=== PATIENT | male | born 1965 | race Caucasian/White ===

== ENCOUNTER 2016-07-29 08:53 | Emergency (ER) | payer BC, OTHER ==
[2016-07-29 09:00] VITALS: TEMP 97.6; BMI 33.0
[2016-07-29] MEDS ORDERED: KETOROLAC TROMETHAMINE 30 MG/1 ML VIAL IVPUSH ONE (09:06)
[2016-07-29] MEDS ORDERED: KETOROLAC TROMETHAMINE 30 MG/1 ML VIAL ONE (09:07)
--- NOTE | 2016-07-29 09:18 | PDOC ---
History of Present Illness - General Chief Complaint: Pain, Acute Stated Complaint: RIGHT KNEE PAIN Time Seen by Provider: 07/29/16 09:01 - History of Present Illness Initial Comments: 07/29/16 09:10 51-year-old male with a negative past medical history He is on no medications at this time, NKDA Patient works for the [employer] department, and this morning was on the job, picking up trash, when he slipped on black ice He fell and landed directly on his right knee He is complaining of severe right knee pain and swelling He denies any head trauma or loss of consciousness He denies any other injury She denies any ankle pain or hip pain He denies any calf pain He denies any other injury, and is complaining of severe right knee pain Past History - Past Medical History Allergies/Adverse Reactions: Allergies Allergy/AdvReac Type Severity Reaction Status Date / Time No Known Allergies Allergy Verified 07/29/16 08:54 Home Medications: Ambulatory Orders Amlodipine Besylate [Norvasc -] 5 mg PO DAILY #30 tablet 07/29/16 Lisinopril [Prinivil] 10 mg PO DAILY #30 tablet 07/29/16 Anemia: No Asthma: No Cancer: No Cardiac Disorders: No CVA: No COPD: No CHF: No Dementia: No Diabetes: No GI Disorders: No Disorders: No HTN: No Hypercholesterolemia: No Liver Disease: No Seizures: No Thyroid Disease: No Other medical history: DENIES - Psycho/Social/Smoking Cessation Hx Anxiety: No Suicidal Ideation: No Smoking Status: No Smoking History: Current every day smoker Have you smoked in the past 12 months: Yes Number of Cigarettes Smoked Daily: 5 Information on smoking cessation initiated: Yes 'Breaking Loose' booklet given: 07/29/16 Hx Alcohol Use: No Drug/Substance Use Hx: No Substance Use Type: None Hx Substance Use Treatment: No *Physical Exam - Vital Signs Last Vital Signs Temp Pulse Resp BP Pulse Ox 97.6 F 18 L 95 H 232/153 98 07/29/16 08:54 07/29/16 08:54 07/29/16 08:54 07/29/16 08:54 07/29/16 08:54 - Physical Exam Comments: 07/29/16 09:11 Physical exam Last Vital Signs Temp Pulse Resp BP Pulse Ox 97.6 F 18 L 95 H 232/153 98 07/29/16 08:54 07/29/16 08:54 07/29/16 08:54 07/29/16 08:54 07/29/16 08:54 Patient is in severe pain Alert and answering questions, head is normocephalic and atraumatic Right lower extremity- There is full range of motion of the right hip and right ankle There is no right calf tenderness There is bruising on the knee The quad tendon appears intact, and the patellar tendon appears intact There is tenderness stressing the medial collateral ligament There is no tenderness stressing the lateral collateral ligament There is a negative anterior draw sign There is some mild tenderness on the medial meniscus line There is no tenderness on the lateral meniscus line There is passive full range of motion of the knee, and patient is able to straighten the knee completely Distal neurovascular intact, Achilles tendon intact GENERAL: The patient is awake, alert, and fully oriented, and in no apparent distress. HEAD: Normal with no signs of trauma. EYES: conjunctiva are normal. ENT: Moist mucous membranes. NECK: Normal range of motion, supple LUNGS: Breath sounds equal, clear to auscultation bilaterally. No wheezes, and no crackles. HEART: Regular rate and rhythm, normal S1 and S2 without murmur, rub or gallop. ABDOMEN: Soft, nontender, normoactive bowel sounds. No guarding, no rebound. No masses appreciated. EXTREMITIES: Right lower extremity exam as noted above NEUROLOGICAL: Alert and answering questions, grossly nonfocal neurologic exam PSYCH: Normal mood, normal affect. SKIN: Warm, Dry, ED Treatment Course - LABORATORY CBC & Chemistry Diagram: 07/29/16 10:07 07/29/16 10:00 - RADIOLOGY Radiology Studies Ordered: Category Date Time Status FEMUR-RIGHT [RAD] Stat Radiology 07/29/16 09:07 Ordered KNEE 3 POS-RIGHT [RAD] Stat Radiology 07/29/16 09:07 Ordered Medical Decision Making - Medical Decision Making 07/29/16 09:18 Knee contusion, internal derangement of the knee Will need to recheck blood pressure when pain is under control-patient states that he has no known history of hypertension 07/29/16 09:57 Repeat blood pressure with pain improving-still very high-will start accelerated hypertension protocol Patient denies any chest pain, chest discomfort, shortness of breath, ankle edema, focal neurologic complaints, or any other complaints at this time other than his severe right knee pain from his acute injury Vital Signs - 24 hr 07/29/16 07/29/16 08:54 09:43 Temperature 97.6 F Pulse Rate 18 L Pulse Rate [ 100 H Apical] Respiratory 95 H 16 Rate Blood Pressure 232/153 Blood Pressure 224/148 [Left Arm] O2 Sat by Pulse 98 97 Oximetry (%) 07/29/16 11:16 Right knee series, and right femur series There is milder DJD, but there is no gross acute fracture or dislocation There is a crescent shaped density along the superior margin of the fibula on the lateral view only, suggestive of an old evulsion fracture Otherwise negative Of note, on the March 2016 that visit to the emergency department, his blood pressure was 187/136, indicating most likely long-standing untreated hypertension Patient given 10 mg of labetalol IV, and oral low dose lisinopril (10mg, K is 3.1), and then later amlodipine EKG Normal sinus rhythm 88, left axis deviation -44 Normal AV and IV conduction time There is a prolonged QT, with a QTC of 520 There is LVH by voltage criteria There are lateral T-wave inversions in 1, L, V5, and V6 There are other nonspecific ST-T wave abnormalities There is no old EKG available for comparison at this time Laboratory Results - last 24 hr 07/29/16 07/29/16 07/29/16 10:00 10:07 10:07 WBC 8.3 RBC 4.83 Hgb 15.0 Hct 43.9 MCV 91.0 MCHC 34.1 RDW 12.7 Plt Count 97 L MPV 10.5 Sodium 138 Potassium 3.1 L Chloride 97 L Carbon Dioxide 31 H Anion Gap 10 BUN 31 H Creatinine 2.2 H Creat Clearance w eGFR 31.84 Random Glucose 116 H Calcium 8.5 Total Bilirubin 1.0 AST 30 ALT 22 Alkaline Phosphatase 76 Creatine Kinase 253 H CK-MB (CK-2) Rel Index 1.4 Troponin I 0.13 Total Protein 6.1 L Albumin 3.8 Abnormal EKG, no chest pain, first troponin 0.13 BUN 31/creatinine 2.2, with an estimated GFR of 31 Vital Signs - 24 hr 07/29/16 07/29/16 07/29/16 08:54 09:43 10:20 Temperature 97.6 F Pulse Rate 18 L Pulse Rate [ 100 H 84 Apical] Respiratory 95 H 16 18 Rate Blood Pressure 232/153 Blood Pressure 224/148 256/166 [Left Arm] O2 Sat by Pulse 98 97 99 Oximetry (%) 07/29/16 07/29/16 10:40 10:55 Temperature Pulse Rate Pulse Rate [ 68 81 Apical] Respiratory 16 Rate Blood Pressure Blood Pressure 211/133 188/121 [Left Arm] O2 Sat by Pulse 100 Oximetry (%) Blood pressure starting to come down with meds will admit/place in observation accelerated hypertension-with evidence of end organ damage Internal derangement of right knee 07/29/16 11:40 Patient refuses admission to the hospital and wants to sign out AMA I explained to him that he has severe hypertension, probably long-standing based on the prior blood pressure in 04/03, with evidence of end organ damage As well as an abnormal EKG, and abnml labwork I explained to him that he could go into kidney failure, have a heart attack, or Patient absolutely refuses admission and states that he has "important things ( he) needs to do" Patient has decided to leave AMA The patient had a normal mental status examination, and understands his/her condition, and the risk of leaving (include specific details), including permanent disability and/or . The patient has had an opportunity to ask questions about his/her medical condition. The patient has been informed that he/she may return for care at any time, and has been referred to his/her own physician Started patient on lisinopril 10 mg-low-dose -due to his CKD - starting potassium 3.1 Also started patient on amlodipine 10 mg daily Regarding the severe hypertension- Stressed the importance of taking both blood pressure medications daily, and seeing a primary care physician [facility] for close follow-up Referred patient to primary care physician Regarding the knee-patient has seen Dr. Dickinson and Jose in the past, will go over to their office now Patient signed out AGAINST MEDICAL ADVICE *DC/Admit/Observation/Transfer Diagnosis at time of Disposition: Accelerated hypertension, Abnormal EKG, Abnormal blood test, Internal derangement of knee, Acute knee pain - Discharge Dispostion Disposition: AGAINST MEDICAL ADVICE Condition at time of disposition: Stable - Prescriptions Prescriptions: Amlodipine Besylate [Norvasc -] 5 mg PO DAILY #30 tablet Lisinopril [Prinivil] 10 mg PO DAILY #30 tablet - Referrals Referrals: Tariq Garcia MD [Staff Physician] - (orthopedics) Anastacio Del Cid MD [Staff Physician] - Jozef Fuentes MD [Staff Physician] - - Patient Instructions Printed Discharge Instructions: How to Use Crutches, High Blood Pressure, Reasons to Quit Smoking Additional Instructions: You are leaving AGAINST MEDICAL ADVICE-you are understand that you're EKG is abnormal, and you have evidence of end organ damage from your blood pressure being so high You understand that complications may include kidney failure, stroke, heart attack, or Please take your lisinopril and amlodipine daily, as prescribed Crutches, ice packs, and elevation for your knee, you are to go directly to Dr. Garcia's office now I spoke to Dahiana in the office Call the 2 primary care doctors I suggested, you need to be seen [facility] for your blood pressure - Post Discharge Activity Work/School Note: Back to Work
[2016-07-29] MEDS ORDERED: LABETALOL HCL 5 MG/1 ML (100MG/20 ML VIAL) IVPUSH ONE (09:58)
[2016-07-29] MEDS ORDERED: LISINOPRIL 10 MG TABLET (FP) PO ONE (09:58)
[2016-07-29] MEDS ORDERED: LABETALOL HCL 5 MG/1 ML (100MG/20 ML VIAL) ONE (10:10)
[2016-07-29] MEDS ORDERED: LISINOPRIL 5 MG TABLET (FP) ONE (10:10)
[2016-07-29 10:21] LABS: MCHC 34.1 g/dl (32.0-35.9); MEAN PLT VOLUME 10.5 fl (7.5-11.1); PLATELET COUNT 97 K/MM3 (134-434); RDW 12.7 % (11.9-15.9); WHITE BLOOD COUNT 8.3 K/mm3 (4.0-10.0)
[2016-07-29 10:45] LABS: ALBUMIN 3.8 g/dl (3.5-5.0); CALCIUM 8.5 mg/dl (8.4-10.2); CREATININE 2.2 mg/dl (0.6-1.3); TOT PROT 6.1 g/dl (6.4-8.3)
[2016-07-29 11:04] LABS: TROPONIN I (DFP) 0.13 ng/ml (0.03-0.50)
[2016-07-29] MEDS ORDERED: amLODIPine BESYLATE 5 MG TABLET (FP) PO ONE (11:15)
[2016-07-29] MEDS ORDERED: amLODIPine BESYLATE 5 MG TABLET (FP) ONE (11:31)
[2016-07-29 11:37] VITALS: BP 188/115; PULSE 73
--- NOTE | 2016-07-29 15:53 | EKG ---
Test Reason : Blood Pressure : / mmHG Vent. Rate : 088 BPM Atrial Rate : 088 BPM P-R Int : 152 ms QRS Dur : 102 ms QT Int : 430 ms P-R-T Axes : 027 -44 136 degrees QTc Int : 520 ms NORMAL SINUS RHYTHM POSSIBLE LEFT ATRIAL ENLARGEMENT LEFT AXIS DEVIATION LEFT VENTRICULAR HYPERTROPHY T WAVE ABNORMALITY, CONSIDER LATERAL ISCHEMIA WHEN COMPARED WITH ECG OF 28-JUN-2013 15:09, ST NOW DEPRESSED IN LATERAL LEADS T WAVE INVERSION NOW EVIDENT IN ANTEROLATERAL LEADS QT HAS LENGTHENED Confirmed by MD JUANCARLOS, HIPOLITO ([id number]) on 07/29/2016 3:52:56 PM Referred By: DR SORIA Confirmed By:HIPOLITO BAUER MD
[2016-08-01 13:12] LABS: CK MB 3.6 ng/ml (0.3-4.0)
== END 2016-07-29 11:56 | disposition left against medical advice (07) ==
LOC: FER 08:53
PROC: 3E0333Z Introduction of Anti-inflammatory into Peripheral Vein, Percutaneous Approach (ICD-10-PCS; principal; 2016-07-29)
PROC: 3E033GC Introduction of Other Therapeutic Substance into Peripheral Vein, Percutaneous Approach (ICD-10-PCS; 2016-07-29)
DX: M23.91 Unspecified internal derangement of right knee (principal); R79.89 Other specified abnormal findings of blood chemistry; R94.31 Abnormal electrocardiogram [ECG] [EKG]; I10 Essential (primary) hypertension; F17.210 Nicotine dependence, cigarettes, uncomplicated
CPT/HCPCS: 36415; 73552-TC-RT; 73562-TC-RT; 80053; 82550; 82553; 84484; 85027; 93005; 99285-25

== ENCOUNTER 2017-01-23 00:38 | Inpatient (IN) | payer BC ==
[2017-01-23] MEDS ORDERED: cloNIDine HCL 0.1 MG TABLET PO ONE ×3 (00:49→05:40)
--- NOTE | 2017-01-23 00:49 | PDOC ---
History of Present Illness - General Chief Complaint: Shortness of Breath Stated Complaint: FEELING SOB AND ANXIOUS Time Seen by Provider: 01/23/17 00:42 History Source: Patient Exam Limitations: No Limitations - History of Present Illness Initial Comments: 01/23/17 00:44 This is a more obese sedentary male with history of heavy cigarette use who comes in complaining of shortness of breath. Patient said that he does not have a doctor does not follow-up with the doctor does not take any medications however in the computer. He is listed as taking medication for hypertension. Patient on arrival in the emergency room was noted to have markedly elevated blood pressure. Patient denies any chest pain. Patient is complaining that when he tries to lie down he becomes very short of breath and has to get up again. Patient denies any nausea, diaphoresis, abdominal pain. Patient does have a history of anxiety and does appear to be anxious. PAST MEDICAL HISTORY: no significant history PAST SURGICAL HISTORY: no significant history FAMILY HISTORY: no pertinant history SOCIAL HISTORY: Pt lives with family and is employed. MEDICATIONS: reviewed ALLERGIES: As per nursing notes Review of Systems General: No fevers or chills, no weakness, no weight loss HEENT: No change in vision. No sore throat,. No ear pain CardioVascular: No chest pain or shortness of breath Respiratory:No cough, or wheezing. Gastrointestinal: no nausea, vomitting, diarrhea or constipation, No rectal bleeding Genitourinary: No dysuria, hematuria, or frequency Musculoskeletal: No joint or muscle pain or swelling Neurologic: No headache, vertigo, dizziness or loss of consciousness Psychiatric: nor depression Skin: No rashes or easy bruising Endocrine: no increased thirst or abnormal weight change Allergic: no skin or latex allergy All other systems reviewed and normal Exam: General: Well-nourished well-developed individual, no acute distress HEENT: Throat: Normal, tonsils normal, no erythema or exudate Neck: Supple, no meningeal signs, no lymphadenopathy Eyes::Pupils equal reactive and round, extraocular motion intact Chest: Nontender to palpation Cardiac: S1-S2 normal, regular rate and rhythm, no murmurs rubs or gallops Respiratory: Breath sounds are equal bilateral with rales bilateral bases Abdomen: Soft, nondistended, normal bowel sounds, nontender to palpation diffusely Extremities: Warm, dry, no cyanosis, clubbing, or edema Skin: No rashes Neuro: Alert and oriented x3, nonfocal exam, grossly intact, normal gait Psych: Normal mood and affect Medical decision making this is a 51-year-old obese male with history of hypertension who is non-med compliant. Patient's blood pressure is markedly elevated here in the emergency room and on exam he has some rales bilateral Patient's blood pressure will be lowered with by mouth medication clonidine 0.3 Labs including cardiacs, CBC, comp and BNP sent Chest x-ray ordered and EKG ordered Patient not given beta lorraine for his hypertension as he has history of asthma. Patient will need to be admitted to an inpatient telemetry bed Chest x-ray moderate amount of congestive heart failure. Patient given 40 mg of Lasix IV EKG shows sinus tachycardia at a rate of 103 with biatrial enlargement and left ventricular hypertrophy in addition to that there is some T's laterally concerning for some lateral ischemia. Troponin is positive and mildly elevated at 0.59. Patient's BNP is markedly elevated at 20,149. ICU bed was considered however in discussion with the box lining machine operator Dr. Sarmiento felt that patient would be stable to go to a regular telemetry bed. A telemetry bed [facility] is considered however there is no telemetry beds available. The patient's blood pressure is improving. Patient has no chest pain and no other complaints. There is a telemetry bed here at [place] patient will be put in a telemetry bed here at [place] under the hospitalist service. Past History - Past Medical History Allergies/Adverse Reactions: Allergies Allergy/AdvReac Type Severity Reaction Status Date / Time No Known Allergies Allergy Verified 01/23/17 00:39 Home Medications: Ambulatory Orders NK [No Known Home Medication] 01/23/17 Anemia: No Asthma: No Cancer: No Cardiac Disorders: No CVA: No COPD: No CHF: No Dementia: No Diabetes: No GI Disorders: No Disorders: No HTN: No Hypercholesterolemia: No Liver Disease: No Seizures: No Thyroid Disease: No - Psycho/Social/Smoking Cessation Hx Anxiety: No Suicidal Ideation: No Smoking Status: No Smoking History: Current every day smoker Have you smoked in the past 12 months: Yes Number of Cigarettes Smoked Daily: 5 'Breaking Loose' booklet given: 07/29/16 Hx Alcohol Use: No Drug/Substance Use Hx: No Substance Use Type: None Hx Substance Use Treatment: No ED Treatment Course - LABORATORY CBC & Chemistry Diagram: 01/23/17 00:45 01/23/17 00:45 Medical Decision Making - Critical Care Time Total Critical Care Time (minutes): 45 Critical Care Statement: The care of this patient involved high complexity decision making to prevent further life threatening deterioration of the patient 's condition and/or to evalute & treat vital organ system(s) failure or risk of failure. *DC/Admit/Observation/Transfer Diagnosis at time of Disposition: Hypertension Qualifiers: Hypertension type: unspecified Qualified Code(s): I10 - Essential (primary) hypertension CHF (congestive heart failure) Qualifiers: Congestive heart failure type: combined Congestive heart failure chronicity: unspecified congestive heart failure chronicity Qualified Code(s): I50.40 - Unspecified combined systolic (congestive) and diastolic (congestive) heart failure - Discharge Dispostion Condition at time of disposition: Stable Admit: Yes
[2017-01-23] MEDS ORDERED: cloNIDine HCL 0.1 MG TABLET ONE (00:50)
[2017-01-23] MEDS ORDERED: FUROSEMIDE 40 MG/4 ML INJECTABLE VIAL IVPUSH ONE (01:26)
[2017-01-23] MEDS ORDERED: FUROSEMIDE 40 MG/4 ML INJECTABLE VIAL ONE (01:26)
[2017-01-23 01:30] LABS: BASOPHIL 0.4 % (0-2.0); EOSINOPHIL 1.5 % (0-4.5); MCHC 34.8 g/dl (32.0-35.9); MEAN PLT VOLUME 10.3 fl (7.5-11.1); NEUTROPHILS 74.3 % (42.8-82.8); PLATELET COUNT 105 K/MM3 (134-434); RDW 14.1 % (11.9-15.9); WHITE BLOOD COUNT 11.8 K/mm3 (4.0-10.0)
[2017-01-23 01:33] LABS: URINE APPEARANCE CLEAR; URINE BILIRUBIN NEGATIVE (NEGATIVE); URINE BLOOD NEGATIVE (NEGATIVE); URINE COLOR LTYELLOW; URINE GLUCOSE (UA) NEGATIVE (NEGATIVE); URINE KETONE NEGATIVE (NEGATIVE); URINE LEUK ESTERASE NEGATIVE (NEGATIVE); URINE NITRITE NEGATIVE (NEGATIVE); URINE UROBILINOGEN NEGATIVE mg/dL (0.2-1.0)
[2017-01-23 01:43] LABS: URINE PROTEIN 3+ (NEGATIVE)
[2017-01-23 01:44] LABS: URINE RBC <1 /hpf (0-3); URINE WBC 1 /hpf (3-5)
[2017-01-23 01:54] LABS: ALBUMIN 3.4 g/dl (3.4-5.0); ANION GAP 10 (8-16); BILIRUBIN,TOTAL 0.9 mg/dL (0.2-1.0); CALCIUM 8.1 mg/dL (8.5-10.1); CO2 32 mmol/L (21-32); CREATININE 3.4 mg/dL (0.7-1.3); GLUCOSE,RANDOM 118 mg/dL (74-106); SGOT/AST 34 U/L (15-37); SGPT/ALT 43 U/L (12-78); TOT PROT 6.1 g/dl (6.4-8.2)
[2017-01-23 01:55] LABS: ALK PHOS 96 U/L (45-117)
[2017-01-23 02:09] LABS: TROPONIN I 0.59 ng/ml (0.00-0.05)
[2017-01-23] MEDS ORDERED: ALPRAZolam 0.25 MG TABLET PO STA (02:43)
[2017-01-23] MEDS ORDERED: ALPRAZolam 0.25 MG TABLET ONE (02:44)
[2017-01-23] MEDS ORDERED: POTASSIUM CHLORIDE TABS 20 MEQ TABLET.ER (FP) PO ONE (02:56)
[2017-01-23] MEDS ORDERED: ASPIRIN 81 MG CHEWABLE TABLETS PO ONE (02:57)
[2017-01-23] MEDS ORDERED: amLODIPine BESYLATE 5 MG TABLET (FP) PO ONE (02:58)
[2017-01-23] MEDS ORDERED: ASPIRIN 325 MG TABLET ONE (03:01)
[2017-01-23 05:09] VITALS: BMI 33.1
--- NOTE | 2017-01-23 07:55 | HP ---
CHIEF COMPLAINT: chest pain and shortness of breath PCP: "I don't have a doctor" HISTORY OF PRESENT ILLNESS: patient is a 51y/o male with a past medical history of hypertension (no medication) and hyperlipidemia (no medication). Patient report last week he experienced on episode of lightheadedness, diaphoresis, and chest pressure, while at work. Patient reports the symptoms resides subsided on its own and he attributed his symptoms to dehydration due to the heat and did not seek medical attention. Patient reports increased dyspnea upon exertion and orthopnea within the past week. Yesterday, evening he developed chest pressure and shortness of breath, as result he sought evaluaiton in the emergency department. ER course was notable for: (1) b/p 254/133 spo2 90% on room air (2) bnp 17755 troponin x 1 0.59 (3) chest xray, pulmonary vascular congestion (4) ekg sinus tachycardia, left axis deviation, t wave flattening Recent Travel: none PAST MEDICAL HISTORY: hypertension and hyperlipidemia PAST SURGICAL HISTORY: orif of left ankle Social History: resides at home with mother, pt is , employed [employer] at [employer] Smokin 1/2 pack a day smoker for 5 years quit one month a ago. Alcohol: social Drugs: none Family History: mother 80y/o alive and well, htn, hld father dementia Allergies No Known Allergies Allergy (Verified 01/23/17 00:39) HOME MEDICATIONS: Home Medications Medication Instructions Recorded NK [No Known Home Medication] 01/23/17 REVIEW OF SYSTEMS CONSTITUTIONAL: Absent: fever, chills, diaphoresis, generalized weakness, malaise, loss of appetite, weight change HEENT: Absent: rhinorrhea, nasal congestion, throat pain, throat swelling, difficulty swallowing, mouth swelling, ear pain, eye pain, visual changes CARDIOVASCULAR: Absent: chest pain, syncope, palpitations, irregular heart rate, lightheadedness , peripheral edema RESPIRATORY: Present: shortness of breath, dyspnea with exertion, orthopnea Absent: cough, wheezing, stridor, hemoptysis GASTROINTESTINAL: Absent: abdominal pain, abdominal distension, nausea, vomiting, diarrhea, constipation, melena, hematochezia GENITOURINARY: Absent: dysuria, frequency, urgency, hesitancy, hematuria, flank pain, genital pain MUSCULOSKELETAL: Absent: myalgia, arthralgia, joint swelling, back pain, neck pain SKIN: Absent: rash, itching, pallor HEMATOLOGIC/IMMUNOLOGIC: Absent: easy bleeding, easy bruising, lymphadenopathy, frequent infections ENDOCRINE: Absent: unexplained weight gain, unexplained weight loss, heat intolerance, cold intolerance NEUROLOGIC: Absent: headache, focal weakness or paresthesias, dizziness, unsteady gait, seizure, mental status changes, bladder or bowel incontinence PSYCHIATRIC: Absent: anxiety, depression, suicidal or homicidal ideation, hallucinations. PHYSICAL EXAMINATION Vital Signs - 24 hr 01/23/17 01/23/17 01/23/17 03:18 03:30 04:52 Temperature 98.7 F 98.7 F Pulse Rate 90 90 Respiratory 20 20 Rate Blood Pressure 190/120 190/120 Blood Pressure 187/116 [Right] O2 Sat by Pulse 97 Oximetry (%) 01/23/17 01/23/17 01/23/17 05:23 05:24 06:15 Temperature 98.4 F Pulse Rate 96 H 96 H 94 H Respiratory 20 18 18 Rate Blood Pressure 204/130 Blood Pressure [Right] O2 Sat by Pulse Oximetry (%) 01/23/17 06:50 Temperature Pulse Rate 98 H Respiratory Rate Blood Pressure 185/125 Blood Pressure [Right] O2 Sat by Pulse Oximetry (%) GENERAL: Awake, alert, and fully oriented, in no acute distress. HEAD: Normal with no signs of trauma. EYES: Pupils equal, round and reactive to light, extraocular movements intact, sclera anicteric, conjunctiva clear. No lid lag. EARS, NOSE, THROAT: Ears normal, nares patent, oropharynx clear without exudates. Moist mucous membranes. NECK: Normal range of motion, supple without lymphadenopathy, + JVD, or masses. LUNGS: Breath sounds equal, clear to auscultation bilaterally to apexes, No wheezes, + crackles and rales bilaterally to bases, No accessory muscle use. HEART: Regular rate and rhythm, normal S1 and S2, 2/6 systolic murmur, no rub or gallop. ABDOMEN: Soft, nontender, not distended, normoactive bowel sounds, no guarding, no rebound, no masses. + hepatomegaly negative splenomegaly. MUSCULOSKELETAL: Normal range of motion at all joints. No bony deformities or tenderness. No CVA tenderness. UPPER EXTREMITIES: 2+ pulses, warm, well-perfused. No cyanosis. No clubbing. No peripheral edema. LOWER EXTREMITIES: 2+ pulses, warm, well-perfused. No calf tenderness. +1 bilateral lower extremity edema. NEUROLOGICAL: Cranial nerves II-XII intact. Normal speech. Normal gait. PSYCHIATRIC: Cooperative. Good eye contact. Appropriate mood and affect. SKIN: Warm, dry, normal turgor, no rashes or lesions noted, normal capillary refill. ASSESSMENT/PLAN: 1) card acute systolic congestive heart failure - increase lasix 40mg IV BID - monitor I/O and daily weight - stat echo elevated troponin - unlikely acs, repeat ekg unchanged from prior, lopressor 5mg iv x 1 ordered - pending 2nd and 3rd troponin, hyperlipidemia - pending lipid profile hypertension - pt reports diagnosis of htn since the age of 21, no home medications - clonodine given in ED, start coreg and 1inch nitropaste to [facility] - Dr Oh, cardiology consulted at bedside 2) neph acute on chronic kidney disease - creatine 3.4 baseline 1.3, likely secondary to vascular congestion vs uncontrolled hypertension - pending ultrasound of kidney and bladder - appreciate nephrology input f/e/n - low sodium diet - replete potassium ppx - heparin - zantac - oob - scd dispo: requires inpatient telemetry care Problem List - Problem (1) CHF (congestive heart failure) Code(s): I50.9 - HEART FAILURE, UNSPECIFIED Qualifiers: Congestive heart failure type: combined Congestive heart failure chronicity: unspecified congestive heart failure chronicity Qualified Code(s ): I50.40 - Unspecified combined systolic (congestive) and diastolic (congestive ) heart failure (2) Hypertension Code(s): I10 - ESSENTIAL (PRIMARY) HYPERTENSION Qualifiers: Hypertension type: unspecified Qualified Code(s): I10 - Essential ( primary) hypertension (3) Accelerated hypertension Code(s): I10 - ESSENTIAL (PRIMARY) HYPERTENSION (4) Elevated troponin Code(s): R74.8 - ABNORMAL LEVELS OF OTHER SERUM ENZYMES Visit type - Emergency Visit Emergency Visit: Yes ED Registration Date: 01/23/17 Care time: The patient presented to the Emergency Department on the above date and was hospitalized for further evaluation of their emergent condition. - New Patient This patient is new to me today: Yes Date on this admission: 01/23/17 - Critical Care Critical Care patient: Yes Total Critical Care Time (in minutes): 45 Critical Care Statement: The care of this patient involved high complexity decision making to prevent further life threatening deterioration of the patient 's condition and/or to evalute & treat vital organ system(s) failure or risk of failure.
[2017-01-23] MEDS ORDERED: METOPROLOL TARTRATE 5 MG/5 ML VIAL IVPUSH ONE ×2 (08:30→19:09)
--- NOTE | 2017-01-23 08:42 | CON.CARD ---
Consult Consult Specialty:: Cardiology Referred by:: Dr. Novoa Reason for Consultation:: CHF, HTN - History of Present Illness Chief Complaint: SOB History of Present Illness: 51 yo obese male with long standing history of HTN (on no meds, and has not seen a physician for a "long time") and former smoker (quit 1 month ago), who was admitted with worsening dyspnea over the past several weeks which he attributed to "quitting smoking 1 month ago." He was found to be hypertensive with SBP 200s. He was given clonidine, furosemide, and dose of amlodipine 5 mg po x1 in ED. Currently denies chest pain, but continues to report dyspnea. Patient was also found to be in renal failure with Cr 3.4 today (Cr 2.2 on ). CXR demonstrated pulmonary vascular congestion with BNP ~ 20,000. No ischemic ECG changes on initial ECG. Repeat ECG this AM at 8:45 demonstrated LVH with associated ST-T abnormalities. Initial trop 0.59 with normal CK. - History Source History Provided By: Patient Limitations to Obtaining History: No Limitations - Past Medical History Cardio/Vascular: Yes: HTN Renal/: Yes: Renal Failure (Cr 2.2 in 07/2016, suspect due to hypertensive disease) - Past Surgical History Additional Surgical History: Right ankle fracture ORIF 06/2013 at [facility] - Alcohol/Substance Use Hx Alcohol Use: No History of Substance Use: reports: None - Smoking History Smoking history: Former smoker (Quit 1 month ago) Have you smoked in the past 12 months: Yes Aproximately how many cigarettes per day: 5 If you are a former smoker, when did you quit?: 1 MONTH AGO Home Medications - Allergies Allergies/Adverse Reactions: Allergies Allergy/AdvReac Type Severity Reaction Status Date / Time No Known Allergies Allergy Verified 01/23/17 00:39 - Home Medications Home Medications: Ambulatory Orders NK [No Known Home Medication] 01/23/17 Family Disease History - Family Disease History Family History: Denies (sudden cardiac or premature CAD) Review of Systems - Review of Systems Constitutional: denies: Chills, Diaphoresis, Fever, Night Sweats, Unintentional Wgt. Loss Eyes: reports: No Symptoms HENT: reports: No Symptoms Neck: reports: No Symptoms Cardiovascular: reports: Shortness of Breath. denies: Chest Pain, Edema, Palpitations Respiratory: reports: SOB, SOB on Exertion Gastrointestinal: reports: No Symptoms Genitourinary: reports: No Symptoms Breasts: reports: No Symptoms Reported Musculoskeletal: reports: No Symptoms Integumentary: reports: No Symptoms Neurological: reports: No Symptoms Endocrine: reports: No Symptoms Hematology/Lymphatic: reports: No Symptoms Psychiatric: reports: No Symptoms Vital Signs: Vital Signs Temperature 98.4 F 01/23/17 06:15 Pulse Rate 98 H 01/23/17 06:50 Respiratory Rate 18 01/23/17 06:15 Blood Pressure 185/125 01/23/17 06:50 O2 Sat by Pulse Oximetry (%) 97 01/23/17 04:52 Constitutional: Yes: Well Nourished, No Distress, Obese Eyes: Yes: Conjunctiva Clear, EOM Intact HENT: Yes: Atraumatic, Normocephalic Respiratory: Yes: CTA Bilaterally Gastrointestinal: Yes: Normal Bowel Sounds, Soft, Abdomen, Obese. No: Tenderness Cardiovascular: Yes: Regular Rate and Rhythm JVD: No Carotid Bruit: No Heart Sounds: Yes: S1, S2 Murmur: No: Systolic Murmur Extremities: Yes: WNL Edema: No Peripheral Pulses WNL: No Neurological: Yes: Alert, Oriented, Cran Nerves II-XII Intact ...Motor Strength: WNL Psychiatric: Yes: WNL - Other Data 01/23/17 ECG (at 12:58 AM): Sinus tachycardia, rate 103 bpm, left atrial enlargement, LAD, non-specific ST-T changes. 01/23/17 ECG (at 8:45 AM): Sinus rhythm, rate 88 bpm, left atrial enlargement, LVH with associated ST-T repolarization abnormalities, prolonged QT Imaging - Results Chest X-ray: Report Reviewed (01/23/17: Pulmonary vasculature congestion), Image Reviewed Assessment/Plan 51 yo obese male with long standing uncontrolled HTN (on no meds), former smoker (quit 1 month ago), who was admitted with decompensated CHF and renal failure, which I suspect are both due to long standing uncontrolled HTN. C 3.4 today (Cr 2.2 on 07/29/16) CXR demonstrated pulmonary vascular congestion with BNP ~ 20,000. ECG today demonstrated LVH with associated ST-T abnormalities. Initial trop 0.59 with normal CK. Low suspicion for ACS, trop elevation due to CHF and renal failure. RECS: Continue diuresis with furosemide 40 mg IV bid. Adjust as needed. Monitor lytes and renal function with diuresis. Recommend renal consult. Echocardiogram to assess LV function and structural heart disease. Start carvedilol 6.25 mg po bid, hydralazine 25 mg po bid, and apply 1" NTG paste. Monitor BP and adjust meds as needed. Continue to cycle troponins. Pending results of echo and clinical course, will determine if further cardiac work-up or intervention is indicated as inpatient. Will continue to follow.
[2017-01-23] MEDS ORDERED: NITROGLYCERIN 2% OINTMENT - 1GM PACKET TD ONE (09:10)
[2017-01-23 09:22] LABS: CHOLESTEROL 176 mg/dl
[2017-01-23 09:37] LABS: ANION GAP 9 (8-16); CALCIUM 8.2 mg/dl (8.4-10.2); CO2 32 mmol/L (22-28); CREATININE 3.8 mg/dl (0.6-1.3); GLUCOSE,RANDOM 105 mg/dl (74-106)
[2017-01-23] MEDS: HEPARIN NA (PORCINE) 5,000 UNITS/ML 1ML VIAL SQ SCH ×3 (09:38→21:03)
[2017-01-23] MEDS ORDERED: CARVEDILOL 6.25 MG TABLET (FP) PO SCH (10:00)
[2017-01-23] MEDS ORDERED: hydrALAZINE HCL 25 MG TABLET (FP) PO SCH (10:00)
--- NOTE | 2017-01-23 10:15 | CONSULT ---
Consult Consult Specialty:: Nephrology Reason for Consultation:: ALEXANDRA - History of Present Illness Chief Complaint: shortness of breath History of Present Illness: Pt is a 51 year old male who presents to the ER with shortness of breath. Pt says he has never been to a doctor. He does not take any medications. He was found to be in hypertensive emergency and admitted to the hospital. I was called to evaluate him for elevated creatinine. He denies dysuria or hematuria. He denies lower extremity edema. He denies nsaid use. He lives a sedentary life. He eats mostly fast foods. He is under a great deal of stress at home as he takes care of his mother. He denies chest pain or palpitations. He does snore at night. - History Source History Provided By: Patient, Medical Record - Past Surgical History Additional Surgical History: Right ankle fracture ORIF 06/2013 at [facility] - Alcohol/Substance Use Hx Alcohol Use: No History of Substance Use: reports: None - Smoking History Smoking history: Former smoker (Quit 1 month ago) Have you smoked in the past 12 months: Yes Aproximately how many cigarettes per day: 5 If you are a former smoker, when did you quit?: 1 MONTH AGO Home Medications - Allergies Allergies/Adverse Reactions: Allergies Allergy/AdvReac Type Severity Reaction Status Date / Time No Known Allergies Allergy Verified 01/23/17 00:39 - Home Medications Home Medications: Ambulatory Orders NK [No Known Home Medication] 01/23/17 Family Disease History - Family Disease History Family History: Denies Review of Systems - Review of Systems Constitutional: reports: Malaise Eyes: reports: No Symptoms HENT: reports: No Symptoms Neck: reports: No Symptoms Cardiovascular: reports: Shortness of Breath. denies: Edema Respiratory: reports: SOB, SOB on Exertion Gastrointestinal: reports: No Symptoms Genitourinary: reports: No Symptoms Musculoskeletal: reports: No Symptoms Integumentary: reports: No Symptoms Neurological: reports: No Symptoms Endocrine: reports: No Symptoms Hematology/Lymphatic: reports: No Symptoms Psychiatric: reports: Anxiety Physical Exam Vital Signs: Vital Signs Temperature 98.4 F 01/23/17 06:15 Pulse Rate 88 01/23/17 08:29 Respiratory Rate 18 01/23/17 09:00 Blood Pressure 220/126 01/23/17 09:00 O2 Sat by Pulse Oximetry (%) 96 01/23/17 09:00 Constitutional: Yes: Anxious Eyes: Yes: Conjunctiva Clear HENT: Yes: Atraumatic Neck: Yes: Supple Cardiovascular: Yes: S1, S2 Respiratory: Yes: On Nasal O2 Gastrointestinal: Yes: Soft, Abdomen, Obese Renal/: Yes: WNL Musculoskeletal: Yes: WNL Edema: No Integumentary: Yes: Tattoos Neurological: Yes: Oriented Psychiatric: Yes: Oriented Labs: CBC, BMP 01/23/17 09:05 Laboratory Tests 01/23/17 01/23/17 01/23/17 00:45 00:55 09:05 WBC 11.8 H Hgb 13.8 D Plt Count 105 L D Sodium 136 Potassium 3.9 D Chloride 95 L Carbon Dioxide 32 H Anion Gap 9 BUN 50 H D Creatinine 3.8 H D Urine Protein 3+ H Imaging - Results Chest X-ray: Report Reviewed (cardiomegaly) Problem List - Problems (1) CHF (congestive heart failure) Code(s): I50.9 - HEART FAILURE, UNSPECIFIED Qualifiers: Congestive heart failure type: combined Congestive heart failure chronicity: unspecified congestive heart failure chronicity Qualified Code(s ): I50.40 - Unspecified combined systolic (congestive) and diastolic (congestive ) heart failure (2) Elevated troponin Code(s): R74.8 - ABNORMAL LEVELS OF OTHER SERUM ENZYMES (3) Accelerated hypertension Code(s): I10 - ESSENTIAL (PRIMARY) HYPERTENSION (4) ALEXANDRA (acute kidney injury) Code(s): N17.9 - ACUTE KIDNEY FAILURE, UNSPECIFIED Assessment/Plan Current Medications Generic Name Dose Route Start Last Admin Trade Name John PRN Reason Stop Dose Admin Carvedilol 12.5 mg 01/23/17 22:00 Coreg - PO BID LUIS Furosemide 40 mg 01/23/17 14:00 Lasix Injection - IVPUSH BID@0600,1400 [facility] Heparin Sodium (Porcine) 5,000 unit 01/23/17 09:45 01/23/17 09:38 Heparin - SQ 5,000 unit TID [facility] Administration Hydralazine HCl 50 mg 01/23/17 22:00 Apresoline - PO BID [facility] Laboratory Tests 06/28/13 07/29/16 01/23/17 14:50 10:00 00:45 Creatinine 1.3 2.2 H 3.4 H D 01/23/17 09:05 Creatinine 3.8 H D Impression 1. CKD 2. ALEXANDRA 3. CHF 4. obesity 5. elevated TNI 6. HTN accelerated Plan - check prt to mate first ration - check ultrasound kidneys and bladder to r/o obstruction - pt has had abnormal kidney function since at least Jul of this year - will check leticia and anca as well - recommend pt stay in a monitored unit - will need renal workup - pt received dose of lasix of congestion - check echo - decrease BP by a MAP of 25 percent - monitor blood pressure closely - avoid nsaids and nephrotoxins - pt will need a PMD in the community as well - pt does snore at night, recommend pulmonary for a sleep study to evaluate for IZABEL - discussed with hospitalist today Dr Shane
[2017-01-23] MEDS ORDERED: CARVEDILOL 6.25 MG TABLET (FP) PO STA (11:07)
[2017-01-23] MEDS ORDERED: hydrALAZINE HCL 25 MG TABLET (FP) PO STA (11:07)
--- NOTE | 2017-01-23 14:19 | EKG ---
Test Reason : Blood Pressure : / mmHG Vent. Rate : 095 BPM Atrial Rate : 095 BPM P-R Int : 152 ms QRS Dur : 106 ms QT Int : 420 ms P-R-T Axes : 037 -30 123 degrees QTc Int : 527 ms SINUS RHYTHM LEFT ATRIAL ENLARGEMENT LEFT AXIS DEVIATION POSSIBLE SEPTAL INFARCT , AGE UNDETERMINED LEFT VENTRICULAR HYPERTROPHY WITH REPOLARIZATION ABNORMALITY PROLONGED QT ABNORMAL ECG WHEN COMPARED WITH ECG OF 29-JUL-2016 10:13, Q wave in V1-2 Confirmed by MANUELA PULIDO MD ([id number] on 01/23/2017 2:18:44 PM Referred By: MANSOOR Confirmed By:MANUELA PULIDO MD
--- NOTE | 2017-01-23 14:19 | EKG ---
Test Reason : Blood Pressure : / mmHG Vent. Rate : 103 BPM Atrial Rate : 103 BPM P-R Int : 156 ms QRS Dur : 104 ms QT Int : 396 ms P-R-T Axes : 061 -34 120 degrees QTc Int : 518 ms SINUS TACHYCARDIA BIATRIAL ENLARGEMENT LEFT AXIS DEVIATION LEFT VENTRICULAR HYPERTROPHY WITH REPOLARIZATION ABNORMALITY ABNORMAL ECG WHEN COMPARED WITH ECG OF 29-JUL-2016 10:13, LVH is now present Confirmed by MANUELA PULIDO MD ([id number]) on 01/23/2017 2:19:25 PM Referred By: MD STEEL Confirmed By:MANUELA PULIDO MD
[2017-01-23] MEDS: FUROSEMIDE 40 MG/4 ML INJECTABLE VIAL IVPUSH SCH (15:00)
[2017-01-23] MEDS ORDERED: ACETAMINOPHEN 325 MG TABLET (FP) PO ONE (18:45)
[2017-01-23] MEDS: amLODIPine BESYLATE 10 MG TABLET (FP) PO SCH (20:29)
[2017-01-23 20:51] LABS: URINE CREATININE 72.4 mg/dL (20-370)
[2017-01-23] MEDS: hydrALAZINE HCL 50 MG TABLET (FP) PO SCH (21:03)
[2017-01-23] MEDS: ZOLPIDEM TARTRATE 5 MG TABLET PO PRN (21:03)
[2017-01-23] MEDS ORDERED: CARVEDILOL 12.5 MG TABLET (FP) PO SCH (22:00)
[2017-01-23] MEDS ORDERED: hydrALAZINE HCL 50 MG TABLET (FP) PO SCH (22:00)
[2017-01-23 22:21] LABS: TROPONIN I (DFP) 0.32 ng/ml (0.03-0.50)
--- NOTE | 2017-01-24 05:41 | CONSULT ---
Consult - text type - Consultation Consultation Note: CARDIOLOGY NO DYSPNEA. NO ANGINA. FEELS "MUCH BETTER." MEDICATIONS REVIEWED. AWAKE ALERT, LYING FLAT. BP 165/95. PULSE 80 REG AFEBRILE RR 18/MINUTE NO JVD FAINT CRACKLES RIGHT BASE. NO WHEEZE. S1 AND S2 NORMAL NO GALLOP. NO MURMUR AUDIBLE NO EDEMA TELEMETRY : SINUS RHYTHM. BUN 50 CREAT 3.8 IMPRESSION; WORKING DX HYPERTENSIVE CARDIOMYOPATHY DEPRESSED LEFT VENTRICULAR SYSTOLIC FUNCTION EJECTION FRACTION 40-45 % 02/02 ECHOCARDIOGRAM. CAN NOT RULE OUT ISCHEMIC HEART DISEASE. HYPERTENSION NOT ADEQUATELY CONTROLLED BUT IMPROVED FROM ADMISSION. REC: INCREASE COREG TO 25 MG BID. ADD ISORDIL. DISCONTINUE TELEMETRY. OUT PATIENT NON INVASIVE CARDIAC EVALUATION DIRECTED BY RENAL/INTERNAL MEDICINE
[2017-01-24] MEDS: FUROSEMIDE 40 MG/4 ML INJECTABLE VIAL IVPUSH SCH ×2 (06:44→14:30)
[2017-01-24] MEDS: hydrALAZINE HCL 50 MG TABLET (FP) PO SCH ×3 (06:44→21:16)
[2017-01-24] MEDS: HEPARIN NA (PORCINE) 5,000 UNITS/ML 1ML VIAL SQ SCH ×3 (06:44→21:17)
[2017-01-24 08:08] LABS: MCH 31.8 pg (25.7-33.7); MEAN CELL VOLUME 93.5 fl (80-96); MEAN PLT VOLUME 10.3 fl (7.5-11.1); PLATELET COUNT 108 K/MM3 (134-434)
[2017-01-24] MEDS: ISOSORBIDE DINITRATE 10 MG TABLET (FP) PO SCH ×3 (08:20→17:34)
[2017-01-24 08:34] LABS: ALBUMIN 3.7 g/dl (3.5-5.0); ALK PHOS 66 U/L (32-92); ANION GAP 10 (8-16); CALCIUM 8.4 mg/dl (8.4-10.2); CO2 31 mmol/L (22-28); CREATININE 3.6 mg/dl (0.6-1.3); GLUCOSE,RANDOM 111 mg/dl (74-106); MAGNESIUM 2.1 mg/dL (1.8-2.4); SGOT/AST 32 U/L (10-42); SGPT/ALT 42 U/L (10-40); TOT PROT 6.3 g/dl (6.4-8.3)
[2017-01-24 09:23] LABS: BILIRUBIN,TOTAL 1.4 mg/dl (0.2-1.0)
[2017-01-24] MEDS ORDERED: POTASSIUM CHLORIDE TABS 20 MEQ TABLET.ER (FP) PO ONE (09:58)
[2017-01-24] MEDS: CARVEDILOL 25 MG TABLET (FP) PO SCH ×2 (10:19→21:17)
[2017-01-24] MEDS: amLODIPine BESYLATE 10 MG TABLET (FP) PO SCH (10:19)
--- NOTE | 2017-01-24 10:49 | PN ---
Physical Exam: SUBJECTIVE: Patient seen and examined, patient reports breathing is much improved, reports shortness of breath is improved, denies any chest pain or shortness of breath. OBJECTIVE: patient is a 51 y/o male with a past medical history of hypertension and hyperlipidemia, patient was admitted from the emergency department for acute systolic congestive heart failure, elevated troponin and uncontrolled hypertension. Vital Signs Period Temp Pulse Resp BP Sys/Pichardo Pulse Ox Last 24 Hr 98.0 F-98.6 F 74-90 16-19 153-191/84-115 95-98 GENERAL: The patient is awake, alert, and fully oriented, in no acute distress. HEAD: Normal with no signs of trauma. EYES: PERRL, extraocular movements intact, sclera anicteric, conjunctiva clear. No ptosis. ENT: Ears normal, nares patent, oropharynx clear without exudates, moist mucous membranes. NECK: Trachea midline, full range of motion, supple. LUNGS: Breath sounds equal, clear to auscultation bilaterally to apexes, no wheezes, crackles to bilateral bases, no accessory muscle use. HEART: Regular rate and rhythm, S1, S2 without murmur, rub or gallop. ABDOMEN: Soft, nontender, nondistended, normoactive bowel sounds, no guarding, no rebound, no hepatosplenomegaly, no masses. EXTREMITIES: 2+ pulses, warm, well-perfused, +1 lower extremity edema. NEUROLOGICAL: Cranial nerves II through XII grossly intact. Normal speech, gait not observed. PSYCH: Normal mood, normal affect. SKIN: Warm, dry, normal turgor, no rashes or lesions noted Laboratory Results - last 24 hr 01/23/17 01/23/17 01/24/17 16:40 21:00 07:00 WBC 12.0 H D RBC 4.30 Hgb 13.7 Hct 40.2 MCV 93.5 MCH 31.8 MCHC 34.0 RDW 13.0 Plt Count 108 L MPV 10.3 Sodium Potassium Chloride Carbon Dioxide Anion Gap BUN Creatinine Creat Clearance w eGFR Random Glucose Calcium Magnesium Total Bilirubin AST ALT Alkaline Phosphatase Creatine Kinase 99 Troponin I 0.32 Total Protein Albumin U Random Total Protein 92 H Urine Creatinine 72.4 Protein/Creatinin Ratio 0.125 01/24/17 07:00 WBC RBC Hgb Hct MCV MCH MCHC RDW Plt Count MPV Sodium 136 Potassium 3.5 Chloride 95 L Carbon Dioxide 31 H Anion Gap 10 BUN 54 H Creatinine 3.6 H Creat Clearance w eGFR 18.04 Random Glucose 111 H Calcium 8.4 Magnesium 2.1 Total Bilirubin 1.4 H D AST 32 ALT 42 H D Alkaline Phosphatase 66 Creatine Kinase Troponin I Total Protein 6.3 L Albumin 3.7 U Random Total Protein Urine Creatinine Protein/Creatinin Ratio Active Medications Generic Name Dose Route Start Last Admin Trade Name Freq PRN Reason Stop Dose Admin Amlodipine Besylate 10 mg 01/23/17 19:30 01/24/17 10:19 Norvasc - PO 10 mg DAILY LUIS Administration Carvedilol 25 mg 01/24/17 10:00 01/24/17 10:19 Coreg - PO 25 mg BID LUIS Administration Furosemide 40 mg 01/23/17 14:00 01/24/17 06:44 Lasix Injection - IVPUSH 40 mg BID@0600,1400 LUIS Administration Heparin Sodium (Porcine) 5,000 unit 01/23/17 09:45 01/24/17 06:44 Heparin - SQ 5,000 unit TID LUIS Administration Hydralazine HCl 50 mg 01/23/17 22:00 01/24/17 06:44 Apresoline - PO 50 mg TID LUIS Administration Isosorbide Dinitrate 10 mg 01/24/17 08:30 01/24/17 08:20 Isordil - PO 10 mg TIDISORDIL LUIS Administration Zolpidem Tartrate 5 mg 01/23/17 19:09 01/23/17 21:03 Ambien - PO 5 mg HS PRN Administration INSOMNIA imaging cxr (01/23/17) bilateral Pulmotor vascular congestion ultrasound of kidney/bladder: no hydronephrosis, no significant post void residual echo: grade II diastolic dysfunction, ef 40-45%, moderate pulmonary hypertension ASSESSMENT/PLAN: 1) card acute systolic congestive heart failure - continue lasix 40mg IV BID, 1kg weight loss noted, chest xray repeat today much improved - monitor I/O and daily weight - echo reviewed - troponin downtrended -start isordil hyperlipidemia - low fat diet, lipid profile noted hypertension - continue hydralazine, coreg and norvasc - Dr Oh, cardiology consulted at bedside 2) neph acute on chronic kidney disease secondary to chf vs uncontrolled htn - creatine 3.6 baseline 1.3, close monitoring - appreciate nephrology input f/e/n - low sodium diet - replete potassium ppx - heparin - zantac - oob - scd dispo: requires inpatient telemetry care Problem List - Problems (1) CHF (congestive heart failure) Code(s): I50.9 - HEART FAILURE, UNSPECIFIED Qualifiers: Congestive heart failure type: combined Congestive heart failure chronicity: unspecified congestive heart failure chronicity Qualified Code(s ): I50.40 - Unspecified combined systolic (congestive) and diastolic (congestive ) heart failure (2) Hypertension Code(s): I10 - ESSENTIAL (PRIMARY) HYPERTENSION Qualifiers: Hypertension type: unspecified Qualified Code(s): I10 - Essential ( primary) hypertension (3) Accelerated hypertension Code(s): I10 - ESSENTIAL (PRIMARY) HYPERTENSION (4) Elevated troponin Code(s): R74.8 - ABNORMAL LEVELS OF OTHER SERUM ENZYMES Visit type - Emergency Visit Emergency Visit: Yes ED Registration Date: 01/23/17 Care time: The patient presented to the Emergency Department on the above date and was hospitalized for further evaluation of their emergent condition. - New Patient This patient is new to me today: No - Critical Care Critical Care patient: No - Discharge Referral Referred to [facility] Med P.C.: No
[2017-01-24] MEDS ORDERED: PT OWN MED DRAWER 7, Y5N ONE ×2 (14:25→17:11)
[2017-01-24] MEDS: ASPIRIN 81 MG CHEWABLE TABLETS PO SCH (14:30)
--- NOTE | 2017-01-24 16:03 | PN ---
Progress Note, Physician History of Present Illness: Pt seen and examined at bedside. He is awake and alert. He says that he feels better today. He still however has some shortness of breath. - Current Medication List Current Medications: Active Medications Amlodipine Besylate (Norvasc -) 10 mg PO DAILY [facility] Last Admin: 01/24/17 10:19 Dose: 10 mg Aspirin (Asa -) 81 mg PO DAILY [facility] Last Admin: 01/24/17 14:30 Dose: 81 mg Carvedilol (Coreg -) 25 mg PO BID [facility] Last Admin: 01/24/17 10:19 Dose: 25 mg Furosemide (Lasix Injection -) 40 mg IVPUSH BID@0600,1400 [facility] Last Admin: 01/24/17 14:30 Dose: 40 mg Heparin Sodium (Porcine) (Heparin -) 5,000 unit SQ TID [facility] Last Admin: 01/24/17 14:29 Dose: 5,000 unit Hydralazine HCl (Apresoline -) 50 mg PO TID [facility] Last Admin: 01/24/17 14:29 Dose: 50 mg Isosorbide Dinitrate (Isordil -) 10 mg PO TIDISORDIL [facility] Last Admin: 01/24/17 14:29 Dose: 10 mg Zolpidem Tartrate (Ambien -) 5 mg PO HS PRN PRN Reason: INSOMNIA Last Admin: 01/23/17 21:03 Dose: 5 mg - Objective Vital Signs: Vital Signs Temperature 98.5 F 01/24/17 14:13 Pulse Rate 80 01/24/17 14:13 Respiratory Rate 18 01/24/17 14:13 Blood Pressure 160/97 01/24/17 14:13 O2 Sat by Pulse Oximetry (%) 94 L 01/24/17 14:13 Constitutional: Yes: Calm Eyes: Yes: Conjunctiva Clear HENT: Yes: Atraumatic Neck: Yes: Supple Cardiovascular: Yes: S1, S2 Respiratory: Yes: CTA Bilaterally Gastrointestinal: Yes: Soft, Abdomen, Obese Genitourinary: Yes: WNL Musculoskeletal: Yes: WNL Edema: No Neurological: Yes: Oriented Psychiatric: Yes: Oriented Labs: CBC, BMP 01/24/17 07:00 01/24/17 07:00 - ....Imaging Chest X-ray: Report Reviewed Ultrasound: Report Reviewed Problem List - Problems (1) CHF (congestive heart failure) Code(s): I50.9 - HEART FAILURE, UNSPECIFIED Qualifiers: Congestive heart failure type: combined Congestive heart failure chronicity: unspecified congestive heart failure chronicity Qualified Code(s ): I50.40 - Unspecified combined systolic (congestive) and diastolic (congestive ) heart failure (2) Elevated troponin Code(s): R74.8 - ABNORMAL LEVELS OF OTHER SERUM ENZYMES (3) Accelerated hypertension Code(s): I10 - ESSENTIAL (PRIMARY) HYPERTENSION (4) ALEXANDRA (acute kidney injury) Code(s): N17.9 - ACUTE KIDNEY FAILURE, UNSPECIFIED Assessment/Plan Current Medications Generic Name Dose Route Start Last Admin Trade Name Freq PRN Reason Stop Dose Admin Amlodipine Besylate 10 mg 01/23/17 19:30 01/24/17 10:19 Norvasc - PO 10 mg DAILY LUIS Administration Aspirin 81 mg 01/24/17 14:30 01/24/17 14:30 Asa - PO 81 mg DAILY LUIS Administration Carvedilol 25 mg 01/24/17 10:00 01/24/17 10:19 Coreg - PO 25 mg BID LUIS Administration Furosemide 40 mg 01/23/17 14:00 01/24/17 14:30 Lasix Injection - IVPUSH 40 mg BID@0600,1400 [facility]IS Administration Heparin Sodium (Porcine) 5,000 unit 01/23/17 09:45 01/24/17 14:29 Heparin - SQ 5,000 unit TID LUIS Administration Hydralazine HCl 50 mg 01/23/17 22:00 01/24/17 14:29 Apresoline - PO 50 mg TID LUIS Administration Isosorbide Dinitrate 10 mg 01/24/17 08:30 01/24/17 14:29 Isordil - PO 10 mg TIDISORDIL LUIS Administration Zolpidem Tartrate 5 mg 01/23/17 19:09 01/23/17 21:03 Ambien - PO 5 mg HS PRN Administration INSOMNIA Laboratory Tests 01/23/17 01/23/17 01/23/17 00:45 14:17 16:40 Creatinine B-Natriuretic Peptide 77898.10 H Protein/Creatinin Ratio 0.125 MARNIE Screen Pending c-ANCA Pending Proteinase 3 (PR3) Pending p-ANCA Pending Atypical p-ANCA Pending Myeloperoxidase Ab Pending 01/24/17 07:00 Creatinine 3.6 H B-Natriuretic Peptide Protein/Creatinin Ratio MARNIE Screen c-ANCA Proteinase 3 (PR3) p-ANCA Atypical p-ANCA Myeloperoxidase Ab Impression 1. CKD 2. ALEXANDRA 3. CHF 4. obesity 5. elevated TNI 6. HTN accelerated Plan - cxr shows resolving congestion - renal function is better today - renal workup in progress - cont current meds - cont with lasix - echo reviewed - pt does snore at night, recommend pulmonary for a sleep study to evaluate for IZABEL - discussed with hospitalist today Dr Shane
--- NOTE | 2017-01-24 21:09 | EKG ---
Test Reason : Blood Pressure : / mmHG Vent. Rate : 088 BPM Atrial Rate : 088 BPM P-R Int : 160 ms QRS Dur : 102 ms QT Int : 426 ms P-R-T Axes : 031 -29 144 degrees QTc Int : 515 ms NORMAL SINUS RHYTHM ABNORMAL LEFT AXIS DEVIATION POSSIBLE LEFT ATRIAL ENLARGEMENT LEFT VENTRICULAR HYPERTROPHY PROLONGED QT ABNORMAL ECG WHEN COMPARED WITH ECG OF 23-JAN-2017 05:45, PERSISTANT ST ELIVATION IN V2 CORRELATE CLINICALLY Confirmed by FAVIO VALDEZ MD ([id number]) on 01/24/2017 9:09:21 PM Referred By: VIVIEN PEÑA Confirmed By:FAVIO VALDEZ MD
[2017-01-24] MEDS: ZOLPIDEM TARTRATE 5 MG TABLET PO PRN (21:54)
[2017-01-25] MEDS ORDERED: ZOLPIDEM TARTRATE 5 MG TABLET PO ONE (00:09)
[2017-01-25] MEDS: HEPARIN NA (PORCINE) 5,000 UNITS/ML 1ML VIAL SQ SCH ×3 (05:59→21:35)
[2017-01-25] MEDS: FUROSEMIDE 40 MG/4 ML INJECTABLE VIAL IVPUSH SCH (05:59)
[2017-01-25] MEDS: hydrALAZINE HCL 50 MG TABLET (FP) PO SCH ×3 (05:59→21:35)
[2017-01-25 08:05] LABS: ALBUMIN 3.1 g/dl (3.5-5.0); ALK PHOS 56 U/L (32-92); ANION GAP 9 (8-16); BILIRUBIN,TOTAL 0.9 mg/dl (0.2-1.0); CALCIUM 8.2 mg/dl (8.4-10.2); CO2 31 mmol/L (22-28); CREATININE 3.6 mg/dl (0.6-1.3); GLUCOSE,RANDOM 106 mg/dl (74-106); MAGNESIUM 2.2 mg/dL (1.8-2.4); PHOSPHOROUS 4.5 mg/dl (2.5-4.6); SGOT/AST 25 U/L (10-42); SGPT/ALT 35 U/L (10-40); TOT PROT 5.5 g/dl (6.4-8.3)
[2017-01-25 08:14] LABS: BASOPHIL 0.1 % (0-2.0); EOSINOPHIL 1.9 % (0-4.5); MCH 32.7 pg (25.7-33.7); MEAN CELL VOLUME 93.5 fl (80-96); MEAN PLT VOLUME 10.6 fl (7.5-11.1); NEUTROPHILS 74.7 % (42.8-82.8); PLATELET COUNT 89 K/MM3 (134-434); RDW 13.2 % (11.9-15.9); WHITE BLOOD COUNT 8.5 K/mm3 (4.0-10.8)
[2017-01-25] MEDS: ISOSORBIDE DINITRATE 10 MG TABLET (FP) PO SCH (08:37)
[2017-01-25] MEDS ORDERED: ZOLPIDEM TARTRATE 5 MG TABLET PO PRN (08:38)
[2017-01-25] MEDS ORDERED: POTASSIUM CHLORIDE TABS 20 MEQ TABLET.ER (FP) PO ONE (09:00)
[2017-01-25] MEDS: ASPIRIN 81 MG CHEWABLE TABLETS PO SCH (09:40)
[2017-01-25] MEDS: amLODIPine BESYLATE 10 MG TABLET (FP) PO SCH (09:41)
[2017-01-25] MEDS: CARVEDILOL 25 MG TABLET (FP) PO SCH ×2 (09:41→21:34)
--- NOTE | 2017-01-25 10:46 | PN ---
Physical Exam: SUBJECTIVE: Patient seen and examined, reports feeling much better, ambulatory at bedside, denies any dyspnea upon exertion OBJECTIVE:: patient is a 51 y/o male with a past medical history of hypertension and hyperlipidemia, patient was admitted from the emergency department for acute systolic congestive heart failure, elevated troponin and uncontrolled hypertension. Vital Signs Period Temp Pulse Resp BP Sys/Pichardo Pulse Ox Last 24 Hr 98.3 F-98.9 F 79-88 18-22 148-182/85-98 93-96 GENERAL: The patient is awake, alert, and fully oriented, in no acute distress. HEAD: Normal with no signs of trauma. EYES: PERRL, extraocular movements intact, sclera anicteric, conjunctiva clear. No ptosis. ENT: Ears normal, nares patent, oropharynx clear without exudates, moist mucous membranes. NECK: Trachea midline, full range of motion, supple. LUNGS: Breath sounds equal, clear to auscultation bilaterally to apexes, no wheezes, diminished to bilateral bases, no accessory muscle use. HEART: Regular rate and rhythm, S1, S2 without murmur, rub or gallop. ABDOMEN: Soft, nontender, nondistended, normoactive bowel sounds, no guarding, no rebound, no hepatosplenomegaly, no masses. EXTREMITIES: 2+ pulses, warm, well-perfused, trace lower extremity edema. NEUROLOGICAL: Cranial nerves II through XII grossly intact. Normal speech, gait not observed. PSYCH: Normal mood, normal affect. SKIN: Warm, dry, normal turgor, no rashes or lesions noted Laboratory Results - last 24 hr 01/23/17 01/25/17 01/25/17 14:17 07:00 07:00 WBC 8.5 RBC 3.86 L Hgb 12.6 Hct 36.0 MCV 93.5 MCH 32.7 MCHC 35.0 RDW 13.2 Plt Count 89 L MPV 10.6 Neutrophils % 74.7 Lymphocytes % 14.9 Monocytes % 8.4 Eosinophils % 1.9 Basophils % 0.1 Sodium 137 Potassium 3.1 L Chloride 97 L Carbon Dioxide 31 H Anion Gap 9 BUN 57 H Creatinine 3.6 H Creat Clearance w eGFR 18.04 Random Glucose 106 Calcium 8.2 L Phosphorus 4.5 Magnesium 2.2 Total Bilirubin 0.9 D AST 25 D ALT 35 Alkaline Phosphatase 56 Total Protein 5.5 L Albumin 3.1 L MARNIE Screen Negative Active Medications Generic Name Dose Route Start Last Admin Trade Name Freq PRN Reason Stop Dose Admin Amlodipine Besylate 10 mg 01/23/17 19:30 01/25/17 09:41 Norvasc - PO 10 mg DAILY LUIS Administration Aspirin 81 mg 01/24/17 14:30 01/25/17 09:40 Asa - PO 81 mg DAILY LUIS Administration Carvedilol 25 mg 01/24/17 10:00 01/25/17 09:41 Coreg - PO 25 mg BID LUIS Administration Furosemide 40 mg 01/23/17 14:00 01/25/17 05:59 Lasix Injection - IVPUSH 40 mg BID@0600,1400 LUIS Administration Heparin Sodium (Porcine) 5,000 unit 01/23/17 09:45 01/25/17 05:59 Heparin - SQ 5,000 unit TID LUIS Administration Hydralazine HCl 50 mg 01/23/17 22:00 01/25/17 05:59 Apresoline - PO 50 mg TID LUIS Administration Isosorbide Dinitrate 20 mg 01/25/17 14:00 Isordil - PO TID LUIS Zolpidem Tartrate 10 mg 01/25/17 08:38 Ambien - PO HS PRN INSOMNIA imaging cxr (01/23/17) bilateral Pulmotor vascular congestion cxr (01/24/17) vascular congestion much improved ultrasound of kidney/bladder: no hydronephrosis, no significant post void residual echo: grade II diastolic dysfunction, ef 40-45%, moderate pulmonary hypertension ASSESSMENT/PLAN: 1) card acute systolic congestive heart failure - 3.6 kg weight loss noted, decrease lasix to 40mg iv qd - monitor I/O and daily weight - echo reviewed - troponin downtrended - continue isordil at 20mg tid hyperlipidemia - low fat diet, lipid profile noted hypertension - continue hydralazine, coreg and norvasc - Dr Oh, cardiology consulted at bedside 2) neph acute on chronic kidney disease secondary to chf vs uncontrolled htn - creatine 3.6 baseline 1.3, close monitoring - pending renal artery ultrasound to r/o stenosis - appreciate nephrology input f/e/n - low sodium diet - replete potassium ppx - heparin - zantac - oob - scd dispo: requires inpatient telemetry care Problem List - Problems (1) CHF (congestive heart failure) Code(s): I50.9 - HEART FAILURE, UNSPECIFIED Qualifiers: Congestive heart failure type: combined Congestive heart failure chronicity: unspecified congestive heart failure chronicity Qualified Code(s ): I50.40 - Unspecified combined systolic (congestive) and diastolic (congestive ) heart failure (2) Hypertension Code(s): I10 - ESSENTIAL (PRIMARY) HYPERTENSION Qualifiers: Hypertension type: unspecified Qualified Code(s): I10 - Essential ( primary) hypertension (3) Accelerated hypertension Code(s): I10 - ESSENTIAL (PRIMARY) HYPERTENSION (4) Elevated troponin Code(s): R74.8 - ABNORMAL LEVELS OF OTHER SERUM ENZYMES Visit type - Emergency Visit Emergency Visit: Yes ED Registration Date: 01/23/17 Care time: The patient presented to the Emergency Department on the above date and was hospitalized for further evaluation of their emergent condition. - New Patient This patient is new to me today: No - Critical Care Critical Care patient: No - Discharge Referral Referred to [facility] No
[2017-01-25] MEDS ORDERED: ALBUTEROL SO4 2.5/IPRATROPIUM 0.5 INH SOL 3 ML VIAL.NEB. NEB STA (12:14)
[2017-01-25] MEDS: ALBUTEROL SO4 2.5/IPRATROPIUM 0.5 INH SOL 3 ML VIAL.NEB. NEB PRN (12:29)
[2017-01-25] MEDS ORDERED: ALBUTEROL SO4 2.5/IPRATROPIUM 0.5 INH SOL 3 ML VIAL.NEB. NEB ONE (12:30)
[2017-01-25] MEDS: POLYETHYLENE GLYCOL 3350 119 GM BTL PO SCH (12:41)
[2017-01-25] MEDS ORDERED: ALPRAZolam 0.25 MG TABLET PO PRN (13:02)
--- NOTE | 2017-01-25 13:42 | PN ---
Progress Note, Physician History of Present Illness: Pt seen and examined at bedside. He is awake and alert. He feels that his breathing is improved. - Current Medication List Current Medications: Active Medications Albuterol/Ipratropium (Duoneb -) 1 amp NEB Q6H PRN PRN Reason: SHORT OF BREATH/WHEEZING Last Admin: 01/25/17 12:29 Dose: 1 amp Alprazolam (Xanax -) 0.5 mg PO Q8H PRN PRN Reason: ANXIETY Amlodipine Besylate (Norvasc -) 10 mg PO DAILY [facility] Last Admin: 01/25/17 09:41 Dose: 10 mg Aspirin (Asa -) 81 mg PO DAILY [facility] Last Admin: 01/25/17 09:40 Dose: 81 mg Carvedilol (Coreg -) 25 mg PO BID [facility] Last Admin: 01/25/17 09:41 Dose: 25 mg Furosemide (Lasix Injection -) 40 mg IVPUSH DAILY [facility] Heparin Sodium (Porcine) (Heparin -) 5,000 unit SQ TID [facility] Last Admin: 01/25/17 05:59 Dose: 5,000 unit Hydralazine HCl (Apresoline -) 50 mg PO TID [facility] Last Admin: 01/25/17 05:59 Dose: 50 mg Isosorbide Dinitrate (Isordil -) 20 mg PO TID [facility] Polyethylene Glycol (Miralax (For Daily Use) -) 17 gm PO DAILY [facility] Last Admin: 01/25/17 12:41 Dose: 17 gm Zolpidem Tartrate (Ambien -) 10 mg PO HS PRN PRN Reason: INSOMNIA - Objective Vital Signs: Vital Signs Temperature 98.0 F 01/25/17 13:00 Pulse Rate 72 01/25/17 13:00 Respiratory Rate 16 01/25/17 13:00 Blood Pressure 126/68 01/25/17 13:00 O2 Sat by Pulse Oximetry (%) 97 01/25/17 13:00 Constitutional: Yes: Calm Eyes: Yes: Conjunctiva Clear HENT: Yes: Atraumatic Neck: Yes: Supple Cardiovascular: Yes: S1, S2 Respiratory: Yes: CTA Bilaterally Gastrointestinal: Yes: Soft, Abdomen, Obese Genitourinary: Yes: WNL Musculoskeletal: Yes: WNL Edema: No Neurological: Yes: Oriented Psychiatric: Yes: Oriented Labs: CBC, BMP 01/25/17 07:00 08/09/17 07:00 Problem List - Problems (1) CHF (congestive heart failure) Code(s): I50.9 - HEART FAILURE, UNSPECIFIED Qualifiers: Congestive heart failure type: combined Congestive heart failure chronicity: unspecified congestive heart failure chronicity Qualified Code(s ): I50.40 - Unspecified combined systolic (congestive) and diastolic (congestive ) heart failure (2) Elevated troponin Code(s): R74.8 - ABNORMAL LEVELS OF OTHER SERUM ENZYMES (3) Accelerated hypertension Code(s): I10 - ESSENTIAL (PRIMARY) HYPERTENSION (4) ALEXANDRA (acute kidney injury) Code(s): N17.9 - ACUTE KIDNEY FAILURE, UNSPECIFIED Assessment/Plan Current Medications Generic Name Dose Route Start Last Admin Trade Name Freq PRN Reason Stop Dose Admin Albuterol/Ipratropium 1 amp 01/25/17 12:16 01/25/17 12:29 Duoneb - NEB 1 amp Q6H PRN Administration SHORT OF BREATH/WHEEZING Alprazolam 0.5 mg 01/25/17 13:02 Xanax - PO Q8H PRN ANXIETY Amlodipine Besylate 10 mg 01/23/17 19:30 01/25/17 09:41 Norvasc - PO 10 mg DAILY LUIS Administration Aspirin 81 mg 01/24/17 14:30 01/25/17 09:40 Asa - PO 81 mg DAILY [facility]IS Administration Carvedilol 25 mg 01/24/17 10:00 01/25/17 09:41 Coreg - PO 25 mg BID LUIS Administration Furosemide 40 mg 01/26/17 10:00 Lasix Injection - IVPUSH DAILY [facility] Heparin Sodium (Porcine) 5,000 unit 01/23/17 09:45 01/25/17 05:59 Heparin - SQ 5,000 unit TID LUIS Administration Hydralazine HCl 50 mg 01/23/17 22:00 01/25/17 05:59 Apresoline - PO 50 mg TID LUIS Administration Isosorbide Dinitrate 20 mg 01/25/17 14:00 Isordil - PO TID [facility]IS Polyethylene Glycol 17 gm 01/25/17 12:15 01/25/17 12:41 Miralax (For Daily Use) - PO 17 gm DAILY LUIS Administration Zolpidem Tartrate 10 mg 01/25/17 08:38 Ambien - PO HS PRN INSOMNIA Laboratory Tests 01/23/17 14:17 MARNIE Screen Negative c-ANCA Pending Proteinase 3 (PR3) Pending p-ANCA Pending Atypical p-ANCA Pending Myeloperoxidase Ab Pending Impression 1. CKD 2. ALEXANDRA 3. CHF 4. obesity 5. elevated TNI 6. HTN accelerated Plan - blood pressure stabilizing - can decrease lasix to daily - check renal artery doppler - repeat labs in am - renal workup in progress - pt does snore at night, recommend pulmonary for a sleep study to evaluate for IZABEL - discussed with hospitalist today Dr Shane
[2017-01-25] MEDS: ISOSORBIDE DINITRATE 20 MG TABLET (FP) PO SCH ×2 (14:05→21:35)
--- NOTE | 2017-01-25 14:10 | PN ---
Progress Note, Physician History of Present Illness: Doing well. No chest pain. Dyspnea improved. - Current Medication List Current Medications: Active Medications Albuterol/Ipratropium (Duoneb -) 1 amp NEB Q6H PRN PRN Reason: SHORT OF BREATH/WHEEZING Last Admin: 01/25/17 12:29 Dose: 1 amp Alprazolam (Xanax -) 0.5 mg PO Q8H PRN PRN Reason: ANXIETY Amlodipine Besylate (Norvasc -) 10 mg PO DAILY [facility] Last Admin: 01/25/17 09:41 Dose: 10 mg Aspirin (Asa -) 81 mg PO DAILY [facility] Last Admin: 01/25/17 09:40 Dose: 81 mg Carvedilol (Coreg -) 25 mg PO BID [facility] Last Admin: 01/25/17 09:41 Dose: 25 mg Furosemide (Lasix Injection -) 40 mg IVPUSH DAILY [facility] Heparin Sodium (Porcine) (Heparin -) 5,000 unit SQ TID [facility] Last Admin: 01/25/17 05:59 Dose: 5,000 unit Hydralazine HCl (Apresoline -) 50 mg PO TID [facility] Last Admin: 01/25/17 05:59 Dose: 50 mg Isosorbide Dinitrate (Isordil -) 20 mg PO TID [facility] Polyethylene Glycol (Miralax (For Daily Use) -) 17 gm PO DAILY [facility] Last Admin: 01/25/17 12:41 Dose: 17 gm Zolpidem Tartrate (Ambien -) 10 mg PO HS PRN PRN Reason: INSOMNIA - Objective Vital Signs: Vital Signs Temperature 98.0 F 01/25/17 13:00 Pulse Rate 72 01/25/17 13:00 Respiratory Rate 16 01/25/17 13:00 Blood Pressure 126/68 01/25/17 13:00 O2 Sat by Pulse Oximetry (%) 97 01/25/17 13:00 Constitutional: Yes: Well Nourished, No Distress Eyes: Yes: Conjunctiva Clear, EOM Intact HENT: Yes: Atraumatic, Normocephalic Cardiovascular: Yes: Regular Rate and Rhythm. No: JVD Respiratory: Yes: CTA Bilaterally Gastrointestinal: Yes: Normal Bowel Sounds, Soft Edema: No Neurological: Yes: Alert, Oriented Labs: CBC, BMP 01/25/17 07:00 01/25/17 07:00 Assessment/Plan 51 yo obese male with long standing uncontrolled HTN (on no meds), former smoker (quit 1 month ago), who was admitted with decompensated CHF and renal failure, which I suspect were both due to long standing uncontrolled HTN. Admission ECG demonstrated LVH with associated ST-T abnormalities. Admission trop 0.59 with normal CK. Low suspicion for ACS, trop elevation due to CHF and renal failure. C 3.6 today (Cr 2.2 on 07/29/16) CXR on 01/24 demonstrated improvement in pulmonary vascular congestion Echo demonstrated severe concentric LVH with moderate global hypokinesis with LVEF 40-45%, mod MR, mild AR, and mod pulmonary HTN. BP is better controlled on current regimen. RECS: Continue diuresis with furosemide 40 mg IV daily. Patient may also be changed to furosemide 80 mg po daily. Monitor lytes and renal function with diuresis. Continue carvedilol 25 mg po bid, amlodipine 10 mg po daily, hydralazine 50 mg po tid, and Isordil 20 mg po tid. Patient may be discharged from cardiac standpoint if he remains clinically stable. He will need outpatient follow-up in the office in 1 week and my office will contact patient to arrange for outpatient nuclear stress test. Further recs as per hospitalist and environmental remediation specialist. Will see prn. Please call with questions.
[2017-01-25] MEDS ORDERED: PT OWN MED DRAWER 7, Y5N ONE (21:25)
[2017-01-26 00:09] LABS: C-ANCA <1:20 titer (Neg:<1:20); MYELOPEROXIDASE ANTIBODY <9.0 U/mL (0.0-9.0); P-ANCA <1:20 titer (Neg:<1:20); PROTEINASE-3 ANTIBODY <3.5 U/mL (0.0-3.5)
[2017-01-26] MEDS ORDERED: PT OWN MED DRAWER 7, Y5N ONE (05:51)
[2017-01-26] MEDS: ISOSORBIDE DINITRATE 20 MG TABLET (FP) PO SCH (05:58)
[2017-01-26] MEDS: hydrALAZINE HCL 50 MG TABLET (FP) PO SCH (05:58)
[2017-01-26] MEDS: HEPARIN NA (PORCINE) 5,000 UNITS/ML 1ML VIAL SQ SCH (05:58)
[2017-01-26 07:55] LABS: ALK PHOS 52 U/L (32-92); ANION GAP 9 (8-16); BILIRUBIN,TOTAL 0.5 mg/dl (0.2-1.0); CALCIUM 8.1 mg/dl (8.4-10.2); CO2 30 mmol/L (22-28); CREATININE 3.7 mg/dl (0.6-1.3); GLUCOSE,RANDOM 99 mg/dl (74-106); SGOT/AST 23 U/L (10-42); SGPT/ALT 33 U/L (10-40); TOT PROT 5.1 g/dl (6.4-8.3)
[2017-01-26 08:05] LABS: BASOPHIL 0.6 % (0-2.0); EOSINOPHIL 2.3 % (0-4.5); MCH 31.5 pg (25.7-33.7); MCHC 33.3 g/dl (32.0-35.9); MEAN CELL VOLUME 94.7 fl (80-96); MEAN PLT VOLUME 10.6 fl (7.5-11.1); NEUTROPHILS 73.3 % (42.8-82.8); PLATELET COUNT 98 K/MM3 (134-434); RDW 13.3 % (11.9-15.9); WHITE BLOOD COUNT 7.7 K/mm3 (4.0-10.8)
[2017-01-26] MEDS ORDERED: POTASSIUM CHLORIDE TABS 20 MEQ TABLET.ER (FP) PO ONE (08:25)
[2017-01-26 09:40] VITALS: BP 169/86; PULSE 75; TEMP 98.1
[2017-01-26] MEDS: CARVEDILOL 25 MG TABLET (FP) PO SCH (09:43)
[2017-01-26] MEDS: amLODIPine BESYLATE 10 MG TABLET (FP) PO SCH (09:43)
[2017-01-26] MEDS: ASPIRIN 81 MG CHEWABLE TABLETS PO SCH (09:44)
[2017-01-26] MEDS: POLYETHYLENE GLYCOL 3350 119 GM BTL PO SCH (09:45)
[2017-01-26] MEDS ORDERED: FUROSEMIDE 40 MG/4 ML INJECTABLE VIAL IVPUSH SCH (10:00)
--- NOTE | 2017-01-26 11:21 | DS ---
Physical Exam: SUBJECTIVE: Patient seen and examined, reports feeling well, denies any chest pain or shortness of breath. OBJECTIVE:patient is a 51y/o male with a past medical history of hypertension ( no medication) and hyperlipidemia (no medication). Patient report last week he experienced on episode of lightheadedness, diaphoresis, and chest pressure, while at work. Patient reports the symptoms resides subsided on its own and he attributed his symptoms to dehydration due to the heat and did not seek medical attention. Patient reports increased dyspnea upon exertion and orthopnea within the past week. Yesterday, evening he developed chest pressure and shortness of breath, as result he sought evaluaiton in the emergency department. ER course was notable for: (1) b/p 254/133 spo2 90% on room air (2) bnp 61618 troponin x 1 0.59 (3) chest xray, pulmonary vascular congestion (4) ekg sinus tachycardia, left axis deviation, t wave flattening Vital Signs Period Temp Pulse Resp BP Sys/Pichardo Pulse Ox Last 24 Hr 98.0 F-99.0 F 72-84 16-20 126-169/68-87 93-97 PHYSICAL EXAM GENERAL: The patient is awake, alert, and fully oriented, in no acute distress. HEAD: Normal with no signs of trauma. EYES: PERRL, extraocular movements intact, sclera anicteric, conjunctiva clear. No ptosis. ENT: Ears normal, nares patent, oropharynx clear without exudates, moist mucous membranes. NECK: Trachea midline, full range of motion, supple. LUNGS: Breath sounds equal, clear to auscultation bilaterally to apexes, no wheezes, diminished to bilateral bases, no accessory muscle use. HEART: Regular rate and rhythm, S1, S2 without murmur, rub or gallop. ABDOMEN: Soft, nontender, nondistended, normoactive bowel sounds, no guarding, no rebound, no hepatosplenomegaly, no masses. EXTREMITIES: 2+ pulses, warm, well-perfused, trace lower extremity edema. NEUROLOGICAL: Cranial nerves II through XII grossly intact. Normal speech, gait not observed. PSYCH: Normal mood, normal affect. SKIN: Warm, dry, normal turgor, no rashes or lesions noted LABS Laboratory Results - last 24 hr 08/07/17 08/10/17 08/10/17 14:17 07:24 07:24 WBC 7.7 RBC 3.58 L Hgb 11.3 L D Hct 33.9 L MCV 94.7 MCH 31.5 MCHC 33.3 RDW 13.3 Plt Count 98 L MPV 10.6 Neutrophils % 73.3 Lymphocytes % 15.5 Monocytes % 8.3 Eosinophils % 2.3 Basophils % 0.6 D Sodium 136 Potassium 3.3 L Chloride 97 L Carbon Dioxide 30 H Anion Gap 9 BUN 55 H Creatinine 3.7 H Creat Clearance w eGFR 17.48 Random Glucose 99 Calcium 8.1 L Total Bilirubin 0.5 D AST 23 ALT 33 Alkaline Phosphatase 52 Total Protein 5.1 L Albumin 3.0 L MARNIE Screen Negative c-ANCA <1:20 Proteinase 3 (PR3) <3.5 p-ANCA <1:20 Atypical p-ANCA <1:20 Myeloperoxidase Ab <9.0 imaging cxr (01/23/17) bilateral Pulmotor vascular congestion cxr (01/24/17) vascular congestion much improved ultrasound of kidney/bladder: no hydronephrosis, no significant post void residual echo: grade II diastolic dysfunction, ef 40-45%, moderate pulmonary hypertension renal artery ultrasound, no significant renal artery stenosis HOSPITAL COURSE: * acute systolic congestive heart failure, patient diuresed, 3.6 kg weight loss noted, patient transitioned to PO lasix, patient placed on isordil 20mg tid, cardiology Dr Oh, consulted and followed. * troponin noted to be elevated and downtrended * patient has a pmh of hyperlipidemia, low fat diet encouraged lipid profile noted * hypertension, placed on hydralazine, coreg and norvasc with good control * acute on chronic kidney disease, secondary to chf vs uncontrolled htn, creatine 3.6 baseline 1.3,nephrology, Dr Desai consulted and followed. Date of Admission:01/23/17 Date of Discharge: 01/26/17 Minutes to complete discharge: 45 Discharge Summary Reason For Visit: FEELING SOB AND ANXIOUS Current Active Problems ALEXANDRA (acute kidney injury) (Acute) CHF (congestive heart failure) (Acute) Elevated troponin (Acute) Hypertension (Acute) Condition: Stable - Instructions Diet, Activity, Other Instructions: resume low sodium/cholesterol diet continue taking lasix, coreg, norvasc, hydralazine, daily as prescribed please follow up with nephrology, cardiology, and your primary care physician within 1 week please follow up with Dr Duffy, pulmonary within 2 weeks if any new or persistent symptoms develop please return to the emergency department Referrals: Lonnie Duffy MD [Staff Physician] - Zach Ramirez MD [Staff Physician] - 1 Week Nic Shane MD [Staff Physician] - 1 Week Hugo Oh MD [Staff Physician] - 1 Week - Home Medications Comprehensive Discharge Medication List: Ambulatory Orders NK [No Known Home Medication] 01/23/17 Problem List - Problems (1) CHF (congestive heart failure) Code(s): I50.9 - HEART FAILURE, UNSPECIFIED Qualifiers: Congestive heart failure type: combined Congestive heart failure chronicity: unspecified congestive heart failure chronicity Qualified Code(s ): I50.40 - Unspecified combined systolic (congestive) and diastolic (congestive ) heart failure (2) Hypertension Code(s): I10 - ESSENTIAL (PRIMARY) HYPERTENSION Qualifiers: Hypertension type: unspecified Qualified Code(s): I10 - Essential ( primary) hypertension (3) Accelerated hypertension Code(s): I10 - ESSENTIAL (PRIMARY) HYPERTENSION (4) Elevated troponin Code(s): R74.8 - ABNORMAL LEVELS OF OTHER SERUM ENZYMES This patient is new to me today: No Emergency Visit: Yes ED Registration Date: 01/23/17 Care time: The patient presented to the Emergency Department on the above date and was hospitalized for further evaluation of their emergent condition. Critical Care patient: No - Discharge Referral Referred to [facility] No
[2017-01-26] MEDS ORDERED: MAGNESIUM CITRATE 300 ML BOTTLE PO ONE (11:25)
[2017-01-26] MEDS: ALBUTEROL SO4 2.5/IPRATROPIUM 0.5 INH SOL 3 ML VIAL.NEB. NEB PRN (11:33)
[2017-01-26] MEDS ORDERED: ISOSORBIDE DINITRATE 20 MG TABLET (FP) PO SCH (13:00)
--- NOTE | 2017-01-26 13:25 | PN ---
Progress Note, Physician History of Present Illness: Pt seen and examined at bedside. He denies shortness of breath. He is awake and alert. He is eager to go home. - Current Medication List Current Medications: Active Medications Albuterol/Ipratropium (Duoneb -) 1 amp NEB Q6H PRN PRN Reason: SHORT OF BREATH/WHEEZING Last Admin: 01/26/17 11:33 Dose: 1 amp Alprazolam (Xanax -) 0.5 mg PO Q8H PRN PRN Reason: ANXIETY Last Admin: 01/26/17 06:09 Dose: 0.5 mg Amlodipine Besylate (Norvasc -) 10 mg PO DAILY [facility] Last Admin: 01/26/17 09:43 Dose: 10 mg Aspirin (Asa -) 81 mg PO DAILY [facility] Last Admin: 01/26/17 09:44 Dose: 81 mg Carvedilol (Coreg -) 25 mg PO BID [facility] Last Admin: 01/26/17 09:43 Dose: 25 mg Furosemide (Lasix Injection -) 40 mg IVPUSH DAILY [facility] Last Admin: 01/26/17 09:44 Dose: 40 mg Heparin Sodium (Porcine) (Heparin -) 5,000 unit SQ TID [facility] Last Admin: 01/26/17 05:58 Dose: 5,000 unit Hydralazine HCl (Apresoline -) 50 mg PO TID [facility] Last Admin: 01/26/17 05:58 Dose: 50 mg Isosorbide Dinitrate (Isordil -) 20 mg PO TIDISORDIL [facility] Last Admin: 01/26/17 12:36 Dose: 20 mg Polyethylene Glycol (Miralax (For Daily Use) -) 17 gm PO DAILY [facility] Last Admin: 01/26/17 09:45 Dose: 17 gm Zolpidem Tartrate (Ambien -) 10 mg PO HS PRN PRN Reason: INSOMNIA - Objective Vital Signs: Vital Signs Temperature 98.1 F 01/26/17 09:39 Pulse Rate 75 01/26/17 09:39 Respiratory Rate 18 01/26/17 09:39 Blood Pressure 169/86 01/26/17 09:39 O2 Sat by Pulse Oximetry (%) 96 01/26/17 09:00 Constitutional: Yes: Calm Eyes: Yes: Conjunctiva Clear HENT: Yes: Atraumatic Neck: Yes: Supple Cardiovascular: Yes: S1, S2 Respiratory: Yes: CTA Bilaterally Gastrointestinal: Yes: Soft, Abdomen, Obese Genitourinary: Yes: WNL Musculoskeletal: Yes: WNL Extremities: Yes: WNL Edema: No Neurological: Yes: Oriented Psychiatric: Yes: Oriented Labs: CBC, BMP 01/26/17 07:24 01/26/17 07:24 Problem List - Problems (1) CHF (congestive heart failure) Code(s): I50.9 - HEART FAILURE, UNSPECIFIED Qualifiers: Congestive heart failure type: combined Congestive heart failure chronicity: unspecified congestive heart failure chronicity Qualified Code(s ): I50.40 - Unspecified combined systolic (congestive) and diastolic (congestive ) heart failure (2) Elevated troponin Code(s): R74.8 - ABNORMAL LEVELS OF OTHER SERUM ENZYMES (3) Accelerated hypertension Code(s): I10 - ESSENTIAL (PRIMARY) HYPERTENSION (4) ALEXANDRA (acute kidney injury) Code(s): N17.9 - ACUTE KIDNEY FAILURE, UNSPECIFIED Assessment/Plan Current Medications Generic Name Dose Route Start Last Admin Trade Name Freq PRN Reason Stop Dose Admin Albuterol/Ipratropium 1 amp 01/25/17 12:16 01/26/17 11:33 Duoneb - NEB 1 amp Q6H PRN Administration SHORT OF BREATH/WHEEZING Alprazolam 0.5 mg 01/25/17 13:02 01/26/17 06:09 Xanax - PO 0.5 mg Q8H PRN Administration ANXIETY Amlodipine Besylate 10 mg 01/23/17 19:30 01/26/17 09:43 Norvasc - PO 10 mg DAILY [facility] Administration Aspirin 81 mg 01/24/17 14:30 01/26/17 09:44 Asa - PO 81 mg DAILY [facility] Administration Carvedilol 25 mg 01/24/17 10:00 01/26/17 09:43 Coreg - PO 25 mg BID [facility]IS Administration Furosemide 40 mg 01/26/17 10:00 01/26/17 09:44 Lasix Injection - IVPUSH 40 mg DAILY [facility] Administration Heparin Sodium (Porcine) 5,000 unit 01/23/17 09:45 01/26/17 05:58 Heparin - SQ 5,000 unit TID [facility]IS Administration Hydralazine HCl 50 mg 01/23/17 22:00 01/26/17 05:58 Apresoline - PO 50 mg TID [facility] Administration Isosorbide Dinitrate 20 mg 01/26/17 13:00 01/26/17 12:36 Isordil - PO 20 mg TIDISORDIL [facility] Administration Polyethylene Glycol 17 gm 01/25/17 12:15 01/26/17 09:45 Miralax (For Daily Use) - PO 17 gm DAILY [facility] Administration Zolpidem Tartrate 10 mg 01/25/17 08:38 Ambien - PO HS PRN INSOMNIA Laboratory Tests 01/23/17 14:17 MARNIE Screen Negative c-ANCA <1:20 Proteinase 3 (PR3) <3.5 p-ANCA <1:20 Atypical p-ANCA <1:20 Myeloperoxidase Ab <9.0 Impression 1. CKD 2. ALEXANDRA 3. CHF 4. obesity 5. elevated TNI 6. HTN accelerated 7. hypokalemia Plan - cont current meds - replace potassium - renal workup negative so far - doppler negative for SHARIFA - will see pt in office - cardio input appreciated. he will follow with cardiology for a stress test. Pending the stress test results and if he is able to hold aspirin for 7 days, we will do a kidney biopsy - he will see pulmonary for a sleep study - discussed diet at length - discussed with medical team Dr Shane
== END 2017-01-26 13:30 | disposition home or self-care (01) | DRG 291 ==
LOC: FER 00:38 → FM/S 03:09
PROVIDERS: ADMIT Internal Medicine; ATTEND Nurse Practitioner Family
DX: I13.0 Hypertensive heart and chronic kidney disease with heart failure and stage 1 through stage 4 chronic kidney disease, or unspecified chronic kidney disease (principal); I50.21 Acute systolic (congestive) heart failure; N17.9 Acute kidney failure, unspecified; N18.9 Chronic kidney disease, unspecified; E78.5 Hyperlipidemia, unspecified; E66.9 Obesity, unspecified; Z68.33 Body mass index [BMI] 33.0-33.9, adult; Z87.891 Personal history of nicotine dependence
CPT/HCPCS: 36415; 71010-TC; 71020-TC; 76775-TC; 76856-TC; 80048; 80053; 80061; 81003; 81015; 82436; 82570; 83520; 83735; 83880; 84100; 84133; 84156; 84300; 84484; 85025; 85027; 86038; 86256; 93005; 93010; 93306-TC; 93976; 94640; 99284-25; J1644

== ENCOUNTER 2017-04-09 01:50 | Emergency (ER) | payer BC ==
--- NOTE | 2017-04-09 01:52 | PDOC ---
History of Present Illness - General Chief Complaint: Nausea/Vomiting Stated Complaint: NAUSEA/VOMITING Time Seen by Provider: 04/09/17 01:52 - History of Present Illness Initial Comments: This 52-year-old man with a history of CHF/hypertension/renal insufficiency brought in by ambulance with a few hour history of nausea and vomiting accompanied by lightheadedness. According to the patient he ate fish (cod) prepared at home at approximately 8 PM. At 12 midnight he began to feel nauseated. Over the next hour, he vomited twice at home. Patient states this was partially digested food without blood or coffee grounds. He had no diarrhea or significant abdominal pain. He denies chest pain/shortness of breath/diaphoresis. He vomited once in ambulance during transport. On arrival, patient states that he is comfortable without further nausea Patient has not had diarrhea or constipation recently. He denies fever/chills. No known contacts with people with similar history. No recent travel. Patient taking all medications as prescribed. Patient scheduled to have cardiac stress test on April [address] 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 Son Past History - Past Medical History Allergies/Adverse Reactions: Allergies Allergy/AdvReac Type Severity Reaction Status Date / Time No Known Allergies Allergy Verified 01/23/17 00:39 Home Medications: Ambulatory Orders Alprazolam [Xanax] 0.25 mg PO Q8H PRN #15 tablet MDD 3 01/26/17 Amlodipine Besylate [Norvasc -] 10 mg PO DAILY #30 tablet 01/26/17 Aspirin [ASA -] 81 mg PO DAILY tab.chew 01/26/17 Carvedilol [Coreg -] 25 mg PO BID #60 tablet 01/26/17 Furosemide [Lasix -] 80 mg PO DAILY #60 tablet 01/26/17 Hydralazine HCl [Apresoline -] 50 mg PO TID #90 tablet 01/26/17 Isosorbide Dinitrate [Isordil -] 20 mg PO TID #90 tablet 01/26/17 Polyethylene Glycol 3350 [Miralax 119 gm Btl -] 17 gm PO DAILY #1 bottle Anemia: No Asthma: No Cancer: No Cardiac Disorders: No CVA: No COPD: No CHF: No Dementia: No Diabetes: No GI Disorders: No Disorders: No HTN: No Hypercholesterolemia: No Liver Disease: No Seizures: No Thyroid Disease: No - Suicide/Smoking/Psychosocial Hx Smoking Status: No Smoking History: Former smoker (Quit 1 month ago) Have you smoked in the past 12 months: Yes Number of Cigarettes Smoked Daily: 5 If you are a former smoker, when did you quit?: 1 MONTH AGO 'Breaking Loose' booklet given: 07/29/16 Hx Alcohol Use: No Drug/Substance Use Hx: No Substance Use Type: None Hx Substance Use Treatment: No Review of Systems - Review of Systems Able to Perform ROS?: Yes Comments:: 12 point review of systems is negative except for what is noted in the history of present illness *Physical Exam - Physical Exam Comments: GENERAL: Adult male, alert and oriented 3, no acute distress HEAD: Normal with no signs of trauma. EYES: PERRLA, EOMI, sclera anicteric, conjunctiva clear. ENT: Ears normal, nares patent, oropharynx clear without exudates. Dry mucous membranes. NECK: Normal range of motion, supple without lymphadenopathy, JVD, or masses. LUNGS: Breath sounds equal, clear to auscultation bilaterally. No wheezes, and no crackles. HEART:Regular rate and rhythm, normal S1 and S2 without murmur, rub or gallop. ABDOMEN:.normal bowel sounds No guarding,tenderness or rebound.No masses No distention. EXTREMITIES: Normal range of motion, no edema. No clubbing or cyanosis. No erythema, or tenderness. NEUROLOGICAL: Cranial nerves II through XII grossly intact. Normal speech. No focal neurological deficits. MUSCULOSKELETAL: Back non-tender to palpation, no CVA tenderness SKIN: Warm, Dry, normal turgor, no rashes or lesions noted. Medical Decision Making - Medical Decision Making 04/09/17 03:08 52-year-old man with a history of hypertension/CHF/renal insufficiency presented with a few hour history of nausea and vomiting. Exam notable for dry mucous membranes but no other significant findings. Blood pressure measured at 157/95 with heart rate at 80/minute Patient denied nausea soon after presentation. He denies chest pain/abdominal pain/diaphoresis/palpitations/shortness of breath. He states that he feels very stressed pending his third cardiology stress test on apr 11(states that he failed previous 2 tests) He refused any laboratory evaluation stating that he was "tired of needles". He was noted to the patient that, although he only vomited 2 times, he could still have significant electrolyte abnormalities, especially hypokalemia. Since he was on medication that could cause low potassium levels, it was very important to know what his current K+ level was. Patient understood this and continued to refuse any laboratory evaluation. He was allowed to drink some of the bottled water that he brought with him. He tolerated this well without further lightheadedness/abdominal discomfort/nausea or vomiting. The patient states that he just "wants to go home" Patient discharged with instructions to maintain clear liquids and advance diet cautiously. He should return to the ER if he has further vomiting or experiences lightheadedness. He should follow-up with Dr. Ramirez on April 10. He should follow-up with his apartment maintenance worker on stress testing *DC/Admit/Observation/Transfer Diagnosis at time of Disposition: Acute gastroenteritis - Discharge Dispostion Disposition: HOME Condition at time of disposition: Stable - Referrals Referrals: Zach Ramirez MD [Primary Care Provider] - - Patient Instructions Printed Discharge Instructions: DI for Vomiting -- Adult Additional Instructions: Clear liquids,advance as tolerated Return to ER if you have persistent vomiting or experience lightheadedness Follow-up with Dr. Ramirez within the next 3-4 days Follow-up for stress test as scheduled
[2017-04-09 01:55] VITALS: BP 157/95; PULSE 80; TEMP 98.2; BMI 32.3
== END 2017-04-09 02:59 | disposition home or self-care (01) ==
LOC: SUPCPDRO 01:50 → FER 01:50
DX: K52.9 Noninfective gastroenteritis and colitis, unspecified (principal); I10 Essential (primary) hypertension; I50.9 Heart failure, unspecified; Z87.891 Personal history of nicotine dependence
CPT/HCPCS: 99281-25

== ENCOUNTER 2017-08-08 09:14 | Inpatient (IN) | payer BC ==
[2017-08-07 12:56] VITALS: BMI 33.0
[2017-08-08 10:17] LABS: BASO % 0.6 % (0-2.0); EOS % 2.6 % (0-4.5); HEMATOCRIT 35.3 % (35.4-49); HEMOGLOBIN 12.2 GM/dL (11.7-16.9); LYMPH % 16.4 % (8-40); MCH 31.7 pg (25.7-33.7); MCHC 34.6 g/dl (32.0-35.9); MEAN CELL VOLUME 91.7 fl (80-96); MEAN PLT VOLUME 9.1 fl (7.5-11.1); MONO % 9.8 % (3.8-10.2); NEUT % 70.6 % (42.8-82.8); PLATELET COUNT 107 K/MM3 (134-434); RBC 3.85 M/mm3 (4.00-5.60); RDW 13.9 % (11.9-15.9)
[2017-08-08 10:33] LABS: INR 1.03 (0.82-1.09); PROTHROMBIN TIME (PATIENT) 11.6 SEC (9.98-11.88)
--- NOTE | 2017-08-08 14:20 | CONSULT ---
Consult - text type - Consultation Consultation Note: Renal Consult for CKD and uncontrolled hypertension This is a 52 year old gentleman with PMhx of CKD stage 4 with subnephrotic proteinuria, difficult to control hypertension, Hx of CVA/TIA, HF who presented to IR for ambulatory renal biopsy but found to have hypertensive urgency with BP > 200/120. Pt is awake and alert and offers no acute complaints. No WIGGINS, change in vision, CP, SOB, N/V. Pt reports eating a salty meal yesterday. Took all his BP meds this am. Pt follows with Dr. Lauren Waterman as a outpatient. PMhx: as above Allergies: NKDA Family hx: NC Social Hx: No T/A/D ROS: as per HPI Home Meds: Home Medications Medication Instructions Recorded Amlodipine Besylate [Norvasc -] 10 mg PO DAILY #30 tablet 01/26/17 Aspirin [ASA -] 81 mg PO DAILY tab.chew 01/26/17 Carvedilol [Coreg -] 25 mg PO BID #60 tablet 01/26/17 Furosemide [Lasix -] 40 mg PO DAILY #60 tablet 01/26/17 Isosorbide Dinitrate [Isordil -] 20 mg PO BID 08/07/17 hydrALAZINE HCL [Apresoline -] 100 mg PO BID 08/07/17 Vital Signs Temperature 98.0 F 08/08/17 10:51 Pulse Rate 66 08/08/17 13:25 Respiratory Rate 18 08/08/17 13:25 Blood Pressure 169/94 08/08/17 13:25 O2 Sat by Pulse Oximetry (%) 100 08/08/17 13:04 NADa awake and alert RRR CTA obese, NT/ND trace to 1+ LE edema CBC, BMP 08/08/17 09:42 Current Medications Amlodipine Besylate (Norvasc -) 5 mg PO ONCE ONE Stop: 08/08/17 14:07 Hydralazine HCl (Apresoline -) 100 mg PO ONCE ONE Stop: 08/08/17 14:05 52 year old gentleman with PMhx of CKD stage 4 with subnephrotic proteinuria, difficult to control hypertension, Hx of CVA/TIA, HF who presented to IR for ambulatory renal biopsy but found to have hypertensive urgency with BP > 200/ 120. #Hypertensive Urgency secondary to dietiary indiscretion s/p labetalol IV in IR suite with slight improvement in BP will given Hydralazine 100mg PO and amlodipne 5mg PO x 1 now if pt does not respond can consider PO Labetalolo +/- Clonidine (must ensure HR > 60) Low salt diet #CKD stage 4 with subnephrotic proteinuria pt was planned for renal biopsy today biopsy deferred because of uncontrolled hypertension Thank you Will follow Farrukh Abraham DO
[2017-08-08] MEDS ORDERED: hydrALAZINE HCL 50 MG TABLET (FP) PO ONE (14:30)
[2017-08-08] MEDS ORDERED: amLODIPine BESYLATE 5 MG TABLET (FP) PO ONE (14:30)
[2017-08-08] MEDS ORDERED: cloNIDine HCL 0.1 MG TABLET PO ONE ×2 (17:45→17:46)
[2017-08-08] MEDS: hydrALAZINE HCL 50 MG TABLET (FP) PO SCH (21:38)
[2017-08-08] MEDS: CARVEDILOL 25 MG TABLET (FP) PO SCH (21:39)
[2017-08-08] MEDS: cloNIDine HCL 0.1 MG TABLET PO SCH (21:39)
--- NOTE | 2017-08-08 21:41 | PN ---
Teaching Attending Note Name of Resident: Carmine Gottlieb ATTENDING PHYSICIAN STATEMENT I saw and evaluated the patient. I reviewed the resident's note and discussed the case with the resident. I agree with the resident's findings and plan as documented. SUBJECTIVE: 52 M with Pmhx of CKD-4, uncontrolled htn, hx. of CVA/TIA, who had presented to Ambulatory for a renal bx, but could not be done, due to HTN urgency. States he has no chest pain or pressure. No dizziness, lightheadedness or headaches. States he has had vision loss over 6 months and gets injections. OBJECTIVE: Physical: VS: Vital Signs Period Temp Pulse Resp BP Sys/Pichardo Pulse Ox Last 24 Hr 98.0 F 66-83 18-20 158-238/94-154 95-100 GEN: NAD, Resting in bed, AA0x3 HEENT: NCAT, PERRL, Throat without erythema or exudates CARD: RRR S1, S2 RESP: CTAB ABD: BSX4, NTD to palpation EXT: - C/C/E CBCD WBC 7.0 K/mm3 (4.0-10.0) D 08/08/17 09:42 RBC 3.85 M/mm3 (4.00-5.60) L 08/08/17 09:42 Hgb 12.2 GM/dL (11.7-16.9) D 08/08/17 09:42 Hct 35.3 % (35.4-49) L 08/08/17 09:42 MCV 91.7 fl (80-96) 08/08/17 09:42 MCHC 34.6 g/dl (32.0-35.9) 08/08/17 09:42 RDW 13.9 % (11.9-15.9) 08/08/17 09:42 Plt Count 107 K/MM3 (134-434) L 08/08/17 09:42 MPV 9.1 fl (7.5-11.1) D 08/08/17 09:42 Ambulatory Orders Amlodipine Besylate [Norvasc -] 10 mg PO DAILY #30 tablet 01/26/17 Aspirin [ASA -] 81 mg PO DAILY tab.chew 01/26/17 Carvedilol [Coreg -] 25 mg PO BID #60 tablet 01/26/17 Furosemide [Lasix -] 80 mg PO DAILY #60 tablet 01/26/17 Isosorbide Dinitrate [Isordil -] 20 mg PO BID 08/07/17 hydrALAZINE HCL [Apresoline -] 100 mg PO BID 08/07/17 EKG- NSR TWI in lateral leads (seen on EKG 02/02), LVH, LAD, QtC 519 CXR- Pending ECHO: EF 32.7%, Diastolic dysfxn, mild , Mod. Pulm. HTN, LVH ASSESSMENT AND PLAN: 52 M with hx. of CKD stg. 4 subnephrotic proteinuria, htn, hx. of CVA/TIA who presents with HTN Urgency 1.) HTN Urgency - S/P Labetolol/Amlodipine/ Clonidine/Hydralazine - Slowly decrease BP with goal of 170/90 - C/W Hydralazine, coreg, imdur - Trend Trop/EKG 2.) CKD. 4 with Subnephrotic proteinuria - For Renal Bx in Am, if BP decreases - NPO - Type & Screen 3.) Hx. OF CVA/TIA - Hold ASA- BX in AM 4.) CHF - C/w Lasix/COreg/ Isordil, Hydralazine 5.) Dvt Ppx - SCDs Place in [facility]
--- NOTE | 2017-08-08 23:28 | HP ---
CHIEF COMPLAINT: high blood pressure PCP: HISTORY OF PRESENT ILLNESS: The patient is a 52 yo m w/ PMH CKD stage 4, hard to control HTN, CHF who was scheduled for IR kidney biopsy today and was found to have hypertensive urgency to ~200/120. Patient states he has been compliant with his BP meds and diet. Patient denies CP, acute changes in vision, headaches. Recent Travel: none PAST MEDICAL HISTORY: same as HPI PAST SURGICAL HISTORY: ankle surgery for fracture Social History: Smoking: denies Alcohol: denies Drugs: denies Family History: non-contributory Allergies No Known Allergies Allergy (Verified 01/23/17 00:39) HOME MEDICATIONS: Home Medications Medication Instructions Recorded Amlodipine Besylate [Norvasc -] 10 mg PO DAILY #30 tablet 01/26/17 Aspirin [ASA -] 81 mg PO DAILY tab.chew 01/26/17 Carvedilol [Coreg -] 25 mg PO BID #60 tablet 01/26/17 Furosemide [Lasix -] 80 mg PO DAILY #60 tablet 01/26/17 Isosorbide Dinitrate [Isordil -] 20 mg PO BID 08/07/17 hydrALAZINE HCL [Apresoline -] 100 mg PO BID 08/07/17 REVIEW OF SYSTEMS negative except for HPI CONSTITUTIONAL: Absent: fever, chills, diaphoresis, generalized weakness, malaise, loss of appetite, weight change HEENT: Absent: rhinorrhea, nasal congestion, throat pain, throat swelling, difficulty swallowing, mouth swelling, ear pain, eye pain, visual changes CARDIOVASCULAR: Absent: chest pain, syncope, palpitations, irregular heart rate, lightheadedness , peripheral edema RESPIRATORY: Absent: cough, dyspnea with exertion, orthopnea, wheezing, stridor, hemoptysis GASTROINTESTINAL: Absent: abdominal pain, abdominal distension, nausea, vomiting, diarrhea, constipation, melena, hematochezia GENITOURINARY: Absent: dysuria, frequency, urgency, hesitancy, hematuria, flank pain, genital pain MUSCULOSKELETAL: Absent: myalgia, arthralgia, joint swelling, back pain, neck pain SKIN: Absent: rash, itching, pallor HEMATOLOGIC/IMMUNOLOGIC: Absent: easy bleeding, easy bruising, lymphadenopathy, frequent infections ENDOCRINE: Absent: unexplained weight gain, unexplained weight loss, heat intolerance, cold intolerance NEUROLOGIC: Absent: headache, focal weakness or paresthesias, dizziness, unsteady gait, seizure, mental status changes, bladder or bowel incontinence PSYCHIATRIC: Absent: anxiety, depression, suicidal or homicidal ideation, hallucinations. PHYSICAL EXAMINATION Vital Signs - 24 hr 08/08/17 08/08/17 08/08/17 10:51 12:10 12:20 Temperature 98.0 F Pulse Rate 83 73 81 Respiratory 18 19 20 Rate Blood Pressure 158/99 227/132 238/154 O2 Sat by Pulse 95 100 99 Oximetry (%) 08/08/17 08/08/17 08/08/17 12:40 12:50 13:00 Temperature Pulse Rate 70 73 67 Respiratory 18 19 19 Rate Blood Pressure 227/132 228/141 214/132 O2 Sat by Pulse 99 100 100 Oximetry (%) 08/08/17 08/08/17 08/08/17 13:04 13:25 13:45 Temperature Pulse Rate 70 66 72 Respiratory 19 18 18 Rate Blood Pressure 208/130 169/94 212/114 O2 Sat by Pulse 100 Oximetry (%) 08/08/17 08/08/17 08/08/17 14:00 14:15 14:43 Temperature Pulse Rate 80 66 Respiratory 18 18 Rate Blood Pressure 220/100 203/118 169/94 O2 Sat by Pulse Oximetry (%) 08/08/17 08/08/17 08/08/17 16:30 17:30 18:55 Temperature Pulse Rate 70 80 80 Respiratory 18 18 18 Rate Blood Pressure 188/108 220/120 210/120 O2 Sat by Pulse Oximetry (%) GENERAL: Awake, alert, and fully oriented, in no acute distress. HEAD: Normal with no signs of trauma. EYES: Pupils equal, round and reactive to light, extraocular movements intact, sclera anicteric, conjunctiva clear. No lid lag. LUNGS: Breath sounds equal, clear to auscultation bilaterally. No wheezes, and no crackles. No accessory muscle use. HEART: Regular rate and rhythm, normal S1 and S2 without murmur, rub or gallop. ABDOMEN: Soft, nontender, not distended, normoactive bowel sounds, no guarding, no rebound, no masses. No hepatomegaly or splenomegaly. LOWER EXTREMITIES: 2+ pulses, warm, well-perfused. No calf tenderness. No peripheral edema. NEUROLOGICAL: Cranial nerves II-X intact. Normal speech. Laboratory Results - last 24 hr 08/08/17 08/08/17 09:42 09:42 WBC 7.0 D RBC 3.85 L Hgb 12.2 D Hct 35.3 L MCV 91.7 MCH 31.7 MCHC 34.6 RDW 13.9 Plt Count 107 L MPV 9.1 D Neutrophils % 70.6 Lymphocytes % 16.4 Monocytes % 9.8 Eosinophils % 2.6 Basophils % 0.6 PT with INR 11.60 INR 1.03 ASSESSMENT/PLAN: The patient is a 52 yo m w/ PMH CHF, HTN, CKD stage 4 who is being admitted after he was found to have hypertensive urgency before undergoing renal Bx #Hypertensive urgency -current BP 190/90 -s/p [id number] , amlodipine 5, clonidine .2 -c/w current antihypertensives -monitor BP -ekg shows LVH w/ prolonged QTC and nonspecific t wave changes -CMP, troponin now -trend tropes -CXR as pt c/o SOB though this was present previous to today. -Day team to reconcile patient's home meds as the patient cannot remember them -[facility]: #FEN -no fluids indicated -K 3.2, repleted w/ 40meq KCL -sodium controlled diet #Prophylaxis -SCDs #Dispo -admit to tele obs Visit type - Emergency Visit Emergency Visit: No - New Patient This patient is new to me today: Yes Date on this admission: 08/09/17 - Critical Care Critical Care patient: No Hospitalist Screening - Colonoscopy Questionnaire Colonoscopy Questionnaire: Colonoscopy Questionnaire - Patient: 50 - 75 years old and never had a screening colonoscopy: Unknown History of colon or rectal polyps, or CA: No History of IBD, Crohn's disease or UC: No History of abdominal radiation therapy as a child: No - Relative: 1 with colon or rectal CA, or polyps at age 60 or younger: Unknown Colon or rectal CA diagnosed at age 45 or younger: Unknown Multiple relatives with colon or rectal CA: Unknown - Outcome: Screening Result: Negative Screen
[2017-08-09 00:51] LABS: ANION GAP 13 (8-16); BILIRUBIN,TOTAL 0.7 mg/dL (0.2-1.0); BLOOD UREA NITROGEN 41 mg/dL (7-18); CALCIUM 7.7 mg/dL (8.5-10.1); CHLORIDE 102 mmol/L (98-107); CO2 27 mmol/L (21-32); CREATININE 3.5 mg/dL (0.7-1.3); GLUCOSE,RANDOM 84 mg/dL (74-106); POTASSIUM 3.2 mmol/L (3.5-5.1); SGOT/AST 15 U/L (15-37); SGPT/ALT 15 U/L (12-78); SODIUM 142 mmol/L (136-145); TOT PROT 5.6 g/dl (6.4-8.2)
[2017-08-09 00:54] LABS: ALK PHOS 70 U/L (45-117)
[2017-08-09] MEDS ORDERED: POTASSIUM CHLORIDE TABS 20 MEQ TABLET.ER (FP) PO ONE (01:55)
[2017-08-09] MEDS: hydrALAZINE HCL 50 MG TABLET (FP) PO SCH ×2 (06:14→14:15)
[2017-08-09] MEDS: cloNIDine HCL 0.1 MG TABLET PO SCH ×2 (06:15→14:17)
[2017-08-09 08:01] LABS: HEMATOCRIT 37.6 % (35.4-49); HEMOGLOBIN 12.7 GM/dL (11.7-16.9); MCH 31.3 pg (25.7-33.7); MCHC 33.7 g/dl (32.0-35.9); MEAN CELL VOLUME 92.6 fl (80-96); MEAN PLT VOLUME 9.8 fl (7.5-11.1); PLATELET COUNT 111 K/MM3 (134-434); RBC 4.05 M/mm3 (4.00-5.60); RDW 14.1 % (11.9-15.9); WHITE BLOOD COUNT 6.6 K/mm3 (4.0-10.0)
[2017-08-09 08:27] LABS: CHLORIDE 102 mmol/L (98-107); POTASSIUM 3.9 mmol/L (3.5-5.1); SODIUM 140 mmol/L (136-145)
[2017-08-09] MEDS ORDERED: TAMSULOSIN HCL 0.4 MG CAP.ER.24H (FP) PO SCH (08:30)
[2017-08-09 08:38] LABS: ALBUMIN 3.4 g/dl (3.4-5.0); ALK PHOS 67 U/L (45-117); ANION GAP 13 (8-16); BLOOD UREA NITROGEN 40 mg/dL (7-18); CALCIUM 8.3 mg/dL (8.5-10.1); CO2 25 mmol/L (21-32); CREATININE 3.5 mg/dL (0.7-1.3); GLUCOSE,RANDOM 92 mg/dL (74-106); MAGNESIUM 2.6 mg/dL (1.8-2.4); SGOT/AST 16 U/L (15-37); SGPT/ALT 18 U/L (12-78); TOT PROT 6.5 g/dl (6.4-8.2)
[2017-08-09] MEDS: CARVEDILOL 25 MG TABLET (FP) PO SCH (09:06)
[2017-08-09] MEDS ORDERED: ISOSORBIDE DINITRATE 20 MG TABLET (FP) PO SCH (10:00)
[2017-08-09] MEDS ORDERED: amLODIPine BESYLATE 5 MG TABLET (FP) PO SCH (11:00)
[2017-08-09] MEDS ORDERED: DESMOPRESSIN ACETATE 4 MCG/ML AMP IVPB ONE (13:45)
--- NOTE | 2017-08-09 14:03 | PN ---
Physical Exam: SUBJECTIVE: Patient seen and examined at bedside. No acute complaints. states that he is anxious about his kidney biopsy. Biopsy this AM not able to be done due to BP. BP rechecked and was in the 150s/80s. Radiology called again. OBJECTIVE: Vital Signs Period Temp Pulse Resp BP Sys/Pichardo Pulse Ox Last 24 Hr 98.3 F-98.9 F 55-80 15-20 133-220/69-120 14-100 GENERAL: The patient is awake, alert, and fully oriented, in no acute distress. HEAD: Normal with no signs of trauma. EYES: PERRL, extraocular movements intact, sclera anicteric, conjunctiva clear. No ptosis. ENT: Ears normal, nares patent, oropharynx clear without exudates, moist mucous membranes. NECK: Trachea midline, full range of motion, supple. LUNGS: Breath sounds equal, clear to auscultation bilaterally, no wheezes, mild bibasilar crackles noted on exam, overall good airflow HEART: Regular rate and rhythm, S1, S2 without murmur, rub or gallop. ABDOMEN: obese, Soft, nontender, nondistended, normoactive bowel sounds, no guarding, no rebound, no hepatosplenomegaly, no masses. EXTREMITIES: 2+ pulses, warm, well-perfused, 1+ edema noted on exam NEUROLOGICAL: Cranial nerves II through XII grossly intact. Normal speech, gait not observed. PSYCH: Normal mood, normal affect. SKIN: Warm, dry, normal turgor, no rashes or lesions noted Laboratory Results - last 24 hr 08/08/17 08/08/17 08/09/17 22:45 22:45 07:00 WBC 6.6 RBC 4.05 Hgb 12.7 Hct 37.6 MCV 92.6 MCH 31.3 MCHC 33.7 RDW 14.1 Plt Count 111 L MPV 9.8 Sodium 142 Potassium 3.2 L Chloride 102 Carbon Dioxide 27 Anion Gap 13 BUN 41 H Creatinine 3.5 H Creat Clearance w eGFR 18.56 Random Glucose 84 D Calcium 7.7 L Phosphorus Magnesium 2.2 Total Bilirubin 0.7 D AST 15 D ALT 15 D Alkaline Phosphatase 70 D Troponin I 0.09 H D Total Protein 5.6 L Albumin 3.0 L Blood Type Antibody Screen 08/09/17 08/09/17 08/09/17 07:00 07:00 07:00 WBC RBC Hgb Hct MCV MCH MCHC RDW Plt Count MPV Sodium 140 Potassium 3.9 D Chloride 102 Carbon Dioxide 25 Anion Gap 13 BUN 40 H Creatinine 3.5 H Creat Clearance w eGFR 18.56 Random Glucose 92 Calcium 8.3 L Phosphorus 4.0 Magnesium 2.6 H Total Bilirubin 1.0 D AST 16 ALT 18 Alkaline Phosphatase 67 Troponin I 0.07 H Cancelled Total Protein 6.5 Albumin 3.4 Blood Type O POSITIVE Antibody Screen Negative 08/09/17 09:55 WBC RBC Hgb Hct MCV MCH MCHC RDW Plt Count MPV Sodium Potassium Chloride Carbon Dioxide Anion Gap BUN Creatinine Creat Clearance w eGFR Random Glucose Calcium Phosphorus Magnesium Total Bilirubin AST ALT Alkaline Phosphatase Troponin I Total Protein Albumin Blood Type O POSITIVE Antibody Screen Active Medications Generic Name Dose Route Start Last Admin Trade Name Freq PRN Reason Stop Dose Admin Amlodipine Besylate 5 mg 08/09/17 11:00 Norvasc - PO DAILY LUIS Carvedilol 25 mg 08/08/17 22:00 08/09/17 09:06 Coreg - PO 25 mg BID LUIS Administration Clonidine 0.1 mg 08/08/17 22:00 08/09/17 06:15 Catapres - PO 0.1 mg TID LUIS Administration Furosemide 40 mg 08/09/17 10:30 Lasix - PO BID@0600,1400 [facility] Hydralazine HCl 100 mg 08/08/17 22:00 08/09/17 06:14 Apresoline - PO 100 mg TID LUIS Administration Isosorbide Dinitrate 30 mg 08/09/17 14:00 Isordil - PO TIDISORDIL LUIS Tamsulosin HCl 0.4 mg 08/09/17 08:30 08/09/17 09:06 Flomax - PO 0.4 mg DAILY@0830 LUIS Administration CBC, BMP 08/09/17 07:00 08/09/17 07:00 Laboratory Tests 08/09/17 07:00 Creat Clearance w eGFR 18.56 ASSESSMENT/PLAN: 52 year old male with a history of hypertension and CKD stage 4, CHF is admitted to the hospital for hypertensive urgency during a scheduled renal biopsy #Hypertension: better controlled - was in the 150's/80's when examining patient -patient is medically stable to have renal biopsy performed -pt will go for biopsy -continue norvasc 5 QD -continue carvedilol 25 BID -continue hydralazine 100 TID -continue clonidine 0.1mg PO TID #Chronic Kidney Disease: GFR 18.96 - patient admits to halving his dose of lasix at home -continue lasix as originally prescribed - 40mg BID -continue flomax 0.4mg PO QD -nephrology consultation appreciated Dr. Abraham -pt going for biopsy today -continue aspirin after biopsy #Troponinemia: likely CKD related -troponins peaked, no need to follow #FEN -no standing fluids -replete lytes in AM -renal diet, sodium controlled #Prophylaxis -early ambulation encouraged #Disposition -continue to monitor on med-surg, may be able to downgrade Visit type - Emergency Visit Emergency Visit: No - New Patient This patient is new to me today: Yes Date on this admission: 08/09/17 - Critical Care Critical Care patient: No
[2017-08-09] MEDS: FUROSEMIDE 40 MG TABLET (FP) PO SCH ×2 (14:15→14:16)
[2017-08-09] MEDS: ISOSORBIDE DINITRATE 20 MG TABLET (FP) PO SCH ×2 (14:15→17:17)
--- NOTE | 2017-08-09 15:03 | PN ---
Progress Note (short form) - Note Progress Note: Renal follow up for Hypertension/CKD Pt seen and examined at the bedside s/p right kidney renal biopsy no sob, chest pain no flank pain no heamturia BP better today but remains high Vital Signs Temperature 98.6 F 08/09/17 10:00 Pulse Rate 55 L 08/09/17 13:14 Respiratory Rate 15 08/09/17 13:14 Blood Pressure 179/103 08/09/17 13:14 O2 Sat by Pulse Oximetry (%) 98 08/09/17 13:14 Intake & Output 08/06/17 08/07/17 08/08/17 08/09/17 23:59 23:59 23:59 23:59 Intake Total 330 600 Output Total 200 600 Balance 130 0 Weight 113.398 kg 113.398 kg 112.718 kg NADa awake and alert RRR CTA obese, NT/ND trace to 1+ LE edema CBC, BMP 08/09/17 07:00 08/09/17 07:00 Current Medications Amlodipine Besylate (Norvasc -) 5 mg PO DAILY [facility] Last Admin: 08/09/17 14:15 Dose: 5 mg Carvedilol (Coreg -) 25 mg PO BID [facility] Last Admin: 08/09/17 09:06 Dose: 25 mg Clonidine (Catapres -) 0.1 mg PO TID [facility] Last Admin: 08/09/17 14:17 Dose: 0.1 mg Furosemide (Lasix -) 40 mg PO BID@0600,1400 [facility] Last Admin: 08/09/17 14:16 Dose: Not Given Hydralazine HCl (Apresoline -) 100 mg PO TID [facility] Last Admin: 08/09/17 14:15 Dose: 100 mg Isosorbide Dinitrate (Isordil -) 30 mg PO TIDISORDIL [facility] Last Admin: 08/09/17 14:15 Dose: 30 mg Tamsulosin HCl (Flomax -) 0.4 mg PO DAILY@0830 [facility] Last Admin: 08/09/17 09:06 Dose: 0.4 mg 52 year old gentleman with PMhx of CKD stage 4 with subnephrotic proteinuria, difficult to control hypertension, Hx of CVA/TIA, HF who presented to IR for ambulatory renal biopsy but found to have hypertensive urgency with BP > 200/ 120. #Hypertensive Urgency secondary to dietiary indiscretion BP is improved continue Coreg, Clonidine, Hydralazine, Isodril Add Clonidine to outpatient regmain #CKD stage 4 with subnephrotic proteinuria s/p biopsy today will need 4 hours of bed rest to get DDAVP can be discharged later this evening Farrukh Abraham DO
--- NOTE | 2017-08-09 15:41 | PN ---
Teaching Attending Note Name of Resident: Erasmo Rocha ATTENDING PHYSICIAN STATEMENT I saw and evaluated the patient. I reviewed the resident's note and discussed the case with the resident. I agree with the resident's findings and plan as documented. SUBJECTIVE: No fever or chills, no WIGGINS , feels anxious . has no abd pain , no SOB, no CP OBJECTIVE: NAD Cv: RRR Lungs : CTAB ext: trace edema ASSESSMENT AND PLAN: 52 y/o man with h/o HTN, CKD, TIA, and CVA who presented with HTN urgency before starting a renal bx procedure 1- HTN urgency: improve d - cont coreg, HZN, norvasc , and nitrate. - cont added clonidine 2- CKD: renal bx performed today. flat x 4 hours. f/u as out pt for results 3- h/o CVA , will resume asa in 1 week . d/w renal dispo : dc home this evening . case d/w Dr. Abraham
--- NOTE | 2017-08-09 16:00 | DS ---
Physical Exam: SUBJECTIVE:Patient seen and examined at bedside. No acute complaints. s/p kidney biopsy today. OBJECTIVE: Vital Signs Period Temp Pulse Resp BP Sys/Pichardo Pulse Ox Last 24 Hr 98.3 F-98.9 F 55-80 15-20 133-220/69-120 14-100 PHYSICAL EXAM GENERAL: The patient is awake, alert, and fully oriented, in no acute distress. HEAD: Normal with no signs of trauma. EYES: PERRL, extraocular movements intact, sclera anicteric, conjunctiva clear. No ptosis. ENT: Ears normal, nares patent, oropharynx clear without exudates, moist mucous membranes. NECK: Trachea midline, full range of motion, supple. LUNGS: Breath sounds equal, clear to auscultation bilaterally, no wheezes, mild bibasilar crackles noted on exam, overall good airflow HEART: Regular rate and rhythm, S1, S2 without murmur, rub or gallop. ABDOMEN: obese, Soft, nontender, nondistended, normoactive bowel sounds, no guarding, no rebound, no hepatosplenomegaly, no masses. EXTREMITIES: 2+ pulses, warm, well-perfused, 1+ edema noted on exam NEUROLOGICAL: Cranial nerves II through XII grossly intact. Normal speech, gait not observed. PSYCH: Normal mood, normal affect. SKIN: Warm, dry, normal turgor, no rashes or lesions noted LABS Laboratory Results - last 24 hr 08/08/17 08/08/17 08/09/17 22:45 22:45 07:00 WBC 6.6 RBC 4.05 Hgb 12.7 Hct 37.6 MCV 92.6 MCH 31.3 MCHC 33.7 RDW 14.1 Plt Count 111 L MPV 9.8 Sodium 142 Potassium 3.2 L Chloride 102 Carbon Dioxide 27 Anion Gap 13 BUN 41 H Creatinine 3.5 H Creat Clearance w eGFR 18.56 Random Glucose 84 D Calcium 7.7 L Phosphorus Magnesium 2.2 Total Bilirubin 0.7 D AST 15 D ALT 15 D Alkaline Phosphatase 70 D Troponin I 0.09 H D Total Protein 5.6 L Albumin 3.0 L Blood Type Antibody Screen 08/09/17 08/09/17 08/09/17 07:00 07:00 07:00 WBC RBC Hgb Hct MCV MCH MCHC RDW Plt Count MPV Sodium 140 Potassium 3.9 D Chloride 102 Carbon Dioxide 25 Anion Gap 13 BUN 40 H Creatinine 3.5 H Creat Clearance w eGFR 18.56 Random Glucose 92 Calcium 8.3 L Phosphorus 4.0 Magnesium 2.6 H Total Bilirubin 1.0 D AST 16 ALT 18 Alkaline Phosphatase 67 Troponin I 0.07 H Cancelled Total Protein 6.5 Albumin 3.4 Blood Type O POSITIVE Antibody Screen Negative 08/09/17 09:55 WBC RBC Hgb Hct MCV MCH MCHC RDW Plt Count MPV Sodium Potassium Chloride Carbon Dioxide Anion Gap BUN Creatinine Creat Clearance w eGFR Random Glucose Calcium Phosphorus Magnesium Total Bilirubin AST ALT Alkaline Phosphatase Troponin I Total Protein Albumin Blood Type O POSITIVE Antibody Screen HOSPITAL COURSE: Date of Admission:08/08/17 52 year old male with a history of hypertension, stage 4 CKD, CHF came to the hospital for a kidney biopsy to determine etiology and severity of CKD. In the interventional radiology suite, he was found to have a BP of >200/120 and patient was admitted for hypertensive urgency. In the IR suite, patient was treated with IV labetalol. Upon admission to telemetry, patient was given clonidine 0.2mg and a standing dose of 0.1mg TID was started. he was found to have a troponinemia on admission, attributed to having CKD - troponins peaked immediately and trended down. His home medications were restarted. Once blood pressure was better controlled, patient went back down to IR for biopsy of his kidney. During hospitalization, patient's creatinine was 3.5, which is around his baseline. After biopsy, patient rested for ~4 hours and was able to be discharged home with instructions to follow with nephrology Dr. Abraham and his PCP within 1 week of discharge. He was instructed to take his aspirin 1 week after discharge and to continue taking clonidine at home for blood pressure. Date of Discharge: 08/09/17 Minutes to complete discharge: 35 Discharge Summary Reason For Visit: PROTEINURA Current Active Problems Hypertension (Acute) Condition: Improved - Instructions Diet, Activity, Other Instructions: You were admitted to the hospital for the treatment of high blood pressure. While you were admitted, you had a kidney biopsy performed to determine the cause of your chronic kidney disease. Medical Recommendations: -Hold your aspirin medication for 1 week - you can restart it on Monday, August 16. This is because you just had the procedure for the kidney biopsy. -Continue clonidine 0.1mg by mouth three times a day for blood pressure -You can restart the rest of your home medications immediately -Make sure to take your medications as prescribed without missing doses. -Make sure to eat a low-salt diet. Watch out for all the hidden salts in cereals , processed meats, cheeses, etc... Referrals: -Make sure to follow up with Dr. Abraham as an outpatient for kidney biopsy results and followup -Make an appointment with your primary care physician within 1 week of discharge If you experience severe fevers, chills, nausea, vomiting, diarrhea, chest pain , or shortness of breath, please return to the emergency room immediately Referrals: Farrukh Abraham MD [Staff Physician] - Disposition: HOME - Home Medications Comprehensive Discharge Medication List: Ambulatory Orders Aspirin [ASA -] 81 mg PO DAILY tab.chew 01/26/17 Carvedilol [Coreg -] 25 mg PO BID #60 tablet 01/26/17 Isosorbide Dinitrate [Isordil -] 30 mg PO TID 08/07/17 hydrALAZINE HCL [Apresoline -] 100 mg PO TID 08/07/17 Amlodipine Besylate 5 mg PO DAILY 08/09/17 Finasteride 5 mg PO DAILY 08/09/17 Furosemide [Lasix] 40 mg PO BID 08/09/17 Tamsulosin HCl [Flomax] 0.4 mg PO DAILY 08/09/17 cloNIDine HCL [Catapres -] 0.1 mg PO TID #60 tablet 08/09/17 This patient is new to me today: Yes Date on this admission: 08/09/17 Emergency Visit: No Critical Care patient: No - Discharge Referral Referred to [facility] Med P.C.: No
--- NOTE | 2017-08-09 16:25 | EKG ---
Test Reason : Blood Pressure : / mmHG Vent. Rate : 061 BPM Atrial Rate : 061 BPM P-R Int : 178 ms QRS Dur : 110 ms QT Int : 500 ms P-R-T Axes : 038 -29 136 degrees QTc Int : 503 ms NORMAL SINUS RHYTHM POSSIBLE LEFT ATRIAL ENLARGEMENT T WAVE ABNORMALITY, CONSIDER ANTEROLATERAL ISCHEMIA PROLONGED QT ABNORMAL ECG WHEN COMPARED WITH ECG OF 08-AUG-2017 22:02, T WAVE INVERSION NOW EVIDENT IN ANTERIOR LEADS Confirmed by RAEGAN COOMBS MD ([id number]) on 08/09/2017 4:25:40 PM Referred By: CHAYO CARRERA DR Confirmed By:RAEGAN COOMBS MD
--- NOTE | 2017-08-09 16:28 | EKG ---
Test Reason : Blood Pressure : / mmHG Vent. Rate : 082 BPM Atrial Rate : 082 BPM P-R Int : 170 ms QRS Dur : 110 ms QT Int : 440 ms P-R-T Axes : 041 -37 129 degrees QTc Int : 514 ms NORMAL SINUS RHYTHM LEFT AXIS DEVIATION MINIMAL VOLTAGE CRITERIA FOR LVH, MAY BE NORMAL VARIANT PROLONGED QT ABNORMAL ECG WHEN COMPARED WITH ECG OF 23-JAN-2017 08:45, T WAVE INVERSION NO LONGER EVIDENT IN ANTERIOR LEADS Confirmed by RAEGAN COOMBS MD ([id number]) on 08/09/2017 4:28:12 PM Referred By: Confirmed By:RAEGAN OCOMBS MD
[2017-08-09 17:20] VITALS: BP 137/81; PULSE 66; TEMP 98.6
--- NOTE | 2017-08-25 14:14 | PATH ---
Surgical Pathology Report Patient Name: GRISEL FISHER [facility]. Rec. #: [id number] /Age/Gender: 1965 (Age: 52) / M Account: [id number] Location: 4 PEDS/ADOL Taken: 08/09/2017 Received: 08/09/2017 Reported: 08/25/2017 Physicians: Jerrod Latham M.D. Specimen(s) Received RENAL BIOPSY Clinical History 52-year-old male with history of CHF, CVA, proteinuria, hypertension, acute or chronic kidney disease Intraoperative Consult Diagnosis Glomeruli present. Elizabeth Garcia M.D., 08/09/17 Final Diagnosis KIDNEY, BIOPSY: FOCAL SEGMENTAL GLOMERULOSCLEROSIS, MODERATE, WITH GLOMERULOMEGALY. TUBULAR ATROPHY AND INTERSTITIAL FIBROSIS, MODERATE. ARTERIO-AND ARTERIOSCLEROSIS, MODERATE. SEE COMMENT. Comment: The immunofluorescence microscopy shows no evidence of glomerular disease of the immune complex type. The differential diagnosis includes primary and genetic forms of FSGS. However the absence of nephrotic syndrome and the finding of glomerulomegaly suggest a secondary form, e.g., related to hypertension and or adaptation to reduced nephron membrane. Clinical correlation is necessary. Electron microscopy is pending and maybe contributory. Case sent for consultation to Dr. Sukh Vergara from [place], [place] ([id number]), the diagnosis above reflects his opinion. See complete report ([id number]) from [place], [place] for additional details. Electronically Signed Julianna Aguilar M.D. Gross Description Received in saline, labeled with the patient's name and indicated on the requisition to be a kidney biopsy, is a 1.7 cm in length x 0.1 cm diameter gomes, cylindrical portion of soft tissue. An intraoperative gross examination is performed. The specimen is divided, placed into 10% buffered formalin, Bayron fixative and glutaraldehyde. The specimen is sent to [facility] [place] [facility] for further studies. 08/09/201708/09/2017
== END 2017-08-09 19:08 | disposition home or self-care (01) | DRG 305 ==
LOC: JRADIR 09:14 → J4S 19:45 → JRADIR 22:12 → JERBED 22:12 → J4S 22:12
PROVIDERS: ADMIT Internal Medicine; ATTEND Internal Medicine
PROC: 0TB03ZX Excision of Right Kidney, Percutaneous Approach, Diagnostic (ICD-10-PCS; principal; 2017-08-08)
DX: I16.0 Hypertensive urgency (principal); N18.4 Chronic kidney disease, stage 4 (severe); I13.0 Hypertensive heart and chronic kidney disease with heart failure and stage 1 through stage 4 chronic kidney disease, or unspecified chronic kidney disease; Z86.73 Personal history of transient ischemic attack (TIA), and cerebral infarction without residual deficits
CPT/HCPCS: 36415; 50200; 71045-TC-FY; 76942-TC; 80053; 83735; 84100; 84484; 85025; 85027; 85610; 86850; 86900; 86901; 88300-TC; 88329; 93005; 93010; J0735; J2597

== ENCOUNTER 2017-09-13 10:26 | Observation (INO) | payer BC ==
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
[2017-09-13] MEDS ORDERED: hydrALAZINE HCL 20 MG/ML VIAL IM ONE (11:25)
[2017-09-13] MEDS ORDERED: ALPRAZolam 0.25 MG TABLET PO ONE (11:25)
[2017-09-13] MEDS ORDERED: hydrALAZINE HCL 20 MG/ML VIAL ONE (11:31)
[2017-09-13] MEDS ORDERED: ALPRAZolam 0.25 MG TABLET ONE (11:32)
[2017-09-13] MEDS ORDERED: hydrALAZINE HCL 20 MG/ML VIAL IVPUSH ONE (12:19)
[2017-09-13 12:45] LABS: HEMATOCRIT 32.7 % (35.4-49); HEMOGLOBIN 11.3 GM/dL (11.7-16.9); MCH 31.4 pg (25.7-33.7); MCHC 34.6 g/dl (32.0-35.9); MEAN CELL VOLUME 90.8 fl (80-96); MEAN PLT VOLUME 8.2 fl (7.5-11.1); PLATELET COUNT 112 K/MM3 (134-434); RDW 13.8 % (11.9-15.9); WHITE BLOOD COUNT 6.3 K/mm3 (4.0-10.0)
[2017-09-13 13:01] LABS: INR 0.91 (0.82-1.09); PROTHROMBIN TIME (PATIENT) 10.3 SEC (9.98-11.88)
--- NOTE | 2017-09-13 13:01 | EKG ---
Test Reason : Blood Pressure : / mmHG Vent. Rate : 064 BPM Atrial Rate : 064 BPM P-R Int : 176 ms QRS Dur : 104 ms QT Int : 484 ms P-R-T Axes : 040 -17 100 degrees QTc Int : 499 ms NORMAL SINUS RHYTHM POSSIBLE LEFT ATRIAL ENLARGEMENT LEFT VENTRICULAR HYPERTROPHY T WAVE ABNORMALITY, CONSIDER LATERAL ISCHEMIA PROLONGED QT ABNORMAL ECG WHEN COMPARED WITH ECG OF 09-AUG-2017 08:46, T WAVE INVERSION NO LONGER EVIDENT IN ANTERIOR LEADS Confirmed by CARMENCITA HANCOCK MD ([id number]) on 09/13/2017 1:01:23 PM Referred By: Confirmed By:CARMENCITA HANCOCK MD
[2017-09-13 13:05] LABS: ALBUMIN 3.2 g/dl (3.4-5.0); ANION GAP 13 (8-16); BILIRUBIN,TOTAL 0.5 mg/dL (0.2-1.0); BLOOD UREA NITROGEN 58 mg/dL (7-18); CALCIUM 7.8 mg/dL (8.5-10.1); CHLORIDE 96 mmol/L (98-107); CO2 30 mmol/L (21-32); CREATININE 3.9 mg/dL (0.7-1.3); GLUCOSE,RANDOM 112 mg/dL (74-106); POTASSIUM 3.4 mmol/L (3.5-5.1); SGOT/AST 19 U/L (15-37); SGPT/ALT 24 U/L (12-78); SODIUM 139 mmol/L (136-145); TOT PROT 5.8 g/dl (6.4-8.2)
[2017-09-13 13:08] LABS: ALK PHOS 65 U/L (45-117)
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
[2017-09-13] MEDS ORDERED: POTASSIUM CHLORIDE TABS 20 MEQ TABLET.ER (FP) PO ONE ×2 (13:22→15:15)
[2017-09-13 13:29] LABS: PLATELET ESTIMATE DECREASED
[2017-09-13] MEDS ORDERED: ONDANSETRON 4 MG/2 ML VIAL IVPUSH PRN (14:21)
[2017-09-13] MEDS ORDERED: ACETAMINOPHEN 325 MG TABLET (FP) PO PRN (14:21)
[2017-09-13] MEDS ORDERED: ALPRAZolam 0.25 MG TABLET PO PRN (14:24)
--- NOTE | 2017-09-13 14:25 | HP ---
Admitting History and Physical - Primary Care Physician PCP: Zach Ramirez - Admission Chief Complaint: My chest was tight History of Present Illness: Mr Nuñez is a very pleasant 52 year old male who comes in with chest tightness. He is planning a trip to [place] with his children and had a very stressful phone conversation which caused him a lot of anxiety. He says during this conversation is when he began to develop symptoms. He says it started of as chest tightness. It was mainly mid-sternal and left sided, it did not radiate. The tightness was constant. He could not give a number gradiation for pain. He says it was associated with palpitations, lightheadedness without syncope, shortness of breath, nausea without vomiting, and slight leg swelling. He says the symptoms began around 9am and lasted about an hour. They are currently resolved and he says he feels ok. He denies fevers, chills, coughing, abdominal pain, diarrhea, difficulty or pain on urination, or any other concerns. History Source: Patient Limitations to Obtaining History: No Limitations - Past Medical History Cardiovascular: Yes: CAD, CHF, HTN, Hyperlipdemia Renal/: Yes: Renal Failure (Cr 2.2 in 07/2016, suspect due to hypertensive disease) - Past Surgical History Past Surgical History: Yes: Joint Replacement (ankle repair) - Smoking History Smoking history: Former smoker Have you smoked in the past 12 months: No Aproximately how many cigarettes per day: 0 If you are a former smoker, when did you quit?: 07/2016 - Alcohol/Substance Use Hx Alcohol Use: No History of Substance Use: reports: None - Social History Usual Living Arrangement: Yes: Alone ADL: Independent History of Recent Travel: No Home Medications - Allergies Allergies/Adverse Reactions: Allergies Allergy/AdvReac Type Severity Reaction Status Date / Time No Known Allergies Allergy Verified 09/13/17 10:44 - Home Medications Home Medications: Ambulatory Orders Aspirin [ASA -] 81 mg PO DAILY tab.chew 01/26/17 Carvedilol [Coreg -] 25 mg PO BID #60 tablet 01/26/17 Isosorbide Dinitrate [Isordil -] 30 mg PO TID 08/07/17 hydrALAZINE HCL [Apresoline -] 100 mg PO TID 08/07/17 Amlodipine Besylate 5 mg PO DAILY 08/09/17 Finasteride 5 mg PO DAILY 08/09/17 Furosemide [Lasix] 40 mg PO BID 08/09/17 Tamsulosin HCl [Flomax] 0.4 mg PO DAILY 08/09/17 cloNIDine HCL [Catapres -] 0.1 mg PO TID #90 tablet 08/09/17 Home Medications (free text): patient no longer taking tamsulosin. takes amlodipine 10mg daily instead of 5mg. mycophenolate mofetil 500mg bid. prednisone 20mg daily Family Disease History - Family Disease History Family Disease History: Heart Disease: Mother Review of Systems Findings/Remarks: Full review of systems obtained, as per HPI and otherwise negative Physical Examination Vital Signs: Vital Signs Temperature 36.5 C 09/13/17 10:33 Pulse Rate 61 09/13/17 11:54 Respiratory Rate 18 09/13/17 11:54 Blood Pressure 157/88 09/13/17 11:54 O2 Sat by Pulse Oximetry (%) 100 09/13/17 11:54 Constitutional: Yes: No Distress, Calm, Obese Eyes: Yes: Conjunctiva Clear, EOM Intact, PERRL HENT: Yes: Atraumatic, Normocephalic Cardiovascular: Yes: Regular Rate and Rhythm, Murmur. No: Gallop, Rub Respiratory: Yes: Regular, CTA Bilaterally. No: Rales, Rhonchi, Wheezes Gastrointestinal: Yes: Normal Bowel Sounds, Soft. No: Distention, Tenderness Extremities: Yes: WNL Edema: Yes Edema: LLE: Trace, RLE: Trace Labs: CBC, BMP 09/13/17 12:30 09/13/17 12:30 Imaging - Results Chest X-ray: Report Reviewed, Image Reviewed EKG: Report Reviewed, Image Reviewed Problem List - Problems (1) Chest pain Assessment/Plan: -patient with history of CAD and HTN coming in with chest pain -troponin elevated, ? secondary to CKD -cardiology consulted -admit to telemetry under observation -cardiac enzymes x3 -plan for stress test in am Code(s): R07.9 - CHEST PAIN, UNSPECIFIED Qualifiers: Chest pain type: unspecified Qualified Code(s): R07.9 - Chest pain, unspecified (2) Glomerulosclerosis Assessment/Plan: -continue mycophenolate mofetil and prednisone -patient states on transplant list Code(s): N26.9 - RENAL SCLEROSIS, UNSPECIFIED (3) Chronic renal disease Assessment/Plan: -continue as above -monitor Code(s): N18.9 - CHRONIC KIDNEY DISEASE, UNSPECIFIED Qualifiers: Chronic kidney disease stage: stage 4 (severe) Qualified Code(s): N18.4 - Chronic kidney disease, stage 4 (severe) (4) CHF (congestive heart failure) Assessment/Plan: -continue oral lasix Code(s): I50.9 - HEART FAILURE, UNSPECIFIED Qualifiers: Qualified Code(s): I50.40 - Unspecified combined systolic (congestive) and diastolic (congestive) heart failure (5) Hypertension Assessment/Plan: -elevated -continue home regimen -may need adjustment Code(s): I10 - ESSENTIAL (PRIMARY) HYPERTENSION Qualifiers: Hypertension type: unspecified Qualified Code(s): I10 - Essential (primary ) hypertension (6) Murmur, cardiac Assessment/Plan: -noted on exam -will discuss with cardiology about last ECHO results, per note was recent Code(s): R01.1 - CARDIAC MURMUR, UNSPECIFIED
[2017-09-13 15:05] LABS: MAGNESIUM 2.5 mg/dL (1.8-2.4)
[2017-09-13] MEDS ORDERED: ISOSORBIDE MONONITRATE 60 MG TAB.SR.24H (FP) PO ONE ×2 (15:17→18:13)
[2017-09-13] MEDS ORDERED: FUROSEMIDE 40 MG TABLET (FP) ONE (15:17)
[2017-09-13] MEDS: FUROSEMIDE 40 MG TABLET (FP) PO SCH (15:19)
[2017-09-13] MEDS: ISOSORBIDE DINITRATE 10 MG TABLET (FP) PO SCH ×2 (15:51→18:18)
[2017-09-13] MEDS ORDERED: CARVEDILOL 12.5 MG TABLET (FP) ONE (22:21)
[2017-09-13] MEDS ORDERED: hydrALAZINE HCL 25 MG TABLET (FP) ONE (22:21)
[2017-09-13] MEDS ORDERED: cloNIDine HCL 0.1 MG TABLET ONE (22:21)
[2017-09-13] MEDS: CARVEDILOL 25 MG TABLET (FP) PO SCH (22:28)
[2017-09-13] MEDS: hydrALAZINE HCL 50 MG TABLET (FP) PO SCH (22:28)
[2017-09-13] MEDS: cloNIDine HCL 0.1 MG TABLET PO SCH (22:28)
[2017-09-13] MEDS: MYCOPHENOLATE MOFETIL 500 MG TABLET PO SCH (22:40)
[2017-09-14 03:20] VITALS: BMI 33.0
[2017-09-14] MEDS: hydrALAZINE HCL 50 MG TABLET (FP) PO SCH ×2 (06:23→13:00)
[2017-09-14] MEDS: FUROSEMIDE 40 MG TABLET (FP) PO SCH ×2 (06:24→13:00)
[2017-09-14 08:53] LABS: HEMATOCRIT 30.4 % (35.4-49); HEMOGLOBIN 10.8 GM/dL (11.7-16.9); MCH 31.9 pg (25.7-33.7); MCHC 35.4 g/dl (32.0-35.9); MEAN CELL VOLUME 90.2 fl (80-96); MEAN PLT VOLUME 8.5 fl (7.5-11.1); PLATELET COUNT 99 K/MM3 (134-434); RBC 3.37 M/mm3 (4.00-5.60); RDW 13.6 % (11.9-15.9); WHITE BLOOD COUNT 7.8 K/mm3 (4.0-10.0)
[2017-09-14] MEDS: CARVEDILOL 25 MG TABLET (FP) PO SCH (09:01)
[2017-09-14] MEDS: cloNIDine HCL 0.1 MG TABLET PO SCH (09:02)
[2017-09-14 09:27] LABS: ANION GAP 12 (8-16); BLOOD UREA NITROGEN 57 mg/dL (7-18); CALCIUM 7.9 mg/dL (8.5-10.1); CHLORIDE 99 mmol/L (98-107); CO2 29 mmol/L (21-32); CREATININE 3.8 mg/dL (0.7-1.3); GLUCOSE,RANDOM 100 mg/dL (74-106); MAGNESIUM 2.8 mg/dL (1.8-2.4); PHOSPHOROUS 4.7 mg/dL (2.5-4.9); POTASSIUM 3.2 mmol/L (3.5-5.1); SODIUM 140 mmol/L (136-145)
[2017-09-14] MEDS ORDERED: amLODIPine BESYLATE 5 MG TABLET (FP) PO SCH (10:00)
[2017-09-14] MEDS ORDERED: predniSONE 20 MG TABLET (UD) PO SCH (10:00)
[2017-09-14] MEDS ORDERED: FINASTERIDE 5 MG TABLET (FP) PO SCH (10:00)
[2017-09-14] MEDS ORDERED: ASPIRIN 81 MG CHEWABLE TABLETS PO SCH (10:00)
[2017-09-14] MEDS: ISOSORBIDE DINITRATE 10 MG TABLET (FP) PO SCH ×3 (10:43→18:28)
[2017-09-14] MEDS ORDERED: REGADENOSON 0.4 MG/5 ML PRE-FILLED SYRINGE IVPUSH ONE ×2 (11:07→13:00)
--- NOTE | 2017-09-14 11:13 | PN ---
Progress Note (short form) - Note Progress Note: s: no cp, sob palps dizzy o: Vital Signs Period Temp Pulse Resp BP Sys/Pichardo Pulse Ox Last 24 Hr 98.0 F-98.5 F 19-84 18-20 148-184/76-104 96-100 nad no jvd rrr s1s2 no mrg cta bl nl eff aaox3 trace le edema bl, no c/c no jaundice diaphoresis Current Medications Generic Name Dose Route Start Last Admin Trade Name Freq PRN Reason Stop Dose Admin Acetaminophen 650 mg 09/13/17 14:21 Tylenol - PO Q4H PRN FEVER Alprazolam 0.25 mg 09/13/17 14:24 Xanax - PO Q8H PRN ANXIETY Amlodipine Besylate 10 mg 09/14/17 10:00 09/14/17 09:01 Norvasc - PO 10 mg DAILY LUIS Administration Aspirin 81 mg 09/14/17 10:00 Asa - PO DAILY [facility] Carvedilol 25 mg 09/13/17 22:00 09/14/17 09:01 Coreg - PO 25 mg BID LUIS Administration Clonidine 0.1 mg 09/13/17 22:00 09/14/17 09:02 Catapres - PO 0.1 mg BID LUIS Administration Finasteride 5 mg 09/14/17 10:00 Proscar - PO DAILY [facility] Furosemide 40 mg 09/13/17 14:30 09/14/17 06:24 Lasix - PO Not Given BIDLASIX LUIS Hydralazine HCl 100 mg 09/13/17 22:00 09/14/17 06:23 Apresoline - PO 100 mg TID LUIS Administration Isosorbide Dinitrate 30 mg 09/13/17 14:30 09/14/17 10:43 Isordil - PO Not Given TIDISORDIL [facility] Mycophenolate Mofetil 500 mg 09/13/17 22:00 09/13/17 22:40 Cellcept - PO 500 mg BID LUIS Administration Ondansetron HCl 4 mg 09/13/17 14:21 Zofran Injection IVPUSH Q6H PRN NAUSEA Prednisone 20 mg 09/14/17 10:00 Deltasone - PO DAILY LUIS CBC, BMP 09/14/17 07:40 09/14/17 09:00 Echo 01/2017: g2dd, sev conc lvh, lvef 40-45, global hk, nl rv, mild ar, mod mr , mod phtn ecg: sr, nl intervals, lvh with repol changes, no sig change prior tele: sr echo 08/2017: mod lve, mod lvh, nl lvef, nl rv, mild teri, mild mr a/p: 52 m hx obesity, htn, ckd, dchf here with cp. cp: -possibly due to stress vs elevated bp -currently no signs acs. tele, echo, CE's all w/o etiology -will plan for nuclear stress test today, if benign then ok for dc from cardiac pov Htn: -non compliant with meds and hx of anxiety so often with elevated bp -resume home meds: coreg 25 bid, hydralazine 100 tid, isordil 30 tid, clonidine 0.1 bid, norvasc 10 qd. chronic diastolic chf: Likely 2/2 uncontrolled htn. Htn tx as doing above. No pulm congestion. Cont lasix po 40 bid. cardiomyopathy: At time of admit for htn urgency and dchf echo showed mod reduced lvef. Likely due to acute issues at the time. Repeat echo here showing nl lvef. Cont chf regimen with bb, hydralazine/nitrates. No richa 2/2 ckd.
[2017-09-14 11:21] LABS: ACANTHOCYTES 0; ANISOCYTOSIS 0; HELMET CELLS 0; HOWELL-JOLLY BODIES 0; MACROCYTOSIS 0; OVALOCYTE 0; PLATELET ESTIMATE DECREASED; ROULEAU 0; SICKELED CELLS 0; TARGET CELLS 0; TEAR DROP CELLS 0; TOXIC GRANULATION 0
[2017-09-14] MEDS ORDERED: PT OWN MED DRAWER 7, Y5N ONE ×2 (12:38→12:58)
[2017-09-14] MEDS: MYCOPHENOLATE MOFETIL 500 MG TABLET PO SCH (12:41)
--- NOTE | 2017-09-14 14:24 | DS ---
Physical Examination Vital Signs: Vital Signs Temperature 36.7 C 09/14/17 10:00 Pulse Rate 61 09/14/17 10:00 Respiratory Rate 20 09/14/17 10:00 Blood Pressure 174/91 09/14/17 11:53 O2 Sat by Pulse Oximetry (%) 96 09/14/17 09:00 Constitutional: Yes: No Distress, Calm, Obese Cardiovascular: Yes: Regular Rate and Rhythm. No: Gallop, Murmur, Rub Respiratory: Yes: Regular, CTA Bilaterally. No: Rales, Rhonchi, Wheezes Gastrointestinal: Yes: Normal Bowel Sounds, Soft. 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 (Acute) Hospital Course: (1) Chest pain Code(s): R07.9 - CHEST PAIN, UNSPECIFIED Qualifiers: Chest pain type: unspecified Qualified Code(s): R07.9 - Chest pain, unspecified (2) Glomerulosclerosis Code(s): N26.9 - RENAL SCLEROSIS, UNSPECIFIED (3) Chronic renal disease Code(s): N18.9 - CHRONIC KIDNEY DISEASE, UNSPECIFIED Qualifiers: Chronic kidney disease stage: stage 4 (severe) Qualified Code(s): N18.4 - Chronic kidney disease, stage 4 (severe) (4) CHF (congestive heart failure) Code(s): I50.9 - HEART FAILURE, UNSPECIFIED Qualifiers: Qualified Code(s): I50.40 - Unspecified combined systolic (congestive) and diastolic (congestive) heart failure (5) Hypertension Code(s): I10 - ESSENTIAL (PRIMARY) HYPERTENSION Qualifiers: Hypertension type: unspecified Qualified Code(s): I10 - Essential (primary ) hypertension (6) Murmur, cardiac Code(s): R01.1 - CARDIAC MURMUR, UNSPECIFIED Mr Nuñez is a pleasant 52 year old male who comes in with chest pain and hypertension. He was admitted to telemetry under observation. Cardiac enzymes x3 were sent. EKG was performed and unchanged. He was seen by cardiology. He underwent myocardial perfusion stress test which was negative and he was cleared by cardiology. He is currently chest pain free. He is to be continued on his home regimen, further adjustment of antihypertensives to be done as an outpatient if needed. He is stable for discharge home. Condition: Fair - Instructions Diet, Activity, Other Instructions: Resume previous diet and activity Referrals: Zach Ramirez MD [Primary Care Provider] - Joel Son MD [Staff Physician] - Lauren Waterman MD [Staff Physician] - - Home Medications Comprehensive Discharge Medication List: Ambulatory Orders Aspirin [ASA -] 81 mg PO DAILY tab.chew 01/26/17 Carvedilol [Coreg -] 25 mg PO BID #60 tablet 01/26/17 Isosorbide Dinitrate [Isordil -] 30 mg PO TID 08/07/17 hydrALAZINE HCL [Apresoline -] 100 mg PO TID 08/07/17 Finasteride 5 mg PO DAILY 08/09/17 Furosemide [Lasix] 40 mg PO BID 08/09/17 Tamsulosin HCl [Flomax] 0.4 mg PO DAILY 08/09/17 cloNIDine HCL [Catapres -] 0.1 mg PO TID #90 tablet 08/09/17 Amlodipine Besylate [Norvasc -] 10 mg PO DAILY tablet 09/14/17 Mycophenolate Mofetil [Cellcept -] 500 mg PO BID tablet 09/14/17 predniSONE [Deltasone -] 20 mg PO DAILY tablet 09/14/17
[2017-09-14 17:17] VITALS: BP 157/97; PULSE 69; TEMP 98.4
== END 2017-09-14 18:32 | disposition home or self-care (01) ==
LOC: JER 10:26 → JERBED 13:35 → J4S 09-14 02:43
PROVIDERS: ADMIT Internal Medicine; ATTEND Internal Medicine
PROC: 3E033GC Introduction of Other Therapeutic Substance into Peripheral Vein, Percutaneous Approach (ICD-10-PCS; principal; 2017-09-13)
DX: I12.9 Hypertensive chronic kidney disease with stage 1 through stage 4 chronic kidney disease, or unspecified chronic kidney disease (principal); R07.89 Other chest pain; N18.4 Chronic kidney disease, stage 4 (severe); R60.0 Localized edema; R01.1 Cardiac murmur, unspecified; I25.10 Atherosclerotic heart disease of native coronary artery without angina pectoris; I42.9 Cardiomyopathy, unspecified; I50.32 Chronic diastolic (congestive) heart failure; J45.909 Unspecified asthma, uncomplicated; E78.5 Hyperlipidemia, unspecified; E66.9 Obesity, unspecified; Z68.33 Body mass index [BMI] 33.0-33.9, adult; Z86.73 Personal history of transient ischemic attack (TIA), and cerebral infarction without residual deficits; Z91.14 Patient's other noncompliance with medication regimen; Z87.891 Personal history of nicotine dependence; Z79.82 Long term (current) use of aspirin
CPT/HCPCS: 36415; 71045-TC-FY; 78452-TC; 80048; 80053; 82550; 83735; 84100; 84484; 85025; 85610; 93005; 93010; 93017; 93306-TC; 99285-25; A9502; G0378; J0735; J2785; J7517

== ENCOUNTER 2017-11-27 18:20 | Inpatient (IN) | payer BC, MEDICARE ==
[2017-11-27 18:48] VITALS: BMI 32.0
--- NOTE | 2017-11-27 19:16 | PDOC ---
History of Present Illness - General History Source: Patient Exam Limitations: No Limitations - History of Present Illness Initial Comments: 11/27/17 19:43 The patient is a 52 year old male with past medical history of CVA (2017), focal segmental glomerulosclerosis, asthma, and hypertension who presents to the ED with complaints of constipation and nausea for the past 5 days. The patient states he hasnt made a bowel movement in 5 days despite taking Miralax , prune juice or a suppository yesterday. He also endorses nausea, severe, diffuse abdominal pain and distention and reports two episodes of nonbloody nonbilious vomiting. He denies any melena or hematochezia. Denies any fevers or chills. He also reports a decreased appetite. Denies any fevers or chills, cough , SOB, CP, or urinary complaints. <Rani Francisco - Last Filed: 11/27/17 21:38> <Maren March - Last Filed: 11/27/17 22:54> - General Chief Complaint: Constipation Stated Complaint: CONSTIPATION Time Seen by Provider: 11/27/17 19:15 Past History <Rani Francisco - Last Filed: 11/27/17 21:38> - Past Medical History Anemia: No Asthma: Yes (mild,last attack years ago) Cancer: No Cardiac Disorders: No CVA: Yes (2017) COPD: No CHF: Yes Dementia: No Diabetes: No GI Disorders: Yes (RENAL FAILURE) Disorders: No HTN: Yes Hypercholesterolemia: No Liver Disease: No Seizures: No Thyroid Disease: No - Surgical History Abdominal Surgery: Yes (HERNIA REPAIR) Orthopedic Surgery: Yes (right ankle fracture; plate with 6 screws) - Suicide/Smoking/Psychosocial Hx Smoking Status: No Smoking History: Former smoker Have you smoked in the past 12 months: No Number of Cigarettes Smoked Daily: 0 If you are a former smoker, when did you quit?: 11 months ago Cigars Per Day: 0 Information on smoking cessation initiated: No 'Breaking Loose' booklet given: 09/14/17 Hx Alcohol Use: No Drug/Substance Use Hx: No Substance Use Type: None Hx Substance Use Treatment: No <Maren March - Last Filed: 11/27/17 22:54> - Past Medical History Allergies/Adverse Reactions: Allergies Allergy/AdvReac Type Severity Reaction Status Date / Time No Known Allergies Allergy Verified 11/27/17 18:24 Home Medications: Ambulatory Orders Amlodipine Besylate 10 mg PO DAILY 11/27/17 Carvedilol 25 mg PO BID 11/27/17 Clonidine HCl 0.1 mg PO BID 11/27/17 Furosemide [Lasix] 40 mg PO BID 11/27/17 Hydralazine HCl 100 mg PO TID 11/27/17 Isosorbide Dinitrate [Isordil -] 30 mg PO TID 11/27/17 Mycophenolate Mofetil 500 mg PO BID 11/27/17 Polyethylene Glycol 3350 [Miralax (For Daily Use) -] 17 gm PO DAILY 11/27/17 Review of Systems - Review of Systems Able to Perform ROS?: Yes Comments:: 11/27/17 19:43 CONSTITUTIONAL:(+) loss of appetite No reported: Fever, Chills, Diaphoresis, Generalized Weakness, Malaise HEENT: No reported: Rhinorrhea, Nasal Congestion, Throat Pain, Throat Swelling, Difficulty Swallowing, Mouth Swelling, Ear Pain, Eye Pain, Visual Changes CARDIOVASCULAR: No reported: Chest Pain, Syncope, Palpitations, Irregular Heart Rate, Lightheadedness, Peripheral Edema RESPIRATORY: No reported: Cough, Shortness of Breath, SOB with Exertion, Orthopnea, Wheezing , Stridor, Hemoptysis GASTROINTESTINAL: (+) abdominal pain, nausea, vomiting, distention, constipation No reported: Diarrhea, Melena, Hematochezia GENITOURINARY: No reported: Dysuria, Frequency, Urgency, Hesitancy, Flank Pain, Genital Pain MUSCULOSKELETAL: No reported: Myalgia, Arthralgia, Joint Swelling, Back pain, Neck Pain SKIN: No reported: Rash, Itching, Pallor HEMEATOLOGIC/IMMUNOLOGIC: No reported: Easy Bleeding, Easy Bruising, Lymphadenopathy, Frequent infections ENDOCRINE: No reported: Unexplained Weight Gain, Unexplained Weight Loss, Heat Intolerance , Cold Intolerance NEUROLOGIC: No reported: Headache, Focal Weakness, Paresthesias, Vertigo, Lightheadedness, Unsteady Gait, Seizure, Mental Status Changes, Incontinence PSYCHIATRIC: No reported: Anxiety, Depression All Other Systems: Reviewed and Negative <Rani Francisco - Last Filed: 11/27/17 21:38> *Physical Exam - Vital Signs Last Vital Signs Temp Pulse Resp BP Pulse Ox 98.4 F 70 18 201/119 97 11/27/17 18:20 11/27/17 18:20 11/27/17 18:20 11/27/17 18:20 11/27/17 18:20 - Physical Exam Comments: 11/27/17 19:44 GENERAL: The patient is awake, alert, and fully oriented, Nontoxic - in no acute distress. HEAD: Normocephalic, atraumatic. EYES: extraocular movements intact, sclera anicteric, conjunctiva clear. ENT: Normal voice, Dry mucous membranes. NECK: Normal range of motion, supple LUNGS: Breath sounds equal, clear to auscultation bilaterally. No wheezes, no rhonchi, no rales. HEART: Regular rate and rhythm, without murmur, rub or gallop. ABDOMEN:Firm, distended abdomen with hypoactive bowel sounds and generalized moderate tenderness. No guarding, no rebound.No CVA tenderness EXTREMITIES: Normal range of motion, no edema. No clubbing or cyanosis. No cords , erythema, or tenderness. NEUROLOGICAL: No facial assymetry, Normal speech, PSYCH: Normal mood, normal affect. SKIN: Warm, Dry, normal turgor, <Rani Francisco - Last Filed: 11/27/17 21:38> - Vital Signs Last Vital Signs Temp Pulse Resp BP Pulse Ox 98.4 F 70 18 201/119 97 11/27/17 18:20 11/27/17 18:20 11/27/17 18:20 11/27/17 18:20 11/27/17 18:20 <Maren March - Last Filed: 11/27/17 22:54> ED Treatment Course - LABORATORY CBC & Chemistry Diagram: 11/27/17 19:58 11/27/17 19:58 <Rani Francisco - Last Filed: 11/27/17 21:38> - LABORATORY CBC & Chemistry Diagram: 11/27/17 19:58 11/27/17 19:58 <Maren aMrch - Last Filed: 11/27/17 22:54> Progress Note - Progress Note Progress Note: Documentation has been prepared under my direction and personally reviewed by me in its entirety. I attest that this documented accurately reflects all work, treatment, procedures and medical decision making performed by me. <Maren March - Last Filed: 11/27/17 22:54> Medical Decision Making - Medical Decision Making 11/27/17 22:26 As noted above, this 52-year-old man with a history of HTN, CVA, renal insufficiency and asthma presents with 5 day history of abdominal discomfort and constipation. Patient states in the last 24 hours generalized abdominal pain has become quite severe. He has had some intermittent nausea with vomiting (2 episodes yesterday) but none today. Patient states that he has not had a bowel movement in the last 5 days despite taking multiple cathartics. No previous history of abdominal surgery or small bowel obstruction. Exam as noted Laboratory evaluation significant for white blood cell count 11,000; BUN/ creatinine is nearly baseline at 45/4.2(creatinine slightly higher than baseline for 3.83.9); potassium is slightly below normal at 3.1; otherwise, no significant abnormalities on basic labs.Lipase is at upper limit of normal Noncontrast CT of the abdomen and pelvis significant for the kidney of the proximal and mid jejunal loops as well as third and fourth portion of the duodenum a stranding of the adjacent mesentery consistent with enteritis( inflammatory versus infectious). Of note, there is mesenteric edema and inflammatory changes around the celiac and superior mesenteric artery as well as along posterior medial margin the pancreatic head and uncinate process. There is no evidence of small bowel obstruction. There is a moderate amount of fecal residue in the colon without wall thickening. No evidence of acute diverticulitis Because of the patient's progressive abdominal pain and risk factors , possibility of mesenteric ischemia exists. The patient needs for further evaluation and treatment. Normal saline at 150 mL per hour; 10 mEq KCl IV; Dilaudid 1 mg IV administered <Maren March - Last Filed: 11/27/17 22:54> *DC/Admit/Observation/Transfer - Attestations Scribe Attestion: 11/27/17 19:45 Documentation prepared by Rani Francisco, acting as certified court/medical interpreter for Maren March MD. <Rani Francisco - Last Filed: 11/27/17 21:38> - Discharge Dispostion Decision to Admit order: Yes <Maren March - Last Filed: 11/27/17 22:54> Diagnosis at time of Disposition: Enteritis Abdominal pain Qualifiers: Abdominal location: generalized Qualified Code(s): R10.84 - Generalized abdominal pain - Discharge Dispostion Condition at time of disposition: Guarded
[2017-11-27 20:04] LABS: URINE APPEARANCE Clear; URINE BILIRUBIN Negative (NEGATIVE); URINE COLOR YELLOW; URINE GLUCOSE (UA) Negative (NEGATIVE); URINE KETONE Negative (NEGATIVE); URINE LEUK ESTERASE Negative (NEGATIVE); URINE NITRITE Negative (NEGATIVE); URINE PROTEIN 3+ (NEGATIVE); URINE UROBILINOGEN 0.2 (0.2-1.0)
[2017-11-27 20:06] LABS: BASO % 0.5 % (0-2.0); EOS % 2.6 % (0-4.5); HEMATOCRIT 32.9 % (35.4-49); HEMOGLOBIN 11.9 GM/dl (11.7-16.9); LYMPH % 15.8 % (8-40); MCH 32.1 pg (25.7-33.7); MCHC 36.1 g/dl (32.0-35.9); MEAN CELL VOLUME 89.1 fl (80-96); MONO % 7.9 % (3.8-10.2); NEUT % 73.2 % (42.8-82.8); PLATELET COUNT 101 K/MM3 (134-434); RDW 12.6 % (11.9-15.9)
[2017-11-27 20:16] LABS: INR 1.1 (0.82-1.09); PROTHROMBIN TIME (PATIENT) 12.3 SEC (10.2-13.0)
[2017-11-27 20:21] LABS: ALBUMIN 3.1 g/dl (3.5-5.0); ALK PHOS 52 U/L (32-92); ANION GAP 11 (8-16); BILIRUBIN,TOTAL 0.9 mg/dl (0.2-1.0); BLOOD UREA NITROGEN 45 mg/dl (7-18); CHLORIDE 96 mmol/L (98-107); CO2 27 mmol/L (22-28); CREATININE 4.2 mg/dl (0.6-1.3); GLUCOSE,RANDOM 102 mg/dl (74-106); POTASSIUM 3.1 mmol/L (3.5-5.1); SGOT/AST 25 U/L (10-42); SGPT/ALT 17 U/L (10-40); SODIUM 134 mmol/L (136-145); TOT PROT 5.4 g/dl (6.4-8.3)
[2017-11-27 21:49] LABS: URINE RBC 0-2 /hpf (0-3); URINE WBC 0-1 (0-2)
[2017-11-27 21:50] LABS: URINE BACTERIA FEW /hpf (NEGATIVE)
[2017-11-27] MEDS ORDERED: HYDROmorphone HCL CARPU-JECT 1 MG/1 ML DISP.SYRIN IVPUSH ONE ×2 (22:23→22:56)
[2017-11-27] MEDS ORDERED: KCL 10 MEQ IVPB 10 MEQ/100 ML INFUS.BAG IVPB ONE (22:25)
[2017-11-27] MEDS ORDERED: HYDROmorphone HCL CARPU-JECT 2 MG/1 ML DISP.SYRIN ONE (22:25)
[2017-11-27] MEDS ORDERED: SODIUM CHLORIDE 1,000 ML IV SCH ×2 (22:30→23:00)
[2017-11-27] MEDS ORDERED: KCL 10 MEQ IVPB 10 MEQ/100 ML INFUS.BAG IVPB SCH (22:30)
[2017-11-27] MEDS ORDERED: morphine CARPU-JECT 2 MG/1 ML DISP.SYRIN IVPUSH PRN (22:53)
--- NOTE | 2017-11-27 23:01 | HP ---
Admitting History and Physical - Primary Care Physician PCP: Zach Ramirez - Admission Chief Complaint: Constipation, Abdominal Distention History of Present Illness: 52 y/o man with PMH CAD, CHF, HTN, HLD, CVA (2017), Asthma, CKD Stage 4. Who presents to the ED with constipation, abdominal distention x 5 days. Patient reports after eating a pork wedge, he was not feeling well. He noticed then he was not having BMs. Patient describes the pain as sharp, intermittent, passing flatulence. Patient reports having 2 episodes of bilious vomiting- now resolved. Patient reports his last colonoscopy was >10 yrs- result- no polyps. No family hx Colorectal Ca. Patient denies fever, cough, SOB, CP, diarrhea, melena, hematochezia, dysuria. History Source: Patient, Medical Record Limitations to Obtaining History: No Limitations - Past Medical History Cardiovascular: Yes: CAD, CHF, HTN, Hyperlipdemia Renal/: Yes: Renal Failure (Cr 2.2 in 07/2016, suspect due to hypertensive disease) - Past Surgical History Past Surgical History: Yes: Joint Replacement (ankle repair) - Smoking History Smoking history: Former smoker Have you smoked in the past 12 months: No Aproximately how many cigarettes per day: 0 If you are a former smoker, when did you quit?: 11 months ago - Alcohol/Substance Use Hx Alcohol Use: No History of Substance Use: reports: None - Social History ADL: Independent History of Recent Travel: No Home Medications - Allergies Allergies/Adverse Reactions: Allergies Allergy/AdvReac Type Severity Reaction Status Date / Time No Known Allergies Allergy Verified 11/27/17 18:24 - Home Medications Home Medications: Ambulatory Orders Amlodipine Besylate 10 mg PO DAILY 11/27/17 Carvedilol 25 mg PO BID 11/27/17 Clonidine HCl 0.1 mg PO BID 11/27/17 Furosemide [Lasix] 40 mg PO BID 11/27/17 Hydralazine HCl 100 mg PO TID 11/27/17 Isosorbide Dinitrate [Isordil -] 30 mg PO TID 11/27/17 Mycophenolate Mofetil 500 mg PO BID 11/27/17 Polyethylene Glycol 3350 [Miralax (For Daily Use) -] 17 gm PO DAILY 11/27/17 Family Disease History - Family Disease History Family Disease History: Heart Disease: Mother Review of Systems - Review of Systems Constitutional: reports: Chills Eyes: reports: No Symptoms HENT: reports: No Symptoms Neck: reports: No Symptoms Cardiovascular: reports: No Symptoms Respiratory: reports: No Symptoms Gastrointestinal: reports: Abdominal Pain, Constipation, Nausea, Vomiting Genitourinary: reports: No Symptoms Breasts: reports: No Symptoms Reported Musculoskeletal: reports: No Symptoms Integumentary: reports: No Symptoms Neurological: reports: No Symptoms Endocrine: reports: No Symptoms Hematology/Lymphatic: reports: No Symptoms Psychiatric: reports: No Symptoms Physical Examination Vital Signs: Vital Signs Temperature 98.4 F 11/27/17 18:20 Pulse Rate 70 11/27/17 18:20 Respiratory Rate 18 11/27/17 18:20 Blood Pressure 201/119 11/27/17 18:20 O2 Sat by Pulse Oximetry (%) 97 11/27/17 18:20 Constitutional: Yes: Mild Distress, Obese Eyes: Yes: WNL, Conjunctiva Clear, PERRL HENT: Yes: WNL, Atraumatic, Normocephalic Neck: Yes: WNL, Supple, Trachea Midline Cardiovascular: Yes: WNL, Regular Rate and Rhythm, S1, S2 Respiratory: Yes: WNL, Regular, CTA Bilaterally Gastrointestinal: Yes: Abdomen, Obese, Distention, Hyperactive Bowel Sounds Renal/: Yes: WNL Breast(s): Yes: WNL Musculoskeletal: Yes: WNL Extremities: Yes: WNL Edema: Yes Edema: LLE: 2+, RLE: 2+ Peripheral Pulses WNL: Yes Integumentary: Yes: WNL Neurological: Yes: WNL, Alert, Oriented ...Motor Strength: WNL Psychiatric: Yes: WNL, Alert, Oriented Labs: CBC, BMP 11/27/17 19:58 11/27/17 19:58 Intake & Output 11/25/17 11/26/17 11/27/17 11/28/17 23:59 23:59 23:59 23:59 Output Total 300 Balance -300 Weight 110.223 kg Current Medications Generic Name Dose Route Start Last Admin Trade Name Freq PRN Reason Stop Dose Admin Amlodipine Besylate 10 mg 11/28/17 10:00 Norvasc - PO DAILY LUIS Carvedilol 25 mg 11/28/17 10:00 Coreg - PO BID LUIS Clonidine 0.1 mg 11/28/17 10:00 Catapres - PO BID LUIS Furosemide 40 mg 11/28/17 06:00 11/28/17 06:52 Lasix Injection - IVPUSH 40 mg BID@0600,1400 LUIS Administration Heparin Sodium (Porcine) 5,000 unit 11/27/17 23:15 11/28/17 06:52 Heparin - SQ 5,000 unit TID LUIS Administration Hydralazine HCl 100 mg 11/28/17 06:45 11/28/17 06:52 Apresoline - PO 100 mg TID LUIS Administration Sodium Chloride 1,000 mls @ 42 mls/hr 11/28/17 06:36 11/28/17 06:52 Normal Saline - IV 42 mls/hr ASDIR LUIS Administration Isosorbide Dinitrate 30 mg 11/28/17 08:00 Isordil - PO TIDISORDIL LUIS Morphine Sulfate 2 mg 11/27/17 22:53 Morphine Injection - IVPUSH Q4H PRN PAIN LEVEL 6-10 Pantoprazole Sodium 40 mg 11/27/17 22:57 11/28/17 00:18 Protonix Iv IVPUSH 40 mg DAILY LUIS Administration Imaging - Results Cat Scan: Report Reviewed, Image Reviewed Problem List - Problems (1) Hypertensive urgency Assessment/Plan: - Will continue home meds - Given Lopressor IV in ED - Continue cardiac monitoring - Appreciate Cardiology consult Code(s): I16.0 - HYPERTENSIVE URGENCY (2) Constipation Assessment/Plan: - CTAP- reviewed - Appreciate GI consult - NPO - Gentle IVF Code(s): K59.00 - CONSTIPATION, UNSPECIFIED (3) Abdominal pain Assessment/Plan: - Likely secondary to Constipation vs Obstruction vs Enteritis - CTAP- reviewed - Gentle IVF - Monitor CBC, BMP - Monitor vitals - Morphine prn Code(s): R10.9 - UNSPECIFIED ABDOMINAL PAIN Qualifiers: Abdominal location: generalized Qualified Code(s): R10.84 - Generalized abdominal pain (4) Enteritis Assessment/Plan: - See above Code(s): K52.9 - NONINFECTIVE GASTROENTERITIS AND COLITIS, UNSPECIFIED (5) Chronic renal disease Assessment/Plan: - Slightly elevated from baseline - Continue home meds - Appreciate Nephrology consult - Monitor renal function Code(s): N18.9 - CHRONIC KIDNEY DISEASE, UNSPECIFIED Qualifiers: Chronic kidney disease stage: stage 4 (severe) Qualified Code(s): N18.4 - Chronic kidney disease, stage 4 (severe) (6) Hypertension Assessment/Plan: - Uncontrolled - See above Code(s): I10 - ESSENTIAL (PRIMARY) HYPERTENSION Qualifiers: Hypertension type: unspecified Qualified Code(s): I10 - Essential (primary ) hypertension (7) Leg edema Assessment/Plan: - Continue Lasix - Elevate extremities Code(s): R60.0 - LOCALIZED EDEMA (8) Murmur, cardiac Code(s): R01.1 - CARDIAC MURMUR, UNSPECIFIED (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 Admitted for Hypertension Urgency, Constipation, Abdominal Pain, Hypokalemia Problems: 1. Hypertensive Urgency 2. Constipation 3. Abdominal Pain 4. Hypokalemia 5. CKD Stage 4 6. CAD 7. CHF 8. Asthma 9. CVA FEN - NS@42cc/hr - Replete K, continue to monitor - NPO except meds DVT ppx - OOB - Heparin SQ Code Status: Full Code Dispo: Requires Inpatient Care Visit type - Emergency Visit Emergency Visit: Yes ED Registration Date: 11/27/17 Care time: The patient presented to the Emergency Department on the above date and was hospitalized for further evaluation of their emergent condition. - New Patient This patient is new to me today: Yes Date on this admission: 11/27/17 - Critical Care Critical Care patient: No Hospitalist Screening - Colonoscopy Questionnaire Colonoscopy Questionnaire: Colonoscopy Questionnaire - Patient: 50 - 75 years old and never had a screening colonoscopy: No History of colon or rectal polyps, or CA: No History of IBD, Crohn's disease or UC: No History of abdominal radiation therapy as a child: No - Relative: 1 with colon or rectal CA, or polyps at age 60 or younger: No Colon or rectal CA diagnosed at age 45 or younger: No Multiple relatives with colon or rectal CA: No - Outcome: Screening Result: Negative Screen
[2017-11-27] MEDS ORDERED: METOPROLOL TARTRATE 5 MG/5 ML VIAL IVPUSH ONE (23:37)
[2017-11-27] MEDS ORDERED: METOPROLOL TARTRATE 5 MG/5 ML VIAL ONE (23:52)
[2017-11-27] MEDS ORDERED: HEPARIN NA (PORCINE) 5,000 UNITS/ML 1ML VIAL ONE (23:52)
[2017-11-27] MEDS ORDERED: PANTOPRAZOLE SODIUM 40 MG VIAL ONE (23:52)
[2017-11-28] MEDS: HEPARIN NA (PORCINE) 5,000 UNITS/ML 1ML VIAL SQ SCH ×3 (00:09→06:52)
[2017-11-28] MEDS: PANTOPRAZOLE SODIUM 40 MG VIAL IVPUSH SCH ×2 (00:18→09:42)
[2017-11-28] MEDS ORDERED: SODIUM CHLORIDE 1,000 ML IV SCH ×2 (01:52→06:36)
[2017-11-28] MEDS ORDERED: FUROSEMIDE 40 MG/4 ML INJECTABLE VIAL IVPUSH SCH (06:00)
[2017-11-28] MEDS: hydrALAZINE HCL 50 MG TABLET (FP) PO SCH ×3 (06:52→21:27)
[2017-11-28] MEDS ORDERED: POTASSIUM CHLORIDE TABS 20 MEQ TABLET.ER (FP) PO ONE ×3 (07:05→10:10)
--- NOTE | 2017-11-28 07:57 | PN ---
Physical Exam: SUBJECTIVE: Patient seen and examined, reports abdominal fullness, states he has not a bowel movement in 5 days, denies any chest pain or shortness of breath. OBJECTIVE: Patient is a 52 y/o male with PMH CAD, CHF, HTN, HLD, CVA (2017), Asthma, CKD Stage 4. Patient was admitted from the emergency department for emergent condition. Vital Signs Period Temp Pulse Resp BP Sys/Pichardo Pulse Ox Last 24 Hr 98.4 F-98.8 F 70-87 18-20 191-205/112-123 97-97 GENERAL: The patient is awake, alert, and fully oriented, in no acute distress. HEAD: Normal with no signs of trauma. EYES: PERRL, extraocular movements intact, sclera anicteric, conjunctiva clear. No ptosis. ENT: Ears normal, nares patent, oropharynx clear without exudates, moist mucous membranes. NECK: Trachea midline, full range of motion, supple. LUNGS: Breath sounds equal, clear to auscultation bilaterally, no wheezes, no crackles, no accessory muscle use. HEART: Regular rate and rhythm, S1, S2 without murmur, rub or gallop. ABDOMEN: Soft, nontender, distended, hypoactive bowel sounds, no guarding, no rebound, no hepatosplenomegaly, no masses. EXTREMITIES: 2+ pulses, warm, well-perfused, billateral +1 edema to lower extremities NEUROLOGICAL: Cranial nerves II through XII grossly intact. Normal speech, gait not observed. PSYCH: Normal mood, normal affect. SKIN: Warm, dry, normal turgor, no rashes or lesions noted Laboratory Results - last 24 hr CBC WBC 7.2 K/mm3 (4.0-10.8) D 11/28/17 07:25 RBC 3.53 M/mm3 (4.00-5.60) L 11/28/17 07:25 Hgb 10.9 GM/dl (11.7-16.9) L 11/28/17 07:25 Hct 31.7 % (35.4-49) L 11/28/17 07:25 MCV 89.9 fl (80-96) 11/28/17 07:25 MCH 30.9 pg (25.7-33.7) 11/28/17 07:25 MCHC 34.4 g/dl (32.0-35.9) 11/28/17 07:25 RDW 12.8 % (11.9-15.9) 11/28/17 07:25 Plt Count 98 K/MM3 (134-434) L 11/28/17 07:25 MPV 8.6 fl (7.5-11.1) 11/28/17 07:25 Absolute Neuts (auto) 8.0 # 11/27/17 19:58 Neutrophils % 73.2 % (42.8-82.8) 11/27/17 19:58 Lymphocytes % 15.8 % (8-40) 11/27/17 19:58 Monocytes % 7.9 % (3.8-10.2) 11/27/17 19:58 Eosinophils % 2.6 % (0-4.5) 11/27/17 19:58 Basophils % 0.5 % (0-2.0) 11/27/17 19:58 CMP Sodium 134 mmol/L (136-145) L 11/28/17 07:25 Potassium 3.0 mmol/L (3.5-5.1) L 11/28/17 07:25 Chloride 99 mmol/L (98-107) 11/28/17 07:25 Carbon Dioxide 25 mmol/L (22-28) 11/28/17 07:25 Anion Gap 10 (8-16) 11/28/17 07:25 BUN 42 mg/dl (7-18) H 11/28/17 07:25 Creatinine 3.8 mg/dl (0.6-1.3) H 11/28/17 07:25 Creat Clearance w eGFR 16.88 (>60) 11/28/17 07:25 Random Glucose 90 mg/dl (74-106) 11/28/17 07:25 Lactic Acid 0.6 mmol/L (0.0-2.0) 11/27/17 11:20 Calcium 7.8 mg/dl (8.4-10.2) L 11/28/17 07:25 Magnesium 2.0 mg/dL (1.8-2.4) D 11/28/17 07:25 Total Bilirubin 0.9 mg/dl (0.2-1.0) 11/28/17 07:25 AST 19 U/L (10-42) D 11/28/17 07:25 ALT 15 U/L (10-40) 11/28/17 07:25 Alkaline Phosphatase 42 U/L (32-92) 11/28/17 07:25 Total Protein 4.9 g/dl (6.4-8.3) L 11/28/17 07:25 Albumin 2.8 g/dl (3.5-5.0) L 11/28/17 07:25 Lipase 375 U/L (73-393) 11/27/17 19:58 11/27/17 11/27/17 11/27/17 19:58 19:58 19:58 WBC RBC Hgb Hct MCV MCH MCHC RDW Plt Count MPV Absolute Neuts (auto) Neutrophils % Lymphocytes % Monocytes % Eosinophils % Basophils % PT with INR 12.3 INR 1.10 Sodium Potassium Chloride Carbon Dioxide Anion Gap BUN Creatinine Creat Clearance w eGFR Random Glucose Lactic Acid Calcium Total Bilirubin AST ALT Alkaline Phosphatase Total Protein Albumin Lipase 375 Urine Color Yellow Urine Appearance Clear Urine pH 5.0 Ur Specific [place] 1.015 Urine Protein 3+ H Urine Glucose (UA) Negative Urine Ketones Negative Urine Blood Negative Urine Nitrite Negative Urine Bilirubin Negative Urine Urobilinogen 0.2 Ur Leukocyte Esterase Negative Urine RBC 0-2 Urine WBC 0-1 Urine Bacteria Few Active Medications Generic Name Dose Route Start Last Admin Trade Name John PRN Reason Stop Dose Admin Amlodipine Besylate 10 mg 11/28/17 10:00 11/28/17 09:42 Norvasc - PO 10 mg DAILY LUIS Administration Carvedilol 25 mg 11/28/17 10:00 11/28/17 09:42 Coreg - PO 25 mg BID LUIS Administration Clonidine 0.1 mg 11/28/17 10:00 11/28/17 09:39 Catapres - PO 0.1 mg BID LUIS Administration Furosemide 40 mg 11/28/17 06:00 11/28/17 06:52 Lasix Injection - IVPUSH 40 mg BID@0600,1400 LUIS Administration Heparin Sodium (Porcine) 5,000 unit 11/27/17 23:15 11/28/17 06:52 Heparin - SQ 5,000 unit TID LUIS Administration Hydralazine HCl 100 mg 11/28/17 06:45 11/28/17 06:52 Apresoline - PO 100 mg TID LUIS Administration Isosorbide Dinitrate 30 mg 11/28/17 08:00 11/28/17 08:03 Isordil - PO 30 mg TIDISORDIL LUIS Administration Morphine Sulfate 2 mg 11/27/17 22:53 Morphine Injection - IVPUSH Q4H PRN PAIN LEVEL 6-10 Pantoprazole Sodium 40 mg 11/27/17 22:57 11/28/17 09:42 Protonix Iv IVPUSH 40 mg DAILY LUIS Administration IMAGING CT abd/pelvis w/o contrast: significant thickening of the proximal and mid jejunal loops and probable thickening of the third and fourth portion of the duodenum with significant stranding/edema of the adjacent mesentery consistent with enteritis, inflammatory versus infectious. Mesenteric edema/inflammatory changes are present around the celiac and superior mesenteric artery as well as along posterior and medial margin of the pancreatic head and uncinate process, likely related to the presence of enteritis. No evidence of acute diverticulitis as per radiologist Dr. Matthews ASSESSMENT/PLAN: 1) GI enteritis - ct scan of abd/pelvis reviewed, patient does reports eating pork 5 days ago, patient is afebrile and no leukocytosis is noted - start empiric rocephin and Flagyl monitor WBC and fever curve - appreciate GI input, Dr Bishop constipation - Soap suds enema ordered good results. - trial clear liquid diet will advance as tolerated. 2) cardiovascular hypertensive urgency - continue hydralazine, coreg, amlodipine, strict b/p monitoring q4h diastolic congestive heart failure - continue lasix home dose, pt appears euvolemic on exam, monitor I/O and daily weight 3) nephrology Acute on chronic renal disease - Repeat creatinine today is 3.8 closer to baseline - appreciate nephrology input FEN - clear liquid diet hypokalemia - replete potassium 20meq kci, repeat bmp at 1400 DVT ppx - OOB - Heparin SQ Code Status: Full Code Dispo: Requires Inpatient Care Visit type - Emergency Visit Emergency Visit: Yes ED Registration Date: 11/27/17 Care time: The patient presented to the Emergency Department on the above date and was hospitalized for further evaluation of their emergent condition. - New Patient This patient is new to me today: Yes Date on this admission: 11/28/17 - Critical Care Critical Care patient: No - Discharge Referral Referred to [facility] Med P.C.: No
[2017-11-28] MEDS: ISOSORBIDE DINITRATE 10 MG TABLET (FP) PO SCH ×3 (08:03→17:10)
[2017-11-28 08:11] LABS: HEMATOCRIT 31.7 % (35.4-49); HEMOGLOBIN 10.9 GM/dl (11.7-16.9); MCH 30.9 pg (25.7-33.7); MCHC 34.4 g/dl (32.0-35.9); MEAN CELL VOLUME 89.9 fl (80-96); MEAN PLT VOLUME 8.6 fl (7.5-11.1); PLATELET COUNT 98 K/MM3 (134-434); RBC 3.53 M/mm3 (4.00-5.60); RDW 12.8 % (11.9-15.9); WHITE BLOOD COUNT 7.2 K/mm3 (4.0-10.8)
[2017-11-28 08:42] LABS: ALBUMIN 2.8 g/dl (3.5-5.0); ALK PHOS 42 U/L (32-92); ANION GAP 10 (8-16); BILIRUBIN,TOTAL 0.9 mg/dl (0.2-1.0); BLOOD UREA NITROGEN 42 mg/dl (7-18); CALCIUM 7.8 mg/dl (8.4-10.2); CHLORIDE 99 mmol/L (98-107); CO2 25 mmol/L (22-28); CREATININE 3.8 mg/dl (0.6-1.3); GLUCOSE,RANDOM 90 mg/dl (74-106); SGOT/AST 19 U/L (10-42); SGPT/ALT 15 U/L (10-40); SODIUM 134 mmol/L (136-145); TOT PROT 4.9 g/dl (6.4-8.3)
[2017-11-28] MEDS: cloNIDine HCL 0.1 MG TABLET PO SCH ×2 (09:39→21:27)
[2017-11-28] MEDS: amLODIPine BESYLATE 10 MG TABLET (FP) PO SCH (09:42)
[2017-11-28] MEDS: CARVEDILOL 25 MG TABLET (FP) PO SCH ×2 (09:42→21:27)
[2017-11-28] MEDS: POLYETHYLENE GLYCOL 3350 119 GM BTL PO SCH (11:44)
[2017-11-28] MEDS: CEFTRIAXONE 1 G/50 ML PREMIX 50 ML IVPB SCH (11:44)
[2017-11-28] MEDS: LACTOBACILLUS ACIDOPHILUS 1 TABLET PO SCH (11:45)
--- NOTE | 2017-11-28 12:46 | PN ---
Progress Note (short form) - Note Progress Note: Patient seen and chart reviewed with consult dictated. Patient with likely acute enteritis; clinically improving. Had multiple BMs after enemas and Miralax. Afebrile, normal WBC Abdomen soft +BS nontender Tolerated clear liquid diet and has no further pain. On antibiotics for ? infectious enteritis. Would slowly advance diet and switch to PO antibiotics (or d/c antibiotics and monitor). Discharge home when stable
[2017-11-28] MEDS ORDERED: PT OWN MED DRAWER 7, Y5N ONE ×2 (13:03→17:08)
--- NOTE | 2017-11-28 13:38 | CONS ---
DATE OF CONSULTATION: 11/28/2017 I was asked to evaluate this 52-year-old gentleman admitted to the hospital with several days of abdominal pain and abdominal distention with constipation. The patient has a history of hypertension, coronary artery disease, chronic renal insufficiency and prior stroke. He also has asthma and significant renal disease (focal segmental glomerulosclerosis). The patient apparently ate a pork sandwich several days prior to this admission, and states that it tasted funny and he became sick shortly after. He developed abdominal distention and nausea for several days, without a bowel movement. He was admitted via the emergency room with abdominal distention and discomfort. The patient's hospital course has been notable for CT scan of the abdomen and pelvis showing significant thickening of the proximal mid jejunal loops and possible duodenum, consistent with an enteritis. His laboratory tests showed an initial white count of 11,000, which today is 7200, and hematocrit of 32.9. He has a BUN of 42 and creatinine 3.8 today, with normal liver chemistries. The patient received an enema today, along with MiraLAX, with multiple bowel movements, and significant improvement in his abdominal distention and discomfort. He is now tolerating a clear liquid diet. He has remained afebrile throughout the hospital stay, with stable vital signs. PHYSICAL EXAMINATION: General: He is a well-developed, moderately obese gentleman. HEENT: [place] conjunctivae. Lungs: Clear. Heart: Regular rate and rhythm. Abdomen: Soft, but slightly distended. Bowel sounds are normoactive. There is no tenderness. ASSESSMENT: Patient most likely with an enteritis involving the small bowel, along with a possible mild ileus. He appears to be clinically improving, with an improved white count, no fever, and bowel movements today. He is tolerating liquids. PLAN: I would suggest increasing his diet slowly. He was started on IV antibiotics, which can be either discontinued and switched to oral antibiotics or discontinued with just expectant monitoring. He can be followed as an outpatient when he is stable and tolerating a more normal diet. We will follow as needed. JOHN TOMLIN M.D. DREAD/[id number]
--- NOTE | 2017-11-28 13:46 | EKG ---
Test Reason : Blood Pressure : / mmHG Vent. Rate : 086 BPM Atrial Rate : 086 BPM P-R Int : 166 ms QRS Dur : 110 ms QT Int : 402 ms P-R-T Axes : 035 -35 142 degrees QTc Int : 481 ms POOR DATA QUALITY, INTERPRETATION MAY BE ADVERSELY AFFECTED NORMAL SINUS RHYTHM POSSIBLE LEFT ATRIAL ENLARGEMENT LEFT AXIS DEVIATION LEFT VENTRICULAR HYPERTROPHY PROLONGED QT ABNORMAL ECG WHEN COMPARED WITH ECG OF 13-SEP-2017 10:32, T WAVE INVERSION NOW EVIDENT IN INFERIOR LEADS T WAVE INVERSION NOW EVIDENT IN ANTERIOR LEADS Confirmed by MD ZENA, BUTCH ([id number]) on 11/28/2017 1:45:59 PM Referred By: MD GONZALEZ Confirmed By:BUTCH FREITAS MD
[2017-11-28] MEDS ORDERED: FUROSEMIDE 40 MG TABLET (FP) PO SCH (14:00)
[2017-11-28 14:50] LABS: ANION GAP 7 (8-16); BLOOD UREA NITROGEN 44 mg/dl (7-18); CALCIUM 7.5 mg/dl (8.4-10.2); CHLORIDE 97 mmol/L (98-107); CO2 26 mmol/L (22-28); CREATININE 4.2 mg/dl (0.6-1.3); GLUCOSE,RANDOM 110 mg/dl (74-106); POTASSIUM 3.2 mmol/L (3.5-5.1); SODIUM 130 mmol/L (136-145)
--- NOTE | 2017-11-28 16:42 | CONSULT ---
Consult Consult Specialty:: Nephrology ( [facility]ue[facility]a/ Jarad) Reason for Consultation:: Acute Kidney failure superimposed on Chronic Kidney disease - History of Present Illness Chief Complaint: 52 y/o man with PMH CAD, CHF, HTN, HLD, CVA (2017), Asthma, CKD Stage 4. He presented to the ED with constipation, abdominal distention x 5 days. Patient reports after eating a pork wedge and pasta, he was not feeling well. He noticed then he was not having BMs. Patient describes the pain as sharp, intermittent, passing flatulence. Had two episodes of bilious vomiting. No family hx Colorectal Ca. Patient denies fever, cough, SOB, CP, diarrhea, melena, hematochezia, dysuria. - Past Medical History [employer]: Yes: CVA Cardio/Vascular: Yes: CAD, CHF, HTN, Hyperlipdemia Renal/: Yes: Renal Failure (Cr 2.2 in 07/2016, suspect due to hypertensive disease) - Past Surgical History Past Surgical History: Yes: Joint Replacement (ankle repair) - Alcohol/Substance Use Hx Alcohol Use: No History of Substance Use: reports: None - Smoking History Smoking history: Former smoker Have you smoked in the past 12 months: No Aproximately how many cigarettes per day: 0 If you are a former smoker, when did you quit?: 11 months ago - Social History ADL: Independent History of Recent Travel: No Home Medications - Allergies Allergies/Adverse Reactions: Allergies Allergy/AdvReac Type Severity Reaction Status Date / Time No Known Allergies Allergy Verified 11/27/17 18:24 - Home Medications Home Medications: Ambulatory Orders Amlodipine Besylate 10 mg PO DAILY 11/27/17 Carvedilol 25 mg PO BID 11/27/17 Clonidine HCl 0.1 mg PO BID 11/27/17 Furosemide [Lasix] 40 mg PO BID 11/27/17 Hydralazine HCl 100 mg PO TID 11/27/17 Isosorbide Dinitrate [Isordil -] 30 mg PO TID 11/27/17 Mycophenolate Mofetil 500 mg PO BID 11/27/17 Polyethylene Glycol 3350 [Miralax (For Daily Use) -] 17 gm PO DAILY 11/27/17 Family Disease History - Family Disease History Family Disease History: Heart Disease: Mother Review of Systems - Review of Systems Constitutional: reports: Malaise, Weakness Neck: reports: No Symptoms Cardiovascular: denies: Chest Pain, Palpitations, Shortness of Breath Gastrointestinal: reports: Abdominal Pain, Bloating, Constipation, Indigestion, Vomiting Musculoskeletal: reports: Back Pain Neurological: reports: Pre-Existing Deficit Physical Exam Vital Signs: Vital Signs Temperature 98.3 F 11/28/17 13:08 Pulse Rate 67 11/28/17 13:08 Respiratory Rate 19 11/28/17 13:08 Blood Pressure 143/73 11/28/17 13:08 O2 Sat by Pulse Oximetry (%) 97 11/27/17 23:35 Constitutional: Yes: Well Nourished, Anxious HENT: Yes: Normocephalic Cardiovascular: Yes: Regular Rate and Rhythm, Tachycardia, S1, S2 Respiratory: Yes: CTA Bilaterally, Diminished Gastrointestinal: Yes: Soft, Abdomen, Obese, Distention. No: Tenderness, Tenderness, Rebound Edema: No Neurological: Yes: Alert, Oriented Labs: CBC, BMP 11/28/17 07:25 11/28/17 14:43 Imaging - Results Ultrasound: Pending (Will review) Problem List - Problems (1) Abdominal pain Code(s): R10.9 - UNSPECIFIED ABDOMINAL PAIN Qualifiers: Abdominal location: generalized Qualified Code(s): R10.84 - Generalized abdominal pain (2) Constipation Code(s): K59.00 - CONSTIPATION, UNSPECIFIED (3) Enteritis Code(s): K52.9 - NONINFECTIVE GASTROENTERITIS AND COLITIS, UNSPECIFIED (4) ALEXANDRA (acute kidney injury) Code(s): N17.9 - ACUTE KIDNEY FAILURE, UNSPECIFIED (5) Chronic renal disease Code(s): N18.9 - CHRONIC KIDNEY DISEASE, UNSPECIFIED Qualifiers: Chronic kidney disease stage: stage 4 (severe) Qualified Code(s): N18.4 - Chronic kidney disease, stage 4 (severe) (6) Hypertension Code(s): I10 - ESSENTIAL (PRIMARY) HYPERTENSION Qualifiers: Hypertension type: unspecified Qualified Code(s): I10 - Essential (primary ) hypertension (7) Anemia in chronic kidney disease Code(s): N18.9 - CHRONIC KIDNEY DISEASE, UNSPECIFIED; D63.1 - ANEMIA IN CHRONIC KIDNEY DISEASE Assessment/Plan 52 y/o man with PMH CAD, CHF, HTN, HLD, CVA (2017), Asthma, CKD Stage 4. He presented to the ED with constipation, abdominal distention x 5 days. Patient reports after eating a pork wedge and pasta, he was not feeling well. He noticed then he was not having BMs. Patient describes the pain as sharp, intermittent, passing flatulence. Had two episodes of bilious vomiting No family hx Colorectal Ca. Patient denies fever, cough, SOB, CP, diarrhea, melena, hematochezia, dysuria. Acute Kidney failure, superimposed on Chronic Kidney Disease... The acute renal Failure most likely due to unstable renal hemodynamics, resulting in renal hypoperfusion. The patient has advanced chronci kidney disease. Was receiving IV fluids. Off the same since oral intake has started. Acute Hypokalemia: due to k loss in the stool ( enema), k-loss in the urine from increased K secretion in Contraction, and also due to the intracellular K- shift. Will replace KCl. Monitor the Renal electrolyte status. Will hold loop diuretics. Thank you. Will follow with you. Lauren Waterman MD
--- NOTE | 2017-11-28 16:53 | CON.CARD ---
Consult Consult Specialty:: cardio - History of Present Illness Chief Complaint: constipation History of Present Illness: 52 yo male here for constipation/abd distension. sees dr francisco for cardiology, last visit 10/04. notes reviewed--pt with frequent medication non-adherence. admitted 2016 with HTN urgency, echo showing signif LVH with decr EF. EF normalized as of 09/03, with no ischemia on nuclear (admitted then for cp and sob occurring in setting of stressful argument with his --no signs ACS then) . current prescribed home med regimen (as of 10/04 o.v.): lasix 80 qd, coreg 25 bid , hydralazine 100 tid, isordil 30 tid, clonidine 0.1 bid, norvasc 10 qd. due to incorrect medication dosing at that visit, bp was 200/95 presently bp was 200s/119 in ER-->now resolved admits to med noncompliance ("a couple of them"). says due to poor vision since the stroke he can't read bottles of meds well. 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 Cardio/Vascular: Yes: CAD, CHF, HTN, Hyperlipdemia Renal/: Yes: Renal Failure (Cr 2.2 in 07/2016, suspect due to hypertensive disease) - Past Surgical History Past Surgical History: Yes: Joint Replacement (ankle repair) - Alcohol/Substance Use Hx Alcohol Use: No History of Substance Use: reports: None - Smoking History Smoking history: Former smoker Have you smoked in the past 12 months: No Aproximately how many cigarettes per day: 0 If you are a former smoker, when did you quit?: 11 months ago - Social History ADL: Independent History of Recent Travel: No Home Medications - Allergies Allergies/Adverse Reactions: Allergies Allergy/AdvReac Type Severity Reaction Status Date / Time No Known Allergies Allergy Verified 11/27/17 18:24 - Home Medications Home Medications: Ambulatory Orders Amlodipine Besylate 10 mg PO DAILY 11/27/17 Carvedilol 25 mg PO BID 11/27/17 Clonidine HCl 0.1 mg PO BID 11/27/17 Furosemide [Lasix] 40 mg PO BID 11/27/17 Hydralazine HCl 100 mg PO TID 11/27/17 Isosorbide Dinitrate [Isordil -] 30 mg PO TID 11/27/17 Mycophenolate Mofetil 500 mg PO BID 11/27/17 Polyethylene Glycol 3350 [Miralax (For Daily Use) -] 17 gm PO DAILY 11/27/17 Family Disease History - Family Disease History Family Disease History: Heart Disease: Mother Review of Systems - Review of Systems Constitutional: denies: Chills, Fever Eyes: denies: Eye Pain HENT: denies: Nasal Congestion Neck: denies: Stiffness Cardiovascular: denies: Palpitations Respiratory: denies: Orthopnea, PND Gastrointestinal: reports: Abdominal Pain, Constipation. denies: Diarrhea, Rectal Bleeding Genitourinary: denies: Burning, Hematuria Musculoskeletal: denies: Muscle Pain Integumentary: denies: Rash Neurological: denies: Numbness, Seizure, Syncope Endocrine: denies: Excessive Sweating Hematology/Lymphatic: denies: Excessive Bleeding Vital Signs: Vital Signs Temperature 98.3 F 11/28/17 13:08 Pulse Rate 67 11/28/17 13:08 Respiratory Rate 19 11/28/17 13:08 Blood Pressure 143/73 11/28/17 13:08 O2 Sat by Pulse Oximetry (%) 97 11/27/17 23:35 Constitutional: Yes: Well Nourished, No Distress Eyes: No: Sclera Icterus HENT: No: Nasal Congestion Neck: No: Decreased ROM Respiratory: Yes: CTA Bilaterally. No: Accessory Muscle Use, Rales, Wheezes Gastrointestinal: Yes: Normal Bowel Sounds. No: Distention, Hepatomegaly, Palpable Mass, Tenderness Cardiovascular: Yes: Regular Rate and Rhythm JVD: No Carotid Bruit: No PMI: Non-Displaced Heart Sounds: Yes: S1, S2. No: Gallop Murmur: No: Systolic Murmur, Diastolic Murmur Musculoskeletal: Yes: Other (No kyphosis) Extremities: No: Cool, Cyanosis Edema: No Peripheral Pulses: 2+ Left Carotid, 2+ Right Carotid, 2+ Left Doralis Pedis, 2+ Right Dorsalis Pedis Integumentary: No: Jaundice Neurological: Yes: Alert, Oriented (x3) Psychiatric: No: Agitated - Other Data Labs, Other Data: CBC, BMP 11/28/17 07:25 11/28/17 14:43 INR, PTT INR 1.10 (0.82-1.09) 11/27/17 19:58 Laboratory Tests 01/23/17 11/27/17 11/28/17 07:30 19:58 07:25 WBC 7.2 D Hgb 10.9 L Plt Count 98 L PT with INR 12.3 INR 1.10 Sodium Potassium Carbon Dioxide BUN Creatinine AST ALT Albumin Triglycerides 166 H Cholesterol 176 Total LDL Cholesterol 111 HDL Cholesterol 32 11/28/17 11/28/17 07:25 14:43 WBC Hgb Plt Count PT with INR INR Sodium 130 L Potassium 3.2 L Carbon Dioxide 26 BUN 44 H Creatinine 4.2 H AST 19 D ALT 15 Albumin 2.8 L Triglycerides Cholesterol Total LDL Cholesterol HDL Cholesterol Assessment/Plan EKG 11/28/17: NSR, LVH with repol abn, ? LAFB. no path q's. no signif change vs prior 07/2017 Echo 08/2017: mod LV dilation. moderate concentric LVH. nl LVEF/normal wall motion. nl RV. mild L/ELISABETH. mild MR. no RVSP. Echo 01/2017: EF 40-45%--global hypo, sev conc lvh, grade 2 diast dysfunction. nl rv, mild ar, mod mr. mod phtn MPI 09/03 (chuck): non-diagnostic ECG (baseline LVH with repol abnormalities. normal perfusion. nl LVEF. CT A/P: findings of small intestinal wall c/w enteritis. diverticulosis. both kidneys appear unremarkable. abdominal aorta normal size. a/p: 52 m hx obesity, htn, ckd, dchf here with cp. constipation, ? enteritis: -per GI, hospitalist hypertensive urgency: -chronic med non-compliance with recurrent severe BP elevations in hosp and office in past. -same here, now improved s/p meds--he is back on correct home regimen -observe bp trend -if remains with bp <150-160, would try to stop clonidine, as frequent abrupt discontinuation of this may be causing severe rebound effect -pt advised that his sx's he reports are not med s.e., rather are stroke sequelae. he was advised he is at very hi risk of or KS/CVA/CHF if does not control bp well. he was told to speak with dr francisco if suspects any med s.e., rather than stopping meds on his own. he verbalized understanding ALEXANDRA on CKD: -prior creat range here runs 3.4-3.8; presently above baseline (3.8-4.2) -? hypertensive nephropathy--s/p biopsy 08/06, followed by renal then -no RA stenosis seen on 2017 (TDS) dopplers hypertensive heart dz/chronic diast CHF: -clinically appears euvolemic -lasix per renal team rec h/o CVA: -bp meds as doing -? asa, statin --defer to outpt f/u with mary[facility] thrombocytopenia, anemia: -low PLTs are chronic, stable -H/H slightly below prior baseline -per hospitalist
[2017-11-28] MEDS: POTASSIUM CHLORIDE TABS 20 MEQ TABLET.ER (FP) PO SCH ×2 (17:10→22:05)
[2017-11-28] MEDS: ZOLPIDEM TARTRATE 5 MG TABLET PO ONE ×2 (22:31→22:34)
[2017-11-29] MEDS: hydrALAZINE HCL 50 MG TABLET (FP) PO SCH ×3 (06:01→21:56)
[2017-11-29 08:26] LABS: BASO % 0.3 % (0-2.0); EOS % 3.9 % (0-4.5); HEMATOCRIT 27.5 % (35.4-49); HEMOGLOBIN 9.4 GM/dl (11.7-16.9); LYMPH % 16.3 % (8-40); MCH 31.4 pg (25.7-33.7); MCHC 34.2 g/dl (32.0-35.9); MEAN PLT VOLUME 8.8 fl (7.5-11.1); MONO % 7.7 % (3.8-10.2); NEUT % 71.8 % (42.8-82.8); PLATELET COUNT 91 K/MM3 (134-434); RBC 2.99 M/mm3 (4.00-5.60); RDW 12.8 % (11.9-15.9); WHITE BLOOD COUNT 5.8 K/mm3 (4.0-10.8)
[2017-11-29 08:36] LABS: ALBUMIN 2.5 g/dl (3.5-5.0); ALK PHOS 39 U/L (32-92); ANION GAP 8 (8-16); BILIRUBIN,TOTAL 0.8 mg/dl (0.2-1.0); BLOOD UREA NITROGEN 41 mg/dl (7-18); CALCIUM 7.7 mg/dl (8.4-10.2); CHLORIDE 101 mmol/L (98-107); CO2 25 mmol/L (22-28); CREATININE 4.5 mg/dl (0.6-1.3); GLUCOSE,RANDOM 94 mg/dl (74-106); POTASSIUM 3.3 mmol/L (3.5-5.1); SGOT/AST 12 U/L (10-42); SGPT/ALT 12 U/L (10-40); SODIUM 134 mmol/L (136-145); TOT PROT 4.5 g/dl (6.4-8.3)
[2017-11-29] MEDS ORDERED: PT OWN MED DRAWER 7, Y5N ONE ×3 (08:44→18:04)
[2017-11-29] MEDS: ISOSORBIDE DINITRATE 10 MG TABLET (FP) PO SCH ×3 (08:48→18:20)
--- NOTE | 2017-11-29 09:08 | PN ---
Physical Exam: SUBJECTIVE: Patient seen and examined, patient reports Feeling much improved tolerating clear liquid diet had several episodes of large bowel movements once to go home OBJECTIVE:Patient is a 52 y/o male with PMH CAD, CHF, HTN, HLD, CVA (2017), Asthma, CKD Stage 4. Patient was admitted from the emergency department for emergent condition. Vital Signs Period Temp Pulse Resp BP Sys/Pichardo Pulse Ox Last 24 Hr 97.4 F-98.7 F 67-93 18-19 143-188/73-89 96-96 GENERAL: The patient is awake, alert, and fully oriented, in no acute distress. HEAD: Normal with no signs of trauma. EYES: PERRL, extraocular movements intact, sclera anicteric, conjunctiva clear. No ptosis. ENT: Ears normal, nares patent, oropharynx clear without exudates, moist mucous membranes. NECK: Trachea midline, full range of motion, supple. LUNGS: Breath sounds equal, clear to auscultation bilaterally, no wheezes, no crackles, no accessory muscle use. HEART: Regular rate and rhythm, S1, S2 without murmur, rub or gallop. ABDOMEN: Soft, nontender, nondistended, normoactive bowel sounds, no guarding, no rebound, no hepatosplenomegaly, no masses. EXTREMITIES: 2+ pulses, warm, well-perfused, trace edema bilaterally NEUROLOGICAL: Cranial nerves II through XII grossly intact. Normal speech, gait not observed. PSYCH: Normal mood, normal affect. SKIN: Warm, dry, normal turgor, no rashes or lesions noted Laboratory Results - last 24 hr 11/28/17 11/28/17 11/29/17 07:25 14:43 07:25 WBC 5.8 RBC 2.99 L Hgb 9.4 L D Hct 27.5 L MCV 92.0 MCH 31.4 MCHC 34.2 RDW 12.8 Plt Count 91 L MPV 8.8 Absolute Neuts (auto) 4.3 Neutrophils % 71.8 Lymphocytes % 16.3 Monocytes % 7.7 Eosinophils % 3.9 Basophils % 0.3 Sodium 130 L Potassium 3.2 L Chloride 97 L Carbon Dioxide 26 Anion Gap 7 L BUN 44 H Creatinine 4.2 H Creat Clearance w eGFR Random Glucose 110 H D Calcium 7.5 L Magnesium 2.0 D Total Bilirubin AST ALT Alkaline Phosphatase Total Protein Albumin 11/29/17 07:25 WBC RBC Hgb Hct MCV MCH MCHC RDW Plt Count MPV Absolute Neuts (auto) Neutrophils % Lymphocytes % Monocytes % Eosinophils % Basophils % Sodium 134 L Potassium 3.3 L Chloride 101 Carbon Dioxide 25 Anion Gap 8 BUN 41 H Creatinine 4.5 H Creat Clearance w eGFR 13.89 Random Glucose 94 Calcium 7.7 L Magnesium Total Bilirubin 0.8 AST 12 D ALT 12 Alkaline Phosphatase 39 Total Protein 4.5 L Albumin 2.5 L Active Medications Generic Name Dose Route Start Last Admin Trade Name Freq PRN Reason Stop Dose Admin Amlodipine Besylate 10 mg 11/28/17 10:00 11/28/17 09:42 Norvasc - PO 10 mg DAILY LUIS Administration Carvedilol 25 mg 11/28/17 10:00 11/28/17 21:27 Coreg - PO 25 mg BID LUIS Administration Clonidine 0.1 mg 11/28/17 10:00 11/28/17 21:27 Catapres - PO 0.1 mg BID LUIS Administration Hydralazine HCl 100 mg 11/28/17 06:45 11/29/17 06:01 Apresoline - PO 100 mg TID LUIS Administration Ceftriaxone Sodium 50 mls @ 100 mls/hr 11/28/17 11:30 11/28/17 11:44 Ceftriaxone 1 Gm-D5w Bag IVPB 100 mls/hr DAILY LUIS Administration Protocol Metronidazole 500 mg in 100 mls @ 100 mls/hr 11/28/17 11:45 11/29/17 02:15 Flagyl 500mg Premixed Ivpb - IVPB 100 mls/hr Q8H-IV LUIS Administration Isosorbide Dinitrate 30 mg 11/28/17 08:00 11/29/17 08:48 Isordil - PO 30 mg TIDISORDIL LUIS Administration Lactobacillus Acidophilus 1 tab 11/28/17 11:30 11/28/17 11:45 Bacid - PO 1 tab DAILY LUIS Administration Morphine Sulfate 2 mg 11/27/17 22:53 11/29/17 03:40 Morphine Injection - IVPUSH 2 mg Q4H PRN Administration PAIN LEVEL 6-10 Pantoprazole Sodium 40 mg 11/27/17 22:57 11/28/17 09:42 Protonix Iv IVPUSH 40 mg DAILY LUIS Administration Polyethylene Glycol 17 gm 11/28/17 11:15 11/28/17 11:44 Miralax (For Daily Use) - PO 17 g DAILY LUIS Administration Potassium Chloride 40 meq 11/29/17 09:06 K-Dur - PO 11/29/17 09:[address] abd/pelvis w/o contrast: significant thickening of the proximal and mid jejunal loops and probable thickening of the third and fourth portion of the duodenum with significant stranding/edema of the adjacent mesentery consistent with enteritis, inflammatory versus infectious. Mesenteric edema/inflammatory changes are present around the celiac and superior mesenteric artery as well as along posterior and medial margin of the pancreatic head and uncinate process, likely related to the presence of enteritis. No evidence of acute diverticulitis as per radiologist Dr. Matthews ASSESSMENT/PLAN: 1) GI enteritis - patient remains afebrile and no leukocytosis is noted, continue rocephin and flagyl, monitor WBC and fever curve - patient tolerated clear liquid diet will advance diet - GI, Dr Bishop consulted and followed constipation - Soap suds enema given, 11/28/17, with good results 2) cardiovascular hypertensive urgency - continue hydralazine, coreg, amlodipine, blood pressure better controlled, continue strict b/p monitoring q4h diastolic congestive heart failure - pt appears hypovolemic, 8.6 kg weight loss noted, hold lasix secondary to worsening renal function. monitor I/O and daily weight 3) nephrology Acute on chronic renal disease - Repeat creatinine today is 4.5, patient was given IV lasix in [facility], multiple had several episodes of loose stools, suspect patient is hypovolemic, will trial gentle IV hydration - appreciate nephrology input 4) heme normocytic anemia - hgb 9.4 baseline 12, likely anemia of chronic disease - pending Iron studies FEN - renal diet hypokalemia - replete potassium 40meq kci, repeat bmp at 1500 DVT ppx - OOB - scd Code Status: Full Code Dispo: Requires Inpatient Care Visit type - Emergency Visit Emergency Visit: Yes ED Registration Date: 11/29/17 Care time: The patient presented to the Emergency Department on the above date and was hospitalized for further evaluation of their emergent condition. - New Patient This patient is new to me today: No - Critical Care Critical Care patient: No - Discharge Referral Referred to [facility] Med P.C.: No
[2017-11-29] MEDS: LACTOBACILLUS ACIDOPHILUS 1 TABLET PO SCH (09:50)
[2017-11-29] MEDS: CARVEDILOL 25 MG TABLET (FP) PO SCH ×2 (09:51→21:57)
[2017-11-29] MEDS: cloNIDine HCL 0.1 MG TABLET PO SCH ×2 (09:51→21:57)
[2017-11-29] MEDS: POLYETHYLENE GLYCOL 3350 119 GM BTL PO SCH (09:51)
[2017-11-29] MEDS: PANTOPRAZOLE SODIUM 40 MG VIAL IVPUSH SCH (09:51)
[2017-11-29] MEDS: amLODIPine BESYLATE 10 MG TABLET (FP) PO SCH (09:51)
[2017-11-29] MEDS: CEFTRIAXONE 1 G/50 ML PREMIX 50 ML IVPB SCH (09:52)
[2017-11-29] MEDS ORDERED: POTASSIUM CHLORIDE TABS 20 MEQ TABLET.ER (FP) PO ONE (10:00)
--- NOTE | 2017-11-29 13:39 | PN ---
Progress Note, Physician Chief Complaint: The patient seen in his room. reports feeling better. Good urine output reported. Vital signs in acceptable range. History of Present Illness: 52 y/o man with PMH CAD, CHF, HTN, HLD, CVA (2017), Asthma, CKD Stage 4. He presented to the ED with constipation, abdominal distention x 5 days. Patient reports after eating a pork wedge and pasta, he was not feeling well. He noticed then he was not having BMs. Patient describes the pain as sharp, intermittent, passing flatulence. Had two episodes of bilious vomiting. - Current Medication List Current Medications: Active Medications Amlodipine Besylate (Norvasc -) 10 mg PO DAILY [facility] Last Admin: 11/29/17 09:51 Dose: 10 mg Carvedilol (Coreg -) 25 mg PO BID [facility] Last Admin: 11/29/17 09:51 Dose: 25 mg Clonidine (Catapres -) 0.1 mg PO BID [facility] Last Admin: 11/29/17 09:51 Dose: 0.1 mg Hydralazine HCl (Apresoline -) 100 mg PO TID [facility] Last Admin: 11/29/17 06:01 Dose: 100 mg Ceftriaxone Sodium (Ceftriaxone 1 Gm-D5w Bag) 50 mls @ 100 mls/hr IVPB DAILY [facility]; Protocol Last Admin: 11/29/17 09:52 Dose: 100 mls/hr Metronidazole (Flagyl 500mg Premixed Ivpb -) 500 mg in 100 mls @ 100 mls/hr IVPB Q8H-IV [facility] Last Admin: 11/29/17 09:52 Dose: 100 mls/hr Isosorbide Dinitrate (Isordil -) 30 mg PO TIDISORDIL [facility] Last Admin: 11/29/17 08:48 Dose: 30 mg Lactobacillus Acidophilus (Bacid -) 1 tab PO DAILY [facility] Last Admin: 11/29/17 09:50 Dose: 1 tab Morphine Sulfate (Morphine Injection -) 2 mg IVPUSH Q4H PRN PRN Reason: PAIN LEVEL 6-10 Last Admin: 11/29/17 03:40 Dose: 2 mg Pantoprazole Sodium (Protonix Iv) 40 mg IVPUSH DAILY [facility] Last Admin: 11/29/17 09:51 Dose: 40 mg Polyethylene Glycol (Miralax (For Daily Use) -) 17 gm PO DAILY [facility] Last Admin: 11/29/17 09:51 Dose: Not Given - Objective Vital Signs: Vital Signs Temperature 97.4 F L 11/29/17 06:00 Pulse Rate 64 11/29/17 10:00 Respiratory Rate 18 11/29/17 10:00 Blood Pressure 142/83 11/29/17 10:00 O2 Sat by Pulse Oximetry (%) 96 11/29/17 08:09 Constitutional: Yes: Well Nourished, Anxious, Pallor Eyes: Yes: EOM Intact HENT: Yes: Normocephalic Neck: Yes: Trachea Midline Cardiovascular: Yes: Regular Rate and Rhythm, S1, S2 Respiratory: Yes: CTA Bilaterally, Diminished Gastrointestinal: Yes: Normal Bowel Sounds, Soft. No: Hepatomegaly, Melena, Palpable Mass, Tenderness Genitourinary: No: Bladder Distention, CVA Tenderness - Left, CVA Tenderness - Right Extremities: Yes: WNL Edema: No Labs: CBC, BMP 11/29/17 07:25 11/29/17 07:25 INR, PTT INR 1.10 (0.82-1.09) 11/27/17 19:58 Problem List - Problems (1) Abdominal pain Code(s): R10.9 - UNSPECIFIED ABDOMINAL PAIN Qualifiers: Abdominal location: generalized Qualified Code(s): R10.84 - Generalized abdominal pain (2) Constipation Code(s): K59.00 - CONSTIPATION, UNSPECIFIED (3) Enteritis Code(s): K52.9 - NONINFECTIVE GASTROENTERITIS AND COLITIS, UNSPECIFIED (4) ALEXANDRA (acute kidney injury) Code(s): N17.9 - ACUTE KIDNEY FAILURE, UNSPECIFIED (5) Chronic renal disease Code(s): N18.9 - CHRONIC KIDNEY DISEASE, UNSPECIFIED Qualifiers: Chronic kidney disease stage: stage 4 (severe) Qualified Code(s): N18.4 - Chronic kidney disease, stage 4 (severe) (6) Hypertension Code(s): I10 - ESSENTIAL (PRIMARY) HYPERTENSION Qualifiers: Hypertension type: unspecified Qualified Code(s): I10 - Essential (primary ) hypertension (7) Anemia in chronic kidney disease Code(s): N18.9 - CHRONIC KIDNEY DISEASE, UNSPECIFIED; D63.1 - ANEMIA IN CHRONIC KIDNEY DISEASE Assessment/Plan 52 y/o man with PMH CAD, CHF, HTN, HLD, CVA (2017), Asthma, CKD Stage 4. He presented to the ED with constipation, abdominal distention x 5 days. Patient reports after eating a pork wedge and pasta, he was not feeling well. He noticed then he was not having BMs. Patient describes the pain as sharp, intermittent, passing flatulence. Had two episodes of bilious vomiting No family hx Colorectal Ca. Patient denies fever, cough, SOB, CP, diarrhea, melena, hematochezia, dysuria. Acute Kidney failure, superimposed on Chronic Kidney Disease... The acute renal Failure most likely due to unstable renal hemodynamics, resulting in renal hypoperfusion. The patient has advanced chronic kidney disease. Was receiving IV fluids. Off the same since oral intake has started. Azotemia seems to be worsening now. hoping that it will plateau and start to improve. Acute Hypokalemia: due to K loss in the stool ( enema), k-loss in the urine from increased K secretion in Contraction, and also due to the intracellular K- shift. Will replace KCl. Monitor the Renal electrolyte status. No indication for renal replacement therapy at this point. Will hold loop diuretics. advised the patient to increase oral fluid intake. Thank you. Will follow with you. Lauren Waterman MD
[2017-11-29] MEDS ORDERED: SODIUM CHLORIDE 0.9%/KCL 20 MEQ/1,000 ML INFUS.BAG IV SCH (14:30)
[2017-11-29 16:17] LABS: ANION GAP 6 (8-16); BLOOD UREA NITROGEN 43 mg/dl (7-18); CALCIUM 7.5 mg/dl (8.4-10.2); CHLORIDE 100 mmol/L (98-107); CO2 26 mmol/L (22-28); CREATININE 5.1 mg/dl (0.6-1.3); GLUCOSE,RANDOM 89 mg/dl (74-106); POTASSIUM 3.8 mmol/L (3.5-5.1); SODIUM 132 mmol/L (136-145)
[2017-11-29] MEDS ORDERED: ALPRAZolam 0.25 MG TABLET PO ONE ×2 (18:45→21:00)
[2017-11-30] MEDS: hydrALAZINE HCL 50 MG TABLET (FP) PO SCH ×3 (06:00→21:39)
[2017-11-30] MEDS ORDERED: PT OWN MED DRAWER 7, Y5N ONE (09:41)
[2017-11-30] MEDS: ISOSORBIDE DINITRATE 10 MG TABLET (FP) PO SCH ×3 (10:07→17:42)
[2017-11-30] MEDS: LACTOBACILLUS ACIDOPHILUS 1 TABLET PO SCH (10:08)
[2017-11-30] MEDS: cloNIDine HCL 0.1 MG TABLET PO SCH ×2 (10:08→21:38)
[2017-11-30] MEDS: CARVEDILOL 25 MG TABLET (FP) PO SCH ×2 (10:09→21:38)
[2017-11-30] MEDS: amLODIPine BESYLATE 10 MG TABLET (FP) PO SCH (10:09)
[2017-11-30] MEDS: PANTOPRAZOLE SODIUM 40 MG VIAL IVPUSH SCH (10:09)
[2017-11-30] MEDS: POLYETHYLENE GLYCOL 3350 119 GM BTL PO SCH ×2 (10:09→12:00)
[2017-11-30] MEDS: CEFTRIAXONE 1 G/50 ML PREMIX 50 ML IVPB SCH (10:10)
[2017-11-30 10:46] LABS: ALBUMIN 2.5 g/dl (3.5-5.0); ALK PHOS 42 U/L (32-92); ANION GAP 9 (8-16); BILIRUBIN,TOTAL 0.5 mg/dl (0.2-1.0); BLOOD UREA NITROGEN 44 mg/dl (7-18); CALCIUM 7.4 mg/dl (8.4-10.2); CHLORIDE 104 mmol/L (98-107); CO2 23 mmol/L (22-28); CREATININE 5.2 mg/dl (0.6-1.3); GLUCOSE,RANDOM 90 mg/dl (74-106); POTASSIUM 3.5 mmol/L (3.5-5.1); SGOT/AST 13 U/L (10-42); SGPT/ALT 11 U/L (10-40); SODIUM 136 mmol/L (136-145); TOT PROT 4.5 g/dl (6.4-8.3)
--- NOTE | 2017-11-30 13:09 | PN ---
Physical Exam: SUBJECTIVE: Patient seen and examined, patient reports feeling Improved, tolerating diet, was to go home. OBJECTIVE::Patient is a 52 y/o male with PMH CAD, CHF, HTN, HLD, CVA (2017), Asthma, CKD Stage 4. Patient was admitted from the emergency department for emergent condition. Vital Signs Period Temp Pulse Resp BP Sys/Pichardo Pulse Ox Last 24 Hr 97.8 F-98.9 F 60-82 17-18 137-158/74-89 96-97 GENERAL: The patient is awake, alert, and fully oriented, in no acute distress. HEAD: Normal with no signs of trauma. EYES: PERRL, extraocular movements intact, sclera anicteric, conjunctiva clear. No ptosis. ENT: Ears normal, nares patent, oropharynx clear without exudates, moist mucous membranes. NECK: Trachea midline, full range of motion, supple. LUNGS: Breath sounds equal, clear to auscultation bilaterally, no wheezes, no crackles, no accessory muscle use. HEART: Regular rate and rhythm, S1, S2 without murmur, rub or gallop. ABDOMEN: Soft, nontender, nondistended, normoactive bowel sounds, no guarding, no rebound, no hepatosplenomegaly, no masses. EXTREMITIES: 2+ pulses, warm, well-perfused, no edema. NEUROLOGICAL: Cranial nerves II through XII grossly intact. Normal speech, gait not observed. PSYCH: Normal mood, normal affect. SKIN: Warm, dry, normal turgor, no rashes or lesions noted Laboratory Results - last 24 hr 11/29/17 11/30/17 15:10 08:00 Sodium 132 L 136 Potassium 3.8 3.5 Chloride 100 104 Carbon Dioxide 26 23 Anion Gap 6 L 9 BUN 43 H 44 H Creatinine 5.1 H 5.2 H Creat Clearance w eGFR 11.75 Random Glucose 89 90 Calcium 7.5 L 7.4 L Total Bilirubin 0.5 D AST 13 ALT 11 Alkaline Phosphatase 42 Total Protein 4.5 L Albumin 2.5 L Active Medications Generic Name Dose Route Start Last Admin Trade Name Freq PRN Reason Stop Dose Admin Amlodipine Besylate 10 mg 11/28/17 10:00 11/30/17 10:09 Norvasc - PO 10 mg DAILY LUIS Administration Carvedilol 25 mg 11/28/17 10:00 11/30/17 10:09 Coreg - PO 25 mg BID LUIS Administration Clonidine 0.1 mg 11/28/17 10:00 11/30/17 10:08 Catapres - PO 0.1 mg BID LUIS Administration Hydralazine HCl 100 mg 11/28/17 06:45 11/29/17 21:56 Apresoline - PO 100 mg TID LUIS Administration Ceftriaxone Sodium 50 mls @ 100 mls/hr 11/28/17 11:30 11/30/17 10:10 Ceftriaxone 1 Gm-D5w Bag IVPB 100 mls/hr DAILY LUIS Administration Protocol Metronidazole 500 mg in 100 mls @ 100 mls/hr 11/28/17 11:45 11/30/17 10:10 Flagyl 500mg Premixed Ivpb - IVPB 100 mls/hr Q8H-IV LUIS Administration Potassium Chloride/Sodium Chloride 20 meq in 1,000 mls @ 42 mls/hr 11/29/17 14 :30 11/29/17 18:23 Ns+20 Meq Kcl - IV 11/30/17 14:19 42 mls/hr ASDIR LUIS Administration Isosorbide Dinitrate 30 mg 11/28/17 08:00 11/30/17 10:07 Isordil - PO 30 mg TIDISORDIL LUIS Administration Lactobacillus Acidophilus 1 tab 11/28/17 11:30 11/30/17 10:08 Bacid - PO 1 tab DAILY LUIS Administration Morphine Sulfate 2 mg 11/27/17 22:53 11/29/17 03:40 Morphine Injection - IVPUSH 2 mg Q4H PRN Administration PAIN LEVEL 6-10 Pantoprazole Sodium 40 mg 11/27/17 22:57 11/30/17 10:09 Protonix Iv IVPUSH 40 mg DAILY LUIS Administration Polyethylene Glycol 17 gm 11/28/17 11:15 11/30/17 10:09 Miralax (For Daily Use) - PO Not Given DAILY [facility] Microbiology 11/28/17 16:50 Urine - Urine Clean Catch Urine Culture - Final NO GROWTH OBTAINED IMAGING CT abd/pelvis w/o contrast: significant thickening of the proximal and mid jejunal loops and probable thickening of the third and fourth portion of the duodenum with significant stranding/edema of the adjacent mesentery consistent with enteritis, inflammatory versus infectious. Mesenteric edema/inflammatory changes are present around the celiac and superior mesenteric artery as well as along posterior and medial margin of the pancreatic head and uncinate process, likely related to the presence of enteritis. No evidence of acute diverticulitis as per radiologist Dr. Matthews ASSESSMENT/PLAN: 1) GI enteritis - patient remains afebrile and no leukocytosis is noted, continue rocephin and flagyl, monitor WBC and fever curve - continue renal diet - GI, Dr Bishop consulted and followed - constipation resolved 2) cardiovascular hypertensive urgency - continue hydralazine, coreg, amlodipine, blood pressure better controlled, continue strict b/p monitoring q4h diastolic congestive heart failure - pt appears hypovolemic, 8.6 kg weight loss noted, hold lasix secondary to worsening renal function. monitor I/O and daily weight 3) nephrology Acute on chronic renal disease - Repeat creatinine today is 5.2 Continue gentle IV hydration - appreciate nephrology input 4) heme normocytic anemia - hgb 9.4 baseline 12, likely anemia of chronic disease - pending Iron studies FEN - renal diet - Hypokalemia resolved DVT ppx - OOB - scd Code Status: Full Code Dispo: Requires Inpatient Care Visit type - Emergency Visit Emergency Visit: Yes ED Registration Date: 11/29/17 Care time: The patient presented to the Emergency Department on the above date and was hospitalized for further evaluation of their emergent condition. - New Patient This patient is new to me today: No - Critical Care Critical Care patient: No - Discharge Referral Referred to [facility] Med P.C.: No
--- NOTE | 2017-11-30 14:02 | PN ---
Progress Note, Physician Chief Complaint: The patient seen in his room. Reports feeling better. Good urine output reported. No abd pains. Vital signs in acceptable range. History of Present Illness: 52 y/o man with PMH CAD, CHF, HTN, HLD, CVA (2017), Asthma, CKD Stage 4. He presented to the ED with constipation, abdominal distention x 5 days. Patient reports after eating a pork wedge and pasta, he was not feeling well. He noticed then he was not having BMs. Patient describes the pain as sharp, intermittent, passing flatulence. Had two episodes of bilious vomiting. The renal functions are progressively worsening since admission. BP was running very high, but in acceptable range now. - Current Medication List Current Medications: Active Medications Amlodipine Besylate (Norvasc -) 10 mg PO DAILY [facility] Last Admin: 11/30/17 10:09 Dose: 10 mg Carvedilol (Coreg -) 25 mg PO BID [facility] Last Admin: 11/30/17 10:09 Dose: 25 mg Clonidine (Catapres -) 0.1 mg PO BID [facility] Last Admin: 11/30/17 10:08 Dose: 0.1 mg Hydralazine HCl (Apresoline -) 100 mg PO TID [facility] Last Admin: 11/29/17 21:56 Dose: 100 mg Ceftriaxone Sodium (Ceftriaxone 1 Gm-D5w Bag) 50 mls @ 100 mls/hr IVPB DAILY [facility]; Protocol Last Admin: 11/30/17 10:10 Dose: 100 mls/hr Metronidazole (Flagyl 500mg Premixed Ivpb -) 500 mg in 100 mls @ 100 mls/hr IVPB Q8H-IV [facility] Last Admin: 11/30/17 10:10 Dose: 100 mls/hr Potassium Chloride/Sodium Chloride (Ns+20 Meq Kcl -) 20 meq in 1,000 mls @ 42 mls/hr IV ASDIR [facility] Stop: 11/30/17 14:19 Last Admin: 11/29/17 18:23 Dose: 42 mls/hr Isosorbide Dinitrate (Isordil -) 30 mg PO TIDISORDIL [facility] Last Admin: 11/30/17 10:07 Dose: 30 mg Lactobacillus Acidophilus (Bacid -) 1 tab PO DAILY [facility] Last Admin: 11/30/17 10:08 Dose: 1 tab Morphine Sulfate (Morphine Injection -) 2 mg IVPUSH Q4H PRN PRN Reason: PAIN LEVEL 6-10 Last Admin: 11/29/17 03:40 Dose: 2 mg Pantoprazole Sodium (Protonix Iv) 40 mg IVPUSH DAILY [facility] Last Admin: 11/30/17 10:09 Dose: 40 mg Polyethylene Glycol (Miralax (For Daily Use) -) 17 gm PO DAILY [facility] Last Admin: 11/30/17 10:09 Dose: Not Given - Objective Vital Signs: Vital Signs Temperature 98.4 F 11/30/17 10:00 Pulse Rate 78 11/30/17 10:00 Respiratory Rate 18 11/30/17 10:00 Blood Pressure 156/77 11/30/17 10:00 O2 Sat by Pulse Oximetry (%) 97 11/30/17 10:00 Constitutional: Yes: No Distress, Anxious Eyes: Yes: Conjunctiva Clear HENT: Yes: Normocephalic Neck: Yes: Trachea Midline Cardiovascular: Yes: S1, S2 Respiratory: Yes: CTA Bilaterally, Diminished Gastrointestinal: Yes: Normal Bowel Sounds, Soft Genitourinary: No: Bladder Distention, CVA Tenderness - Left, CVA Tenderness - Right Labs: CBC, BMP 11/29/17 07:25 11/30/17 08:00 INR, PTT INR 1.10 (0.82-1.09) 11/27/17 19:58 Problem List - Problems (1) Abdominal pain Code(s): R10.9 - UNSPECIFIED ABDOMINAL PAIN Qualifiers: Qualified Code(s): R10.84 - Generalized abdominal pain (2) Constipation Code(s): K59.00 - CONSTIPATION, UNSPECIFIED (3) Enteritis Code(s): K52.9 - NONINFECTIVE GASTROENTERITIS AND COLITIS, UNSPECIFIED (4) ALEXANDRA (acute kidney injury) Code(s): N17.9 - ACUTE KIDNEY FAILURE, UNSPECIFIED (5) Chronic renal disease Code(s): N18.9 - CHRONIC KIDNEY DISEASE, UNSPECIFIED Qualifiers: Qualified Code(s): N18.4 - Chronic kidney disease, stage 4 (severe) (6) Hypertension Code(s): I10 - ESSENTIAL (PRIMARY) HYPERTENSION Qualifiers: Qualified Code(s): I10 - Essential (primary) hypertension (7) Anemia in chronic kidney disease Code(s): N18.9 - CHRONIC KIDNEY DISEASE, UNSPECIFIED; D63.1 - ANEMIA IN CHRONIC KIDNEY DISEASE Assessment/Plan 52 y/o man with PMH CAD, CHF, HTN, HLD, CVA (2017), Asthma, CKD Stage 4. He presented to the ED with constipation, abdominal distention x 5 days. Patient reports after eating a pork wedge and pasta, he was not feeling well. He noticed then he was not having BMs. Patient describes the pain as sharp, intermittent, passing flatulence. Had two episodes of bilious vomiting No family hx Colorectal Ca. Patient denies fever, cough, SOB, CP, diarrhea, melena, hematochezia, dysuria. Acute Kidney failure, superimposed on Chronic Kidney Disease... The acute renal Failure most likely due to unstable renal hemodynamics. Can not rule out soem degree of progression of his renal disease. The patient's compliance with diet is not good. Azotemia seems to be worsening now. Hoping that it will plateau and start to improve. Acute Hypokalemia: due to K loss in the stool ( enema), k-loss in the urine from increased K secretion in Contraction, and also due to the intracellular K- shift. Received K supplements. In low normal range now. Monitor the Renal electrolyte status. No indication for renal replacement therapy at this point. But if azotemia worsens, will need geospatial imagery intelligence analyst. Discussed the same with the patient. Will hold loop diuretics. Advised the patient to increase oral fluid intake. Detailed the whole situation with the patient. Thank you. Will follow with you. Lauren Waterman MD
[2017-11-30 14:44] LABS: BASO % 0.5 % (0-2.0); EOS % 4.2 % (0-4.5); HEMATOCRIT 26.6 % (35.4-49); HEMOGLOBIN 9.2 GM/dl (11.7-16.9); LYMPH % 15.3 % (8-40); MCH 31.3 pg (25.7-33.7); MCHC 34.6 g/dl (32.0-35.9); MEAN CELL VOLUME 90.5 fl (80-96); MEAN PLT VOLUME 8.2 fl (7.5-11.1); MONO % 8.3 % (3.8-10.2); NEUT % 71.7 % (42.8-82.8); PLATELET COUNT 92 K/MM3 (134-434); RBC 2.94 M/mm3 (4.00-5.60); RDW 13.3 % (11.9-15.9); WHITE BLOOD COUNT 5.1 K/mm3 (4.0-10.8)
[2017-12-01] MEDS ORDERED: ALPRAZolam 0.25 MG TABLET PO ONE (02:08)
[2017-12-01] MEDS: hydrALAZINE HCL 50 MG TABLET (FP) PO SCH (06:22)
[2017-12-01 06:43] VITALS: BP 143/80; PULSE 71; TEMP 98.1
[2017-12-01] MEDS: ISOSORBIDE DINITRATE 10 MG TABLET (FP) PO SCH (08:00)
[2017-12-01 08:39] LABS: ALBUMIN 2.6 g/dl (3.5-5.0); ALK PHOS 46 U/L (32-92); ANION GAP 8 (8-16); BLOOD UREA NITROGEN 41 mg/dl (7-18); CALCIUM 7.6 mg/dl (8.4-10.2); CHLORIDE 105 mmol/L (98-107); CO2 23 mmol/L (22-28); CREATININE 4.9 mg/dl (0.6-1.3); GLUCOSE,RANDOM 99 mg/dl (74-106); POTASSIUM 3.5 mmol/L (3.5-5.1); SGOT/AST 16 U/L (10-42); SGPT/ALT 12 U/L (10-40); SODIUM 136 mmol/L (136-145); TOT PROT 4.7 g/dl (6.4-8.3)
[2017-12-01 08:51] LABS: BILIRUBIN,TOTAL < 0.5 mg/dl (0.2-1.0)
[2017-12-01] MEDS ORDERED: BISACODYL 10 MG SUPP.RECT PR ONE (10:01)
--- NOTE | 2017-12-01 10:05 | DS ---
Physical Exam: SUBJECTIVE: Patient seen and examined, patient is Was sitting in a recliner eating breakfast reports feeling well and denies any chest pain shortness of breath ambulatory [facility] ready for discharge home OBJECTIVE:52 y/o man with PMH CAD, CHF, HTN, HLD, CVA (2017), Asthma, CKD Stage 4. Who presents to the ED with constipation, abdominal distention x 5 days. Patient reports after eating a pork wedge, he was not feeling well. He noticed then he was not having BMs. Patient describes the pain as sharp, intermittent, passing flatulence. Patient reports having 2 episodes of bilious vomiting- now resolved. Patient reports his last colonoscopy was >10 yrs- result - no polyps. No family hx Colorectal Ca. Patient denies fever, cough, SOB, CP, diarrhea, melena, hematochezia, dysuria. Vital Signs Period Temp Pulse Resp BP Sys/Pichardo Pulse Ox Last 24 Hr 97.5 F-98.7 F 66-79 16-20 129-165/73-87 97-98 PHYSICAL EXAM GENERAL: The patient is awake, alert, and fully oriented, in no acute distress. HEAD: Normal with no signs of trauma. EYES: PERRL, extraocular movements intact, sclera anicteric, conjunctiva clear. ENT: Ears normal, nares patent, oropharynx clear without exudates, moist mucous membranes. NECK: Trachea midline, full range of motion, supple. LUNGS: Breath sounds equal, clear to auscultation bilaterally, no wheezes, no crackles, no accessory muscle use. HEART: Regular rate and rhythm, S1, S2 without murmur, rub or gallop. ABDOMEN: Soft, nontender, nondistended, normoactive bowel sounds, no guarding, no rebound, no hepatosplenomegaly, no masses. EXTREMITIES: 2+ pulses, warm, well-perfused, no edema. NEUROLOGICAL: Cranial nerves II through XII grossly intact. Normal speech, gait not observed. PSYCH: Normal mood, normal affect. SKIN: Warm, dry, normal turgor, no rashes or lesions noted. LABS Laboratory Results - last 24 hr 11/30/17 11/30/17 12/01/17 08:00 14:40 08:00 WBC 5.1 RBC 2.94 L Hgb 9.2 L Hct 26.6 L MCV 90.5 MCH 31.3 MCHC 34.6 RDW 13.3 Plt Count 92 L MPV 8.2 Absolute Neuts (auto) 3.7 Neutrophils % 71.7 Lymphocytes % 15.3 Monocytes % 8.3 Eosinophils % 4.2 Basophils % 0.5 Sodium 136 136 Potassium 3.5 3.5 Chloride 104 105 Carbon Dioxide 23 23 Anion Gap 9 8 BUN 44 H 41 H Creatinine 5.2 H 4.9 H Creat Clearance w eGFR 11.75 12.59 Random Glucose 90 99 Calcium 7.4 L 7.6 L Total Bilirubin 0.5 D < 0.5 AST 13 16 D ALT 11 12 Alkaline Phosphatase 42 46 Total Protein 4.5 L 4.7 L Albumin 2.5 L 2.6 L HOSPITAL COURSE: Date of Admission:11/29/17 Date of Discharge: 12/01/17 Minutes to complete discharge: 45 Discharge Summary Reason For Visit: CONSTIPATION Current Active Problems Abdominal pain (Acute) Anemia in chronic kidney disease (Acute) Constipation (Acute) Enteritis (Acute) Hypertensive urgency (Acute) Condition: Guarded - Instructions - Home Medications Comprehensive Discharge Medication List: Ambulatory Orders Furosemide [Lasix] 40 mg PO BID 11/27/17 Isosorbide Dinitrate [Isordil -] 30 mg PO TID 11/27/17 Polyethylene Glycol 3350 [Miralax (For Daily Use) -] 17 gm PO DAILY 11/27/17 RX: Amlodipine Besylate 10 mg PO DAILY 11/27/17 RX: Carvedilol 25 mg PO BID 11/27/17 RX: Clonidine HCl 0.1 mg PO BID 11/27/17 RX: Hydralazine HCl 100 mg PO TID 11/27/17 RX: Mycophenolate Mofetil 500 mg PO BID 11/27/17 - Discharge Referral Referred to [facility] No
--- NOTE | 2017-12-01 10:21 | PN ---
Progress Note, Physician Chief Complaint: The patient seen in his room. Reports feeling better. Good urine output reported. No abd pains. No diarrhea. Extremely anxious to go home. Vital signs in acceptable range. History of Present Illness: 52 y/o man with PMH CAD, CHF, HTN, HLD, CVA (2017), Asthma, CKD Stage 4. He presented to the ED with constipation, abdominal distention x 5 days. Patient reports after eating a pork wedge and pasta, he was not feeling well. Patient describes the pain as sharp, intermittent, passing flatulence. Had two episodes of bilious vomiting. The renal functions were progressively worsening since admission. But today's lab data shows a trend towards improvement. - Current Medication List Current Medications: Active Medications Amlodipine Besylate (Norvasc -) 10 mg PO DAILY [facility] Last Admin: 11/30/17 10:09 Dose: 10 mg Carvedilol (Coreg -) 25 mg PO BID [facility] Last Admin: 11/30/17 21:38 Dose: 25 mg Clonidine (Catapres -) 0.1 mg PO BID [facility] Last Admin: 11/30/17 21:38 Dose: 0.1 mg Hydralazine HCl (Apresoline -) 100 mg PO TID [facility] Last Admin: 12/01/17 06:22 Dose: 100 mg Ceftriaxone Sodium (Ceftriaxone 1 Gm-D5w Bag) 50 mls @ 100 mls/hr IVPB DAILY [facility]; Protocol Last Admin: 11/30/17 10:10 Dose: 100 mls/hr Metronidazole (Flagyl 500mg Premixed Ivpb -) 500 mg in 100 mls @ 100 mls/hr IVPB Q8H-IV [facility] Last Admin: 12/01/17 01:12 Dose: 100 mls/hr Isosorbide Dinitrate (Isordil -) 30 mg PO TIDISORDIL [facility] Last Admin: 11/30/17 17:42 Dose: 30 mg Lactobacillus Acidophilus (Bacid -) 1 tab PO DAILY [facility] Last Admin: 11/30/17 10:08 Dose: 1 tab Morphine Sulfate (Morphine Injection -) 2 mg IVPUSH Q4H PRN PRN Reason: PAIN LEVEL 6-10 Last Admin: 11/29/17 03:40 Dose: 2 mg Pantoprazole Sodium (Protonix Iv) 40 mg IVPUSH DAILY [facility] Last Admin: 11/30/17 10:09 Dose: 40 mg Polyethylene Glycol (Miralax (For Daily Use) -) 17 gm PO DAILY [facility] Last Admin: 11/30/17 12:00 Dose: 17 g - Objective Vital Signs: Vital Signs Temperature 98.1 F 12/01/17 06:00 Pulse Rate 71 12/01/17 06:00 Respiratory Rate 20 12/01/17 09:00 Blood Pressure 143/80 12/01/17 06:00 O2 Sat by Pulse Oximetry (%) 97 12/01/17 09:00 Constitutional: Yes: No Distress, Anxious Eyes: Yes: Conjunctiva Clear HENT: Yes: Normocephalic Neck: Yes: Trachea Midline Cardiovascular: Yes: Regular Rate and Rhythm, S1, S2 Respiratory: Yes: CTA Bilaterally, Diminished Gastrointestinal: Yes: Normal Bowel Sounds, Soft, Abdomen, Obese Genitourinary: No: Bladder Distention, CVA Tenderness - Left, CVA Tenderness - Right Edema: No Labs: CBC, BMP 11/30/17 14:40 12/01/17 08:00 INR, PTT INR 1.10 (0.82-1.09) 11/27/17 19:58 Problem List - Problems (1) Abdominal pain Code(s): R10.9 - UNSPECIFIED ABDOMINAL PAIN Qualifiers: Abdominal location: generalized Qualified Code(s): R10.84 - Generalized abdominal pain (2) Constipation Code(s): K59.00 - CONSTIPATION, UNSPECIFIED (3) Enteritis Code(s): K52.9 - NONINFECTIVE GASTROENTERITIS AND COLITIS, UNSPECIFIED (4) ALEXANDRA (acute kidney injury) Code(s): N17.9 - ACUTE KIDNEY FAILURE, UNSPECIFIED (5) Chronic renal disease Code(s): N18.9 - CHRONIC KIDNEY DISEASE, UNSPECIFIED Qualifiers: Chronic kidney disease stage: stage 4 (severe) Qualified Code(s): N18.4 - Chronic kidney disease, stage 4 (severe) (6) Hypertension Code(s): I10 - ESSENTIAL (PRIMARY) HYPERTENSION Qualifiers: Hypertension type: unspecified Qualified Code(s): I10 - Essential (primary ) hypertension (7) Anemia in chronic kidney disease Code(s): N18.9 - CHRONIC KIDNEY DISEASE, UNSPECIFIED; D63.1 - ANEMIA IN CHRONIC KIDNEY DISEASE Assessment/Plan 52 y/o man with PMH CAD, CHF, HTN, HLD, CVA (2017), Asthma, CKD Stage 4. He presented to the ED with constipation, abdominal distention x 5 days. Patient reports after eating a pork wedge and pasta, he was not feeling well. He noticed then he was not having BMs. Patient describes the pain as sharp, intermittent, passing flatulence. Had two episodes of bilious vomiting No family hx Colorectal Ca. Patient denies fever, cough, SOB, CP, diarrhea, melena, hematochezia, dysuria. Acute Kidney failure, superimposed on Chronic Kidney Disease... The acute renal Failure most likely due to unstable renal hemodynamics. Can not rule out soem degree of progression of his renal disease. The patient's compliance with diet is not good. Azotemia starting to get better. Acute Hypokalemia: due to K loss in the stool ( enema), k-loss in the urine from increased K secretion in Contraction, and also due to the intracellular K- shift. Received K supplements. In low normal range now. The patient is extremely anxious to go home. Will hold Lasix. If discharged I can see him in y office in the next 3-4 days with lad. Advised the patient to shannon my office for blood work and f/u visit. The patient knows that he will need PRE K SPECIAL EDUCATION TEACHER in the near future. Thanks again. Lauren Waterman MD
[2017-12-01] MEDS: LACTOBACILLUS ACIDOPHILUS 1 TABLET PO SCH (10:53)
[2017-12-01] MEDS: cloNIDine HCL 0.1 MG TABLET PO SCH (10:53)
[2017-12-01] MEDS: POLYETHYLENE GLYCOL 3350 119 GM BTL PO SCH (10:53)
[2017-12-01] MEDS: CARVEDILOL 25 MG TABLET (FP) PO SCH (10:53)
[2017-12-01] MEDS: PANTOPRAZOLE SODIUM 40 MG VIAL IVPUSH SCH (10:56)
[2017-12-01] MEDS: CEFTRIAXONE 1 G/50 ML PREMIX 50 ML IVPB SCH (10:56)
[2017-12-01] MEDS: amLODIPine BESYLATE 10 MG TABLET (FP) PO SCH (10:56)
== END 2017-12-01 11:15 | disposition home or self-care (01) | DRG 249 ==
LOC: FER 18:20 → FM/S 22:53 → INTOOBSV 22:55 → UNDOADMOB 22:55 → FM/S 23:35 → UNDOADMIN 23:35 → OBSVTOIN 11-29 14:19
PROVIDERS: ADMIT Internal Medicine; ATTEND Nurse Practitioner Family
DX: K52.9 Noninfective gastroenteritis and colitis, unspecified (principal); N17.9 Acute kidney failure, unspecified; I13.0 Hypertensive heart and chronic kidney disease with heart failure and stage 1 through stage 4 chronic kidney disease, or unspecified chronic kidney disease; I50.32 Chronic diastolic (congestive) heart failure; N18.4 Chronic kidney disease, stage 4 (severe); D69.6 Thrombocytopenia, unspecified; I16.0 Hypertensive urgency; E87.6 Hypokalemia; D63.1 Anemia in chronic kidney disease; Z86.73 Personal history of transient ischemic attack (TIA), and cerebral infarction without residual deficits; J45.909 Unspecified asthma, uncomplicated; I25.10 Atherosclerotic heart disease of native coronary artery without angina pectoris; E78.5 Hyperlipidemia, unspecified; Z87.891 Personal history of nicotine dependence; E66.9 Obesity, unspecified; Z68.30 Body mass index [BMI] 30.0-30.9, adult; K59.00 Constipation, unspecified; R01.1 Cardiac murmur, unspecified
CPT/HCPCS: 36415; 71046-TC-FY; 74176-TC; 80048; 80053; 81003; 81015; 83605; 83690; 83735; 85025; 85027; 85610; 87086; 93005; 99283-25; G0378; J0735; J1644; J7030

== ENCOUNTER 2018-02-09 20:44 | Inpatient (IN) | payer BC ==
--- NOTE | 2018-02-09 20:46 | PDOC ---
History of Present Illness - General History Source: Patient Exam Limitations: No Limitations - History of Present Illness Initial Comments: 02/09/18 21:27 The patient is a 52 year old male with past medical history of CVA (2017), CHF, renal failure, focal segmental glomerulosclerosis, asthma, and hypertension who presents to the ED with generalized weakness that began for a few days. The patient states weakness is accompanied with cough (mild phlegm), SOB, difficulty sleeping and chronic constipation. The patient mentions last bowel movement was 3 days ago. The patient states he has been going through alot of stress lately.The patient reports taking his medications as prescribed. The patient denies any fevers, chills and sweats. Allergies: NKDA Past surgical history: Hernia repair, Right ankle fracture; plate with 6 screws. Social history: None reported PCP: Dr. Ramirez <Paddy Waterman - Last Filed: 02/09/18 21:41> <Maren March - Last Filed: 02/09/18 23:32> - General Stated Complaint: I DON'T FEEL WELL Time Seen by Provider: 02/09/18 20:45 Past History <Paddy Waterman - Last Filed: 02/09/18 21:41> - Past Medical History Anemia: No Asthma: Yes (mild,last attack years ago) Cancer: No Cardiac Disorders: No CVA: Yes (2017) COPD: No CHF: Yes Dementia: No Diabetes: No GI Disorders: Yes (RENAL FAILURE) Disorders: No HTN: Yes Hypercholesterolemia: No Liver Disease: No Seizures: No Thyroid Disease: No - Surgical History Abdominal Surgery: Yes (HERNIA REPAIR) Orthopedic Surgery: Yes (right ankle fracture; plate with 6 screws) - Suicide/Smoking/Psychosocial Hx Smoking Status: No Smoking History: Former smoker Have you smoked in the past 12 months: No Number of Cigarettes Smoked Daily: 0 If you are a former smoker, when did you quit?: 11 months ago Cigars Per Day: 0 'Breaking Loose' booklet given: 09/14/17 Hx Alcohol Use: No Drug/Substance Use Hx: No Substance Use Type: None Hx Substance Use Treatment: No <Maren March - Last Filed: 02/09/18 23:32> - Past Medical History Allergies/Adverse Reactions: Allergies Allergy/AdvReac Type Severity Reaction Status Date / Time No Known Allergies Allergy Verified 11/27/17 18:24 Home Medications: Ambulatory Orders Polyethylene Glycol 3350 [Miralax 119 gm Btl -] 17 gm PO DAILY PRN 11/27/17 Amlodipine Besylate 10 mg PO DAILY #30 tablet 12/01/17 Carvedilol 25 mg PO BID #60 tablet 12/01/17 Clonidine HCl 0.1 mg PO BID #60 tablet 12/01/17 Hydralazine HCl 100 mg PO TID #90 tablet 12/01/17 Isosorbide Dinitrate [Isordil -] 30 mg PO TID #120 tablet 12/01/17 Lactobacillus Acidophilus [Bacid -] 1 tab PO DAILY tab 12/01/17 Furosemide 40 mg PO BID 02/09/18 Review of Systems - Review of Systems Able to Perform ROS?: Yes Comments:: 02/09/18 21:29 GENERAL/CONSTITUTIONAL: +Weakness. No fever or chills. HEAD, EYES, EARS, NOSE AND THROAT: No change in vision. No ear pain or discharge. No sore throat. CARDIOVASCULAR: No chest pain or shortness of breath. RESPIRATORY: No cough, wheezing, or hemoptysis. GASTROINTESTINAL: +Constipation. No nausea, vomiting, diarrhea. GENITOURINARY: No dysuria, frequency, or change in urination. MUSCULOSKELETAL: No joint or muscle swelling or pain. No neck or back pain. SKIN: No rash NEUROLOGIC: No headache, vertigo, loss of consciousness, or change in strength/ sensation. ENDOCRINE: No increased thirst. No abnormal weight change. HEMATOLOGIC/LYMPHATIC: No anemia, easy bleeding, or history of blood clots. ALLERGIC/IMMUNOLOGIC: No hives or skin allergy. <Paddy Waterman - Last Filed: 02/09/18 21:41> *Physical Exam - Vital Signs Last Vital Signs Temp Pulse Resp BP Pulse Ox 98.6 F 106 H 18 215/127 96 02/09/18 20:51 02/09/18 21:07 02/09/18 20:51 02/09/18 20:51 02/09/18 21:07 - Physical Exam Comments: 02/09/18 21:29 GENERAL: Awake, alert, and fully oriented, in no acute distress HEAD: No signs of trauma EYES: PERRLA, EOMI, sclera anicteric, conjunctiva clear ENT: +Dry mucous membrane. Auricles normal inspection, hearing grossly normal, nares patent, oropharynx clear without exudates. NECK: Normal ROM, supple, no lymphadenopathy, JVD, or masses LUNGS: +Expiratory crackle and rales to the bilateral bases. HEART: Regular rate and rhythm, normal S1 and S2, no murmurs, rubs or gallops ABDOMEN: Soft, nontender, normoactive bowel sounds. No guarding, no rebound. No masses EXTREMITIES: 2+ pitting edema bilaterally to the ankles. Normal range of motion. No clubbing or cyanosis. No cords, erythema, or tenderness NEUROLOGICAL: Cranial nerves II through XII grossly intact. Normal speech, normal gait SKIN: Warm, Dry, normal turgor, no rashes or lesions noted. <Paddy Waterman - Last Filed: 02/09/18 21:41> ED Treatment Course - LABORATORY CBC & Chemistry Diagram: 02/09/18 21:00 02/09/18 21:06 - ADDITIONAL ORDERS Additional order review: Laboratory Results 02/09/18 21:00 PT with INR 12.8 INR 1.15 02/09/18 21:00 RBC 2.83 L MCV 92.4 MCHC 34.5 RDW 13.9 MPV 8.7 Neutrophils % 80.7 Lymphocytes % 9.7 D Monocytes % 7.7 Eosinophils % 1.5 Basophils % 0.4 <Paddy Waterman - Last Filed: 02/09/18 21:41> - LABORATORY CBC & Chemistry Diagram: 02/09/18 21:00 02/09/18 21:06 <Maren March - Last Filed: 02/09/18 23:32> Medical Decision Making - Medical Decision Making 02/09/18 22:05 Documentation has been prepared under my direction and personally reviewed by me in its entirety. I attest that this documented accurately reflects all work, treatment, procedures and medical decision making performed by me. As noted above, this 52-year-old man with a history of hypertension, CHF, s/p CVA , renal failure, asthma presents with weakness and shortness of breath over the last few days. Patient states that he has been having cough productive of some "phlegm" but no fever/chills. He has had progressive weakness and shortness of breath/chest pressure with any exertion. He has been taking his medications as prescribed. Exam as noted. BP markedly elevated at 215/97 Pulse oximetry 92% on RA 12-lead electrocardiogram is performed and interpreted by me: sinus tachycardia 102 bpm; left axis deviation and LVH has been previously seen and are unchanged. T-wave inversions are present laterally but had been seen in previous EKGs including most recent one of 11/28/[address] or T-wave abnormalities are present. Patient given hydralazine 10 mg IV. Portable chest x-ray notable for bilateral increased interstitial markings consistent with venous congestion/CHF Laboratory values notable for potassium 3.0; troponin elevated indeterminate at 0.25; BUN is 63 with creatinine of 4.7 (BUNs somewhat higher than previously but creatinine is stable). Anemia and thrombocytopenia are present as previously seen 02/09/18 22:39 Upon questioning again, patient admits that he he cannot recall when he last took his blood pressure medications (although he did state he has been taking them "as prescribed") No significant change in BP after IV hydralazine; patient given 5 mg Lopressor IV <Maren March - Last Filed: 02/09/18 23:32> *DC/Admit/Observation/Transfer - Attestations Scribe Attestion: 02/09/18 21:31 Documentation prepared by Paddy Waterman, acting as medical anthropologist for Maren March MD. <Paddy Waterman - Last Filed: 02/09/18 21:41> - Discharge Dispostion Decision to Admit order: Yes <Maren March - Last Filed: 02/09/18 23:32> Diagnosis at time of Disposition: ALEXANDRA (acute kidney injury) CHF (congestive heart failure) Qualifiers: Heart failure type: unspecified Heart failure chronicity: acute on chronic Qualified Code(s): I50.9 - Heart failure, unspecified Hypertension Qualifiers: Hypertension type: essential hypertension Qualified Code(s): I10 - Essential ( primary) hypertension - Discharge Dispostion Condition at time of disposition: Guarded - Referrals Referrals: Zach Ramirez MD [Primary Care Provider] - - Patient Instructions - Post Discharge Activity
[2018-02-09 21:15] LABS: BASO % 0.4 % (0-2.0); EOS % 1.5 % (0-4.5); HEMATOCRIT 26.1 % (35.4-49); LYMPH % 9.7 % (8-40); MCH 31.9 pg (25.7-33.7); MCHC 34.5 g/dl (32.0-35.9); MEAN CELL VOLUME 92.4 fl (80-96); MEAN PLT VOLUME 8.7 fl (7.5-11.1); MONO % 7.7 % (3.8-10.2); NEUT % 80.7 % (42.8-82.8); PLATELET COUNT 76 K/MM3 (134-434); RBC 2.83 M/mm3 (4.00-5.60); RDW 13.9 % (11.9-15.9); WHITE BLOOD COUNT 8.9 K/mm3 (4.0-10.8)
[2018-02-09 21:26] LABS: INR 1.15 (0.82-1.09); PROTHROMBIN TIME (PATIENT) 12.8 SEC (10.2-13.0)
[2018-02-09 21:31] LABS: ALBUMIN 3.2 g/dl (3.5-5.0); ALK PHOS 60 U/L (32-92); ANION GAP 6 MMOL/L (8-16); BLOOD UREA NITROGEN 63 mg/dl (7-18); CALCIUM 7.6 mg/dl (8.4-10.2); CHLORIDE 104 mmol/L (98-107); CO2 25 mmol/L (22-28); CREATININE 4.7 mg/dl (0.6-1.3); GLUCOSE,RANDOM 108 mg/dl (74-106); SGOT/AST 19 U/L (10-42); SGPT/ALT 21 U/L (10-40); SODIUM 135 mmol/L (136-145); TOT PROT 5.7 g/dl (6.4-8.3)
[2018-02-09] MEDS ORDERED: POTASSIUM CHLORIDE TABS 20 MEQ TABLET.ER (FP) PO ONE ×2 (21:38→21:41)
[2018-02-09] MEDS ORDERED: hydrALAZINE HCL 20 MG/ML VIAL IVPUSH ONE (21:39)
[2018-02-09] MEDS ORDERED: hydrALAZINE HCL 20 MG/ML VIAL ONE (21:41)
[2018-02-09] MEDS ORDERED: METOPROLOL TARTRATE 5 MG/5 ML VIAL IVPUSH ONE (22:25)
[2018-02-09] MEDS ORDERED: METOPROLOL TARTRATE 5 MG/5 ML VIAL ONE (22:28)
[2018-02-09 23:37] LABS: PH,URINE 5.5 (4.5-8); URINE APPEARANCE Clear; URINE BILIRUBIN Negative (NEGATIVE); URINE COLOR Yellow; URINE GLUCOSE (UA) Negative (NEGATIVE); URINE KETONE Negative (NEGATIVE); URINE LEUK ESTERASE Negative (NEGATIVE); URINE NITRITE Negative (NEGATIVE); URINE PROTEIN 3+ (NEGATIVE); URINE UROBILINOGEN 0.2 (0.2-1.0)
[2018-02-09 23:42] LABS: URINE BACTERIA FEW /hpf (NEGATIVE); URINE WBC 0-2 (0-2)
[2018-02-10] MEDS ORDERED: FUROSEMIDE 40 MG/4 ML INJECTABLE VIAL IVPUSH ONE (00:02)
[2018-02-10] MEDS ORDERED: FUROSEMIDE 40 MG/4 ML INJECTABLE VIAL ONE (00:17)
[2018-02-10] MEDS ORDERED: cloNIDine HCL 0.1 MG TABLET PO ONE (01:21)
[2018-02-10] MEDS ORDERED: cloNIDine HCL 0.1 MG TABLET ONE (01:31)
[2018-02-10] MEDS ORDERED: CARVEDILOL 25 MG TABLET (FP) PO ONE (02:45)
[2018-02-10] MEDS ORDERED: NITROGLYCERIN 2% OINTMENT - 1GM PACKET TD ONE (02:45)
[2018-02-10] MEDS ORDERED: PNEUMOC 13-VAL CONJ-DIP CRM/PF 0.5 ML DISP.SYRIN IM ONE (03:18)
[2018-02-10] MEDS ORDERED: ISOSORBIDE DINITRATE 5 MG TABLET PO SCH (06:00)
[2018-02-10] MEDS: hydrALAZINE HCL 50 MG TABLET (FP) PO SCH ×3 (06:29→21:17)
[2018-02-10 06:39] LABS: BASO % 0.4 % (0-2.0); HEMATOCRIT 22.1 % (35.4-49); HEMOGLOBIN 7.8 GM/dL (11.7-16.9); LYMPH % 12.2 % (8-40); MCHC 35.3 g/dl (32.0-35.9); MEAN CELL VOLUME 90.5 fl (80-96); MEAN PLT VOLUME 9.6 fl (7.5-11.1); NEUT % 77.4 % (42.8-82.8); PLATELET COUNT 61 K/MM3 (134-434); RBC 2.45 M/mm3 (4.00-5.60); RDW 14.6 % (11.9-15.9); WHITE BLOOD COUNT 5.9 K/mm3 (4.0-10.0)
[2018-02-10 06:56] LABS: ALBUMIN 2.7 g/dl (3.4-5.0); ANION GAP 8 MMOL/L (8-16); BLOOD UREA NITROGEN 64 mg/dL (7-18); CALCIUM 7.4 mg/dL (8.5-10.1); CHLORIDE 104 mmol/L (98-107); CO2 28 mmol/L (21-32); GLUCOSE,RANDOM 97 mg/dL (74-106); POTASSIUM 3.5 mmol/L (3.5-5.1); SODIUM 140 mmol/L (136-145)
[2018-02-10 06:59] LABS: ALK PHOS 59 U/L (45-117); BILIRUBIN,TOTAL 1.2 mg/dL (0.2-1.0); CREATININE 5.2 mg/dL (0.7-1.3); SGOT/AST 19 U/L (15-37); SGPT/ALT 20 U/L (12-78); TOT PROT 5.1 g/dl (6.4-8.2)
--- NOTE | 2018-02-10 07:57 | HP ---
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 HOME HEALTH: Yes: CVA Cardiovascular: Yes: CAD, CHF, HTN, Hyperlipdemia Renal/: Yes: Renal Failure (Cr 2.2 in 07/2016, suspect due to hypertensive disease) - Past Surgical History Past Surgical History: Yes: Joint Replacement (ankle repair) - Smoking History Smoking history: Former smoker Have you smoked in the past 12 months: No Aproximately how many cigarettes per day: 0 If you are a former smoker, when did you quit?: 11 months ago - Alcohol/Substance Use Hx Alcohol Use: No History of Substance Use: reports: None - Social History ADL: Independent History of Recent Travel: No Home Medications - Allergies Allergies/Adverse Reactions: Allergies Allergy/AdvReac Type Severity Reaction Status Date / Time No Known Allergies Allergy Verified 11/27/17 18:24 - Home Medications Home Medications: Ambulatory Orders Polyethylene Glycol 3350 [Miralax 119 gm Btl -] 17 gm PO DAILY PRN 11/27/17 Amlodipine Besylate 10 mg PO DAILY #30 tablet 12/01/17 Carvedilol 25 mg PO BID #60 tablet 12/01/17 Clonidine HCl 0.1 mg PO BID #60 tablet 12/01/17 Hydralazine HCl 100 mg PO TID #90 tablet 12/01/17 Isosorbide Dinitrate [Isordil -] 30 mg PO TID #120 tablet 12/01/17 Lactobacillus Acidophilus [Bacid -] 1 tab PO DAILY tab 12/01/17 Furosemide 40 mg PO BID 02/09/18 Family Disease History - Family Disease History Family Disease History: Heart Disease: Mother Review of Systems - Review of Systems Constitutional: denies: Chills, Diaphoresis, Fever, Lethargy, Loss of Appetite Eyes: denies: Blind Spots, Blurred Vision HENT: denies: Difficult Swallowing, Ear Discharge, Ear Pain Neck: denies: Decreased ROM, Lumps, Pain on Movement Cardiovascular: reports: Edema, Shortness of Breath. denies: Chest Pain, Palpitations Respiratory: reports: Exercise Intolerance, Orthopnea, SOB, SOB on Exertion. denies: Cough, Hemoptysis Gastrointestinal: reports: Bloating, Constipation. denies: Abdominal Pain, Diarrhea Genitourinary: denies: Burning, Discharge, Dysuria Musculoskeletal: denies: Back Pain, Crepitus Neurological: denies: Change in LOC, Change in Speech, Confusion Endocrine: denies: Excessive Sweating, Flushing, Increased Hunger Hematology/Lymphatic: denies: Easily Bruised, Excessive Bleeding Physical Examination Vital Signs: Vital Signs Temperature 98 F 02/10/18 06:40 Pulse Rate 76 02/10/18 06:40 Respiratory Rate 15 02/10/18 06:40 Blood Pressure 177/112 02/10/18 06:40 O2 Sat by Pulse Oximetry (%) 97 02/10/18 01:04 Middle aged man not in distress HEENT: Mm moist, anemia, PERRLA, EOMI NECK: supple, + JVD No Bruit CHEST: B/L basal crepts CVS: S1S2 R S3+ no murmur ABD: obese, non tender Bs + EXT: Edema feet +, no calf tenderness, Pulses + LPN HOME HEALTH: AOx3 non focal Labs: CBC, BMP 02/10/18 05:30 02/10/18 05:30 Imaging - Results X-ray: Report Reviewed (Congestive changes) EKG: Report Reviewed (102 NSR LVHS QtC 513 same as base line) Problem List - Problems (1) Hypertensive urgency Assessment/Plan: admitted with Hypertensive urgency due to non compliance home meds resumed now ZHOU is better controlled will optimize BP meds to reach , Cardiology consulttarget Code(s): I16.0 - HYPERTENSIVE URGENCY (2) Heart failure, systolic, with acute decompensation Assessment/Plan: Due to uncontrolled HTn will optimize BP meds on Lasix 40 mg BID. Hydralazine, Imdur , ACEI contraindicated, B Blockers Code(s): I50.23 - ACUTE ON CHRONIC SYSTOLIC (CONGESTIVE) HEART FAILURE (3) CKD (chronic kidney disease) stage 4, GFR 15-29 ml/min Assessment/Plan: CKd stgae 405 GFR 16 needs, evalyuated by Division Controller agreed for Access will refer to Vascular surgery Code(s): N18.4 - CHRONIC KIDNEY DISEASE, STAGE 4 (SEVERE) (4) Anemia in chronic kidney disease Assessment/Plan: Mild drop in H/h mo active bleed will F/U anemia w/u Code(s): N18.9 - CHRONIC KIDNEY DISEASE, UNSPECIFIED; D63.1 - ANEMIA IN CHRONIC KIDNEY DISEASE Qualifiers: Chronic kidney disease stage: stage 4 (severe) Qualified Code(s): N18.4 - Chronic kidney disease, stage 4 (severe); D63.1 - Anemia in chronic kidney disease (5) Thrombocytopenia Assessment/Plan: Chronic worsening platelete count f/u platelete count Code(s): D69.6 - THROMBOCYTOPENIA, UNSPECIFIED (6) Elevated troponin Assessment/Plan: asymptomatic due to stress of uncontrolled HTN evaluated by cardiology consult Code(s): R74.8 - ABNORMAL LEVELS OF OTHER SERUM ENZYMES
[2018-02-10] MEDS ORDERED: PNEUMOCOCCAL 23 VACCINE 0.5 ML VIAL IM ONE (09:00)
[2018-02-10] MEDS ORDERED: PT OWN MED DRAWER 7, Y5N ONE (09:02)
[2018-02-10] MEDS: LACTOBACILLUS ACIDOPHILUS 1 TABLET PO SCH (09:07)
[2018-02-10] MEDS: CARVEDILOL 25 MG TABLET (FP) PO SCH ×2 (09:07→21:18)
[2018-02-10] MEDS: cloNIDine HCL 0.1 MG TABLET PO SCH ×2 (09:07→21:17)
[2018-02-10] MEDS: amLODIPine BESYLATE 10 MG TABLET (FP) PO SCH (09:08)
[2018-02-10] MEDS: ISOSORBIDE DINITRATE PO SCH ×3 (09:21→18:03)
--- NOTE | 2018-02-10 09:51 | CON.CARD ---
Consult Consult Specialty:: Cardiology Referred by:: Sriram Reason for Consultation:: elevated trop, CHF - History of Present Illness Chief Complaint: weakness History of Present Illness: 52M h/o CVA, CHF, renal failure, focal segmental glomerulosclerosis, asthma, and hypertension p/w weakness for a few days, cough, dyspnea, constipation. Sees Dr. Son in clinic. No chest pain, palps, dizziness, syncope. in ER BP 215/97, EKG sinus tachycardia and LVH, was given hydralazine 10 mg IV and metoprolol 5 mg IV. Labs notable for K 3.0, trop 0.25, BUN 63, Cr 4.7, Hb 7.8. Has history of med noncompliance per prior notes, not sure when last took BP meds. BNP 81897. Received lasix 40 mg IV x 1. Now on home meds for BP, BP remains elevated but is improved from arrival in ED. Feels better thsi morning , still tired. no dyspnea, has been walking to bathroom, no edema. 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: Yes: CVA Cardio/Vascular: Yes: CAD, CHF, HTN, Hyperlipdemia Renal/: Yes: Renal Failure (Cr 2.2 in 07/2016, suspect due to hypertensive disease) - Past Surgical History Past Surgical History: Yes: Joint Replacement (ankle repair) - Alcohol/Substance Use Hx Alcohol Use: No History of Substance Use: reports: None - Smoking History Smoking history: Former smoker Have you smoked in the past 12 months: No Aproximately how many cigarettes per day: 0 If you are a former smoker, when did you quit?: 11 months ago - Social History ADL: Independent History of Recent Travel: No Home Medications - Allergies Allergies/Adverse Reactions: Allergies Allergy/AdvReac Type Severity Reaction Status Date / Time No Known Allergies Allergy Verified 11/27/17 18:24 - Home Medications Home Medications: Ambulatory Orders Polyethylene Glycol 3350 [Miralax 119 gm Btl -] 17 gm PO DAILY PRN 11/27/17 Amlodipine Besylate 10 mg PO DAILY #30 tablet 12/01/17 Carvedilol 25 mg PO BID #60 tablet 12/01/17 Clonidine HCl 0.1 mg PO BID #60 tablet 12/01/17 Hydralazine HCl 100 mg PO TID #90 tablet 12/01/17 Isosorbide Dinitrate [Isordil -] 30 mg PO TID #120 tablet 12/01/17 Lactobacillus Acidophilus [Bacid -] 1 tab PO DAILY tab 12/01/17 Furosemide 40 mg PO BID 02/09/18 Family Disease History - Family Disease History Family Disease History: Heart Disease: Mother Review of Systems - Review of Systems Constitutional: reports: No Symptoms Eyes: reports: No Symptoms HENT: reports: No Symptoms Neck: reports: No Symptoms Cardiovascular: reports: Chest Pain Respiratory: reports: No Symptoms Gastrointestinal: reports: No Symptoms Genitourinary: reports: No Symptoms Musculoskeletal: reports: No Symptoms Integumentary: reports: No Symptoms Neurological: reports: Weakness Endocrine: reports: No Symptoms Hematology/Lymphatic: reports: No Symptoms Psychiatric: reports: No Symptoms Vital Signs: Vital Signs Temperature 98.2 F 02/10/18 08:00 Pulse Rate 83 02/10/18 08:00 Respiratory Rate 16 02/10/18 08:00 Blood Pressure 174/107 02/10/18 08:00 O2 Sat by Pulse Oximetry (%) 100 02/10/18 07:50 Constitutional: Yes: No Distress, Calm Eyes: Yes: Conjunctiva Clear, EOM Intact HENT: Yes: Atraumatic, Normocephalic Neck: Yes: Supple Respiratory: Yes: Regular, CTA Bilaterally Gastrointestinal: Yes: Normal Bowel Sounds, Soft Cardiovascular: Yes: Regular Rate and Rhythm JVD: No Heart Sounds: Yes: S1, S2 Edema: No Peripheral Pulses: 2+ Left Doralis Pedis, 2+ Right Dorsalis Pedis Neurological: Yes: Alert, Oriented Psychiatric: Yes: Alert, Oriented - Other Data Labs, Other Data: CBC, BMP 02/10/18 05:30 02/10/18 05:30 INR, PTT INR 1.15 (0.82-1.09) 02/09/18 21:00 Troponin, BNP 02/09/18 02/09/18 21:06 21:06 Troponin I 0.25 H D B-Natriuretic Peptide 26768.82 H Troponin, BNP 02/09/18 02/09/18 21:06 21:06 Troponin I 0.25 H D B-Natriuretic Peptide 06744.82 H Assessment/Plan EKG 11/28/17: NSR, LVH with repol abn, ? LAFB. no path q's. no signif change vs prior 07/2017 Echo 08/2017: mod LV dilation. moderate concentric LVH. nl LVEF/normal wall motion. nl RV. mild L/ELISABETH. mild MR. no RVSP. Echo 01/2017: EF 40-45%--global hypo, sev conc lvh, grade 2 diast dysfunction. nl rv, mild ar, mod mr. mod phtn MPI 09/03 (chuck): non-diagnostic ECG (baseline LVH with repol abnormalities. normal perfusion. nl LVEF. CXR: congestive changes EKG: sinus tach, LVH with strain 52M h/o CVA, CHF, renal failure, focal segmental glomerulosclerosis, asthma, and hypertension p/w weakness for a few days, cough, dyspnea, constipation with elevated BP, pos trop Positive trop - likely in setting of demand from hypertensive urgency. No CP, EKG unchanged, unlikely ACS - BP control as below - trend troponins hypertensive urgency: -chronic med non-compliance with recurrent severe BP elevations in hosp and office in past. - per patient not taking carvedilol and amlodipine, he says he is taking others -improving on home meds, received this AM -observe bp trend on home meds ALEXANDRA on CKD: - h/o focal segmental glomerulosclerosis - may be ALEXANDRA due to hypertensive nephropathy as well - renal consulted, appreciate recs hypertensive heart dz/chronic diast CHF: - BNP elevated from prior, likely in setting of hypertensive urgency - received IV lasix 40 mg x 1, congestion on CXR h/o CVA: -bp meds as doing -? asa, statin --defer to outpt f/u with ginelli thrombocytopenia, anemia: -low PLTs are chronic, stable -H/H slightly below prior baseline -per hospitalist
--- NOTE | 2018-02-10 11:36 | CON.NEP ---
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: CVA Cardio/Vascular: Yes: CAD, CHF, HTN, Hyperlipdemia Renal/: Yes: Renal Failure (Cr 2.2 in 07/2016, suspect due to hypertensive disease) - Past Surgical History Past Surgical History: Yes: Joint Replacement (ankle repair) - Alcohol/Substance Use Hx Alcohol Use: No History of Substance Use: reports: None - Smoking History Smoking history: Former smoker Have you smoked in the past 12 months: No Aproximately how many cigarettes per day: 0 If you are a former smoker, when did you quit?: 11 months ago - Social History ADL: Independent History of Recent Travel: No Home Medications - Allergies Allergies/Adverse Reactions: Allergies Allergy/AdvReac Type Severity Reaction Status Date / Time No Known Allergies Allergy Verified 11/27/17 18:24 - Home Medications Home Medications: Ambulatory Orders Polyethylene Glycol 3350 [Miralax 119 gm Btl -] 17 gm PO DAILY PRN 11/27/17 Amlodipine Besylate 10 mg PO DAILY #30 tablet 12/01/17 Carvedilol 25 mg PO BID #60 tablet 12/01/17 Clonidine HCl 0.1 mg PO BID #60 tablet 12/01/17 Hydralazine HCl 100 mg PO TID #90 tablet 12/01/17 Isosorbide Dinitrate [Isordil -] 30 mg PO TID #120 tablet 12/01/17 Lactobacillus Acidophilus [Bacid -] 1 tab PO DAILY tab 12/01/17 Furosemide 40 mg PO BID 02/09/18 Family Disease History - Family Disease History Family Disease History: Heart Disease: Mother Nephrology Consult - Height Height: 6 ft 1 in - Weight Weight: 232 lb 8 oz - BMI Body Mass Index (BMI): 30.7 - Lab Results CBC,BMP: CBC, BMP 02/10/18 05:30 02/10/18 05:30 Anion Gap: Anion Gap Anion Gap 8 MMOL/L (8-16) 02/10/18 05:30 - Physical Examination Vital Signs: Vital Signs Temperature 98.2 F 02/10/18 08:00 Pulse Rate 76 02/10/18 10:00 Respiratory Rate 16 02/10/18 08:00 Blood Pressure 173/106 02/10/18 10:00 O2 Sat by Pulse Oximetry (%) 100 02/10/18 07:50 Assessment/Plan advanced renal failure/CKD/ h/o FSGS worsening anemia- no overt bleeding hypertension- poor control Heart Failure- excess fluid? Thrombocytopenia H/o cva asthma cva he agrees to have a fistula wants to postpone HD or blood transfusion no urgent indication for dialysis recheck CBC
[2018-02-10 12:56] LABS: HEMATOCRIT 23.4 % (35.4-49); HEMOGLOBIN 8.1 GM/dL (11.7-16.9); MCH 31.7 pg (25.7-33.7); MCHC 34.7 g/dl (32.0-35.9); MEAN CELL VOLUME 91.4 fl (80-96); MEAN PLT VOLUME 8.8 fl (7.5-11.1); PLATELET COUNT 65 K/MM3 (134-434); RBC 2.55 M/mm3 (4.00-5.60); RDW 14.8 % (11.9-15.9); WHITE BLOOD COUNT 6.8 K/mm3 (4.0-10.0)
--- NOTE | 2018-02-10 19:07 | EKG ---
Test Reason : Blood Pressure : / mmHG Vent. Rate : 102 BPM Atrial Rate : 102 BPM P-R Int : 160 ms QRS Dur : 112 ms QT Int : 398 ms P-R-T Axes : 052 -40 123 degrees QTc Int : 518 ms SINUS TACHYCARDIA POSSIBLE LEFT ATRIAL ENLARGEMENT LEFT AXIS DEVIATION LEFT VENTRICULAR HYPERTROPHY ABNORMAL ECG WHEN COMPARED WITH ECG OF 28-NOV-2017 00:32, T WAVE INVERSION LESS EVIDENT IN ANTERIOR LEADS Confirmed by CORIN GUERRA, RAEGAN ([id number]) on 02/10/2018 7:06:54 PM Referred By: MD GONZALEZ Confirmed By:RAEGAN COOMBS MD
[2018-02-11] MEDS: hydrALAZINE HCL 50 MG TABLET (FP) PO SCH ×3 (05:36→21:40)
[2018-02-11] MEDS: POLYETHYLENE GLYCOL 3350 119 GM BTL PO PRN ×2 (05:36→21:40)
[2018-02-11 05:55] LABS: BASO % 0.6 % (0-2.0); EOS % 2.4 % (0-4.5); HEMATOCRIT 22.3 % (35.4-49); HEMOGLOBIN 7.8 GM/dL (11.7-16.9); LYMPH % 13.3 % (8-40); MCH 31.9 pg (25.7-33.7); MCHC 34.9 g/dl (32.0-35.9); MEAN CELL VOLUME 91.4 fl (80-96); MEAN PLT VOLUME 9.7 fl (7.5-11.1); MONO % 8.8 % (3.8-10.2); NEUT % 74.9 % (42.8-82.8); PLATELET COUNT 65 K/MM3 (134-434); RBC 2.44 M/mm3 (4.00-5.60); RDW 14.6 % (11.9-15.9); WHITE BLOOD COUNT 6.3 K/mm3 (4.0-10.0)
[2018-02-11 06:21] LABS: ALBUMIN 2.8 g/dl (3.4-5.0); ANION GAP 8 MMOL/L (8-16); BLOOD UREA NITROGEN 67 mg/dL (7-18); CALCIUM 7.6 mg/dL (8.5-10.1); CHLORIDE 101 mmol/L (98-107); CO2 29 mmol/L (21-32); CREATININE 5.3 mg/dL (0.7-1.3); GLUCOSE,RANDOM 96 mg/dL (74-106); POTASSIUM 3.7 mmol/L (3.5-5.1); SGOT/AST 15 U/L (15-37); SGPT/ALT 21 U/L (12-78); SODIUM 138 mmol/L (136-145)
[2018-02-11 06:23] LABS: ALK PHOS 65 U/L (45-117); BILIRUBIN,TOTAL 0.8 mg/dL (0.2-1.0); TOT PROT 5.5 g/dl (6.4-8.2)
--- NOTE | 2018-02-11 09:56 | PN ---
Progress Note, Physician Chief Complaint: Feels improved no c/o chest pain SOB and LE swelling is improving - Current Medication List Current Medications: Active Medications Amlodipine Besylate (Norvasc -) 10 mg PO DAILY [facility] Last Admin: 02/10/18 09:08 Dose: 10 mg Carvedilol (Coreg -) 25 mg PO BID [facility] Last Admin: 02/10/18 21:18 Dose: 25 mg Clonidine (Catapres -) 0.1 mg PO BID [facility] Last Admin: 02/10/18 21:17 Dose: 0.1 mg Hydralazine HCl (Apresoline -) 100 mg PO TID [facility] Last Admin: 02/11/18 05:36 Dose: 100 mg Isosorbide Dinitrate (Isordil -) 60 mg PO TIDISORDIL [facility] Lactobacillus Acidophilus (Bacid -) 1 tab PO DAILY [facility] Last Admin: 02/10/18 09:07 Dose: 1 tab Polyethylene Glycol (Miralax (For Daily Use) -) 17 gm PO DAILY PRN PRN Reason: CONSTIPATION Last Admin: 02/11/18 05:36 Dose: 17 grams - Objective Vital Signs: Vital Signs Temperature 98 F 02/10/18 12:00 Pulse Rate 78 02/10/18 23:20 Respiratory Rate 26 H 02/10/18 23:20 Blood Pressure 180/91 02/10/18 23:20 O2 Sat by Pulse Oximetry (%) 22 L 02/10/18 21:00 Middle aged man not in distress HEENT: Mm moist, anemia, PERRLA, EOMI NECK: supple, + JVD No Bruit CHEST: B/L basal crepts CVS: S1S2 R S3+ no murmur ABD: obese, non tender Bs + EXT: Edema feet +, no calf tenderness, Pulses + 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 Hydralazine, Imdur , ACEI contraindicated, B Blockers Code(s): I50.23 - ACUTE ON CHRONIC SYSTOLIC (CONGESTIVE) HEART FAILURE (3) CKD (chronic kidney disease) stage 4, GFR 15-29 ml/min Assessment/Plan: CKd stgae 405 GFR 16 needs, evalyuated by Rn Transitional agreed for Access will refer to Vascular surgery Code(s): N18.4 - CHRONIC KIDNEY DISEASE, STAGE 4 (SEVERE) (4) Anemia in chronic kidney disease Assessment/Plan: Drop in H/h mo active bleed will F/U anemia w/u, blood transfusion advised but patient refused Code(s): N18.9 - CHRONIC KIDNEY DISEASE, UNSPECIFIED; D63.1 - ANEMIA IN CHRONIC KIDNEY DISEASE Qualifiers: Chronic kidney disease stage: stage 4 (severe) Qualified Code(s): N18.4 - Chronic kidney disease, stage 4 (severe); D63.1 - Anemia in chronic kidney disease (5) Thrombocytopenia Assessment/Plan: Chronic worsening platelet count , never evaluted agrees for hematology consult f/u platelet count Code(s): D69.6 - THROMBOCYTOPENIA, UNSPECIFIED (6) Elevated troponin Assessment/Plan: asymptomatic due to stress of uncontrolled HTN evaluated by cardiology consult Code(s): R74.8 - ABNORMAL LEVELS OF OTHER SERUM ENZYMES
[2018-02-11] MEDS: ISOSORBIDE DINITRATE PO SCH (10:10)
[2018-02-11] MEDS: CARVEDILOL 25 MG TABLET (FP) PO SCH ×2 (10:24→21:40)
[2018-02-11] MEDS: cloNIDine HCL 0.1 MG TABLET PO SCH ×2 (10:24→21:40)
[2018-02-11] MEDS: amLODIPine BESYLATE 10 MG TABLET (FP) PO SCH (10:25)
[2018-02-11] MEDS: LACTOBACILLUS ACIDOPHILUS 1 TABLET PO SCH (10:25)
[2018-02-11] MEDS: ISOSORBIDE DINITRATE 20 MG TABLET (FP) PO SCH ×4 (10:26→21:39)
[2018-02-11 12:04] VITALS: BMI 30.6
--- NOTE | 2018-02-11 12:38 | PN ---
Progress Note (short form) - Note Progress Note: cc: weakness s: no cp, palps, dizzy, lightheadedness, dyspnea tele: sinus Current Medications Amlodipine Besylate (Norvasc -) 10 mg PO DAILY [facility] Last Admin: 02/11/18 10:25 Dose: 10 mg Carvedilol (Coreg -) 25 mg PO BID [facility] Last Admin: 02/11/18 10:24 Dose: 25 mg Clonidine (Catapres -) 0.1 mg PO BID [facility] Last Admin: 02/11/18 10:24 Dose: 0.1 mg Hydralazine HCl (Apresoline -) 100 mg PO TID [facility] Last Admin: 02/11/18 05:36 Dose: 100 mg Isosorbide Dinitrate (Isordil -) 60 mg PO TIDISORDIL [facility] Last Admin: 02/11/18 10:27 Dose: 60 mg Lactobacillus Acidophilus (Bacid -) 1 tab PO DAILY [facility] Last Admin: 02/11/18 10:25 Dose: 1 tab Polyethylene Glycol (Miralax (For Daily Use) -) 17 gm PO DAILY PRN PRN Reason: CONSTIPATION Last Admin: 02/11/18 05:36 Dose: 17 grams Vital Signs: Vital Signs Period Temp Pulse Resp BP Sys/Pichardo Pulse Ox Last 24 Hr 98 F 71-78 20-26 158-180/91-108 22-98 Constitutional: Yes: No Distress, Calm Eyes: Yes: Conjunctiva Clear, EOM Intact HENT: Yes: Atraumatic, Normocephalic Neck: Yes: Supple Respiratory: Yes: Regular, CTA Bilaterally Gastrointestinal: Yes: Normal Bowel Sounds, Soft Cardiovascular: Yes: Regular Rate and Rhythm JVD: No Heart Sounds: Yes: S1, S2 Edema: No Peripheral Pulses: 2+ Left Doralis Pedis, 2+ Right Dorsalis Pedis Neurological: Yes: Alert, Oriented Psychiatric: Yes: Alert, Oriented Assessment/Plan EKG 11/28/17: NSR, LVH with repol abn, ? LAFB. no path q's. no signif change vs prior 07/2017 Echo 08/2017: mod LV dilation. moderate concentric LVH. nl LVEF/normal wall motion. nl RV. mild L/ELISABETH. mild MR. no RVSP. Echo 01/2017: EF 40-45%--global hypo, sev conc lvh, grade 2 diast dysfunction. nl rv, mild ar, mod mr. mod phtn MPI 09/03 (chuck): non-diagnostic ECG (baseline LVH with repol abnormalities. normal perfusion. nl LVEF. CXR: congestive changes EKG: sinus tach, LVH with strain 52M h/o CVA, CHF, renal failure, focal segmental glomerulosclerosis, asthma, and hypertension p/w weakness for a few days, cough, dyspnea, constipation with elevated BP, pos trop Positive trop - likely in setting of demand from hypertensive urgency. No CP, EKG unchanged, unlikely ACS - BP control as below - trop flat, 0.24->0.25, not c/w ACS - no further cardiac workup as inpatient hypertensive urgency: -chronic med non-compliance with recurrent severe BP elevations in hosp and office in past. - per patient not taking carvedilol and amlodipine, he says he is taking others -improving, agree with increase on isordil ALEXANDRA on CKD: - h/o focal segmental glomerulosclerosis - may be ALEXANDRA due to hypertensive nephropathy as well - renal consulted, appreciate recs - planning for vascular access for HD hypertensive heart dz/chronic diast CHF: - BNP elevated from prior, likely in setting of hypertensive urgency - euvolemic currently h/o CVA: -bp meds as doing -? asa, statin --defer to outpt f/u with ginelli thrombocytopenia, anemia: -low PLTs are chronic, stable -H/H slightly below prior baseline -per hospitalist
[2018-02-11 14:34] LABS: INR 1.12 (0.83-1.09); PROTHROMBIN TIME (PATIENT) 12.7 SEC (9.7-13.0)
[2018-02-11 14:37] LABS: ACTIVATED PTT 28.5 SECONDS (25.2-36.5)
--- NOTE | 2018-02-11 16:52 | PN ---
Progress Note (short form) - Note Progress Note: covering dr gonzalez Problems advanced renal failure/CKD/ h/o FSGS worsening anemia- no overt bleeding hypertension- poor control Heart Failure- excess fluid? Thrombocytopenia H/o cva asthma cva Current Medications Amlodipine Besylate (Norvasc -) 10 mg PO DAILY [facility] Last Admin: 02/11/18 10:25 Dose: 10 mg Carvedilol (Coreg -) 25 mg PO BID [facility] Last Admin: 02/11/18 10:24 Dose: 25 mg Clonidine (Catapres -) 0.1 mg PO BID [facility] Last Admin: 02/11/18 10:24 Dose: 0.1 mg Hydralazine HCl (Apresoline -) 100 mg PO TID [facility] Last Admin: 02/11/18 15:50 Dose: 100 mg Isosorbide Dinitrate (Isordil -) 60 mg PO TIDISORDIL [facility] Last Admin: 02/11/18 15:50 Dose: Not Given Lactobacillus Acidophilus (Bacid -) 1 tab PO DAILY [facility] Last Admin: 02/11/18 10:25 Dose: 1 tab Polyethylene Glycol (Miralax (For Daily Use) -) 17 gm PO DAILY PRN PRN Reason: CONSTIPATION Last Admin: 02/11/18 05:36 Dose: 17 grams Last Vital Signs Temp Pulse Resp BP Pulse Ox 98 F 72 20 156/99 98 02/11/18 10:27 02/11/18 15:54 02/11/18 15:54 02/11/18 15:54 02/11/18 09:00 lungs clear Heart reg Abd soft nontender Ext no edema CBC, BMP 02/11/18 05:30 02/11/18 05:30 IMP- CKD progressive renal failure over time now near end stage anemia worse recently without bleeding- ?asymptomatic ( feels better today) HTN out of control Thrombocytopenia he agrees to have a fistula wants to postpone HD or blood transfusion no urgent indication for dialysis recheck CBC Plan- await work up f/u stool occult blood and iron studies consider starting Epogen
[2018-02-11] MEDS ORDERED: PT OWN MED DRAWER 7, Y5N ONE ×4 (17:03→22:37)
--- NOTE | 2018-02-11 23:13 | CONSULT ---
Consult - text type - Consultation Consultation Note: The patient is a 52 year old male with past medical history of CVA (2017), CHF, renal failure, focal segmental glomerulosclerosis, asthma hypertension who presents to the ED with generalized weakness that began for a few days. The patient states weakness is accompanied with cough , SOB, difficulty sleeping and chronic constipation. The patient mentions last bowel movement was 3 days ago. The patient denies any fevers, chills and sweats. Allergies: NKDA Past surgical history: Hernia repair, Right ankle fracture; plate with 6 screws. Past Medical history Asthma: Yes (mild,last attack years ago) CVA: Yes (2016) CHF: Yes HTN: Yes CKD/FSGS - Surgical History Abdominal Surgery: Yes (HERNIA REPAIR) Orthopedic Surgery: Yes (right ankle fracture; plate with 6 screws) - Suicide/Smoking/Psychosocial Hx Smoking History: Former smoker Allergies/Adverse Reactions: Allergies Allergy/AdvReac Type Severity Reaction Status Date / Time No Known Allergies Allergy Verified 11/27/17 18:24 Home Medications: Ambulatory Orders Polyethylene Glycol 3350 [Miralax 119 gm Btl -] 17 gm PO DAILY PRN 11/27/17 Amlodipine Besylate 10 mg PO DAILY #30 tablet 12/01/17 Carvedilol 25 mg PO BID #60 tablet 12/01/17 Clonidine HCl 0.1 mg PO BID #60 tablet 12/01/17 Hydralazine HCl 100 mg PO TID #90 tablet 12/01/17 Isosorbide Dinitrate [Isordil -] 30 mg PO TID #120 tablet 12/01/17 Lactobacillus Acidophilus [Bacid -] 1 tab PO DAILY tab 12/01/17 Furosemide 40 mg PO BID 02/09/18 - Vital Signs AFVSS Cor: RSR, No murmurs, No gallops Lungs: Clear to P&A Abd: Soft, Normal bowel sounds, No organomegaly Ext:No significant edema Skin: No rashes, Integument intact Labs/Meds reviewed A/P 52-year-old man with a history of hypertension, CHF, s/p CVA , renal failure, asthma presents with weakness and shortness of breath over the last few days. In the ER BP markedly elevated at 215/97 Pulse 92% on RA Anemia--multifactorial anemia of chronic disease +/- gi loss await iron studies/stool occult will consult GI check B12/folate/TSH/protein studies Thrombocytopenia: chronic ? immune mediated patient with FSGS check liver/spleen u/s check HIV/MARNIE/RF monitor ALEXNADRA -per renal
[2018-02-12] MEDS ORDERED: MINERAL OIL ENEMA 133 ML ENEMA PR ONE (03:00)
[2018-02-12] MEDS: hydrALAZINE HCL 50 MG TABLET (FP) PO SCH ×3 (05:55→22:00)
[2018-02-12 06:06] LABS: SERUM IRON SATURATION 15 % (15-55); TOTAL IRON BINDING CAPACITY 255 ug/dL (250-450); UIBC 217 ug/dL (111-343)
[2018-02-12] MEDS: ISOSORBIDE DINITRATE 20 MG TABLET (FP) PO SCH ×3 (08:01→18:18)
--- NOTE | 2018-02-12 10:36 | PN ---
Progress Note, Physician Chief Complaint: Pt sitting in bed in no acute distress. Reports he gets dyspneic upon exertion. Denies any chest pain, sob, n/v/d, weakness - Current Medication List Current Medications: Active Medications Amlodipine Besylate (Norvasc -) 10 mg PO DAILY [facility] Last Admin: 02/11/18 10:25 Dose: 10 mg Carvedilol (Coreg -) 25 mg PO BID [facility] Last Admin: 02/11/18 21:40 Dose: 25 mg Clonidine (Catapres -) 0.1 mg PO BID [facility] Last Admin: 02/11/18 21:40 Dose: 0.1 mg Hydralazine HCl (Apresoline -) 100 mg PO TID [facility] Last Admin: 02/12/18 05:55 Dose: 100 mg Isosorbide Dinitrate (Isordil -) 60 mg PO TIDISORDIL [facility] Last Admin: 02/11/18 21:39 Dose: 60 mg Lactobacillus Acidophilus (Bacid -) 1 tab PO DAILY [facility] Last Admin: 02/11/18 10:25 Dose: 1 tab Polyethylene Glycol (Miralax (For Daily Use) -) 17 gm PO TID [facility] - Objective Vital Signs: Vital Signs Temperature 97.6 F 02/12/18 06:00 Pulse Rate 78 02/12/18 06:00 Respiratory Rate 20 02/12/18 06:00 Blood Pressure 167/106 02/12/18 06:00 O2 Sat by Pulse Oximetry (%) 98 02/11/18 22:00 Constitutional: Yes: Well Nourished, No Distress, Anxious Cardiovascular: Yes: Regular Rate and Rhythm Respiratory: Yes: Regular, CTA Bilaterally, SOB on Exertion. No: Accessory Muscle Use, Rhonchi, SOB, Tachypnea, Wheezes Gastrointestinal: Yes: WNL, Normal Bowel Sounds, Soft. No: Distention, Tenderness Genitourinary: Yes: WNL Musculoskeletal: Yes: WNL Extremities: Yes: WNL Edema: Yes Edema: LLE: 1+, RLE: 1+ Neurological: Yes: WNL, Alert, Oriented Psychiatric: Yes: WNL, Alert, Oriented Labs: CBC, BMP 02/11/18 05:30 INR, PTT INR 1.12 (0.83-1.09) H 02/11/18 13:55 Fibrinogen 576.0 mg/dL (238-498) H 02/11/18 13:55 Problem List - Problems (1) ALEXANDRA (acute kidney injury) Assessment/Plan: progressively worsening renal failure no indication for HD at the moment per renal will need HD in the future nephrology following Code(s): N17.9 - ACUTE KIDNEY FAILURE, UNSPECIFIED (2) CKD (chronic kidney disease) Assessment/Plan: as above Code(s): N18.9 - CHRONIC KIDNEY DISEASE, UNSPECIFIED Qualifiers: Chronic kidney disease stage: stage 5, not on chronic dialysis Qualified Code(s): N18.5 - Chronic kidney disease, stage 5 (3) Anemia Assessment/Plan: acute on chronic normocytic, suspect 2/2 ckd need to r/o acute bleeding/other etiology- hemeoccult stool pending GI consulted iron panel wnl procrit/epogen per renal hematology following Code(s): D64.9 - ANEMIA, UNSPECIFIED Qualifiers: Anemia type: due to chronic kidney disease Chronic kidney disease stage: stage 5, not on chronic dialysis Qualified Code(s): N18.5 - Chronic kidney disease, stage 5; D63.1 - Anemia in chronic kidney disease (4) CHF (congestive heart failure) Assessment/Plan: chronic mild sob upon exertion consider lasix in the future per renal cardiology following Code(s): I50.9 - HEART FAILURE, UNSPECIFIED Qualifiers: Heart failure type: diastolic Heart failure chronicity: chronic Qualified Code(s): I50.32 - Chronic diastolic (congestive) heart failure (5) Hypertensive urgency Assessment/Plan: improved Code(s): I16.0 - HYPERTENSIVE URGENCY (6) Hypertension Assessment/Plan: improving slowly continue norvasc, hydralazine, clonidine, coreg, isordil strict BP control low na diet Code(s): I10 - ESSENTIAL (PRIMARY) HYPERTENSION Qualifiers: Hypertension type: essential hypertension Qualified Code(s): I10 - Essential (primary) hypertension (7) Thrombocytopenia Assessment/Plan: chronic at baseline Code(s): D69.6 - THROMBOCYTOPENIA, UNSPECIFIED (8) History of CVA (cerebrovascular accident) Assessment/Plan: in 2017 lipid panel ordered prev poor compliance w/ statin Code(s): Z86.73 - PRSNL HX OF TIA (TIA), AND CEREB INFRC W/O RESID DEFICITS
--- NOTE | 2018-02-12 10:44 | PN ---
Physical Exam: HEME/ONC CONSULT SUBJECTIVE: Patient seen and examined at the bed side this morning. Has mild shortness of breath, states he is anxious about his medical condition, wants to know why he has anemia. Denies chest pain, cough, palpitation, abdominal pain, nausea or vomiting. Had a BM this morning after 5 days, states enema helped. No bleeding noticed. Bladder habit normal. Sleep/Appetite normal. no acute overnight events. OBJECTIVE: Vital Signs Period Temp Pulse Resp BP Sys/Pichardo Pulse Ox Last 24 Hr 97.6 F 70-78 20-22 149-167/96-106 98 GENERAL: The patient is sitting comfortably in bed, awake, alert, and fully oriented, in no acute distress. HEAD: Normal with no signs of trauma. EYES: EOM intact, pallor +, no icterus. ENT: Ears normal, moist mucous membranes. NECK: Supple. LUNGS: Breath sounds equal, clear to auscultation bilaterally, no wheezes, no crackles, no accessory muscle use. HEART: Regular rate and rhythm, S1, S2 without murmur. ABDOMEN: Soft, nontender, nondistended, normoactive bowel sounds, no guarding, no rebound, no hepatosplenomegaly, no masses. EXTREMITIES: 2+ pulses, warm, well-perfused, no edema. NEUROLOGICAL: No facial droop. Normal speech, gait not observed. PSYCH: Normal mood, normal affect. SKIN: Warm, dry, normal turgor, no rashes or lesions noted Laboratory Results - last 24 hr 02/11/18 02/11/18 02/11/18 05:30 13:55 13:55 PT with INR 12.70 INR 1.12 H PTT (Actin FS) 28.5 Fibrinogen Iron 38 TIBC 255 Iron Saturation 15 LD Total 308 H Vitamin B12 TSH Free T4 Direct Antiglob Test 02/11/18 02/11/18 02/12/18 13:55 13:55 06:15 PT with INR INR PTT (Actin FS) Fibrinogen 576.0 H Iron TIBC Iron Saturation LD Total Vitamin B12 443 TSH 5.35 H Free T4 1.29 H Direct Antiglob Test Negative Active Medications Generic Name Dose Route Start Last Admin Trade Name Freq PRN Reason Stop Dose Admin Amlodipine Besylate 10 mg 02/10/18 10:00 02/11/18 10:25 Norvasc - PO 10 mg DAILY [facility] Administration Carvedilol 25 mg 02/10/18 10:00 02/11/18 21:40 Coreg - PO 25 mg BID [facility] Administration Clonidine 0.1 mg 02/10/18 10:00 02/11/18 21:40 Catapres - PO 0.1 mg BID [facility] Administration Docusate Sodium 100 mg 02/12/18 14:00 Colace - PO TID [facility] Hydralazine HCl 100 mg 02/10/18 06:00 02/12/18 05:55 Apresoline - PO 100 mg TID [facility] Administration Isosorbide Dinitrate 60 mg 02/11/18 09:54 02/11/18 21:39 Isordil - PO 60 mg TIDISORDIL [facility] Administration Lactobacillus Acidophilus 1 tab 02/10/18 10:00 02/11/18 10:25 Bacid - PO 1 tab DAILY [facility] Administration Polyethylene Glycol 17 gm 02/12/18 10:45 Miralax (For Daily Use) - PO TID [facility] Senna 2 tab 02/12/18 22:00 Senna - PO HS [facility] The patient is a 52 year old male with past medical history of CVA (2017), CHF, renal failure, focal segmental glomerulosclerosis, asthma hypertension who presents to the ED with generalized weakness that began for a few days. Assessment: - Normocytic anemia - Thrombocytopenia - CVA (2017) -CKD - Focal segmental Glomerulosclerosis - Asthma-not in exacerbation - CHF- not in exacerbation - Hypertension: High BP this morning 167/106 (receiving his morning dose of meds for BP now) -Constipation: had a BM this morning after 5 days Plan: Newly diagnosed Normocytic anemia: multifactorial H/H 7.8/22.3---> today's H/H pending Iron studies normal including Ferritin, vitamin B 12 normal, Folate pending No active bleeding Workup being done Direct antiglo test negative Patient states he had a colonoscopy done 12 years ago, was normal at that time, was told to take more fibres. No h/o cancers in the family. Never had a blood transfusions in the past. As per GI, plan is do a EGG and colonoscopy on 02/14/2018 for further evaluation. USG of abdomen was cancelled today since he wasn't NPO. To be done in the morning. Chronic Thrombocytopenia: could be immune mediated. Cause unknown at this time Platelet count 65---> today its 77 Rheumatoid factor negative HIV test negative Rest as per primary team. Plan of care explained to the patient. He verbalized understanding. Case discussed with Dr. Valenzuela.
[2018-02-12 10:45] LABS: BASO % 0.6 % (0-2.0); EOS % 2.1 % (0-4.5); HEMATOCRIT 23.7 % (35.4-49); HEMOGLOBIN 8.2 GM/dL (11.7-16.9); LYMPH % 12.4 % (8-40); MCH 31.9 pg (25.7-33.7); MCHC 34.7 g/dl (32.0-35.9); MEAN PLT VOLUME 10.4 fl (7.5-11.1); NEUT % 75.9 % (42.8-82.8); PLATELET COUNT 77 K/MM3 (134-434); RBC 2.57 M/mm3 (4.00-5.60); RDW 14.8 % (11.9-15.9); WHITE BLOOD COUNT 6.4 K/mm3 (4.0-10.0)
[2018-02-12] MEDS: amLODIPine BESYLATE 10 MG TABLET (FP) PO SCH (11:00)
[2018-02-12] MEDS: cloNIDine HCL 0.1 MG TABLET PO SCH ×2 (11:00→22:00)
[2018-02-12] MEDS: CARVEDILOL 25 MG TABLET (FP) PO SCH ×2 (11:00→22:04)
[2018-02-12] MEDS: LACTOBACILLUS ACIDOPHILUS 1 TABLET PO SCH (11:00)
[2018-02-12] MEDS: POLYETHYLENE GLYCOL 3350 119 GM BTL PO SCH ×3 (11:03→22:03)
[2018-02-12 11:16] LABS: ANION GAP 11 MMOL/L (8-16); BLOOD UREA NITROGEN 71 mg/dL (7-18); CALCIUM 7.6 mg/dL (8.5-10.1); CHLORIDE 102 mmol/L (98-107); CO2 26 mmol/L (21-32); CREATININE 5.2 mg/dL (0.7-1.3); GLUCOSE,RANDOM 127 mg/dL (74-106); POTASSIUM 3.7 mmol/L (3.5-5.1); SODIUM 139 mmol/L (136-145)
--- NOTE | 2018-02-12 11:19 | PN ---
Progress Note (short form) - Note Progress Note: cc: weakness s: no cp, palps, dizzy, lightheadedness, dyspnea Vital Signs Period Temp Pulse Resp BP Sys/Pichardo Pulse Ox Last 24 Hr 97.6 F 70-78 20-22 149-167/96-106 98 Constitutional: Yes: No Distress, Calm Eyes: Yes: Conjunctiva Clear, EOM Intact Neck: Yes: Supple Respiratory: Yes: Regular, CTA Bilaterally Gastrointestinal: Yes: Normal Bowel Sounds, Soft Cardiovascular: Yes: Regular Rate and Rhythm JVD: No Heart Sounds: Yes: S1, S2 Edema: No Neurological: Yes: Alert, Oriented Psychiatric: Yes: Alert, Oriented no jaundice diaphoresis Current Medications Generic Name Dose Route Start Last Admin Trade Name Freq PRN Reason Stop Dose Admin Amlodipine Besylate 10 mg 02/10/18 10:00 02/12/18 11:00 Norvasc - PO 10 mg DAILY [facility] Administration Carvedilol 25 mg 02/10/18 10:00 02/12/18 11:00 Coreg - PO 25 mg BID [facility] Administration Clonidine 0.1 mg 02/10/18 10:00 02/12/18 11:00 Catapres - PO 0.1 mg BID [facility] Administration Docusate Sodium 100 mg 02/12/18 14:00 Colace - PO TID [facility] Hydralazine HCl 100 mg 02/10/18 06:00 02/12/18 05:55 Apresoline - PO 100 mg TID [facility] Administration Isosorbide Dinitrate 60 mg 02/11/18 09:54 02/12/18 08:01 Isordil - PO 60 mg TIDISORDIL [facility] Administration Lactobacillus Acidophilus 1 tab 02/10/18 10:00 02/12/18 11:00 Bacid - PO 1 tab DAILY [facility] Administration Polyethylene Glycol 17 gm 02/12/18 10:45 02/12/18 11:03 Miralax (For Daily Use) - PO 17 gm TID [facility] Administration Senna 2 tab 02/12/18 22:00 Senna - PO HS [facility] CBC, BMP 02/12/18 10:26 02/12/18 10:26 Assessment/Plan EKG 11/28/17: NSR, LVH with repol abn, ? LAFB. no path q's. no signif change vs prior 07/2017 Echo 08/2017: mod LV dilation. moderate concentric LVH. nl LVEF/normal wall motion. nl RV. mild L/ELISABETH. mild MR. no RVSP. Echo 01/2017: EF 40-45%--global hypo, sev conc lvh, grade 2 diast dysfunction. nl rv, mild ar, mod mr. mod phtn MPI 09/03 (chuck): non-diagnostic ECG (baseline LVH with repol abnormalities. normal perfusion. nl LVEF. CXR: congestive changes tele: sr EKG: sinus tach, LVH with strain 52M h/o CVA, CHF, renal failure, focal segmental glomerulosclerosis, asthma, and hypertension p/w weakness for a few days, cough, dyspnea, constipation with elevated BP, pos trop Positive trop - likely in setting of demand from hypertensive urgency. No CP, EKG unchanged, unlikely ACS - BP control as below - trop flat, 0.24->0.25, not c/w ACS - no further cardiac workup as inpatient hypertensive urgency: -chronic med non-compliance with recurrent severe BP elevations in hosp and office in past. - per patient not taking carvedilol and amlodipine, he says he is taking others -improving after resuming bp meds ALEXANDRA on CKD: - h/o focal segmental glomerulosclerosis - may be ALEXANDRA due to hypertensive nephropathy as well - renal consulted, appreciate recs - planning for vascular access for HD hypertensive heart dz/chronic diast CHF: - BNP elevated from prior, likely in setting of hypertensive urgency - euvolemic currently h/o CVA: -bp meds as doing -non compliant with statin thrombocytopenia, anemia: -low PLTs are chronic, stable -H/H slightly below prior baseline -per hospitalist
--- NOTE | 2018-02-12 12:40 | PN ---
Progress Note (short form) - Note Progress Note: Renal follow up for CKD Pt seen and examined in Tele awake and alert no acute complaints sob improved but still has RAMÍREZ no CP, Abd pain, N/V/D reports having dark pasty stools during his vacation making urine Vital Signs Temperature 97.6 F 02/12/18 06:00 Pulse Rate 78 02/12/18 06:00 Respiratory Rate 20 02/12/18 06:00 Blood Pressure 167/106 02/12/18 06:00 O2 Sat by Pulse Oximetry (%) 98 02/11/18 22:00 Intake & Output 02/09/18 02/10/18 02/11/18 02/12/18 23:59 23:59 23:59 23:59 Intake Total 1140 900 200 Output Total 375 300 Balance -375 840 900 200 Weight 104.922 kg 105.46 kg 105.233 kg NAD awake and alert RRR, No M/R CTA, no rales soft NT/ND No LE edema, clubbing or cyanosis CBC, BMP 02/12/18 10:26 02/12/18 10:26 Intake & Output 02/09/18 02/10/18 02/11/18 02/12/18 23:59 23:59 23:59 23:59 Intake Total 1140 900 200 Output Total 375 300 Balance -375 840 900 200 Weight 104.922 kg 105.46 kg 105.233 kg Current Medications Amlodipine Besylate (Norvasc -) 10 mg PO DAILY [facility] Last Admin: 02/12/18 11:00 Dose: 10 mg Carvedilol (Coreg -) 25 mg PO BID [facility] Last Admin: 02/12/18 11:00 Dose: 25 mg Clonidine (Catapres -) 0.1 mg PO BID [facility] Last Admin: 02/12/18 11:00 Dose: 0.1 mg Docusate Sodium (Colace -) 100 mg PO TID [facility] Hydralazine HCl (Apresoline -) 100 mg PO TID [facility] Last Admin: 02/12/18 05:55 Dose: 100 mg Isosorbide Dinitrate (Isordil -) 60 mg PO TIDISORDIL [facility] Last Admin: 02/12/18 08:01 Dose: 60 mg Lactobacillus Acidophilus (Bacid -) 1 tab PO DAILY [facility] Last Admin: 08/27/18 11:00 Dose: 1 tab Polyethylene Glycol (Miralax (For Daily Use) -) 17 gm PO TID [facility] Last Admin: 02/12/18 11:03 Dose: 17 gm Senna (Senna -) 2 tab PO HS [facility] 52 year old gentleman with 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 #CKD secondary to FSGS #Acute CHF #Acute on Chronic Anemia (Hgb was 12.3 as outpatient on 01/22/2018) #Thrombocytopenia #Hypertension No acute indication for [employer]ATOR at this time BUN/Cr slightly uptrending here due to hemodynamic changes from BP control Continue Hydralazine, Clonidine, Coreg and Norvasc goal BP < 150/90 Give SC Epogen for Anemia Give IV iron for low iron saturation Heme following, discussed case with them Plt count was 95 on 01/23/12 Avoid nephrotoxins Will follow Farrukh Abraham DO
[2018-02-12] MEDS ORDERED: EPOETIN ALFA 20,000 UNIT/1 ML VIAL SQ ONE (12:44)
[2018-02-12] MEDS ORDERED: IRON SUCROSE INJECTION 100 MG in SODIUM CHLORIDE 95 ML IVPB ONE (12:45)
--- NOTE | 2018-02-12 12:55 | CON.GI ---
Consult Consult Specialty:: GI Reason for Consultation:: Anemia - History of Present Illness History of Present Illness: Chart reviewed. Events noted. Per initial intake: The patient is a 52 year old male with past medical history of CVA (2017), CHF, renal failure, focal segmental glomerulosclerosis, asthma hypertension who presents to the ED with generalized weakness that began for a few days. The patient states weakness is accompanied with cough , SOB, difficulty sleeping and chronic constipation. The patient mentions last bowel movement was 3 days ago. Normocytic normochromic anemia with normal iron profile in settings of renal disease. The pt reported black stools and new onset constipation (7 moths) , however, the pt has poor vision and cannot be certain about stools. Had a colonoscopy 12-14 y. ago for "check up". No history of hematochezia, hematememsis. No significant family history. 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 Cardio/Vascular: Yes: CAD, CHF, HTN, Hyperlipdemia Renal/: Yes: Renal Failure (Cr 2.2 in 07/2016, suspect due to hypertensive disease) - Past Surgical History Past Surgical History: Yes: Joint Replacement (ankle repair) - Alcohol/Substance Use Hx Alcohol Use: No History of Substance Use: reports: None - Smoking History Smoking history: Former smoker Have you smoked in the past 12 months: No Aproximately how many cigarettes per day: 0 If you are a former smoker, when did you quit?: 11 months ago - Social History ADL: Independent History of Recent Travel: No Home Medications - Allergies Allergies/Adverse Reactions: Allergies Allergy/AdvReac Type Severity Reaction Status Date / Time No Known Allergies Allergy Verified 11/27/17 18:24 - Home Medications Home Medications: Ambulatory Orders Polyethylene Glycol 3350 [Miralax 119 gm Btl -] 17 gm PO DAILY PRN 11/27/17 Amlodipine Besylate 10 mg PO DAILY #30 tablet 12/01/17 Carvedilol 25 mg PO BID #60 tablet 12/01/17 Clonidine HCl 0.1 mg PO BID #60 tablet 12/01/17 Hydralazine HCl 100 mg PO TID #90 tablet 12/01/17 Furosemide 40 mg PO BID 02/09/18 Isosorbide Dinitrate [Isordil -] 60 mg PO TIDISORDIL 30 Days #90 tablet MDD 3 Tabs 02/11/18 Family Disease History - Family Disease History Family Disease History: Heart Disease: Mother Review of Systems Findings/Remarks: as per HPI, ED, H&P Physical Exam-GI Vital Signs: Vital Signs Temperature 97.6 F 02/12/18 06:00 Pulse Rate 78 02/12/18 06:00 Respiratory Rate 20 02/12/18 06:00 Blood Pressure 167/106 02/12/18 06:00 O2 Sat by Pulse Oximetry (%) 98 02/11/18 22:00 Constitutional: Yes: Well Nourished, No Distress, Calm Eyes: Yes: Conjunctiva Clear. No: Sclera Icterus HENT: Yes: Atraumatic Neck: Yes: Supple Cardiovascular: Yes: Regular Rate and Rhythm Respiratory: Yes: Regular Gastrointestinal Inspection: No: Ascites, Distention ...Auscultate: Yes: Normoactive Bowel Sounds ...Palpate: Yes: Soft. No: Firm/Rigid, Guarding, Mass, Tenderness, Tenderness, Epigastium ...Rectal Exam: Yes: Deferred Neurological: Yes: Alert, Oriented Labs: CBC, BMP 02/12/18 10:26 02/12/18 10:26 INR, PTT INR 1.12 (0.83-1.09) H 02/11/18 13:55 Fibrinogen 576.0 mg/dL (238-498) H 02/11/18 13:55 Laboratory Last Values WBC 6.4 K/mm3 (4.0-10.0) 02/12/18 10:26 RBC 2.57 M/mm3 (4.00-5.60) L 02/12/18 10:26 Hgb 8.2 GM/dL (11.7-16.9) L 02/12/18 10:26 Hct 23.7 % (35.4-49) L 02/12/18 10:26 MCV 92.0 fl (80-96) 02/12/18 10:26 MCH 31.9 pg (25.7-33.7) 02/12/18 10:26 MCHC 34.7 g/dl (32.0-35.9) 02/12/18 10:26 RDW 14.8 % (11.9-15.9) 02/12/18 10:26 Plt Count 77 K/MM3 (134-434) L 02/12/18 10:26 MPV 10.4 fl (7.5-11.1) 02/12/18 10:26 Absolute Neuts (auto) 4.9 K/mm3 (1.5-8.0) 02/12/18 10: Neutrophils % 75.9 % (42.8-82.8) 02/12/18 10: Lymphocytes % 12.4 % (8-40) 02/12/18 10:26 Monocytes % 9.0 % (3.8-10.2) 02/12/18 10:26 Eosinophils % 2.1 % (0-4.5) 02/12/18 10: Basophils % 0.6 % (0-2.0) 02/12/18 10: Nucleated RBC % 0 % (0-0) 02/12/18 10:26 PT with INR 12.70 SEC (9.7-13.0) 02/11/18 13:55 INR 1.12 (0.83-1.09) H 02/11/18 13:55 PTT (Actin FS) 28.5 SECONDS (25.2-36.5) 02/11/18 13:55 Fibrinogen 576.0 mg/dL (238-498) H 02/11/18 13:55 Sodium 139 mmol/L (136-145) 02/12/18 10:26 Potassium 3.7 mmol/L (3.5-5.1) 02/12/18 10:26 Chloride 102 mmol/L (98-107) 02/12/18 10:26 Carbon Dioxide 26 mmol/L (21-32) 02/12/18 10:26 Anion Gap 11 MMOL/L (8-16) 02/12/18 10:26 BUN 71 mg/dL (7-18) H 02/12/18 10:26 Creatinine 5.2 mg/dL (0.7-1.3) H 02/12/18 10:26 Creat Clearance w eGFR 11.75 (>60) 02/12/18 10:26 Random Glucose 127 mg/dL (74-106) H D 02/12/18 10:26 Hemoglobin A1c % 4.3 % (4.8-6.0) L 08/27/18 10:26 Calcium 7.6 mg/dL (8.5-10.1) L 02/12/18 10:26 Iron 38 ug/dL (38-169) 02/11/18 05:30 TIBC 255 ug/dL (250-450) 02/11/18 05:30 Iron Saturation 15 % (15-55) 02/11/18 05:30 Ferritin 146.8 ng/ml (16.4-293.9) 02/11/18 05:30 Total Bilirubin 0.8 mg/dL (0.2-1.0) 02/11/18 05:30 AST 15 U/L (15-37) D 02/11/18 05:30 ALT 21 U/L (12-78) 02/11/18 05:30 Alkaline Phosphatase 65 U/L (45-117) 02/11/18 05:30 LD Total 308 U/L (87-241) H 02/11/18 13:55 Creatine Kinase 114 IU/L (39-308) 02/09/18 21:06 Troponin I 0.24 ng/ml (0.00-0.05) H D 02/10/18 05:30 C-Reactive Protein 3.1 MG/DL (0.00-0.3) H 02/12/18 10:26 B-Natriuretic Peptide 33597.82 pg/ml (5-125) H 02/09/18 21:06 Total Protein 5.5 g/dl (6.4-8.2) L 02/11/18 05:30 Albumin 2.8 g/dl (3.4-5.0) L 02/11/18 05:30 Vitamin B12 443 pg/ml (180-914) 02/12/18 06:15 TSH 5.35 uIU/ml (0.358-3.74) H 02/12/18 06:15 Free T4 1.29 ng/dl (0.76-1.16) H 02/12/18 06:15 Urine Color Yellow 02/09/18 23:30 Urine Appearance Clear 02/09/18 23:30 Urine pH 5.5 (4.5-8) 02/09/18 23:30 Ur Specific [place] 1.020 (1.005-1.025) 02/09/18 23:30 Urine Protein 3+ (NEGATIVE) H 02/09/18 23:30 Urine Glucose (UA) Negative (NEGATIVE) 02/09/18 23:30 Urine Ketones Negative (NEGATIVE) 02/09/18 23:30 Urine Blood Trace-intact (NEGATIVE) H 02/09/18 23:30 Urine Nitrite Negative (NEGATIVE) 02/09/18 23:30 Urine Bilirubin Negative (NEGATIVE) 02/09/18 23:30 Urine Urobilinogen 0.2 (0.2-1.0) 02/09/18 23:30 Ur Leukocyte Esterase Negative (NEGATIVE) 02/09/18 23:30 Urine RBC 2-5 /hpf (0-3) 02/09/18 23:30 Urine WBC 0-2 (0-2) 02/09/18 23:30 Urine Bacteria Few /hpf (NEGATIVE) 02/09/18 23:30 Rheumatoid Factor < 10.0 IU/mL (0-15) 02/12/18 10:26 HIV 1&2 Antibody Screen Negative 02/12/18 10:26 HIV P24 Antigen Negative 02/12/18 10:26 Direct Antiglob Test Negative (NEGATIVE) 02/11/18 13:55 Problem List - Problems (1) Normocytic normochromic anemia Code(s): D64.9 - ANEMIA, UNSPECIFIED (2) CHF (congestive heart failure) Code(s): I50.9 - HEART FAILURE, UNSPECIFIED Qualifiers: Heart failure type: diastolic Heart failure chronicity: chronic Qualified Code(s): I50.32 - Chronic diastolic (congestive) heart failure (3) CKD (chronic kidney disease) Code(s): N18.9 - CHRONIC KIDNEY DISEASE, UNSPECIFIED Qualifiers: Chronic kidney disease stage: stage 5, not on chronic dialysis Qualified Code(s): N18.5 - Chronic kidney disease, stage 5 (4) History of CVA (cerebrovascular accident) Code(s): Z86.73 - PRSNL HX OF TIA (TIA), AND CEREB INFRC W/O RESID DEFICITS Assessment/Plan Normocytic normochromic anemia with normal iron profile in settings of renal disease. No obvious GI bleeding reported, or observed. As discussed with the patient, we'll plan EGD and colonscoopy on to evaluate for GI sources of anemia. Hemoccult pending.
[2018-02-12] MEDS: DOCUSATE SODIUM 100 MG CAPSULE (FP) PO SCH ×2 (13:32→22:01)
[2018-02-12] MEDS: SENNOSIDES 8.6MG TABLET (FP) PO SCH (22:01)
--- NOTE | 2018-02-12 23:16 | PN ---
Teaching Attending Note Name of Resident: Peyton Khanna ATTENDING PHYSICIAN STATEMENT I saw and evaluated the patient. I reviewed the resident's note and discussed the case with the resident. I agree with the resident's findings and plan as documented. 52-year-old man with a history of hypertension, CHF, s/p CVA , renal failure, asthma presents with weakness and shortness of breath over the last few days. Anemia--multifactorial anemia of chronic disease +/- gi loss iron studies nl. ferritin 146, sat 15% check B12/folate/TSH/protein studies For GI w/u Thrombocytopenia: chronic ? immune mediated patient with FSGS check liver/spleen u/s check HIV/MARNIE/RF monitor May need platelet transfusion prior to GI procedure
[2018-02-13] MEDS: POLYETHYLENE GLYCOL 3350 119 GM BTL PO SCH ×3 (05:54→21:05)
[2018-02-13] MEDS: hydrALAZINE HCL 50 MG TABLET (FP) PO SCH ×3 (05:54→21:05)
[2018-02-13] MEDS: DOCUSATE SODIUM 100 MG CAPSULE (FP) PO SCH ×3 (05:54→21:05)
[2018-02-13 07:58] LABS: BASO % 0.3 % (0-2.0); EOS % 1.6 % (0-4.5); HEMATOCRIT 22.1 % (35.4-49); HEMOGLOBIN 7.6 GM/dL (11.7-16.9); LYMPH % 11.3 % (8-40); MCH 31.5 pg (25.7-33.7); MCHC 34.2 g/dl (32.0-35.9); MEAN PLT VOLUME 9.7 fl (7.5-11.1); MONO % 8.5 % (3.8-10.2); NEUT % 78.3 % (42.8-82.8); PLATELET COUNT 69 K/MM3 (134-434); WHITE BLOOD COUNT 5.3 K/mm3 (4.0-10.0)
[2018-02-13 08:37] LABS: ALBUMIN 2.8 g/dl (3.4-5.0); ANION GAP 10 MMOL/L (8-16); BLOOD UREA NITROGEN 67 mg/dL (7-18); CALCIUM 7.6 mg/dL (8.5-10.1); CHLORIDE 102 mmol/L (98-107); CHOLESTEROL 155 mg/dL (50-200); CO2 26 mmol/L (21-32); CREATININE 5.3 mg/dL (0.7-1.3); GLUCOSE,RANDOM 93 mg/dL (74-106); MAGNESIUM 2.5 mg/dL (1.8-2.4); POTASSIUM 3.8 mmol/L (3.5-5.1); SGOT/AST 14 U/L (15-37); SGPT/ALT 22 U/L (12-78); SODIUM 138 mmol/L (136-145); TOT PROT 5.4 g/dl (6.4-8.2)
[2018-02-13 08:40] LABS: ALK PHOS 65 U/L (45-117); BILIRUBIN,TOTAL 0.5 mg/dL (0.2-1.0); HDL CHOLESTEROL 29 mg/dL (40-60); PHOSPHOROUS 5.6 mg/dL (2.5-4.9); TRIGLYCERIDES 138 mg/dL (35-160)
[2018-02-13] MEDS: cloNIDine HCL 0.1 MG TABLET PO SCH ×2 (10:12→21:05)
[2018-02-13] MEDS: ISOSORBIDE DINITRATE 20 MG TABLET (FP) PO SCH ×3 (10:12→17:40)
[2018-02-13] MEDS: amLODIPine BESYLATE 10 MG TABLET (FP) PO SCH (10:12)
[2018-02-13] MEDS: LACTOBACILLUS ACIDOPHILUS 1 TABLET PO SCH (10:12)
[2018-02-13] MEDS: CARVEDILOL 25 MG TABLET (FP) PO SCH ×2 (10:12→21:05)
--- NOTE | 2018-02-13 10:29 | PN ---
Progress Note, Physician Chief Complaint: Pt sitting in no acute distress. Reports dizziness, feels dyspneic today. Denies any chest pain, n/v/d, weakness - Current Medication List Current Medications: Active Medications Amlodipine Besylate (Norvasc -) 10 mg PO DAILY [facility] Last Admin: 02/13/18 10:12 Dose: 10 mg Bisacodyl (Dulcolax -) 20 mg PO ONCE ONE Stop: 02/13/18 13:59 Carvedilol (Coreg -) 25 mg PO BID [facility] Last Admin: 02/13/18 10:12 Dose: 25 mg Clonidine (Catapres -) 0.1 mg PO BID [facility] Last Admin: 02/13/18 10:12 Dose: 0.1 mg Docusate Sodium (Colace -) 100 mg PO TID [facility] Last Admin: 02/13/18 05:54 Dose: 100 mg Hydralazine HCl (Apresoline -) 100 mg PO TID [facility] Last Admin: 02/13/18 05:54 Dose: 100 mg Isosorbide Dinitrate (Isordil -) 60 mg PO TIDISORDIL [facility] Last Admin: 02/13/18 10:12 Dose: 60 mg Lactobacillus Acidophilus (Bacid -) 1 tab PO DAILY [facility] Last Admin: 02/13/18 10:12 Dose: 1 tab Polyethylene Glycol (Miralax (For Daily Use) -) 17 gm PO TID [facility] Last Admin: 02/13/18 05:54 Dose: 17 gm Polyethylene Glycol/Electrolytes (Golytely Solution -) 4,000 ml PO ONCE ONE Stop: 02/13/18 17:01 Senna (Senna -) 2 tab PO HS [facility] Last Admin: 02/12/18 22:01 Dose: 2 tab - Objective Vital Signs: Vital Signs Temperature 97.6 F 02/13/18 09:16 Pulse Rate 63 02/13/18 09:16 Respiratory Rate 20 02/13/18 09:16 Blood Pressure 140/90 02/13/18 09:16 O2 Sat by Pulse Oximetry (%) 92 L 02/12/18 22:08 Constitutional: Yes: Well Nourished, No Distress, Calm Cardiovascular: Yes: WNL, Regular Rate and Rhythm. No: Tachycardia, Gallop Respiratory: Yes: Regular, CTA Bilaterally, SOB on Exertion. No: Diminished, Rales, Rhonchi, SOB, Wheezes Gastrointestinal: Yes: WNL, Normal Bowel Sounds, Soft. No: Distention, Tenderness Genitourinary: Yes: WNL Musculoskeletal: Yes: WNL Extremities: Yes: WNL Edema: Yes Edema: LLE: Trace, RLE: Trace Neurological: Yes: WNL, Alert, Oriented Psychiatric: Yes: WNL, Alert, Oriented Labs: CBC, BMP 02/13/18 06:00 02/13/18 06:00 INR, PTT INR 1.12 (0.83-1.09) H 02/11/18 13:55 Fibrinogen 576.0 mg/dL (238-498) H 02/11/18 13:55 Problem List - Problems (1) ALEXANDRA (acute kidney injury) Code(s): N17.9 - ACUTE KIDNEY FAILURE, UNSPECIFIED (2) CKD (chronic kidney disease) Code(s): N18.9 - CHRONIC KIDNEY DISEASE, UNSPECIFIED Qualifiers: Chronic kidney disease stage: stage 5, not on chronic dialysis Qualified Code(s): N18.5 - Chronic kidney disease, stage 5 (3) Anemia Code(s): D64.9 - ANEMIA, UNSPECIFIED Qualifiers: Anemia type: due to chronic kidney disease Chronic kidney disease stage: stage 5, not on chronic dialysis Qualified Code(s): N18.5 - Chronic kidney disease, stage 5; D63.1 - Anemia in chronic kidney disease (4) CHF (congestive heart failure) Code(s): I50.9 - HEART FAILURE, UNSPECIFIED Qualifiers: Heart failure type: diastolic Heart failure chronicity: chronic Qualified Code(s): I50.32 - Chronic diastolic (congestive) heart failure (5) Hypertensive urgency Code(s): I16.0 - HYPERTENSIVE URGENCY (6) Hypertension Code(s): I10 - ESSENTIAL (PRIMARY) HYPERTENSION Qualifiers: Hypertension type: essential hypertension Qualified Code(s): I10 - Essential (primary) hypertension (7) Thrombocytopenia Code(s): D69.6 - THROMBOCYTOPENIA, UNSPECIFIED (8) History of CVA (cerebrovascular accident) Code(s): Z86.73 - PRSNL HX OF TIA (TIA), AND CEREB INFRC W/O RESID DEFICITS (9) Acute blood loss anemia Code(s): D62 - ACUTE POSTHEMORRHAGIC ANEMIA (10) Dizziness Code(s): R42 - DIZZINESS AND GIDDINESS Assessment/Plan (1) ALEXANDRA (acute kidney injury) Assessment/Plan: progressively worsening renal failure no indication for HD at the moment per renal will need HD in the future nephrology following Code(s): N17.9 - ACUTE KIDNEY FAILURE, UNSPECIFIED (2) CKD (chronic kidney disease) Assessment/Plan: as above Code(s): N18.9 - CHRONIC KIDNEY DISEASE, UNSPECIFIED Qualifiers: Chronic kidney disease stage: stage 5, not on chronic dialysis Qualified Code(s): N18.5 - Chronic kidney disease, stage 5 (3) Acute blood loss anemia Assessment/Plan: Hg trend down today 7.6, pt symptomatic- mild dizziness/dyspnea vitals stable defer transfusion at the moment- avoid sensitization, possible future kidney transplant, discussed with nephrology iron transfusion per nephrology gi work up in place will monitor Code(s): D62 - ACUTE POSTHEMORRHAGIC ANEMIA (4) Dizziness Assessment/Plan: as above Code(s): R42 - DIZZINESS AND GIDDINESS (5) Anemia Assessment/Plan: acute on chronic normocytic, suspect 2/2 ckd need to r/o acute bleeding/other etiology- hemeoccult stool neg egd/colonoscopy tomorrow iron panel low normal- s/p iron transfusion, epogen hematology following Code(s): D64.9 - ANEMIA, UNSPECIFIED Qualifiers: Anemia type: due to chronic kidney disease Chronic kidney disease stage: stage 5, not on chronic dialysis Qualified Code(s): N18.5 - Chronic kidney disease, stage 5; D63.1 - Anemia in chronic kidney disease (6) CHF (congestive heart failure) Assessment/Plan: chronic mild sob upon exertion cardiology following Code(s): I50.9 - HEART FAILURE, UNSPECIFIED Qualifiers: Heart failure type: diastolic Heart failure chronicity: chronic Qualified Code(s): I50.32 - Chronic diastolic (congestive) heart failure (7) Hypertensive urgency Assessment/Plan: improved Code(s): I16.0 - HYPERTENSIVE URGENCY (8) Hypertension Assessment/Plan: improving slowly continue norvasc, hydralazine, clonidine, coreg, isordil strict BP control low na diet Code(s): I10 - ESSENTIAL (PRIMARY) HYPERTENSION Qualifiers: Hypertension type: essential hypertension Qualified Code(s): I10 - Essential (primary) hypertension (9) Thrombocytopenia Assessment/Plan: acute on chronic heme work up in place plts per heme Code(s): D69.6 - THROMBOCYTOPENIA, UNSPECIFIED (10) History of CVA (cerebrovascular accident) Assessment/Plan: in 2017 lipid panel reviewed, LDL 110, consider starting statin outpt prev poor compliance w/ statin per records Code(s): Z86.73 - PRSNL HX OF TIA (TIA), AND CEREB INFRC W/O RESID DEFICITS
[2018-02-13] MEDS ORDERED: PT OWN MED DRAWER 7, Y5N ONE (13:03)
[2018-02-13] MEDS ORDERED: BISACODYL 5 MG TABLET.DR (FP) PO ONE (13:58)
[2018-02-13] MEDS ORDERED: ACETAMINOPHEN 325 MG TABLET (FP) PO PRN (14:59)
[2018-02-13] MEDS ORDERED: IRON SUCROSE INJECTION 100 MG in SODIUM CHLORIDE 95 ML IVPB ONE (16:10)
--- NOTE | 2018-02-13 16:12 | PN ---
Progress Note (short form) - Note Progress Note: Renal follow up for CKD Pt seen and examined in Tele no acute complaints still has mild RAMÍREZ no cp, abd pain, N/V/D Vital Signs Temperature 99.1 F 02/13/18 14:56 Pulse Rate 78 02/13/18 14:56 Respiratory Rate 22 02/13/18 14:56 Blood Pressure 152/78 02/13/18 14:56 O2 Sat by Pulse Oximetry (%) 98 02/13/18 09:00 Intake & Output 02/10/18 02/11/18 02/12/18 02/13/18 23:59 23:59 23:59 23:59 Intake Total 3595 229 0632 100 Output Total 300 Balance 343 471 6483 100 Weight 105.46 kg 105.233 kg 107.91 kg NAD awake and alert RRR, No M/R CTA, no rales soft NT/ND No LE edema, clubbing or cyanosis CBC, BMP 02/13/18 06:00 02/13/18 06:00 Current Medications Acetaminophen (Tylenol -) 650 mg PO Q4H PRN PRN Reason: PAIN LEVEL 1-5 Last Admin: 02/13/18 15:06 Dose: 650 mg Amlodipine Besylate (Norvasc -) 10 mg PO DAILY [facility] Last Admin: 02/13/18 10:12 Dose: 10 mg Carvedilol (Coreg -) 25 mg PO BID [facility] Last Admin: 02/13/18 10:12 Dose: 25 mg Clonidine (Catapres -) 0.1 mg PO BID [facility] Last Admin: 02/13/18 10:12 Dose: 0.1 mg Docusate Sodium (Colace -) 100 mg PO TID [facility] Last Admin: 02/13/18 13:10 Dose: Not Given Hydralazine HCl (Apresoline -) 100 mg PO TID [facility] Last Admin: 02/13/18 13:06 Dose: 100 mg Iron Sucrose 100 mg/ Sodium (Chloride) 100 mls @ 200 mls/hr IVPB ONCE ONE Stop: 02/13/18 16:39 Isosorbide Dinitrate (Isordil -) 60 mg PO TIDISORDIL [facility] 234 [facility]S [facility] Last Admin: 02/13/18 13:06 Dose: 60 mg Polyethylene Glycol (Miralax (For Daily Use) -) 17 gm PO TID [facility] Last Admin: 02/13/18 13:10 Dose: Not Given Polyethylene Glycol/Electrolytes (Golytely Solution -) 4,000 ml PO ONCE ONE Stop: 02/13/18 17:01 Senna (Senna -) 2 tab PO HS [facility] Last Admin: 02/12/18 22:01 Dose: 2 tab 52 year old gentleman with 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 #CKD secondary to FSGS #Acute CHF #Acute on Chronic Anemia (Hgb was 12.3 as outpatient on 01/22/2018) #Thrombocytopenia #Hypertension Renal function unchanged no uremic symptoms will give additional IV iron today will attempt to defer transfusion unless emergent as pt is a good transplant candidate will continue Epogen as well Heme following for EGD/Colonoscopy tomorrow BP controlled on present meds Will follow Farrukh Abraham DO
[2018-02-13] MEDS ORDERED: PEG 3350/NA SULF BICARB CL/KCL 4000 ML SOLN.RECON PO ONE (17:00)
--- NOTE | 2018-02-13 17:48 | PN ---
Progress Note (short form) - Note Progress Note: cc: weakness s: no cp, palps, dizzy, lightheadedness, dyspnea Vital Signs Period Temp Pulse Resp BP Sys/Pichardo Pulse Ox Last 24 Hr 97.4 F-99.1 F 63-81 18-22 127-159/72-93 92-98 Constitutional: Yes: No Distress, Calm Eyes: Yes: Conjunctiva Clear, EOM Intact Neck: Yes: Supple Respiratory: Yes: Regular, CTA Bilaterally Gastrointestinal: Yes: Normal Bowel Sounds, Soft Cardiovascular: Yes: Regular Rate and Rhythm JVD: No Heart Sounds: Yes: S1, S2 Edema: No Neurological: Yes: Alert, Oriented Psychiatric: Yes: Alert, Oriented no jaundice diaphoresis Current Medications Generic Name Dose Route Start Last Admin Trade Name Freq PRN Reason Stop Dose Admin Acetaminophen 650 mg 02/13/18 14:59 02/13/18 15:06 Tylenol - PO 650 mg Q4H PRN Administration PAIN LEVEL 1-5 Amlodipine Besylate 10 mg 02/10/18 10:00 02/13/18 10:12 Norvasc - PO 10 mg DAILY [facility] Administration Carvedilol 25 mg 02/10/18 10:00 02/13/18 10:12 Coreg - PO 25 mg BID [facility] Administration Clonidine 0.1 mg 02/10/18 10:00 02/13/18 10:12 Catapres - PO 0.1 mg BID [facility] Administration Docusate Sodium 100 mg 02/12/18 14:00 02/13/18 13:10 Colace - PO Not Given TID [facility] Hydralazine HCl 100 mg 02/10/18 06:00 02/13/18 13:06 Apresoline - PO 100 mg TID [facility] Administration Isosorbide Dinitrate 60 mg 02/11/18 09:54 02/13/18 17:40 Isordil - PO 60 mg TIDISORDIL [facility] Administration Polyethylene Glycol 17 gm 02/12/18 10:45 02/13/18 13:10 Miralax (For Daily Use) - PO Not Given TID [facility] Senna 2 tab 02/12/18 22:00 02/12/18 22:01 Senna - PO 2 tab HS [facility] Administration CBC, BMP 02/13/18 06:00 02/13/18 06:00 Assessment/Plan EKG 11/28/17: NSR, LVH with repol abn, ? LAFB. no path q's. no signif change vs prior 07/2017 Echo 08/2017: mod LV dilation. moderate concentric LVH. nl LVEF/normal wall motion. nl RV. mild L/ELISABETH. mild MR. no RVSP. Echo 01/2017: EF 40-45%--global hypo, sev conc lvh, grade 2 diast dysfunction. nl rv, mild ar, mod mr. mod phtn MPI 09/03 (chuck): non-diagnostic ECG (baseline LVH with repol abnormalities. normal perfusion. nl LVEF. CXR: congestive changes EKG: sinus tach, LVH with strain a/p: 52M h/o CVA, CHF, renal failure, focal segmental glomerulosclerosis, asthma, and hypertension p/w weakness for a few days, cough, dyspnea, constipation with elevated BP, pos trop Positive trop - likely in setting of demand from hypertensive urgency. No CP, EKG unchanged, unlikely ACS - BP control as below - trop flat, 0.24->0.25, not c/w ACS - no further cardiac workup as inpatient hypertensive urgency: -chronic med non-compliance with recurrent severe BP elevations in hosp and office in past. - per patient not taking carvedilol and amlodipine, he says he is taking others -improved after resuming bp meds ALEXANDRA on CKD: - h/o focal segmental glomerulosclerosis - may be ALEXANDRA due to hypertensive nephropathy as well - renal following - planning for vascular access for HD hypertensive heart dz/chronic diast CHF: - BNP elevated from prior, likely in setting of hypertensive urgency - euvolemic currently h/o CVA: -bp meds as doing -non compliant with statin thrombocytopenia, anemia: -low PLTs are chronic, stable -H/H slightly below prior baseline -planned for foc/egd to evaluate anemia, no cardiac contraindications ( intermediate risk).
[2018-02-13] MEDS: SENNOSIDES 8.6MG TABLET (FP) PO SCH (21:05)
[2018-02-14] MEDS: POLYETHYLENE GLYCOL 3350 119 GM BTL PO SCH ×2 (05:33→14:19)
[2018-02-14] MEDS: DOCUSATE SODIUM 100 MG CAPSULE (FP) PO SCH ×2 (05:33→14:19)
[2018-02-14 06:06] LABS: HBSAG SCREEN Negative (Negative); HEP B CORE AB, TOT Negative (Negative)
[2018-02-14] MEDS: hydrALAZINE HCL 50 MG TABLET (FP) PO SCH ×2 (06:45→14:19)
[2018-02-14 07:39] LABS: BASO % 0.3 % (0-2.0); EOS % 1.2 % (0-4.5); HEMATOCRIT 22.4 % (35.4-49); HEMOGLOBIN 7.6 GM/dL (11.7-16.9); LYMPH % 12.5 % (8-40); MCH 31.3 pg (25.7-33.7); MEAN CELL VOLUME 92.2 fl (80-96); MEAN PLT VOLUME 10.4 fl (7.5-11.1); MONO % 10.2 % (3.8-10.2); NEUT % 75.8 % (42.8-82.8); PLATELET COUNT 73 K/MM3 (134-434); RBC 2.43 M/mm3 (4.00-5.60); RDW 14.8 % (11.9-15.9); WHITE BLOOD COUNT 4.5 K/mm3 (4.0-10.0)
[2018-02-14 07:54] LABS: ANION GAP 13 MMOL/L (8-16); BLOOD UREA NITROGEN 63 mg/dL (7-18); CALCIUM 7.7 mg/dL (8.5-10.1); CHLORIDE 104 mmol/L (98-107); CO2 25 mmol/L (21-32); CREATININE 5.3 mg/dL (0.7-1.3); GLUCOSE,RANDOM 88 mg/dL (74-106); POTASSIUM 3.5 mmol/L (3.5-5.1); SODIUM 142 mmol/L (136-145)
[2018-02-14] MEDS: ISOSORBIDE DINITRATE 20 MG TABLET (FP) PO SCH ×2 (08:45→12:56)
[2018-02-14 10:08] LABS: BASO % 0.6 % (0-2.0); EOS % 1.4 % (0-4.5); HEMATOCRIT 22.1 % (35.4-49); HEMOGLOBIN 7.5 GM/dL (11.7-16.9); LYMPH % 12.7 % (8-40); MCH 31.5 pg (25.7-33.7); MCHC 34.2 g/dl (32.0-35.9); MEAN CELL VOLUME 92.1 fl (80-96); MEAN PLT VOLUME 9.2 fl (7.5-11.1); MONO % 9.3 % (3.8-10.2); PLATELET COUNT 89 K/MM3 (134-434); RBC 2.39 M/mm3 (4.00-5.60); RDW 15.1 % (11.9-15.9); WHITE BLOOD COUNT 4.8 K/mm3 (4.0-10.0)
--- NOTE | 2018-02-14 10:18 | PN ---
Physical Exam: SUBJECTIVE: Patient seen and examined at bed side. States he is a little anxious about the procedure but otherwise no complaints. Moved his bowel 7 times overnight after the bowel regimen. Bladder habit normal. Now NPO for the procedure. Denies chest pain, sob, cough, palpitation, abdominal pain, nausea or vomiting. No acute overnight events. OBJECTIVE: Vital Signs Period Temp Pulse Resp BP Sys/Pichardo Pulse Ox Last 24 Hr 97.4 F-99.3 F 66-78 18-22 127-164/72-95 94 GENERAL: The patient is sitting comfortably in bed, awake, alert, and fully oriented, in no acute distress. HEAD: Normal with no signs of trauma. EYES: EOM intact, pallor +, no icterus. ENT: Ears normal, moist mucous membranes. NECK: Supple. LUNGS: Breath sounds equal, clear to auscultation bilaterally, no wheezes, no crackles, no accessory muscle use. HEART: Regular rate and rhythm, S1, S2 without murmur. ABDOMEN: Soft, nontender, nondistended, normoactive bowel sounds, no guarding, no rebound, no hepatosplenomegaly, no masses. EXTREMITIES: 2+ pulses, warm, well-perfused, no edema. NEUROLOGICAL: No facial droop. Normal speech, gait normal. PSYCH: Normal mood, normal affect. SKIN: Warm, dry, normal turgor, no rashes or lesions noted Laboratory Results - last 24 hr 02/12/18 02/13/18 02/13/18 06:15 06:00 06:00 WBC RBC Hgb Hct 22.5 L MCV MCH MCHC RDW Plt Count MPV Absolute Neuts (auto) Neutrophils % Lymphocytes % Monocytes % Eosinophils % Basophils % Nucleated RBC % ESR 91 H Sodium Potassium Chloride Carbon Dioxide Anion Gap BUN Creatinine Creat Clearance w eGFR Random Glucose Calcium Folate 2164 Folate Hemolysate 487.0 Stool Occult Blood Hepatitis A Ab Total Negative Hep Bs Antigen Negative Hep Bs Antibody Reactive Hep B Core Total Ab Negative Blood Type Antibody Screen 02/13/18 02/13/18 02/14/18 10:45 12:06 06:15 WBC 4.5 RBC 2.43 L Hgb 7.6 L Hct 22.4 L MCV 92.2 MCH 31.3 MCHC 34.0 RDW 14.8 Plt Count 73 L MPV 10.4 Absolute Neuts (auto) 3.4 Neutrophils % 75.8 Lymphocytes % 12.5 Monocytes % 10.2 Eosinophils % 1.2 Basophils % 0.3 Nucleated RBC % 0 ESR Sodium Potassium Chloride Carbon Dioxide Anion Gap BUN Creatinine Creat Clearance w eGFR Random Glucose Calcium Folate Folate Hemolysate Stool Occult Blood Negative Hepatitis A Ab Total Hep Bs Antigen Hep Bs Antibody Hep B Core Total Ab Blood Type O POSITIVE Antibody Screen Negative 02/14/18 06:15 WBC RBC Hgb Hct MCV MCH MCHC RDW Plt Count MPV Absolute Neuts (auto) Neutrophils % Lymphocytes % Monocytes % Eosinophils % Basophils % Nucleated RBC % ESR Sodium 142 Potassium 3.5 Chloride 104 Carbon Dioxide 25 Anion Gap 13 BUN 63 H Creatinine 5.3 H Creat Clearance w eGFR 11.50 Random Glucose 88 Calcium 7.7 L Folate Folate Hemolysate Stool Occult Blood Hepatitis A Ab Total Hep Bs Antigen Hep Bs Antibody Hep B Core Total Ab Blood Type Antibody Screen Active Medications Generic Name Dose Route Start Last Admin Trade Name Freq PRN Reason Stop Dose Admin Acetaminophen 650 mg 02/13/18 14:59 02/13/18 15:06 Tylenol - PO 650 mg Q4H PRN Administration PAIN LEVEL 1-5 Amlodipine Besylate 10 mg 02/10/18 10:00 02/13/18 10:12 Norvasc - PO 10 mg DAILY [facility] Administration Carvedilol 25 mg 02/10/18 10:00 02/13/18 21:05 Coreg - PO 25 mg BID [facility] Administration Clonidine 0.1 mg 02/10/18 10:00 02/13/18 21:05 Catapres - PO 0.1 mg BID [facility] Administration Docusate Sodium 100 mg 02/12/18 14:00 02/14/18 05:33 Colace - PO Not Given TID [facility] Hydralazine HCl 100 mg 02/10/18 06:00 02/14/18 06:45 Apresoline - PO 100 mg TID [facility] Administration Isosorbide Dinitrate 60 mg 02/11/18 09:54 02/14/18 08:45 Isordil - PO 60 mg TIDISORDIL [facility] Administration Polyethylene Glycol 17 gm 02/12/18 10:45 02/14/18 05:33 Miralax (For Daily Use) - PO Not Given TID [facility] Senna 2 tab 02/12/18 22:00 02/13/18 21:05 Senna - PO Not Given HS [facility] 01/13/2018: Abdominal ultrasound normal. The patient is a 52 year old male with past medical history of CVA (2017), CHF, renal failure, focal segmental glomerulosclerosis, asthma hypertension who presents to the ED with generalized weakness that began for a few days. Assessment: - Normocytic anemia - Thrombocytopenia - CVA (2017) -CKD due to Focal segmental Glomerulosclerosis - Asthma-not in exacerbation - CHF- not in exacerbation - Hypertension: High BP this morning 167/106 (receiving his morning dose of meds for BP now) -Constipation: had a BM this morning after 5 days Plan: Newly diagnosed Normocytic anemia: multifactorial (anemia of chronic disease, GI bleed, Aspirin/OTC drug use) Gives a h/o taking Advil occasionally for pain control, hasn't taken for years. Patient was on Aspirin for a period of 3 months, was given by his PCP, but now stopped taking it 3months ago. No h/o Plavix use. Colonoscopy was done 12 yrs ago and was told to eat lots of fibres. Today he is scheduled for EGD and Colonoscopy for the evaluation of anemia. H/H 7.6/22.4---> 7.5/22.1 Iron studies normal including Ferritin, vitamin B 12 normal SPEP and UPEP done, report pending. No active bleeding at this time. As per renal, avoid transfusion unless it is necessary as he is a good renal transplant candidate. Chronic Thrombocytopenia: could be immune mediated. Cause unknown at this time Platelet count 73. Received a unit of platelets, repeat platelet count 89. He will get second unit of platelets at the Endo suite. Rheumatoid factor negative HIV test negative Rest as per primary team. Plan of care explained to the patient. He verbalized understanding. Case discussed with Dr. Valenzuela and Dr. Carballo.
[2018-02-14] MEDS: amLODIPine BESYLATE 10 MG TABLET (FP) PO SCH (10:40)
[2018-02-14] MEDS: cloNIDine HCL 0.1 MG TABLET PO SCH (10:40)
[2018-02-14] MEDS: CARVEDILOL 25 MG TABLET (FP) PO SCH (10:40)
--- NOTE | 2018-02-14 10:40 | PN ---
Progress Note, Physician - Current Medication List Current Medications: Active Medications Acetaminophen (Tylenol -) 650 mg PO Q4H PRN PRN Reason: PAIN LEVEL 1-5 Last Admin: 02/13/18 15:06 Dose: 650 mg Amlodipine Besylate (Norvasc -) 10 mg PO DAILY [facility] Last Admin: 02/13/18 10:12 Dose: 10 mg Carvedilol (Coreg -) 25 mg PO BID [facility] Last Admin: 02/13/18 21:05 Dose: 25 mg Clonidine (Catapres -) 0.1 mg PO BID [facility] Last Admin: 02/13/18 21:05 Dose: 0.1 mg Docusate Sodium (Colace -) 100 mg PO TID [facility] Last Admin: 02/14/18 05:33 Dose: Not Given Hydralazine HCl (Apresoline -) 100 mg PO TID [facility] Last Admin: 02/14/18 06:45 Dose: 100 mg Isosorbide Dinitrate (Isordil -) 60 mg PO TIDISORDIL [facility] Last Admin: 02/14/18 08:45 Dose: 60 mg Polyethylene Glycol (Miralax (For Daily Use) -) 17 gm PO TID [facility] Last Admin: 02/14/18 05:33 Dose: Not Given Senna (Senna -) 2 tab PO HS [facility] Last Admin: 02/13/18 21:05 Dose: Not Given - Objective Vital Signs: Vital Signs Temperature 99.0 F 02/14/18 05:59 Pulse Rate 77 02/14/18 05:59 Respiratory Rate 18 02/14/18 05:59 Blood Pressure 154/94 02/14/18 05:59 O2 Sat by Pulse Oximetry (%) 94 L 02/13/18 20:52 Labs: CBC, BMP 02/14/18 09:45 02/14/18 06:15 INR, PTT INR 1.12 (0.83-1.09) H 02/11/18 13:55 Fibrinogen 576.0 mg/dL (238-498) H 02/11/18 13:55 Problem List - Problems (1) ALEXANDRA (acute kidney injury) Code(s): N17.9 - ACUTE KIDNEY FAILURE, UNSPECIFIED (2) CKD (chronic kidney disease) Code(s): N18.9 - CHRONIC KIDNEY DISEASE, UNSPECIFIED Qualifiers: Chronic kidney disease stage: stage 5, not on chronic dialysis Qualified Code(s): N18.5 - Chronic kidney disease, stage 5 (3) Anemia Code(s): D64.9 - ANEMIA, UNSPECIFIED Qualifiers: Anemia type: due to chronic kidney disease Chronic kidney disease stage: stage 5, not on chronic dialysis Qualified Code(s): N18.5 - Chronic kidney disease, stage 5; D63.1 - Anemia in chronic kidney disease (4) CHF (congestive heart failure) Code(s): I50.9 - HEART FAILURE, UNSPECIFIED Qualifiers: Heart failure type: diastolic Heart failure chronicity: chronic Qualified Code(s): I50.32 - Chronic diastolic (congestive) heart failure (5) Hypertensive urgency Code(s): I16.0 - HYPERTENSIVE URGENCY (6) Hypertension Code(s): I10 - ESSENTIAL (PRIMARY) HYPERTENSION Qualifiers: Hypertension type: essential hypertension Qualified Code(s): I10 - Essential (primary) hypertension (7) Thrombocytopenia Code(s): D69.6 - THROMBOCYTOPENIA, UNSPECIFIED (8) History of CVA (cerebrovascular accident) Code(s): Z86.73 - PRSNL HX OF TIA (TIA), AND CEREB INFRC W/O RESID DEFICITS (9) Acute blood loss anemia Code(s): D62 - ACUTE POSTHEMORRHAGIC ANEMIA (10) Dizziness Code(s): R42 - DIZZINESS AND GIDDINESS
--- NOTE | 2018-02-14 11:58 | PROC ---
Endoscopy Procedure Endoscopy procedure completed. Please see scanned procedure report. A small, cecal colon polyp was found and removed, mild left-sided diverticulosis noted, otherwise normal colonoscopy. Normal EDG, no biopsies were taken.
[2018-02-14] MEDS ORDERED: PANTOPRAZOLE 40 MG TABLET (FP) PO SCH (12:15)
[2018-02-14 12:54] VITALS: PULSE 78
--- NOTE | 2018-02-14 13:14 | DS ---
Physical Examination Vital Signs: Vital Signs Temperature 98.8 F 02/14/18 12:52 Pulse Rate 78 02/14/18 12:52 Respiratory Rate 20 02/14/18 12:52 Blood Pressure 180/90 02/14/18 12:52 O2 Sat by Pulse Oximetry (%) 95 02/14/18 12:18 Constitutional: Yes: Well Nourished, No Distress, Calm Cardiovascular: Yes: WNL, Regular Rate and Rhythm. No: Murmur, Rub Respiratory: Yes: WNL, Regular, CTA Bilaterally Gastrointestinal: Yes: WNL, Normal Bowel Sounds, Soft. No: Distention, Tenderness Renal/: Yes: WNL Musculoskeletal: Yes: WNL Extremities: Yes: WNL Edema: Yes Edema: LLE: Trace, RLE: Trace Neurological: Yes: WNL, Alert, Oriented Psychiatric: Yes: WNL, Alert, Oriented Labs: CBC, BMP 02/14/18 09:45 02/14/18 06:15 Discharge Summary Reason For Visit: CHF,HTN, ALEXANDRA Current Active Problems ALEXANDRA (acute kidney injury) (Acute) Acute blood loss anemia (Acute) Anemia (Acute) CHF (congestive heart failure) (Acute) CKD (chronic kidney disease) (Acute) Dizziness (Acute) Heart failure, systolic, with acute decompensation (Acute) Hypertension (Acute) Normocytic normochromic anemia (Acute) CKD (chronic kidney disease) stage 4, GFR 15-29 ml/min (Chronic) History of CVA (cerebrovascular accident) (Chronic) Thrombocytopenia (Chronic) Hospital Course: is a 52 year old male who was admitted for acute on chronic CKD, hypertensive crisis, acute on chronic anemia. Pt evaluated by Nephrology, no acute indication for TOE FORMER at this time, will need HD in the future, pt also being considered for kidney transplant. Cr remains unchanged, CKD-5. HTN improved after restarting all medications, pt was not taking all medications outpt. Pt evaluated by cardiology, continue Hydralazine, Clonidine, Coreg and Norvasc. goal BP < 150/90. Pt cleared by nephrology, cardiology for d/c. Pt also noted to have down trend in his hg/hct without obvious signs of bleeding , s/p egd/colonoscopy which revealed no source of anemia. Suspect anemia of chronic disease. Hg today 7.5, pt does have baseline exertional dyspnea, prbcs transfusion defered as this may cause sensitization. Pt advised to closely f/u outpt. Pt received venofer/procrit/epogen here. Hematology consult appreciated. Pt received plts prior to egd/colonoscopy. Thrombocytopenia is chronic and stable. Otherwise, pt is medically stable for discharge. close f/u recommended. Condition: Fair - Instructions Diet, Activity, Other Instructions: recheck thyroid function outpt and blood work avoid nsaids f/u on monday to check cbc check bp at home daily at the same time, keep a log and bring in for appointments f/u closely as directed Renal Diet People with compromised kidney function must adhere to a renal or kidney diet to cut down on the amount of waste in their blood. Wastes in the blood come from food and liquids that are consumed. When kidney function is compromised it does not filter or remove wastes properly. If wastes are left in the blood they can negatively effect a patients electrolytes. Following a kidney diet may also help promote kidney function and slow progression of complete kidney failure. A renal diet is one that is low in sodium, phosphorous and protein. A renal diet also promotes the importance of consuming high-quality protein and usually limits fluids. Some patients may also need to limit potassium an d even calcium. Every persons body is different, and therefore, it is crucial that a renal dietitian work with each patient to come up with a diet that is tailored to his or her needs. Substances crucial to monitor to promote a renal diet: Sodium What is Sodium and its role in the body? Sodium is a mineral found in most natural foods. Most people think of salt and sodium as interchangeable. Salt, however is actually a compound of sodium and chloride. Foods we eat may contain salt or they may contain sodium in other forms. Processed foods however, often contain higher levels of sodium due to added salt. Sodium is one of the bodys three major electrolytes (potassium and chloride are the other two). Electrolytes control the fluids going in and out of the body s tissues and cells. Sodium contributes to: * Regulating blood pressure and blood volume * Helps in regulating nerve function and muscle contraction * Regulating the acid-base balance of blood * Balances how much fluid the body keeps or eliminates Why should kidney patients monitor sodium intake? Too much sodium can be harmful for people with kidney disease because their kidneys cannot eliminate excess sodium and fluid from the body. As sodium and fluid build up in the tissues and bloodstream it may cause: * Increased thirst * Edema: swelling in your legs, hands and face * High Blood Pressure * Heart failure: excess fluid in the bloodstream can overwork your heart making it enlarged and weak * Shortness of breath: fluid can build up in the lungs, making it difficult to breathe How can patients monitor their sodium intake? * Always read food labels, sodium is always listed. * Pay close attention to serving size. * Use fresh, rather than packaged meats. * Choose fresh fruits and vegetables or no salt added canned and frozen produce. * Avoid processed foods. * Compare brands and use items lowest in sodium. * Use spices that do not list salt in their title (choose garlic powder, instead of garlic salt). * Cook at home and do NOT add salt * Limit total sodium content to 400 mg per meal and 150 mg per snack Potassium What is Potassium and its role in the body? Potassium is a mineral found in many of the foods we eat and in the body. It plays a role in keeping a heartbeat regular and muscles working correctly. Potassium is also necessary for maintaining fluid and electrolyte balance in the bloodstream. The kidneys help to keep the right amount of potassium in your body and eliminate excess amounts into the urine. Why should kidney patients monitor potassium intake? When kidneys fail they can no longer remove excess potassium, so the level builds up in the body. High potassium in the blood is called hyperkalemia which can cause: * Muscle weakness * Irregular heart beat * Slow pulse * Heart Attack * How can patients monitor their potassium intake? When the kidneys no longer regulate potassium a patient must do so by monitoring the amount of potassium that enters the body. Tips to help keeppotassium at safe levels: * Talk with a renal dietitian about creating an eating plan. * Limit foods that are high in potassium. * Limit milk and dairy products to 8 oz per day. * Choose fresh fruits and vegetables. * Avoid sa lt substitutes & seasonings with potassium. * Read labels on packaged foods & avoid potassium chloride. * Pay close attention to serving size. * Keep a food journal. Phosphorus What is Phosphorus and its role in the body? Phosphorus is a mineral critical in bone maintenance and development. It also functions in developing connective tissue and organs and aids in muscle movement. When food containing phosphorus is consumed and digested, the small intestines absorb it and it becomes stored in the bones. Why should kidney patients monitor Phosphorus intake? Normal working kidneys can remove extra phosphorus in your blood. When kidney function is compromised they no longer remove excess phosphorus. High phosphorus levels can pull calcium out of your bones, making them weak. This also leads to dangerous calcium deposits in blood vessels, lungs, eyes, and heart. How can patients monitor their phosphorus intake? Phosphorus can be found in many foods. Therefore, patients with compromised kidney function should work with a renal dietitian to help manage phosphorus levels. Tips to help keep phosphorus at safe levels: * Know what foods are lower in phosphorus. * Pay close attention to serving size * Eat smaller portions of foods high in protein at meals and for snacks. * Eat fresh fruits and vegetables. * Ask your physician about using phosphate binders at meal time. * Avoid packaged foods that contain added phosphorus. Look for phosphorus, or for words with PHOS, on ingredient labels. * Keep a food journal Protein Protein is not a problem for healthy kidneys. Normally, protein is ingested and waste products are created, which in turn are filtered by the nephrons of the kidney. The waste then, with the help of additional renal proteins, turns into urine. In contrast, damaged kidneys fail to remove protein waste and it accumulates in the blood. The proper consumption of protein is tricky for Chronic Kidney Disease patients as the amount differs with each stage of disease. Protein is essential for tissue maintenance and other bodily roles, so it is important to eat the recommended amount for the specific stage of disease according to your respiratory manager or renal occupational therapy director. Fluids Fluid control is important for patients in the later stages of Chronic Kidney Disease because normal fluid consumption may cause fluid build up in the body which could become dangerous. People on dialysis often have decreased urine output, so increased fluid in the body can put unnecessary pressure on the persons heart and lungs. A fluid allowance for patients is calculated on an individual basis depending on urine output and dialysis settings. It is vital to follow your respiratory manager/ power plant installer fluid intake guidelines. To control fluid intake, patients should: * Not drink more than what your doctor orders * Count all foods that will melt at room temperature (Jell-O , popsicles, etc. ) * Be cognocent of the amount of fluids used in cooking Referrals: Zach Ramirez MD [Primary Care Provider] - 1 Week Joel Son MD [Staff Physician] - 1 Week Fritz Luther MD [Staff Physician] - 2 Weeks (capsule study) Colby Carballo MD [Staff Physician] - 2 Weeks Farrukh Abraham MD [Staff Physician] - 02/16/18 Lonnie Soto [Non Staff, Medical] - 1 Week Disposition: HOME - Home Medications Comprehensive Discharge Medication List: Ambulatory Orders Polyethylene Glycol 3350 [Miralax 119 gm Btl -] 17 gm PO DAILY PRN 11/27/17 Isosorbide Dinitrate [Isordil -] 60 mg PO TIDISORDIL 30 Days #90 tablet MDD 3 Tabs 02/11/18 Amlodipine Besylate 10 mg PO DAILY #30 tablet 02/14/18 Carvedilol 25 mg PO BID #60 tablet 02/14/18 Clonidine HCl 0.1 mg PO BID #60 tablet 02/14/18 Hydralazine HCl 100 mg PO TID #90 tablet 02/14/18 Pantoprazole Sodium [Protonix -] 40 mg PO DAILY #30 tablet.ec 02/14/18
[2018-02-14 13:39] LABS: ACANTHOCYTES 0; ANISOCYTOSIS 0; HELMET CELLS 0; HOWELL-JOLLY BODIES 0; MACROCYTOSIS 0; OVALOCYTE 0; PLATELET ESTIMATE DECREASED; ROULEAU 0; SICKELED CELLS 0; TARGET CELLS 0; TEAR DROP CELLS 0; TOXIC GRANULATION 0
[2018-02-14] MEDS ORDERED: EPOETIN ALFA 20,000 UNIT/1 ML VIAL SQ ONE (14:00)
[2018-02-14] MEDS ORDERED: IRON SUCROSE INJECTION 200 MG in SODIUM CHLORIDE 90 ML IVPB ONE (14:00)
[2018-02-14 15:06] VITALS: BP 153/91; TEMP 98.7
--- NOTE | 2018-02-14 15:18 | PN ---
Progress Note (short form) - Note Progress Note: Renal follow up for CKD Pt seen and examined in Tele no acute complaints s/p EGD and Colonoscopy has mild sob with exertion no cp, abd pain, N/V Vital Signs Temperature 98.7 F 02/14/18 15:01 Pulse Rate 78 02/14/18 15:01 Respiratory Rate 20 02/14/18 15:01 Blood Pressure 153/91 02/14/18 15:01 O2 Sat by Pulse Oximetry (%) 95 02/14/18 12:18 Intake & Output 02/11/18 02/12/18 02/13/18 02/14/18 23:59 23:59 23:59 23:59 Intake Total 900 1050 320 420 Balance 900 1050 320 420 Weight 105.233 kg 107.91 kg 105.885 kg NAD awake and alert RRR, No M/R CTA, no rales soft NT/ND No LE edema, clubbing or cyanosis CBC, BMP 02/14/18 09:45 02/14/18 06:15 Current Medications Acetaminophen (Tylenol -) 650 mg PO Q4H PRN PRN Reason: PAIN LEVEL 1-5 Last Admin: 02/13/18 15:06 Dose: 650 mg Amlodipine Besylate (Norvasc -) 10 mg PO DAILY [facility] Last Admin: 02/14/18 10:40 Dose: 10 mg Carvedilol (Coreg -) 25 mg PO BID [facility] Last Admin: 02/14/18 10:40 Dose: 25 mg Clonidine (Catapres -) 0.1 mg PO BID [facility] Last Admin: 02/14/18 10:40 Dose: 0.1 mg Docusate Sodium (Colace -) 100 mg PO TID [facility] Last Admin: 02/14/18 14:19 Dose: Not Given Hydralazine HCl (Apresoline -) 100 mg PO TID [facility] Last Admin: 02/14/18 14:19 Dose: 100 mg Isosorbide Dinitrate (Isordil -) 60 mg PO TIDISORDIL [facility] Last Admin: 02/14/18 12:56 Dose: 60 mg Pantoprazole Sodium (Protonix -) 40 mg PO DAILY [facility] Last Admin: 02/14/18 12:55 Dose: 40 mg Polyethylene Glycol (Miralax (For Daily Use) -) 17 gm PO TID [facility] Last Admin: 02/14/18 14:19 Dose: Not Given Senna (Senna -) 2 tab PO HS [facility] Last Admin: 02/13/18 21:05 Dose: Not Given 52 year old gentleman with 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 Luther to get IV iron and Epogen today if discharged to follow up in our office next week Heme following Will follow Farrukh Abraham DO
--- NOTE | 2018-02-14 16:47 | PN ---
Progress Note (short form) - Note Progress Note: cc: weakness s: no cp, palps, dizzy, lightheadedness, dyspnea Vital Signs Period Temp Pulse Resp BP Sys/Pichardo Pulse Ox Last 24 Hr 98.3 F-99.3 F 69-88 14-20 148-180/78-95 94-99 Constitutional: Yes: No Distress, Calm Eyes: Yes: Conjunctiva Clear, EOM Intact Neck: Yes: Supple Respiratory: Yes: Regular, CTA Bilaterally Gastrointestinal: Yes: Normal Bowel Sounds, Soft Cardiovascular: Yes: Regular Rate and Rhythm JVD: No Heart Sounds: Yes: S1, S2 Edema: No Neurological: Yes: Alert, Oriented Psychiatric: Yes: Alert, Oriented no jaundice diaphoresis Current Medications Generic Name Dose Route Start Last Admin Trade Name Freq PRN Reason Stop Dose Admin Acetaminophen 650 mg 02/13/18 14:59 02/13/18 15:06 Tylenol - PO 650 mg Q4H PRN Administration PAIN LEVEL 1-5 Amlodipine Besylate 10 mg 02/10/18 10:00 02/14/18 10:40 Norvasc - PO 10 mg DAILY LUIS Administration Carvedilol 25 mg 02/10/18 10:00 02/14/18 10:40 Coreg - PO 25 mg BID LUIS Administration Clonidine 0.1 mg 02/10/18 10:00 02/14/18 10:40 Catapres - PO 0.1 mg BID [facility] Administration Docusate Sodium 100 mg 02/12/18 14:00 02/14/18 14:19 Colace - PO Not Given TID LUIS Hydralazine HCl 100 mg 02/10/18 06:00 02/14/18 14:19 Apresoline - PO 100 mg TID LUIS Administration Isosorbide Dinitrate 60 mg 02/11/18 09:54 02/14/18 12:56 Isordil - PO 60 mg TIDISORDIL [facility] Administration Pantoprazole Sodium 40 mg 02/14/18 12:15 02/14/18 12:55 Protonix - PO 40 mg DAILY [facility] Administration Polyethylene Glycol 17 gm 02/12/18 10:45 02/14/18 14:19 Miralax (For Daily Use) - PO Not Given TID LUIS Senna 2 tab 02/12/18 22:00 02/13/18 21:05 Senna - PO Not Given HS LUIS CBC, BMP 02/14/18 09:45 02/14/18 06:15 Assessment/Plan EKG 11/28/17: NSR, LVH with repol abn, ? LAFB. no path q's. no signif change vs prior 07/2017 Echo 08/2017: mod LV dilation. moderate concentric LVH. nl LVEF/normal wall motion. nl RV. mild L/ELISABETH. mild MR. no RVSP. Echo 01/2017: EF 40-45%--global hypo, sev conc lvh, grade 2 diast dysfunction. nl rv, mild ar, mod mr. mod phtn MPI 09/03 (chuck): non-diagnostic ECG (baseline LVH with repol abnormalities. normal perfusion. nl LVEF. CXR: congestive changes EKG: sinus tach, LVH with strain a/p: 52M h/o CVA, CHF, renal failure, focal segmental glomerulosclerosis, asthma, and hypertension p/w weakness for a few days, cough, dyspnea, constipation with elevated BP, pos trop Positive trop - likely in setting of demand from hypertensive urgency. No CP, EKG unchanged, unlikely ACS - BP control as below - trop flat, 0.24->0.25, not c/w ACS - no further cardiac workup as inpatient hypertensive urgency: -chronic med non-compliance with recurrent severe BP elevations in hosp and office in past. - per patient not taking carvedilol and amlodipine, he says he is taking others -improved after resuming bp meds ALEXANDRA on CKD: - h/o focal segmental glomerulosclerosis - may be ALEXANDRA due to hypertensive nephropathy as well - renal following - planning for vascular access for HD hypertensive heart dz/chronic diast CHF: - BNP elevated from prior, likely in setting of hypertensive urgency - euvolemic currently h/o CVA: -bp meds as doing -non compliant with statin thrombocytopenia, anemia: -low PLTs are chronic, stable -H/H slightly below prior baseline -foc and egd done today show no source of anemia cardiac schwartz stable
--- NOTE | 2018-02-14 18:22 | PATH ---
Surgical Pathology Report Patient Name: GRISEL FISHER [facility]. Rec. #: [id number] /Age/Gender: 1965 (Age: 52) / M Account: [id number] Location: [facility] MED/SURG Taken: 02/13/2018 Received: 02/13/2018 Reported: 02/14/2018 Physicians: Bianca Ayala M.D. Specimen(s) Received 2 GREEN TOP TUBES Clinical History Anemia, rule out MDS Final Diagnosis COMPREHENSIVE FLOW PANEL performed and interpreted at [place], [place] ([id number]) shows the following: INTERPRETATION: NO ATYPICAL FLOW CYTOMETRIC FINDINGS SEEN. ADDITIONAL TESTS: Cytogenetics, FISH See [facility]ge report ([id number]) for additional details. MYELODYSPLASIA FISH PANEL performed and interpreted at [place], [place] ([id number]) shows the following: INTERPRETATION: No evidence of deletion 5q or monosomy 5 is present. No evidence of deletion 7q or monosomy 7 is present. No evidence of trisomy 8 (+8) is present. No evidence of deletion 13q14.2 is present. No evidence of rearrangement of 11q23. No evidence of a deletion of the p53 (17p13) locus. No evidence of deletion 20q12 is present Comments: Correlation with pending cytogenetics ([id number]) is recommended. Seven multiplex probe stain procedures were performed. See [facility] report ([id number]) for additional details. Electronically Signed Mariia Brown M.D. Addendum Reported: 02/26/2018 Addendum Diagnosis CYTOGENETIC KARYOTYPE ANALYSIS performed and interpreted at [facility] ([id number]) shows the following: RESULTS: Tissue Culture Failure INTERPRETATION: This unstimulated peripheral blood specimen did not produce any analyzable metaphase cells and, therefore, chromosome analysis is not possible. A bone marrow aspirate, when clinically appropriate, is recommended. See [facility]ge report for additional details ([id number]) Julianna Aguilar M.D. Gross Description Received are 2 green top tubes of blood which are sent to [facility]. /02/13/2018 saudi02/13/2018
--- NOTE | 2018-02-15 16:51 | PATH ---
Surgical Pathology Report Patient Name: GRISEL FISHER Med. Rec. #: [id number] /Age/Gender: 1965 (Age: 52) / M Account: [id number] Location: [facility] MED/SURG Taken: 02/14/2018 Received: 02/14/2018 Reported: 02/15/2018 Physicians: Brenda Kingsley M.D. Specimen(s) Received BX CECUM POLYP Clinical History Anemia Postoperative diagnosis: Diverticulosis, cecal polyp Final Diagnosis CECAL POLYP, POLYPECTOMY: HYPERPLASTIC POLYP. Electronically Signed Mariia Brown M.D. Gross Description Received in formalin, labeled "biopsy cecal polyp" are 2 gomes, irregular portions of soft tissue averaging 0.3 cm. in greatest dimension. The specimens are submitted in toto in one cassette. 02/14/201802/14/2018
[2018-02-19 03:35] LABS: IGA IMMUNOGLOBULIN 136; IGG IMMUNOGLOBULIN 641; IGM IMMUNOGLOBULIN 78
== END 2018-02-14 17:40 | disposition home or self-care (01) | DRG 682 ==
LOC: FER 20:44 → J2W 23:32 → UNDOADMIN 02-10 00:53 → J7W 02-12 21:12
PROVIDERS: ADMIT Internal Medicine Geriatric Medicine; ATTEND Internal Medicine Geriatric Medicine
PROC: 0DJ08ZZ Inspection of Upper Intestinal Tract, Via Natural or Artificial Opening Endoscopic (ICD-10-PCS; 2018-02-14)
PROC: 30233N1 Transfusion of Nonautologous Red Blood Cells into Peripheral Vein, Percutaneous Approach (ICD-10-PCS; 2018-02-14)
PROC: 0DBH8ZX Excision of Cecum, Via Natural or Artificial Opening Endoscopic, Diagnostic (ICD-10-PCS; principal; 2018-02-14 09:15)
DX: N17.9 Acute kidney failure, unspecified (principal); I50.23 Acute on chronic systolic (congestive) heart failure; D62 Acute posthemorrhagic anemia; I16.9 Hypertensive crisis, unspecified; I13.2 Hypertensive heart and chronic kidney disease with heart failure and with stage 5 chronic kidney disease, or end stage renal disease; N18.5 Chronic kidney disease, stage 5; D69.6 Thrombocytopenia, unspecified; R42 Dizziness and giddiness; K57.90 Diverticulosis of intestine, part unspecified, without perforation or abscess without bleeding; J45.909 Unspecified asthma, uncomplicated; K59.00 Constipation, unspecified; D63.1 Anemia in chronic kidney disease; Z86.73 Personal history of transient ischemic attack (TIA), and cerebral infarction without residual deficits; R74.8 Abnormal levels of other serum enzymes; D12.0 Benign neoplasm of cecum
CPT/HCPCS: 36415; 36430; 71045-TC-FY; 76705-TC; 80048; 80053; 80061; 81003; 81015; 82272; 82550; 82607; 82728; 82747; 82784; 83010; 83036; 83540; 83550; 83615; 83721; 83735; 83880; 84100; 84155; 84156; 84157; 84165; 84439; 84443; 84466; 84481; 84484; 85014; 85025; 85027; 85384; 85610; 85651; 85730; 86038; 86140; 86334; 86431; 86704; 86706; 86708; 86850; 86880; 86900; 86901; 87340; 87389; 88300-TC; 88305-TC; 93005; 99285-25; J0735; J0885; J1756; P9034; P9038

== ENCOUNTER 2018-03-13 11:15 | Inpatient (IN) | payer BC ==
--- NOTE | 2018-03-13 12:12 | PDOC ---
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 BP was elevated in office to 230/136. Pt denies new complaint today but endorses mildly progression of worsening of fatigue, exertional SOB, and vision problems. Pt has a h/o CHF; denies worsening orthopnea, paroxysmal nocturnal dyspnea, or lower extremity swelling. H/o HTN, managed with Isosorbide Dinitrate, Hydrazine, Clonidine, and Coreg. Lasix was recently discontinued secondary to side effects. Reports good compliance with medications. 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 (diagnosed via biopsy per pt, date unknown) HFrEF 45-50% EF Asthma Anemia of CKD Thrombocytopenia 03/13/18 16:34 Past History - Past Medical History Allergies/Adverse Reactions: Allergies Allergy/AdvReac Type Severity Reaction Status Date / Time No Known Allergies Allergy Verified 03/13/18 11:56 Home Medications: Ambulatory Orders Amlodipine Besylate [Norvasc -] 5 mg PO DAILY 03/13/18 Carvedilol 6.25 mg PO BID 03/13/18 Clonidine HCl [Clonidine HCl ER] 0.2 mg PO BID 03/13/18 Febuxostat [Uloric] 40 mg PO DAILY 03/13/18 Furosemide [Lasix] 40 mg PO BID 03/13/18 Hydralazine HCl 100 mg PO TID 03/13/18 Isosorbide Dinitrate [Isordil -] 30 mg PO TID 03/13/18 Mycophenolate Mofetil [Cellcept -] 500 mg PO DAILY 03/13/18 Pantoprazole Sodium 40 mg PO DAILY 03/13/18 Prednisone [Deltasone] 20 mg PO DAILY 03/13/18 Anemia: No Asthma: Yes (mild,last attack years ago) Cancer: No Cardiac Disorders: No CVA: Yes (2017) COPD: No CHF: Yes DVT: No Dementia: No Diabetes: No GI Disorders: Yes (RENAL FAILURE) Disorders: No HTN: Yes Hypercholesterolemia: No Liver Disease: No Seizures: No Thyroid Disease: No - Surgical History Abdominal Surgery: Yes (HERNIA REPAIR) Orthopedic Surgery: Yes (right ankle fracture; plate with 6 screws) - Suicide/Smoking/Psychosocial Hx Smoking Status: No Smoking History: Former smoker Have you smoked in the past 12 months: No Number of Cigarettes Smoked Daily: 0 If you are a former smoker, when did you quit?: 2018 Cigars Per Day: 0 Information on smoking cessation initiated: No 'Breaking Loose' booklet given: 09/14/17 Hx Alcohol Use: No Drug/Substance Use Hx: No Substance Use Type: None Hx Substance Use Treatment: No Cardiac Specific PMH - Complaint Specific PMHX Pacemaker: No Review of Systems - Review of Systems Able to Perform ROS?: Yes Comments:: In addition to that documented in the HPI above, the additional ROS was obtained : Constitutional: Denies fevers or chills Eyes: Denies acutely worsening vision changes ENMT: Denies sore throat CV: Denies chest pain Resp: Denies acutely worsening SOB GI: Denies vomiting or diarrhea : Denies painful urination MSK: Denies recent trauma Skin: Denies new rashes Neuro: Denies new numbness or tingling or weakness Endocrine: Denies polyuria Heme: Denies bleeding *Physical Exam - Vital Signs Last Vital Signs Temp Pulse Resp BP Pulse Ox 97.9 F 76 20 201/104 H 96 03/13/18 11:56 03/13/18 18:30 03/13/18 18:30 03/13/18 18:30 03/13/18 18:30 - Physical Exam Comments: Constitutional: Well-developed, well-nourished, obese male in no acute distress or obvious discomfort.. Found semi-fowlers in hospital bed. Alert and oriented x4. Answered all questions appropriately and completely. Speech was non-labored , non-pressured. HEENT: Normocephalic. No obvious external signs of trauma. Hearing grossly normal. No nasal discharge. Neck is supple, trachea is midline. Cardiovascular: Regular rate and regular rhythm. No murmur, rubs, clicks, or gallops. Peripheral pulses: Radial pulses full. Respiratory: Breathing unlabored. Equal chest rise and fall. Clear to auscultation bilaterally. No stridor, no wheezing, no rhonchi. Gastrointestinal: abdomen is soft, non-tender, non-distended. Neuro: Alert and oriented. Pupils PERRL and 3mm bilaterally. Moving all four extremities spontaneously. Gait normal, observed walking through the department unassisted. Skin: Warm, dry, and intact. No bruising, rashes, or other lesions. : No R or L CVA tenderness. Psych: Affect: appropriate. Mood: normal. ED Treatment Course - LABORATORY CBC & Chemistry Diagram: 03/13/18 12:56 03/13/18 12:56 - ADDITIONAL ORDERS Additional order review: Laboratory Results 03/13/18 03/13/18 03/13/18 12:56 12:56 12:56 PT with INR 11.80 INR 1.04 PTT (Actin FS) Sodium 140 Potassium 3.3 L Chloride 107 Carbon Dioxide 24 Anion Gap 9 BUN 48 H Creatinine 4.8 H Creat Clearance w eGFR 12.84 Random Glucose 87 Calcium 8.0 L Total Bilirubin 1.2 H AST 18 ALT 16 Alkaline Phosphatase 78 Troponin I 0.11 H Total Protein 6.8 Albumin 3.7 03/13/18 12:56 PT with INR INR PTT (Actin FS) 31.6 Sodium Potassium Chloride Carbon Dioxide Anion Gap BUN Creatinine Creat Clearance w eGFR Random Glucose Calcium Total Bilirubin AST ALT Alkaline Phosphatase Troponin I Total Protein Albumin 03/13/18 12:56 RBC 3.21 L MCV 89.2 MCHC 34.9 RDW 14.5 MPV 8.5 Neutrophils % 70.5 Lymphocytes % 16.8 D Monocytes % 10.8 H Eosinophils % 1.4 Basophils % 0.5 - RADIOLOGY Radiology Studies Ordered: Category Date Time Status HEAD CT WITHOUT CONTRAST [CT] Stat CT Scan 03/13/18 15:02 Completed CHEST PA & LAT [RAD] Stat Radiology 03/13/18 12:39 Completed - Medications Given in the ED: ED Medications Discontinued Medications Generic Name Dose Route Start Last Admin Trade Name Freq PRN Reason Stop Dose Admin Labetalol HCl 10 mg 03/13/18 12:40 03/13/18 13:00 Normodyne Injection - IVPUSH 03/13/18 12:41 10 mg ONCE ONE Administration Labetalol HCl 20 mg 03/13/18 13:27 03/13/18 13:42 Normodyne Injection - IVPUSH 03/13/18 13:28 20 mg ONCE ONE Administration Medical Decision Making - Medical Decision Making *Reviewed vital signs, nursing notes, and prior visit documentation (if available). 53 y/o male presenting with elevated BP in setting of CKD 2/2 FSGS, CHF, and HTN. No acute symptoms. No neurologic deficits. Afebrile. Suspect hypertensive urgency versus emergency. Low suspicion for CHF exacerbation or electrolyte derangement. Will obtain CBC, CMP, Trop, UA, urine electrolytes, and CXR to further evaluate. Ordered labetalol push. EKG: Sinus rhythm with a ventricular rate of 89. Left axis deviation. Normal MA interval. QTc prolonged at 530. QTC not widened. No ST segment elevation or depression. No hyperacute T waves. No pathologic Q waves. QTc is slightly longer than prior of 518 from EKG dated 09 Feb 2018. CXR: Improved enlarged cardiac silhouette compared to previous dated 2017. Resolution of congestion also noted on previous study. Given initial dose of labetalol. Pressure unchanged after 20 min. Second dose ordered. Will recheck. 13:58 Pt remains hypertensive. Will discuss with renal prior to initiating drip. CBC revealed mild anemia with H/H 04/16 CMP showed 48/4.8. BUN trended down 63 and Cr trended down from 5.3 compared to last labs from 02/14/2018. GFR estimated at 12.8. No hyperkalemia. Troponin 0.11, which is below trend of 0.24-0.25 in 02/14/2018. Low suspicion for ACS. Suspect likely secondary to CKD. BP remains elevated despite second labetalol. Will start nicardipine drip. Will begin admission process for ICU. 15:[address] Montalvo. Agrees to admit the pt to the ICU for hypertensive urgency. Requests head CT to further evaluate; ordered. Attending performed telephone consult with ICU resident. Will accept pt. Mortician Supplies Sales Representative consult order placed. *DC/Admit/Observation/Transfer Diagnosis at time of Disposition: Hypertensive urgency, CKD (chronic kidney disease) stage 4, GFR 15-29 ml/min, History of CVA (cerebrovascular accident) - Discharge Dispostion Condition at time of disposition: Stable Decision to Admit order: Yes - Referrals - Patient Instructions - Post Discharge Activity
[2018-03-13] MEDS ORDERED: LABETALOL HCL 5 MG/1 ML (100MG/20 ML VIAL) IVPUSH ONE ×2 (12:40→13:27)
[2018-03-13] MEDS ORDERED: LABETALOL HCL 5 MG/1 ML (200MG/40ML VIAL) IVPB ONE (12:50)
--- NOTE | 2018-03-13 13:06 | PDOC ---
Attending Attestation - Resident Resident Name: Zachary Cortez - ED Attending Attestation I have performed the following: I have examined & evaluated the patient, The case was reviewed & discussed with the resident, I agree w/resident's findings & plan, Exceptions are as noted - HPI HPI: 03/13/18 13:05 53y M hx of asthma, CKD secondary to FSGH, HTN, CHF, cva (residual vision deficits) sent to the ED for evaluation by renal for severe htn. Pt notes that he has felt chronic weakness and knows his kidneys are nto functioning well, but denies any new complaints including headche, dizziness, n/v, chest pain, abd pain, sob, leg swelling (notes it is improved from baseline). GENERAL: The patient is awake, alert, and fully oriented, Nontoxic - in no acute distress. HEAD: Normocephalic, atraumatic. EYES: extraocular movements intact, sclera anicteric, conjunctiva clear. ENT: Normal voice, Moist mucous membranes. NECK: Normal range of motion, supple LUNGS: Breath sounds equal, clear to auscultation bilaterally. No wheezes, no rhonchi, no rales. HEART: Regular rate and rhythm, normal S1 and S2 without murmur, rub or gallop. ABDOMEN: Soft, nontender, No guarding, no rebound. . No CVA tenderness EXTREMITIES: Normal range of motion, trace edema NEUROLOGICAL: No facial assymetry, Normal speech, PSYCH: Normal mood, normal affect. SKIN: Warm, Dry, normal turgor, vitals noted for severe htn ddx: likely due to renal failure will treat bp with labetalol will ck labs, ekg to r/o emergent need for dialysis will dw renal once labs are back - Physicial Exam PE: 03/18/18 15:00 see above - Critical Care Time Total Critical Care Time: 35 Critical Care Statement: The care of this patient involved high complexity decision making to prevent further life threatening deterioration of the patient 's condition and/or to evaluate & treat vital organ system(s) failure or risk of failure. - Medical Decision Making 03/13/18 16:59 labs reviewed cr, k reviewed, emergent dialysis not indicuated pt had minimal response to labatelol will start gtt antciipate ICU admission due to needing cardine gtt Heart Score/ECG Review - ECG Impressions Comment:: 03/13/18 13:47 Twelve-lead EKG was performed and reviewed by me. There is normal sinus rhythm with a normal rate. Rate of 89 left axis deviation QTc interval of [address]-T wave changes
[2018-03-13 13:15] LABS: BASO % 0.5 % (0-2.0); EOS % 1.4 % (0-4.5); HEMATOCRIT 28.6 % (35.4-49); LYMPH % 16.8 % (8-40); MCH 31.1 pg (25.7-33.7); MCHC 34.9 g/dl (32.0-35.9); MEAN CELL VOLUME 89.2 fl (80-96); MEAN PLT VOLUME 8.5 fl (7.5-11.1); MONO % 10.8 % (3.8-10.2); NEUT % 70.5 % (42.8-82.8); PLATELET COUNT 85 K/MM3 (134-434); RBC 3.21 M/mm3 (4.00-5.60); RDW 14.5 % (11.9-15.9); WHITE BLOOD COUNT 5.7 K/mm3 (4.0-10.0)
[2018-03-13 13:44] LABS: INR 1.04 (0.83-1.09); PROTHROMBIN TIME (PATIENT) 11.8 SEC (9.7-13.0)
[2018-03-13 13:55] LABS: ALBUMIN 3.7 g/dl (3.4-5.0); ALK PHOS 78 U/L (45-117); ANION GAP 9 MMOL/L (8-16); BILIRUBIN,TOTAL 1.2 mg/dL (0.2-1); BLOOD UREA NITROGEN 48 mg/dL (7-18); CHLORIDE 107 mmol/L (98-107); CO2 24 mmol/L (21-32); CREATININE 4.8 mg/dL (0.55-1.3); GLUCOSE,RANDOM 87 mg/dL (74-106); POTASSIUM 3.3 mmol/L (3.5-5.1); SGOT/AST 18 U/L (15-37); SGPT/ALT 16 U/L (13-61); SODIUM 140 mmol/L (136-145); TOT PROT 6.8 g/dl (6.4-8.2)
[2018-03-13] MEDS ORDERED: dilTIAZem HCL 125 MG/25 ML - 25 ML VIAL ONE (14:17)
[2018-03-13] MEDS ORDERED: niCARdipine HCL 25 MG/10 ML AMPUL IVPB ONE (14:21)
[2018-03-13] MEDS: NICARDIPINE 25 MG in DEXTROSE 5%-WATER - 240 ML IVPB SCH (14:29)
[2018-03-13] MEDS ORDERED: ACETAMINOPHEN 325 MG TABLET (FP) PO PRN (15:34)
--- NOTE | 2018-03-13 15:35 | CONSULT ---
Consult - text type - Consultation Consultation Note: Renal Consult for CKD5 and Hypertensive Urgency This is a 53 year old gentleman with hx of CKD Stage 5 secondary to FSGS, Difficult to control hypertension, systolic HF who was sent from Dr. Jordan office with uncontrolled hypertension and uremic symptoms. Pt reports feeling very weak and had difficulty ambulating straight. Denies any Cp, blurry vision, N/V/D. No flank pain, abd pain, fever or chills. Making urine w/o difficulty. Reports compliance with all his meds. PMhx: as above Allegies: NKDA Family Hx: NC Social Hx: No T/A/D ROS: as per HPI, all other pertinent ros negative Home Medications Medication Instructions Recorded Amlodipine Besylate [Norvasc -] 10 mg PO DAILY 03/13/18 Carvedilol 25 mg PO BID 03/13/18 Clonidine HCl [Clonidine HCl ER] 0.1 mg PO TID 03/13/18 Furosemide [Lasix] 40 mg PO BID 03/13/18 Hydralazine HCl 100 mg PO TID 03/13/18 Isosorbide Dinitrate [Isordil -] 10 mg PO TID 03/13/18 Pantoprazole Sodium 40 mg PO DAILY 03/13/18 Vital Signs Temperature 97.9 F 03/13/18 11:56 Pulse Rate 85 03/13/18 15:27 Respiratory Rate 18 03/13/18 15:27 Blood Pressure 196/102 H 03/13/18 15:27 O2 Sat by Pulse Oximetry (%) 96 03/13/18 15:27 NAD MMM, No JVD, Neck supple RRR, No M/R CTA, no rales or wheeze soft NT/ND Trace LE edema, no clubbing or cyanosis no bladder distension CBC, BMP 03/13/18 12:56 03/13/18 12:56 Current Medications Nicardipine HCl 25 mg/ (Dextrose) 250 mls @ 25 mls/hr IVPB TITR LUIS; Protocol Last Admin: 03/13/18 14:29 Dose: 2.5 mg/hr, 25 mls/hr 53 year old gentleman with hx of CKD Stage 5 secondary to FSGS, Difficult to control hypertension, systolic HF who was sent from Dr. Jordan office with uncontrolled hypertension and uremic symptoms. #Uncontrolled Hypertension #CKD Stage 5 with mild uremic symptoms #Hx of CHF w/o evidence of acute exacerbation #Mild Hypokalemia Pt started on Nicardipine gtt. titrate to achieve BP goal Restart Oral antihypertnsives one by one to prevent relative hypotension Goal BP in first 24 hours ~180/90-100 ICU monitoring for hypertensive urgency/emergency Check head CT Pt will likely need to start HD this admission, BUN/Cr below values seen on last admission likely related to some degree of hyperfiltration in setting of severe hypertension expect that BUN/Cr should rise once BP is controlled Vascular Sx consulted for dialysis access placement as pt will likely need [employer] this admission Supplement K to level > 3.5 Trend renal function and electrolytes daily Thank you Will follow Farrukh Abraham DO
--- NOTE | 2018-03-13 15:48 | CONSULT ---
<Natan Álvarez - Last Filed: 03/13/18 15:24> - Consultation REQUESTING PROVIDER: CONSULT REQUEST: We have been asked to surgically evaluate this patient for dialysis access PCP: HISTORY OF PRESENT ILLNESS: 53yo M presented to the ED from renal clinic with severe hypertension. Pt has history of CKD and states that he had met with Dr. Roe previously to discuss getting a fistula for HD. PMHx: CHF, CKD, CVA, Asthma Home Medications Medication Instructions Recorded Amlodipine Besylate [Norvasc -] 10 mg PO DAILY 03/13/18 Carvedilol 25 mg PO BID 03/13/18 Clonidine HCl [Clonidine HCl ER] 0.1 mg PO BID 03/13/18 Furosemide [Lasix] 40 mg PO BID 03/13/18 Hydralazine HCl 100 mg PO BID 03/13/18 Isosorbide Dinitrate [Isordil -] 10 mg PO TID 03/13/18 Pantoprazole Sodium 40 mg PO DAILY 03/13/18 Allergies Allergy/AdvReac Type Severity Reaction Status Date / Time No Known Allergies Allergy Verified 03/13/18 11:56 REVIEW OF SYSTEMS: CONSTITUTIONAL: Absent: fever, chills, diaphoresis, generalized weakness, malaise, loss of appetite, weight change PHYSICAL EXAM: GENERAL: Awake, alert, and fully oriented, in no acute distress. HEAD: Normal with no signs of trauma. EYES: PERRL, sclera anicteric, conjunctiva clear. NECK: Normal ROM LUNGS: Clear to auscultation bilat anteriorly. No wheezes, and no crackles. No accessory muscle use. HEART: Regular rate and rhythm. No murmurs ABDOMEN: Soft, nontender, not distended, normoactive bowel sounds, no guarding, no rebound, no masses. No organomegaly. MUSCULOSKELETAL: Normal ROM at all joints. No bony deformities or tenderness. No CVA tenderness. UPPER EXTREMITIES: 2+ pulses, warm, well-perfused. No cyanosis. Cap refill <2 seconds. No peripheral edema. NEUROLOGICAL: Normal speech, gait not observed. PSYCH: Cooperative. Good eye contact. Appropriate mood and affect. SKIN: Warm, dry, normal turgor, no rashes or lesions noted. Vital Signs Temperature 97.9 F 03/13/18 11:56 Pulse Rate 84 09/25/18 15:22 Respiratory Rate 18 03/13/18 13:55 Blood Pressure 196/102 H 03/13/18 15:22 O2 Sat by Pulse Oximetry (%) 100 03/13/18 13:55 Lab Results WBC 5.7 K/mm3 (4.0-10.0) 03/13/18 12:56 RBC 3.21 M/mm3 (4.00-5.60) L 03/13/18 12:56 Hgb 10.0 GM/dL (11.7-16.9) L 03/13/18 12:56 Hct 28.6 % (35.4-49) L D 03/13/18 12:56 MCV 89.2 fl (80-96) 03/13/18 12:56 MCHC 34.9 g/dl (32.0-35.9) 03/13/18 12:56 RDW 14.5 % (11.9-15.9) 03/13/18 12:56 Plt Count 85 K/MM3 (134-434) L 03/13/18 12:56 Sodium 140 mmol/L (136-145) 03/13/18 12:56 Potassium 3.3 mmol/L (3.5-5.1) L 03/13/18 12:56 Chloride 107 mmol/L (98-107) 03/13/18 12:56 Carbon Dioxide 24 mmol/L (21-32) 03/13/18 12:56 Anion Gap 9 MMOL/L (8-16) 03/13/18 12:56 BUN 48 mg/dL (7-18) H 03/13/18 12:56 Creatinine 4.8 mg/dL (0.55-1.3) H 03/13/18 12:56 Random Glucose 87 mg/dL (74-106) 03/13/18 12:56 Calcium 8.0 mg/dL (8.5-10.1) L 03/13/18 12:56 INR 1.04 (0.83-1.09) 03/13/18 12:56 Problem List - Problems (1) CKD (chronic kidney disease) stage 4, GFR 15-29 ml/min Assessment/Plan: Plan -pt will be scheduled for permacath placement tomorrow, please make NPO after midnight -will also do vein mapping to evaluate for fistula placement -please do not use Left arm for blood draws or IVs. -Medically optimize for tomorrow Code(s): N18.4 - CHRONIC KIDNEY DISEASE, STAGE 4 (SEVERE) <Supa Roe - Last Filed: 03/16/18 09:56> - Consultation REQUESTING PROVIDER: CONSULT REQUEST: We have been asked to surgically evaluate this patient for ( specify). PCP:Rell Montalvo MD HISTORY OF PRESENT ILLNESS: PMHx: PSHx: Home Medications Medication Instructions Recorded Amlodipine Besylate [Norvasc -] 5 mg PO DAILY 03/13/18 Carvedilol 6.25 mg PO BID 03/13/18 Clonidine HCl [Clonidine HCl ER] 0.2 mg PO BID 03/13/18 Febuxostat [Uloric] 40 mg PO DAILY 03/13/18 Furosemide [Lasix] 40 mg PO BID 03/13/18 Hydralazine HCl 100 mg PO TID 03/13/18 Isosorbide Dinitrate [Isordil -] 30 mg PO TID 03/13/18 Mycophenolate Mofetil [Cellcept -] 500 mg PO DAILY 03/13/18 Pantoprazole Sodium 40 mg PO DAILY 03/13/18 Prednisone [Deltasone] 20 mg PO DAILY 03/13/18 Allergies Allergy/AdvReac Type Severity Reaction Status Date / Time No Known Allergies Allergy Verified 03/13/18 11:56 REVIEW OF SYSTEMS: CONSTITUTIONAL: Absent: fever, chills, diaphoresis, generalized weakness, malaise, loss of appetite, weight change CARDIOVASCULAR: Absent: chest pain, syncope, palpitations, irregular heart rate, lightheadedness , peripheral edema RESPIRATORY: Absent: cough, shortness of breath, dyspnea with exertion, wheezing, stridor, hemoptysis GASTROINTESTINAL: Absent: abdominal pain, abdominal distension, nausea, vomiting, diarrhea, constipation, melena, hematochezia GENITOURINARY: Absent: dysuria, frequency, urgency, hesitancy, hematuria, flank pain, genital pain MUSCULOSKELETAL: Absent: myalgia, arthralgia, joint swelling, back pain, neck pain SKIN: Absent: rash, itching, pallor HEMATOLOGIC/IMMUNOLOGIC: Absent: easy bleeding, easy bruising, lymphadenopathy NEUROLOGIC: Absent: headache, focal weakness, paresthesias, dizziness, unsteady gait, seizure, mental status changes, bladder or bowel incontinence PSYCHIATRIC: Absent: anxiety, depression, suicidal or homicidal ideation, hallucinations. PHYSICAL EXAM: GENERAL: Awake, alert, and fully oriented, in no acute distress. HEAD: Normal with no signs of trauma. EYES: PERRL, sclera anicteric, conjunctiva clear. NECK: Normal ROM, supple without lymphadenopathy, JVD, or masses. LUNGS: Clear to auscultation bilat anteriorly. No wheezes, and no crackles. No accessory muscle use. HEART: Regular rate and rhythm. No murmurs ABDOMEN: Soft, nontender, not distended, normoactive bowel sounds, no guarding, no rebound, no masses. No organomegaly. MUSCULOSKELETAL: Normal ROM at all joints. No bony deformities or tenderness. No CVA tenderness. UPPER EXTREMITIES: 2+ pulses, warm, well-perfused. No cyanosis. Cap refill <2 seconds. No peripheral edema. LOWER EXTREMITIES: 2+ pulses, warm, well-perfused. No calf tenderness. No peripheral edema. NEUROLOGICAL: Normal speech, gait not observed. PSYCH: Cooperative. Good eye contact. Appropriate mood and affect. SKIN: Warm, dry, normal turgor, no rashes or lesions noted. Vital Signs Temperature 97.7 F 03/16/18 09:00 Pulse Rate 64 03/16/18 09:00 Respiratory Rate 18 03/16/18 09:00 Blood Pressure 171/112 H 03/16/18 09:00 O2 Sat by Pulse Oximetry (%) 95 03/15/18 21:00 Lab Results WBC 4.3 K/mm3 (4.0-10.0) 03/16/18 05:30 RBC 2.65 M/mm3 (4.00-5.60) L 03/16/18 05:30 Hgb 8.2 GM/dL (11.7-16.9) L 03/16/18 05:30 Hct 24.0 % (35.4-49) L 03/16/18 05:30 MCV 90.8 fl (80-96) 03/16/18 05:30 MCHC 34.0 g/dl (32.0-35.9) 03/16/18 05:30 RDW 13.8 % (11.9-15.9) 03/16/18 05:30 Plt Count 70 K/MM3 (134-434) L 03/16/18 05:30 Sodium 141 mmol/L (136-145) 03/15/18 05:30 Potassium 3.6 mmol/L (3.5-5.1) 03/15/18 05:30 Chloride 106 mmol/L (98-107) 03/15/18 05:30 Carbon Dioxide 21 mmol/L (21-32) 03/15/18 05:30 Anion Gap 14 MMOL/L (8-16) 03/15/18 05:30 BUN 50 mg/dL (7-18) H 03/15/18 05:30 Creatinine 5.4 mg/dL (0.55-1.3) H 03/15/18 05:30 Random Glucose 106 mg/dL (74-106) 03/15/18 05:30 Calcium 8.0 mg/dL (8.5-10.1) L 03/15/18 05:30 Blood Type O POSITIVE 03/14/18 13:24 Antibody Screen Negative 03/14/18 13:24 INR 1.04 (0.83-1.09) 03/13/18 12:56 Patient seen in my office and scheduled for AV access creation. He is now admitted with worsening renal function and will require placement of Permacath as well as fistula creation. Vein mapping requested. OR plans reviewed.
--- NOTE | 2018-03-13 15:48 | HP ---
Admitting History and Physical - Primary Care Physician PCP: Zach Ramirez - Admission Chief Complaint: My blood pressure is too high History of Present Illness: Mr Nuñez is a very pleasant 53 year old male who comes in from Dr Lauren Waterman's office after being found to have elevated blood pressure. He says he has been compliant with his medications but still he is having elevated blood pressures. He does not have any new symptoms but has multiple complaints. He states he has a chronic headache that won't go away, worsening vision, chest pain, shortness of breath, and slight swelling. He denies fevers, chills, lightheadedness, dizziness, passing out, abdominal pain, nausea, vomiting, diarrhea, constipation, difficulty or pain on urination, numbness, weakness, or paralysis. He was in the office today and was found to have SBP over 200s and is here for further treatment. 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 Cardiovascular: Yes: CAD, CHF, HTN, Hyperlipdemia Renal/: Yes: Renal Failure (Cr 2.2 in 07/2016, suspect due to hypertensive disease) - Past Surgical History Past Surgical History: Yes: Joint Replacement (ankle repair) - Smoking History Smoking history: Former smoker Have you smoked in the past 12 months: No Aproximately how many cigarettes per day: 0 If you are a former smoker, when did you quit?: 2018 - Alcohol/Substance Use Hx Alcohol Use: No History of Substance Use: reports: None - Social History ADL: Independent History of Recent Travel: No Home Medications - Allergies Allergies/Adverse Reactions: Allergies Allergy/AdvReac Type Severity Reaction Status Date / Time No Known Allergies Allergy Verified 03/13/18 11:56 - Home Medications Home Medications: Ambulatory Orders Amlodipine Besylate [Norvasc -] 5 mg PO DAILY 03/13/18 Carvedilol 6.25 mg PO BID 03/13/18 Clonidine HCl [Clonidine HCl ER] 0.2 mg PO BID 03/13/18 Febuxostat [Uloric] 40 mg PO DAILY 03/13/18 Furosemide [Lasix] 40 mg PO BID 03/13/18 Hydralazine HCl 100 mg PO TID 03/13/18 Isosorbide Dinitrate [Isordil -] 30 mg PO TID 03/13/18 Mycophenolate Mofetil [Cellcept -] 500 mg PO DAILY 03/13/18 Pantoprazole Sodium 40 mg PO DAILY 03/13/18 Prednisone [Deltasone] 20 mg PO DAILY 03/13/18 Family Disease History - Family Disease History Family Disease History: Heart Disease: Mother Review of Systems Findings/Remarks: Full review of systems obtained, as per HPI and otherwise negative Physical Examination Vital Signs: Vital Signs Temperature 36.6 C 03/13/18 11:56 Pulse Rate 85 03/13/18 15:27 Respiratory Rate 18 03/13/18 15:27 Blood Pressure 196/102 H 03/13/18 15:27 O2 Sat by Pulse Oximetry (%) 96 03/13/18 15:27 Constitutional: Yes: No Distress, Calm, Obese Eyes: Yes: Conjunctiva Clear, EOM Intact, PERRL HENT: Yes: Atraumatic, Normocephalic Cardiovascular: Yes: Regular Rate and Rhythm, Murmur (1/6 FERNANDA at RUSB). No: Gallop, Rub Respiratory: Yes: Regular, CTA Bilaterally. No: Rales, Rhonchi, Wheezes Gastrointestinal: Yes: Normal Bowel Sounds, Soft. No: Distention, Tenderness Extremities: Yes: WNL Edema: Yes Edema: LLE: Trace, RLE: Trace Labs: CBC, BMP 03/13/18 12:56 03/13/18 12:56 Imaging - Results Chest X-ray: Report Reviewed, Image Reviewed Problem List - Problems (1) Hypertensive urgency Assessment/Plan: -patient presents with hypertensive urgency -symptoms are worsened but no new symptoms -mental status stable -will obtain head CT to evaluate for possible bleeding considering blood pressure -case d/w Dr Abraham -on nicardipine gtt with goal BP 180/90-100 -add back oral antihypertensive one by one -monitor in the ICU since on titratable gtt Code(s): I16.0 - HYPERTENSIVE URGENCY (2) FSGS (focal segmental glomerulosclerosis) Assessment/Plan: -cause of CKD -planning for HD -HD should also assist with blood pressure Code(s): N05.1 - UNSP NEPH SYNDROME W FOCAL AND SEGMENTAL GLOMERULAR LESIONS (3) Anemia in chronic kidney disease Assessment/Plan: -stable -monitor Code(s): N18.9 - CHRONIC KIDNEY DISEASE, UNSPECIFIED; D63.1 - ANEMIA IN CHRONIC KIDNEY DISEASE Qualifiers: Chronic kidney disease stage: stage 4 (severe) Qualified Code(s): N18.4 - Chronic kidney disease, stage 4 (severe); D63.1 - Anemia in chronic kidney disease (4) CHF (congestive heart failure) Assessment/Plan: -not in exacerbation -holding lasix -planning for HD Code(s): I50.9 - HEART FAILURE, UNSPECIFIED Qualifiers: Heart failure type: diastolic Heart failure chronicity: chronic Qualified Code(s): I50.32 - Chronic diastolic (congestive) heart failure (5) Elevated troponin Assessment/Plan: -lower than last admission -having chest pain -consult cardiology but low suspicion for ACS Code(s): R74.8 - ABNORMAL LEVELS OF OTHER SERUM ENZYMES (6) Murmur, cardiac Assessment/Plan: -noted Code(s): R01.1 - CARDIAC MURMUR, UNSPECIFIED (7) Thrombocytopenia Assessment/Plan: -follow Code(s): D69.6 - THROMBOCYTOPENIA, UNSPECIFIED
--- NOTE | 2018-03-13 16:16 | CONSULT ---
Consultation: REQUESTING PROVIDER: Mahsa CONSULT REQUEST: We have been asked to medically evaluate this patient for admission to the ICU due to hypertensive urgency. 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 He reports that his blood pressure is "always in the 170's or 180's" and that he checks it frequently at home. Today, though, he states that it was in the 240's systolic when he was at his doctor's office. Mr Nuñez says that he is compliant with all of his medicaitons and carefully monitors his blood pressures. He denies any new complaints but does report chronic headaches, significant fatigue, RAMÍREZ after 30-40 yards, BLE edema, b/l claudication, and multiple episodes of nocturia every night. He also states that he is "almost totally blind" after the stroke. He denies any sudden changes in his vision, new or worsening headaches, confusion or AMS, sudden onset of chest pain, numbness/ tingling in his extremities, or change in urination. REVIEW OF SYSTEMS: General: No fevers, no chills, no weight or appetite change, no malaise. + Generalized fatigue HEENT: No recent changes in vision, no changes in hearing, no congestion, no sore throat. +Frequent headaches CV: +Chronic chest pain, no palpitations. +h/o MS, +chronic HTN. +RAMÍREZ, +BLE edema Pulm: No cough, no wheezing GI: No nausea or vomiting, no change in bowel habits, no melena : +CKD 5, +worsening nocturia Musc: +Chronic low back pain, no joint swelling, no erythema Endo: No excessive thirst, no heat/cold intolerance Heme: No unusual bruising or bleeding, no swollen glands Neuro: No syncope, no numbness/tingling, no focal weakness Vasc: +Claudication Psych: No recent change in mood, no SI or HI PHYSICAL EXAMINATION Vital Signs - 24 hr 03/13/18 03/13/18 03/13/18 11:56 12:42 12:43 Temperature 97.9 F Pulse Rate 78 Pulse Rate [ Apical] Pulse Rate [ 89 Left Radial] Respiratory 20 Rate Blood Pressure 241/140 H Blood Pressure 242/128 H 242/128 H [Left Arm] O2 Sat by Pulse 99 97 Oximetry (%) 03/13/18 03/13/18 03/13/18 13:00 13:17 13:55 Temperature Pulse Rate Pulse Rate [ 86 79 74 Apical] Pulse Rate [ Left Radial] Respiratory 18 18 18 Rate Blood Pressure Blood Pressure 262/128 H 231/133 H 219/137 H [Left Arm] O2 Sat by Pulse 97 97 100 Oximetry (%) 03/13/18 03/13/18 03/13/18 14:29 15:22 15:27 Temperature Pulse Rate 78 Pulse Rate [ 84 85 Apical] Pulse Rate [ Left Radial] Respiratory 18 Rate Blood Pressure 220/134 H Blood Pressure 196/102 H 196/102 H [Left Arm] O2 Sat by Pulse 96 Oximetry (%) General: Comfortable, no acute distress, pleasant HEENT: PERRL, EOMI, MMM, voice normal, normal neck ROM, no LAD. Detailed ophthalmic exam deferred. Cards: RRR, no murmur appreciated Pulm: Comfortable on room air, clear to auscultation bilaterally Abd: Soft, nontender, nondistended : mild CVA tenderness Ext: Atraumatic. 1+ non-pitting BLE edema. ROM intact. Strength 5/5 and equal bilaterally Vasc: Extremities WWP. Palpable radial and pedal pulses bilaterally Skin: Normal color, no rashes or lesions Neuro: A&Ox3, CN grossly intact, normal speech, motor/sensory grossly intact and symmetric Psych: Mood appropriate to situation Laboratory Results - last 24 hr 03/13/18 03/13/18 03/13/18 12:56 12:56 12:56 WBC 5.7 RBC 3.21 L Hgb 10.0 L Hct 28.6 L D MCV 89.2 MCH 31.1 MCHC 34.9 RDW 14.5 Plt Count 85 L MPV 8.5 Absolute Neuts (auto) 4.0 Neutrophils % 70.5 Lymphocytes % 16.8 D Monocytes % 10.8 H Eosinophils % 1.4 Basophils % 0.5 Nucleated RBC % 0 PT with INR INR PTT (Actin FS) 31.6 Sodium 140 Potassium 3.3 L Chloride 107 Carbon Dioxide 24 Anion Gap 9 BUN 48 H Creatinine 4.8 H Creat Clearance w eGFR 12.84 Random Glucose 87 Calcium 8.0 L Total Bilirubin 1.2 H AST 18 ALT 16 Alkaline Phosphatase 78 Troponin I Total Protein 6.8 Albumin 3.7 03/13/18 03/13/18 12:56 12:56 WBC RBC Hgb Hct MCV MCH MCHC RDW Plt Count MPV Absolute Neuts (auto) Neutrophils % Lymphocytes % Monocytes % Eosinophils % Basophils % Nucleated RBC % PT with INR 11.80 INR 1.04 PTT (Actin FS) Sodium Potassium Chloride Carbon Dioxide Anion Gap BUN Creatinine Creat Clearance w eGFR Random Glucose Calcium Total Bilirubin AST ALT Alkaline Phosphatase Troponin I 0.11 H Total Protein Albumin Active Medications Generic Name Dose Route Start Last Admin Trade Name Freq PRN Reason Stop Dose Admin Acetaminophen 650 mg 03/13/18 15:34 Tylenol - PO Q4H PRN PAIN LEVEL 1-5 Chlorhexidine Gluconate 1 applic 03/13/18 22:00 Hibiclens For Decolonization - TP HS LUIS Febuxostat 40 mg 03/14/18 10:00 Uloric - PO DAILY LUIS Nicardipine HCl 25 mg/ 250 mls @ 25 mls/hr 03/13/18 14:15 03/13/18 14:29 Dextrose IVPB 2.5 mg/hr TITR LUIS 25 mls/hr Administration Protocol 2.5 MG/HR Mupirocin 1 applic 03/13/18 22:00 Bactroban Ointment (For Decolonization) - NS 03/18/18 21:59 BID LUIS Mycophenolate Mofetil 500 mg 03/14/18 10:00 Cellcept - PO DAILY LUIS Pantoprazole Sodium 40 mg 03/14/18 10:00 Protonix - PO DAILY LUIS Prednisone 20 mg 03/14/18 10:00 Deltasone - PO DAILY LUIS ASSESSMENT/PLAN: Erasmo Nuñez is a 53yo man with a PMH of CKD5, difficult to control HTN, systolic CHF, h/o CVA and MS who presented to the ED today from his wash helper 's office due to systolic HTN over 240. In the ED, his BP was initially in the 240's and reduced to SBP 196 after IV labetolol x2. He was admitted to the ICU for monitoring in the setting of hypertensive urgency with need for dialysis during this admission. Neuro: - A&O. - Acetaminophen PRN for pain CV: - Hypertensive urgency - no new symptoms, so no concern for HTN emergency - Nicardipine drip for BP control - EKG not concerning for acute pathology Pulm: - Reassuring lung exam, no SOB at rest - Encourage OOB - IS 10x per hour Heme: - Chronic anemia secondary to CKD - Monitor daily CBC GI: - To be NPO at midnight for dialysis catheter placement Renal: - CKD 5 - Nephrology following - Plan to start dialysis during this admission; catheter to be placed tomorrow by vascular surgery - Prednisone and mycophenolate per primary ID: - No issues Endo: - No issues Psych: - No issues Musc: - OOB as tolerated PPx: - SCD's - Pantoprazole FEN: - NPO at midnight - SLIV - Replete lytes PRN Dispo: - Monitor in ICU - Permacath to be placed by vascular tomorrow To be discussed with Dr Spencer. Vanessa Gomez PGY1 Visit type - Emergency Visit Emergency Visit: Yes ED Registration Date: 03/13/18 Care time: The patient presented to the Emergency Department on the above date and was hospitalized for further evaluation of their emergent condition. - New Patient This patient is new to me today: Yes Date on this admission: 03/13/18 - Critical Care Critical Care patient: Yes Total Critical Care Time (in minutes): 45 Critical Care Statement: The care of this patient involved high complexity decision making to prevent further life threatening deterioration of the patient 's condition and/or to evaluate & treat vital organ system(s) failure or risk of failure.
[2018-03-13 16:31] LABS: URINE APPEARANCE CLEAR; URINE BILIRUBIN NEGATIVE (<2.0 mg/dL); URINE COLOR LTYELLOW; URINE GLUCOSE (UA) NEGATIVE (NEGATIVE); URINE KETONE NEGATIVE (NEGATIVE); URINE LEUK ESTERASE NEGATIVE (NEGATIVE); URINE NITRITE NEGATIVE (NEGATIVE); URINE UROBILINOGEN NEGATIVE mg/dL (0.2-1.0)
--- NOTE | 2018-03-13 16:40 | EKG ---
Test Reason : Blood Pressure : / mmHG Vent. Rate : 089 BPM Atrial Rate : 089 BPM P-R Int : 188 ms QRS Dur : 114 ms QT Int : 436 ms P-R-T Axes : 042 -36 115 degrees QTc Int : 530 ms NORMAL SINUS RHYTHM POSSIBLE LEFT ATRIAL ENLARGEMENT LEFT AXIS DEVIATION INCOMPLETE RIGHT BUNDLE BRANCH BLOCK LEFT VENTRICULAR HYPERTROPHY CANNOT RULE OUT SEPTAL INFARCT , AGE UNDETERMINED T WAVE ABNORMALITY, CONSIDER LATERAL ISCHEMIA PROLONGED QT ABNORMAL ECG WHEN COMPARED WITH ECG OF 09-FEB-2018 21:04, INCOMPLETE RIGHT BUNDLE BRANCH BLOCK IS NOW PRESENT MINIMAL CRITERIA FOR SEPTAL INFARCT ARE NOW PRESENT Confirmed by MD Daryl, Hugo ([id number]) on 03/13/2018 4:40:02 PM Referred By: Confirmed By:Hugo Brito MD
[2018-03-13 17:00] LABS: URINE PROTEIN 3+ (NEGATIVE)
[2018-03-13] MEDS ORDERED: MUPIROCIN 2% TOPICAL OINTMENT FOR DECOLONIZATION NS SCH (22:00)
[2018-03-13] MEDS ORDERED: CHLORHEXIDINE GLUCONATE 4% CLEANSER FOR DECOLONIZATION TP SCH (22:00)
[2018-03-13] MEDS ORDERED: cloNIDine HCL 0.1 MG TABLET ONE (22:02)
[2018-03-13] MEDS: cloNIDine HCL 0.1 MG TABLET PO SCH (22:05)
[2018-03-14] MEDS ORDERED: D5-1/2NS+20 MEQ KCL - 20 MEQ/1,000 ML INFUS.BAG IV SCH (00:01)
[2018-03-14] MEDS ORDERED: niCARdipine HCL 25 MG/10 ML AMPUL IVPB ONE (05:58)
[2018-03-14 08:22] LABS: ALBUMIN 3.3 g/dl (3.4-5.0); ALK PHOS 65 U/L (45-117); ANION GAP 8 MMOL/L (8-16); BILIRUBIN,TOTAL 0.9 mg/dL (0.2-1); BLOOD UREA NITROGEN 49 mg/dL (7-18); CALCIUM 7.7 mg/dL (8.5-10.1); CHLORIDE 108 mmol/L (98-107); CO2 25 mmol/L (21-32); CREATININE 4.8 mg/dL (0.55-1.3); GLUCOSE,RANDOM 88 mg/dL (74-106); MAGNESIUM 2.4 mg/dL (1.8-2.4); PHOSPHOROUS 4.6 mg/dL (2.5-4.9); POTASSIUM 3.8 mmol/L (3.5-5.1); SGOT/AST 24 U/L (15-37); SGPT/ALT 16 U/L (13-61); SODIUM 140 mmol/L (136-145); TOT PROT 6.1 g/dl (6.4-8.2)
[2018-03-14 09:10] LABS: HEMATOCRIT 28.7 % (35.4-49); HEMOGLOBIN 9.9 GM/dL (11.7-16.9); MCH 30.9 pg (25.7-33.7); MCHC 34.6 g/dl (32.0-35.9); MEAN CELL VOLUME 89.4 fl (80-96); MEAN PLT VOLUME 8.5 fl (7.5-11.1); PLATELET COUNT 76 K/MM3 (134-434); RBC 3.21 M/mm3 (4.00-5.60); RDW 14.2 % (11.9-15.9); WHITE BLOOD COUNT 5.2 K/mm3 (4.0-10.0)
--- NOTE | 2018-03-14 09:50 | CON.CARD ---
Consult Consult Specialty:: Cardiology Referred by:: Selvin Reason for Consultation:: elevated trop, CHF, HTN - History of Present Illness Chief Complaint: HTN History of Present Illness: 53M h/o HTN, CKD stage 5 2/2 FSGS, chronic systolic HF, h/o TN and CVA p/w HTN. BP 240s systolic at Dr. Waterman's office, was sent to ER. Baseline BP generally 170s-180s, checks frequently at home. endorses taking meds. Had recent admission 01/2018 for HTN as well. Has dyspnea on exertion, adelso lower ext edema. no chest pain but had prior to admission along with haedache. Started on nicardipine gtt, amlodipine and clonidine, BP improved. Trop 0.11-> 0.13->0.09. EKG stable compared to prior. 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 Cardio/Vascular: Yes: CAD, CHF, HTN, Hyperlipdemia Renal/: Yes: Renal Failure (Cr 2.2 in 07/2016, suspect due to hypertensive disease) - Past Surgical History Past Surgical History: Yes: Joint Replacement (ankle repair) - Alcohol/Substance Use Hx Alcohol Use: No History of Substance Use: reports: None - Smoking History Smoking history: Former smoker Have you smoked in the past 12 months: No Aproximately how many cigarettes per day: 0 If you are a former smoker, when did you quit?: 2018 - Social History ADL: Independent History of Recent Travel: No Home Medications - Allergies Allergies/Adverse Reactions: Allergies Allergy/AdvReac Type Severity Reaction Status Date / Time No Known Allergies Allergy Verified 03/13/18 11:56 - Home Medications Home Medications: Ambulatory Orders Amlodipine Besylate [Norvasc -] 5 mg PO DAILY 03/13/18 Carvedilol 6.25 mg PO BID 03/13/18 Clonidine HCl [Clonidine HCl ER] 0.2 mg PO BID 03/13/18 Febuxostat [Uloric] 40 mg PO DAILY 03/13/18 Furosemide [Lasix] 40 mg PO BID 03/13/18 Hydralazine HCl 100 mg PO TID 03/13/18 Isosorbide Dinitrate [Isordil -] 30 mg PO TID 03/13/18 Mycophenolate Mofetil [Cellcept -] 500 mg PO DAILY 03/13/18 Pantoprazole Sodium 40 mg PO DAILY 03/13/18 Prednisone [Deltasone] 20 mg PO DAILY 03/13/18 Family Disease History - Family Disease History Family History: Unremarkable Family Disease History: Heart Disease: Mother Review of Systems - Review of Systems Constitutional: reports: Weakness Eyes: reports: No Symptoms HENT: reports: No Symptoms Neck: reports: No Symptoms Cardiovascular: reports: No Symptoms Respiratory: reports: No Symptoms Gastrointestinal: reports: No Symptoms Genitourinary: reports: No Symptoms Integumentary: reports: No Symptoms Neurological: reports: Headache Endocrine: reports: No Symptoms Hematology/Lymphatic: reports: No Symptoms Psychiatric: reports: No Symptoms Vital Signs: Vital Signs Temperature 98.3 F 03/14/18 06:28 Pulse Rate 91 H 03/14/18 06:28 Respiratory Rate 18 03/14/18 06:28 Blood Pressure 145/93 03/14/18 06:28 O2 Sat by Pulse Oximetry (%) 95 03/14/18 06:28 Constitutional: Yes: No Distress, Calm Eyes: Yes: Conjunctiva Clear, EOM Intact HENT: Yes: Atraumatic, Normocephalic Neck: Yes: Supple, Trachea Midline Respiratory: Yes: Regular, CTA Bilaterally Gastrointestinal: Yes: Normal Bowel Sounds, Soft Renal/: Yes: WNL Cardiovascular: Yes: Regular Rate and Rhythm JVD: No Heart Sounds: Yes: S1, S2 Musculoskeletal: Yes: WNL Extremities: Yes: WNL Edema: No Peripheral Pulses: 2+ Left Doralis Pedis, 2+ Right Dorsalis Pedis Integumentary: Yes: WNL Neurological: Yes: Alert, Oriented Psychiatric: Yes: Alert, Oriented - Other Data Labs, Other Data: CBC, BMP 03/14/18 06:20 03/14/18 06:20 INR, PTT INR 1.04 (0.83-1.09) 03/13/18 12:56 Troponin, BNP 03/13/18 03/13/18 03/14/18 12:56 21:13 06:20 Troponin I 0.11 H 0.13 H 0.09 H 03/14/18 06:20 Troponin I Cancelled Troponin, BNP 03/13/18 03/13/18 03/14/18 12:56 21:13 06:20 Troponin I 0.11 H 0.13 H 0.09 H 03/14/18 06:20 Troponin I Cancelled Assessment/Plan EKG 11/28/17: NSR, LVH with repol abn, ? LAFB. no path q's. no signif change vs prior 07/2017 Echo 08/2017: mod LV dilation. moderate concentric LVH. nl LVEF/normal wall motion. nl RV. mild L/ELISABETH. mild MR. no RVSP. Echo 01/2017: EF 40-45%--global hypo, sev conc lvh, grade 2 diast dysfunction. nl rv, mild ar, mod mr. mod phtn MPI 09/03 (chuck): non-diagnostic ECG (baseline LVH with repol abnormalities. normal perfusion. nl LVEF. EKG: sinus, IRBBB, LVH with repol changes tele: sinus 53M h/o HTN, CKD stage 5 2/2 FSGS, chronic systolic HF, h/o TN and CVA p/w HTN Hypertensive urgency - on nicardipine gtt, wean as tolerated, uptitrating PO meds - on labetolol 400 mg TID, hydralazine 100 mg TID, isordil 30 mg TID, d/w Dr. Abraham CKD stage 5 - nephrology Dr. Abraham following - plan for dialysis tomorrow Chronic combined systolic/diastolic HF - appears euvolemic, had been complaining of dyspnea on exertion and mild edema at home - holding lasix - plan for dialysis per Dr. Abraham Positive trop, chest pain - likely in setting of demand from hypertensive urgency in setting of CKD - asymptomatic, EKG unchanged, unlikely ACS - BP control as above, chest pain resolved h/o CVA: -bp meds as doing - cont statin thrombocytopenia, anemia: -low PLTs are chronic, stable, stable anemia
[2018-03-14] MEDS ORDERED: amLODIPine BESYLATE 5 MG TABLET (FP) PO SCH (10:00)
[2018-03-14] MEDS ORDERED: amLODIPine BESYLATE 10 MG TABLET (FP) PO SCH (10:00)
[2018-03-14] MEDS ORDERED: predniSONE 20 MG TABLET (UD) PO SCH (10:00)
[2018-03-14] MEDS: MYCOPHENOLATE MOFETIL 500 MG TABLET PO SCH (10:15)
[2018-03-14] MEDS: PANTOPRAZOLE 40 MG TABLET (FP) PO SCH (10:15)
[2018-03-14] MEDS: cloNIDine HCL 0.1 MG TABLET PO SCH ×2 (10:15→21:27)
[2018-03-14] MEDS: FEBUXOSTAT 40 MG TAB PO SCH (10:15)
[2018-03-14] MEDS ORDERED: LABETALOL HCL 200 MG TABLET (FP) PO SCH ×2 (11:45→12:30)
--- NOTE | 2018-03-14 12:25 | PN ---
Progress Note (short form) - Note Progress Note: Renal follow up for CKD Stage 5 and hypertensive emergency Pt seen and examined in the ER no acute complaints denies any WIGGINS, CP, Abd pian, N/V/D on nicardipine gtt making urine no dizziness Vital Signs Temperature 98.1 F 03/14/18 09:45 Pulse Rate 80 03/14/18 11:44 Respiratory Rate 16 03/14/18 11:44 Blood Pressure 178/108 H 03/14/18 11:44 O2 Sat by Pulse Oximetry (%) 97 03/14/18 11:44 Intake & Output 03/11/18 03/12/18 03/13/18 03/14/18 23:59 23:59 23:59 23:59 Output Total 400 Balance -400 Weight 104.961 kg NAD awake and alert RRR, No M/R CTA soft NT/ND trace edema in LE CBC, BMP 03/14/18 06:20 03/14/18 06:20 Laboratory Tests 02/12/18 03/14/18 10:26 06:20 Calcium 7.6 L 7.7 L Phosphorus 4.6 Magnesium 2.4 Albumin 3.3 L Current Medications Acetaminophen (Tylenol -) 650 mg PO Q4H PRN PRN Reason: PAIN LEVEL 1-5 Chlorhexidine Gluconate (Hibiclens For Decolonization -) 1 applic TP HS [facility] Last Admin: 03/13/18 22:05 Dose: Not Given Clonidine (Catapres -) 0.2 mg PO BID [facility] Last Admin: 03/14/18 10:15 Dose: 0.2 mg Febuxostat (Uloric -) 40 mg PO DAILY [facility] Last Admin: 03/14/18 10:15 Dose: 40 mg Hydralazine HCl (Apresoline -) 100 mg PO TID [facility] Nicardipine HCl 25 mg/ (Dextrose) 250 mls @ 25 mls/hr IVPB TITR LUIS; Protocol Last Admin: 03/13/18 14:29 Dose: 2.5 mg/hr, 25 mls/hr Isosorbide Dinitrate (Isordil -) 30 mg PO TID [facility] Labetalol HCl (Normodyne -) 400 mg PO BID [facility] Mupirocin (Bactroban Ointment (For Decolonization) -) 1 applic NS BID [facility] Stop: 03/18/18 21:59 Last Admin: 03/13/18 22:05 Dose: Not Given Mycophenolate Mofetil (Cellcept -) 500 mg PO DAILY [facility] Last Admin: 03/14/18 10:15 Dose: 500 mg Pantoprazole Sodium (Protonix -) 40 mg PO DAILY [facility] Last Admin: 03/14/18 10:15 Dose: 40 mg Prednisone (Deltasone -) 20 mg PO DAILY [facility] Last Admin: 03/14/18 10:15 Dose: 20 mg 53 year old gentleman with hx of CKD Stage 5 secondary to FSGS, Difficult to control hypertension, systolic HF who was sent from Dr. Jordan office with uncontrolled hypertension and uremic symptoms. #Uncontrolled Hypertension #CKD Stage 5 with mild uremic symptoms #Hx of CHF w/o evidence of acute exacerbation #Mild Hypokalemia D/c Prednisone (was getting for FSGS but no improvemet seen in clinical status seen as outpatient) BP at goal right now ~170/100 Will start Labetalol 400mg TID, Hydralazine 100mg TID, Isordil 30mg TID Continue Clonidine Plan to titrate off Nicardpine gtt today will defer dialysis access placement to tomorrow start renal diet Trend renal function and electrolytes Farrukh Abraham DO
--- NOTE | 2018-03-14 12:28 | PN ---
Progress Note, Physician Chief Complaint: Mr Nuñez has no new complaints. Still with complaints of headache, visual changes, and chest pain but unchanged from yesterday. Eager to have vas cath placed because wants to get better. - Current Medication List Current Medications: Active Medications Acetaminophen (Tylenol -) 650 mg PO Q4H PRN PRN Reason: PAIN LEVEL 1-5 Chlorhexidine Gluconate (Hibiclens For Decolonization -) 1 applic TP HS [facility] Last Admin: 03/13/18 22:05 Dose: Not Given Clonidine (Catapres -) 0.2 mg PO BID [facility] Last Admin: 03/14/18 10:15 Dose: 0.2 mg Febuxostat (Uloric -) 40 mg PO DAILY [facility] Last Admin: 03/14/18 10:15 Dose: 40 mg Hydralazine HCl (Apresoline -) 100 mg PO TID [facility] Nicardipine HCl 25 mg/ (Dextrose) 250 mls @ 25 mls/hr IVPB TITR [facility]; Protocol Last Admin: 03/13/18 14:29 Dose: 2.5 mg/hr, 25 mls/hr Isosorbide Dinitrate (Isordil -) 30 mg PO TID [facility] Labetalol HCl (Normodyne -) 400 mg PO TID [facility] Mupirocin (Bactroban Ointment (For Decolonization) -) 1 applic NS BID [facility] Stop: 03/18/18 21:59 Last Admin: 03/13/18 22:05 Dose: Not Given Mycophenolate Mofetil (Cellcept -) 500 mg PO DAILY [facility] Last Admin: 03/14/18 10:15 Dose: 500 mg Pantoprazole Sodium (Protonix -) 40 mg PO DAILY [facility] Last Admin: 03/14/18 10:15 Dose: 40 mg - Objective Vital Signs: Vital Signs Temperature 36.7 C 03/14/18 09:45 Pulse Rate 80 03/14/18 11:44 Respiratory Rate 16 03/14/18 11:44 Blood Pressure 178/108 H 03/14/18 11:44 O2 Sat by Pulse Oximetry (%) 97 03/14/18 11:44 Constitutional: Yes: No Distress, Calm, Obese Cardiovascular: Yes: Regular Rate and Rhythm, Murmur. No: Gallop, Rub Respiratory: Yes: Regular, CTA Bilaterally. No: Rales, Rhonchi, Wheezes Gastrointestinal: Yes: Normal Bowel Sounds, Soft. No: Distention, Tenderness Extremities: Yes: WNL Edema: No Labs: CBC, BMP 03/14/18 06:20 03/14/18 06:20 INR, PTT INR 1.04 (0.83-1.09) 03/13/18 12:56 Problem List - Problems (1) Hypertensive urgency Code(s): I16.0 - HYPERTENSIVE URGENCY (2) FSGS (focal segmental glomerulosclerosis) Code(s): N05.1 - UNSP NEPH SYNDROME W FOCAL AND SEGMENTAL GLOMERULAR LESIONS (3) Anemia in chronic kidney disease Code(s): N18.9 - CHRONIC KIDNEY DISEASE, UNSPECIFIED; D63.1 - ANEMIA IN CHRONIC KIDNEY DISEASE Qualifiers: Chronic kidney disease stage: stage 4 (severe) Qualified Code(s): N18.4 - Chronic kidney disease, stage 4 (severe); D63.1 - Anemia in chronic kidney disease (4) CHF (congestive heart failure) Code(s): I50.9 - HEART FAILURE, UNSPECIFIED Qualifiers: Heart failure type: diastolic Heart failure chronicity: chronic Qualified Code(s): I50.32 - Chronic diastolic (congestive) heart failure (5) Elevated troponin Code(s): R74.8 - ABNORMAL LEVELS OF OTHER SERUM ENZYMES (6) Murmur, cardiac Code(s): R01.1 - CARDIAC MURMUR, UNSPECIFIED (7) Thrombocytopenia Code(s): D69.6 - THROMBOCYTOPENIA, UNSPECIFIED Assessment/Plan (1) Hypertensive urgency Assessment/Plan: -case d/w Dr Abraham -on nicardipine gtt with goal BP 170/90-100 -attempt to titrate nicardipine gtt off today -patient placed on hydralazine, isordil, clonidine, and labetalol Code(s): I16.0 - HYPERTENSIVE URGENCY (2) FSGS (focal segmental glomerulosclerosis) Assessment/Plan: -cause of CKD -plan for vas cath placement tomorrow per nephrology Code(s): N05.1 - UNSP NEPH SYNDROME W FOCAL AND SEGMENTAL GLOMERULAR LESIONS (3) Anemia in chronic kidney disease Assessment/Plan: -stable -monitor Code(s): N18.9 - CHRONIC KIDNEY DISEASE, UNSPECIFIED; D63.1 - ANEMIA IN CHRONIC KIDNEY DISEASE Qualifiers: Chronic kidney disease stage: stage 4 (severe) Qualified Code(s): N18.4 - Chronic kidney disease, stage 4 (severe); D63.1 - Anemia in chronic kidney disease (4) CHF (congestive heart failure) Assessment/Plan: -not in exacerbation -holding lasix -planning for HD Code(s): I50.9 - HEART FAILURE, UNSPECIFIED Qualifiers: Heart failure type: diastolic Heart failure chronicity: chronic Qualified Code(s): I50.32 - Chronic diastolic (congestive) heart failure (5) Elevated troponin Assessment/Plan: -case d/w cardiology -troponin peaked -not ACS, secondary to HTN and CKD Code(s): R74.8 - ABNORMAL LEVELS OF OTHER SERUM ENZYMES (6) Murmur, cardiac Assessment/Plan: -noted Code(s): R01.1 - CARDIAC MURMUR, UNSPECIFIED (7) Thrombocytopenia Assessment/Plan: -follow Code(s): D69.6 - THROMBOCYTOPENIA, UNSPECIFIED
[2018-03-14] MEDS: hydrALAZINE HCL 50 MG TABLET (FP) PO SCH ×3 (12:58→21:27)
[2018-03-14] MEDS: ISOSORBIDE DINITRATE 10 MG TABLET (FP) PO SCH ×3 (12:58→21:28)
--- NOTE | 2018-03-14 14:26 | PN ---
Physical Exam: SUBJECTIVE: - No new complaints today. - Nicardipine gtt off today, started oral BP meds with significant improvement - Plan to defer dialysis catheter placement until tomorrow per Dr Abraham OBJECTIVE: Vital Signs Period Temp Pulse Resp BP Sys/Pichardo Pulse Ox Last 24 Hr 98.1 F-98.5 F 65-93 16-20 145-220/88-134 93-98 General: Comfortable, no acute distress, pleasant HEENT: PERRL, EOMI, MMM, voice normal, normal neck ROM Cards: RRR, no murmur appreciated Pulm: Comfortable on room air, clear to auscultation bilaterally Abd: Soft, nontender, nondistended : mild CVA tenderness Ext: Atraumatic. 1+ non-pitting BLE edema. ROM intact. Strength 5/5 and equal bilaterally Vasc: Extremities WWP. Palpable radial and pedal pulses bilaterally Skin: Normal color, no rashes or lesions Neuro: A&Ox3, CN grossly intact, normal speech, motor/sensory grossly intact and symmetric Psych: Mood appropriate to situation Laboratory Results - last 24 hr 03/13/18 03/13/18 03/13/18 15:55 15:55 21:13 WBC RBC Hgb Hct MCV MCH MCHC RDW Plt Count MPV Sodium Potassium Chloride Carbon Dioxide Anion Gap BUN Creatinine Creat Clearance w eGFR Random Glucose Calcium Phosphorus Magnesium Total Bilirubin AST ALT Alkaline Phosphatase Creatine Kinase Troponin I Total Protein Albumin Urine Color Ltyellow Urine Appearance Clear Urine pH 5.0 Ur Specific Dingle 1.008 Urine Protein 3+ H 236 H Urine Glucose (UA) Negative Urine Ketones Negative Urine Blood Negative Urine Nitrite Negative Urine Bilirubin Negative Urine Urobilinogen Negative Ur Leukocyte Esterase Negative Urine WBC (Auto) 1 Urine RBC (Auto) <1 Ur Random Sodium 52 Urine Creatinine 68.0 H Hepatitis Be Antigen Cancelled 03/13/18 03/14/18 03/14/18 21:13 06:20 06:20 WBC 5.2 RBC 3.21 L Hgb 9.9 L Hct 28.7 L MCV 89.4 MCH 30.9 MCHC 34.6 RDW 14.2 Plt Count 76 L MPV 8.5 Sodium 140 Potassium 3.8 Chloride 108 H Carbon Dioxide 25 Anion Gap 8 BUN 49 H Creatinine 4.8 H Creat Clearance w eGFR 12.84 Random Glucose 88 Calcium 7.7 L Phosphorus 4.6 Magnesium 2.4 Total Bilirubin 0.9 AST 24 ALT 16 Alkaline Phosphatase 65 Creatine Kinase 94 102 Troponin I 0.13 H 0.09 H Total Protein 6.1 L Albumin 3.3 L Urine Color Urine Appearance Urine pH Ur Specific Dingle Urine Protein Urine Glucose (UA) Urine Ketones Urine Blood Urine Nitrite Urine Bilirubin Urine Urobilinogen Ur Leukocyte Esterase Urine WBC (Auto) Urine RBC (Auto) Ur Random Sodium Urine Creatinine Hepatitis Be Antigen 03/14/18 06:20 WBC RBC Hgb Hct MCV MCH MCHC RDW Plt Count MPV Sodium Potassium Chloride Carbon Dioxide Anion Gap BUN Creatinine Creat Clearance w eGFR Random Glucose Calcium Phosphorus Magnesium Total Bilirubin AST ALT Alkaline Phosphatase Creatine Kinase Cancelled Troponin I Cancelled Total Protein Albumin Urine Color Urine Appearance Urine pH Ur Specific Dingle Urine Protein Urine Glucose (UA) Urine Ketones Urine Blood Urine Nitrite Urine Bilirubin Urine Urobilinogen Ur Leukocyte Esterase Urine WBC (Auto) Urine RBC (Auto) Ur Random Sodium Urine Creatinine Hepatitis Be Antigen Active Medications Generic Name Dose Route Start Last Admin Trade Name Freq PRN Reason Stop Dose Admin Acetaminophen 650 mg 03/13/18 15:34 Tylenol - PO Q4H PRN PAIN LEVEL 1-5 Chlorhexidine Gluconate 1 applic 03/13/18 22:00 03/13/18 22:05 Hibiclens For Decolonization - TP Not Given HS [facility] Clonidine 0.2 mg 03/13/18 22:00 03/14/18 10:15 Catapres - PO 0.2 mg BID [facility] Administration Febuxostat 40 mg 03/14/18 10:00 03/14/18 10:15 Uloric - PO 40 mg DAILY [facility] Administration Hydralazine HCl 100 mg 03/14/18 11:38 03/14/18 12:58 Apresoline - PO 100 mg TID [facility] Administration Nicardipine HCl 25 mg/ 250 mls @ 25 mls/hr 03/13/18 14:15 03/13/18 14:29 Dextrose IVPB 2.5 mg/hr TITR [facility] 25 mls/hr Administration Protocol 2.5 MG/HR Isosorbide Dinitrate 30 mg 03/14/18 11:42 03/14/18 12:58 Isordil - PO 30 mg TID [facility] Administration Labetalol HCl 400 mg 03/14/18 22:00 Normodyne - PO TID [facility] Mupirocin 1 applic 03/13/18 22:00 03/13/18 22:05 Bactroban Ointment (For Decolonization) - NS 03/18/18 21:59 Not Given BID [facility] Mycophenolate Mofetil 500 mg 03/14/18 10:00 03/14/18 10:15 Cellcept - PO 500 mg DAILY [facility] Administration Pantoprazole Sodium 40 mg 03/14/18 10:00 03/14/18 10:15 Protonix - PO 40 mg DAILY [facility] Administration ASSESSMENT/PLAN: Erasmo Nuñez is a 53yo man with a PMH of CKD5, difficult to control HTN, systolic CHF, h/o CVA and IN who presented to the 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 Hypertension to the 240' s systolic was noted on arrival to the ED as well, but his blood pressure has now improved significantly. Mr Nuñez now appears to have adequate blood pressure control with oral medications. Though initially admitted to the ICU, he may be appropriate for admission to telemetry if he is able to remain off any antihypertensive drips. Neuro: - A&O. - Acetaminophen PRN for pain CV: - Hypertensive urgency - Per Dr Abraham, BP goal is 170/90-100. Currently at goal, can defer dialysis and catheter placement until tomorrow. - Recs: o Titrate off nicardipine drip --> has been successfully stopped today o Continue clonidine 0.2 BID o Labetelol 400mg TID, hydralazine 100mg TID, isosorbide dinitrate 20mg TID - Cardiology following; agree with discontinuing drip and starting oral antihypertensives Pulm: - Currently no issues - Encourage OOB - IS 10x per hour Heme: - Chronic anemia secondary to CKD - Monitor daily CBC GI: - Renal diet - To be NPO at midnight prior to dialysis catheter placement Renal: - CKD 5 - Nephrology following - Plan to start dialysis during this admission - Vascular surgery consulted, vein mapping ordered - Prednisone and mycophenolate per primary ID: - No issues Endo: - No issues Psych: - No issues Musc: - OOB as tolerated PPx: - SCD's - Pantoprazole FEN: - Renal diet - SLIV - Replete lytes PRN Dispo: - Currently in ED pending bed availability - To ICU if requiring drip for BP management, but likely appropriate for telemetry if he continues to be within his goal on oral medications. To be discussed with Dr Riggins. Vanessa Gomez PGY1 Visit type - Emergency Visit Emergency Visit: No - New Patient This patient is new to me today: No - Critical Care Critical Care patient: Yes Total Critical Care Time (in minutes): 45 Critical Care Statement: The care of this patient involved high complexity decision making to prevent further life threatening deterioration of the patient 's condition and/or to evaluate & treat vital organ system(s) failure or risk of failure.
[2018-03-14] MEDS: NICARDIPINE 25 MG in DEXTROSE 5%-WATER - 240 ML IVPB SCH (15:20)
--- NOTE | 2018-03-14 17:53 | PN ---
Progress Note (short form) - Note Progress Note: Pt has been off Nicardipine gtt for about 3 hours. BP 160/100. Tolerating oral meds. Will downgrade to Tele. Continue oral antihypertensive meds Farrukh Abraham DO
[2018-03-14 21:10] VITALS: BMI 30.3
[2018-03-14] MEDS: LABETALOL HCL 200 MG TABLET (FP) PO SCH (21:40)
[2018-03-15] MEDS: ISOSORBIDE DINITRATE 10 MG TABLET (FP) PO SCH ×3 (05:42→14:10)
[2018-03-15] MEDS: hydrALAZINE HCL 50 MG TABLET (FP) PO SCH ×4 (05:42→21:45)
[2018-03-15] MEDS: LABETALOL HCL 200 MG TABLET (FP) PO SCH ×4 (05:42→21:44)
[2018-03-15 06:11] LABS: HEP.C VIRUS AB 0.1 s/co ratio (0.0-0.9)
[2018-03-15 06:21] LABS: BASO % 0.3 % (0-2.0); EOS % 0.4 % (0-4.5); HEMATOCRIT 25.2 % (35.4-49); HEMOGLOBIN 8.8 GM/dL (11.7-16.9); LYMPH % 17.6 % (8-40); MCH 31.2 pg (25.7-33.7); MCHC 34.9 g/dl (32.0-35.9); MEAN CELL VOLUME 89.3 fl (80-96); MEAN PLT VOLUME 9.3 fl (7.5-11.1); MONO % 8.7 % (3.8-10.2); PLATELET COUNT 81 K/MM3 (134-434); RBC 2.82 M/mm3 (4.00-5.60); RDW 14.3 % (11.9-15.9); WHITE BLOOD COUNT 5.7 K/mm3 (4.0-10.0)
[2018-03-15 06:57] LABS: ANION GAP 14 MMOL/L (8-16); BLOOD UREA NITROGEN 50 mg/dL (7-18); CHLORIDE 106 mmol/L (98-107); CO2 21 mmol/L (21-32); CREATININE 5.4 mg/dL (0.55-1.3); GLUCOSE,RANDOM 106 mg/dL (74-106); MAGNESIUM 2.4 mg/dL (1.8-2.4); PHOSPHOROUS 4.3 mg/dL (2.5-4.9); POTASSIUM 3.6 mmol/L (3.5-5.1); SODIUM 141 mmol/L (136-145)
--- NOTE | 2018-03-15 09:23 | SPA.PREOP ---
- PRE-OP NOTE Dx: ESRD Planned Procedure: Permacatheter insertion Surgeon: Bhupinder Consent: To be otained after surgeon explains all risks, benefits and alternatives. Last Vital Signs Temp Pulse Resp BP Pulse Ox 98.0 F 80 18 152/90 96 03/15/18 06:00 03/15/18 06:00 03/15/18 06:00 03/15/18 06:00 03/14/18 21:00 Lab Results WBC 5.7 K/mm3 (4.0-10.0) 03/15/18 05:30 RBC 2.82 M/mm3 (4.00-5.60) L 03/15/18 05:30 Hgb 8.8 GM/dL (11.7-16.9) L 03/15/18 05:30 Hct 25.2 % (35.4-49) L 03/15/18 05:30 MCV 89.3 fl (80-96) 03/15/18 05:30 MCHC 34.9 g/dl (32.0-35.9) 03/15/18 05:30 RDW 14.3 % (11.9-15.9) 03/15/18 05:30 Plt Count 81 K/MM3 (134-434) L 03/15/18 05:30 Sodium 141 mmol/L (136-145) 03/15/18 05:30 Potassium 3.6 mmol/L (3.5-5.1) 03/15/18 05:30 Chloride 106 mmol/L (98-107) 03/15/18 05:30 Carbon Dioxide 21 mmol/L (21-32) 03/15/18 05:30 Anion Gap 14 MMOL/L (8-16) 03/15/18 05:30 BUN 50 mg/dL (7-18) H 03/15/18 05:30 Creatinine 5.4 mg/dL (0.55-1.3) H 03/15/18 05:30 Random Glucose 106 mg/dL (74-106) 03/15/18 05:30 Calcium 8.0 mg/dL (8.5-10.1) L 03/15/18 05:30 Blood Type O POSITIVE 03/14/18 13:24 Antibody Screen Negative 03/14/18 13:24 INR 1.04 (0.83-1.09) 03/13/18 12:56 - ASSESSMENT/PLAN 1. NPO 2. GI/DVT PPX 3. Scheduled for 4PM Visit type - Case Type Case Type: ED Admission
--- NOTE | 2018-03-15 10:53 | PN ---
Progress Note (short form) - Note Progress Note: s: no cp palps dizzy; +mild eldridge o: Vital Signs Period Temp Pulse Resp BP Sys/Pichardo Pulse Ox Last 24 Hr 97.7 F-98.3 F 18-85 16-20 127-178/74-108 96-100 Constitutional: Yes: No Distress, Calm Eyes: Yes: Conjunctiva Clear Respiratory: Yes: Regular, CTA Bilaterally Gastrointestinal: Yes: Normal Bowel Sounds, Soft Cardiovascular: Yes: Regular Rate and Rhythm JVD: No Heart Sounds: Yes: S1, S2 Edema: No Peripheral Pulses: 2+ Left Doralis Pedis, 2+ Right Dorsalis Pedis Integumentary: Yes: no jaundice diaphoresis Neurological: Yes: Alert, Oriented Current Medications Generic Name Dose Route Start Last Admin Trade Name Freq PRN Reason Stop Dose Admin Acetaminophen 650 mg 03/13/18 15:34 Tylenol - PO Q4H PRN PAIN LEVEL 1-5 Clonidine 0.2 mg 03/13/18 22:00 03/14/18 21:27 Catapres - PO 0.2 mg BID [facility] Administration Febuxostat 40 mg 03/14/18 10:00 03/14/18 10:15 Uloric - PO 40 mg DAILY [facility] Administration Hydralazine HCl 100 mg 03/14/18 11:38 03/15/18 07:19 Apresoline - PO 100 mg TID [facility] Administration Influenza Virus Vaccine Quadrival 60 mcg 03/15/18 13:00 Flulaval Quad [id number] IM 03/15/18 13:01 .ONCE ONE Isosorbide Dinitrate 30 mg 03/14/18 11:42 03/15/18 07:19 Isordil - PO 30 mg TID [facility] Administration Labetalol HCl 400 mg 03/14/18 22:00 03/15/18 07:19 Normodyne - PO 400 mg TID [facility] Administration Mycophenolate Mofetil 500 mg 03/14/18 10:00 03/14/18 10:15 Cellcept - PO 500 mg DAILY [facility] Administration Pantoprazole Sodium 40 mg 03/14/18 10:00 03/14/18 10:15 Protonix - PO 40 mg DAILY [facility] Administration Pneumococcal 13-Valent Conj Vacc 0.5 ml 03/15/18 13:00 Prevnar 13 Syringe - IM 03/15/18 13:01 .ONCE ONE CBC, BMP 03/15/18 05:30 03/15/18 05:30 EKG 11/28/17: NSR, LVH with repol abn, ? LAFB. no path q's. no signif change vs prior 07/2017 Echo 08/2017: mod LV dilation. moderate concentric LVH. nl LVEF/normal wall motion. nl RV. mild L/ELISABETH. mild MR. no RVSP. Echo 01/2017: EF 40-45%--global hypo, sev conc lvh, grade 2 diast dysfunction. nl rv, mild ar, mod mr. mod phtn MPI 09/03 (chuck): non-diagnostic ECG (baseline LVH with repol abnormalities. normal perfusion. nl LVEF. 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, chronic systolic HF, h/o CT and CVA p/w HTN Hypertensive urgency - was on nicardipine gtt, now off, bp improved, cont current po meds - on labetolol 400 mg TID, hydralazine 100 mg TID, isordil 30 mg TID CKD stage 5 - nephrology Dr. Abraham following - plan for dialysis here Chronic combined systolic/diastolic HF - appears euvolemic, had been complaining of dyspnea on exertion and mild edema at home - holding lasix - plan for dialysis per renal Positive trop, chest pain - likely in setting of demand from hypertensive urgency in setting of CKD - asymptomatic, EKG unchanged, unlikely ACS - BP control as above, chest pain resolved h/o CVA: -bp meds as doing -cont statin
[2018-03-15] MEDS: FEBUXOSTAT 40 MG TAB PO SCH (11:03)
[2018-03-15] MEDS: MYCOPHENOLATE MOFETIL 500 MG TABLET PO SCH (11:03)
[2018-03-15] MEDS: PANTOPRAZOLE 40 MG TABLET (FP) PO SCH (11:03)
[2018-03-15] MEDS: cloNIDine HCL 0.1 MG TABLET PO SCH ×2 (11:35→21:45)
--- NOTE | 2018-03-15 12:21 | PN ---
Progress Note, Physician Chief Complaint: Mr Nuñez says he is feeling well and is without complaint today. No cp, sob, n/v. He is in very good spirits today. - Current Medication List Current Medications: Active Medications Acetaminophen (Tylenol -) 650 mg PO Q4H PRN PRN Reason: PAIN LEVEL 1-5 Clonidine (Catapres -) 0.2 mg PO BID [facility] Last Admin: 03/15/18 11:35 Dose: Not Given Febuxostat (Uloric -) 40 mg PO DAILY [facility] Last Admin: 03/15/18 11:03 Dose: Not Given Hydralazine HCl (Apresoline -) 100 mg PO TID [facility] Last Admin: 03/15/18 07:19 Dose: 100 mg Influenza Virus Vaccine Quadrival (Flulaval Quad [id number]) 60 mcg IM .ONCE ONE Stop: 03/15/18 13:01 Isosorbide Dinitrate (Isordil -) 30 mg PO TID [facility] Last Admin: 03/15/18 07:19 Dose: 30 mg Labetalol HCl (Normodyne -) 400 mg PO TID [facility] Last Admin: 03/15/18 07:19 Dose: 400 mg Mycophenolate Mofetil (Cellcept -) 500 mg PO DAILY [facility] Last Admin: 03/15/18 11:03 Dose: Not Given Pantoprazole Sodium (Protonix -) 40 mg PO DAILY [facility] Last Admin: 03/15/18 11:03 Dose: Not Given Pneumococcal 13-Valent Conj Vacc (Prevnar 13 Syringe -) 0.5 ml IM .ONCE ONE Stop: 03/15/18 13:01 - Objective Vital Signs: Vital Signs Temperature 36.6 C 03/15/18 10:00 Pulse Rate 64 03/15/18 10:00 Respiratory Rate 18 03/15/18 10:00 Blood Pressure 148/88 03/15/18 10:00 O2 Sat by Pulse Oximetry (%) 96 03/15/18 09:00 Constitutional: Yes: No Distress, Calm, Obese Cardiovascular: Yes: Regular Rate and Rhythm. No: Gallop, Murmur, Rub Respiratory: Yes: Regular, CTA Bilaterally. No: Rales, Rhonchi, Wheezes Gastrointestinal: Yes: Normal Bowel Sounds, Soft. No: Distention, Tenderness Extremities: Yes: WNL Edema: No Labs: CBC, BMP 03/15/18 05:30 03/15/18 05:30 INR, PTT INR 1.04 (0.83-1.09) 03/13/18 12:56 Problem List - Problems (1) Hypertensive urgency Code(s): I16.0 - HYPERTENSIVE URGENCY (2) FSGS (focal segmental glomerulosclerosis) Code(s): N05.1 - UNSP NEPH SYNDROME W FOCAL AND SEGMENTAL GLOMERULAR LESIONS (3) Anemia in chronic kidney disease Code(s): N18.9 - CHRONIC KIDNEY DISEASE, UNSPECIFIED; D63.1 - ANEMIA IN CHRONIC KIDNEY DISEASE Qualifiers: Chronic kidney disease stage: stage 4 (severe) Qualified Code(s): N18.4 - Chronic kidney disease, stage 4 (severe); D63.1 - Anemia in chronic kidney disease (4) CHF (congestive heart failure) Code(s): I50.9 - HEART FAILURE, UNSPECIFIED Qualifiers: Heart failure type: diastolic Heart failure chronicity: chronic Qualified Code(s): I50.32 - Chronic diastolic (congestive) heart failure (5) Elevated troponin Code(s): R74.8 - ABNORMAL LEVELS OF OTHER SERUM ENZYMES (6) Murmur, cardiac Code(s): R01.1 - CARDIAC MURMUR, UNSPECIFIED (7) Thrombocytopenia Code(s): D69.6 - THROMBOCYTOPENIA, UNSPECIFIED Assessment/Plan (1) Hypertensive urgency Assessment/Plan: -case d/w Dr Abraham -titrated off nicardipine gtt -blood pressure much improved -patient placed on hydralazine, isordil, clonidine, and labetalol Code(s): I16.0 - HYPERTENSIVE URGENCY (2) FSGS (focal segmental glomerulosclerosis) Assessment/Plan: -vas cath placement with HD tonight Code(s): N05.1 - UNSP NEPH SYNDROME W FOCAL AND SEGMENTAL GLOMERULAR LESIONS (3) Anemia in chronic kidney disease Assessment/Plan: -stable -monitor Code(s): N18.9 - CHRONIC KIDNEY DISEASE, UNSPECIFIED; D63.1 - ANEMIA IN CHRONIC KIDNEY DISEASE Qualifiers: Chronic kidney disease stage: stage 4 (severe) Qualified Code(s): N18.4 - Chronic kidney disease, stage 4 (severe); D63.1 - Anemia in chronic kidney disease (4) CHF (congestive heart failure) Assessment/Plan: -not in exacerbation -holding lasix -planning for HD Code(s): I50.9 - HEART FAILURE, UNSPECIFIED Qualifiers: Heart failure type: diastolic Heart failure chronicity: chronic Qualified Code(s): I50.32 - Chronic diastolic (congestive) heart failure (5) Elevated troponin Assessment/Plan: -case d/w cardiology -troponin peaked -not ACS, secondary to HTN and CKD Code(s): R74.8 - ABNORMAL LEVELS OF OTHER SERUM ENZYMES (6) Murmur, cardiac Assessment/Plan: -noted Code(s): R01.1 - CARDIAC MURMUR, UNSPECIFIED (7) Thrombocytopenia Assessment/Plan: -follow Code(s): D69.6 - THROMBOCYTOPENIA, UNSPECIFIED
[2018-03-15] MEDS ORDERED: PNEUMOC 13-VAL CONJ-DIP CRM/PF 0.5 ML DISP.SYRIN IM ONE (13:00)
[2018-03-15] MEDS ORDERED: FLU VACCINE QUAD 60 MCG/0.5 ML (MDV 18-19) IM ONE (13:00)
--- NOTE | 2018-03-15 14:06 | PN ---
Progress Note (short form) - Note Progress Note: Renal follow up for CKD Stage 5 and hypertensive emergency Pt seen and examined at the bedside no acute complaints BP controlled on oral meds denies any WIGGINS, blurry vision, CP, SOB making urine Vital Signs Temperature 98.5 F 03/15/18 14:00 Pulse Rate 70 03/15/18 14:00 Respiratory Rate 18 03/15/18 14:00 Blood Pressure 154/92 03/15/18 14:00 O2 Sat by Pulse Oximetry (%) 96 03/15/18 09:00 Intake & Output 03/12/18 03/13/18 03/14/18 03/15/18 23:59 23:59 23:59 23:59 Intake Total 410 10 Output Total 800 400 Balance -390 -390 Weight 104.961 kg 104.326 kg NAD awake and alert RRR, No M/R CTA soft NT/ND trace edema in LE CBC, BMP 03/15/18 05:30 03/15/18 05:30 Current Medications Acetaminophen (Tylenol -) 650 mg PO Q4H PRN PRN Reason: PAIN LEVEL 1-5 Clonidine (Catapres -) 0.2 mg PO BID [facility] Last Admin: 03/15/18 11:35 Dose: Not Given Febuxostat (Uloric -) 40 mg PO DAILY [facility] Last Admin: 03/15/18 11:03 Dose: Not Given Hydralazine HCl (Apresoline -) 100 mg PO TID [facility] Last Admin: 03/15/18 07:19 Dose: 100 mg Isosorbide Dinitrate (Isordil -) 30 mg PO TID [facility] Last Admin: 03/15/18 07:19 Dose: 30 mg Labetalol HCl (Normodyne -) 400 mg PO TID [facility] Last Admin: 03/15/18 07:19 Dose: 400 mg Mycophenolate Mofetil (Cellcept -) 500 mg PO DAILY [facility] Last Admin: 03/15/18 11:03 Dose: Not Given Pantoprazole Sodium (Protonix -) 40 mg PO DAILY [facility] Last Admin: 03/15/18 11:03 Dose: Not Given 53 year old gentleman with hx of CKD Stage 5 secondary to FSGS, Difficult to control hypertension, systolic HF who was sent from Dr. Jordan office with uncontrolled hypertension and uremic symptoms. #Uncontrolled Hypertension #CKD Stage 5 with mild uremic symptoms now with ESRD requiring dialysis #Hx of CHF w/o evidence of acute exacerbation #Mild Hypokalemia #CKD related Anemia BP now controlled on Labetalol, Isorodil, Hydralazine, and Clonidine Once pt starts dialysis will start on ARB For dialysis access placement today followed by first dialysis Informed consent obtained and is in the chart will get 2nd tx tomorrow outpatient dialysis placement needed Will give EMERY with HD, will need to check iron levels Dose all meds for ESRD on intermittent HD Farrukh Abraham DO
[2018-03-15] MEDS ORDERED: LIDOCAINE HCL 2% (20ML MULTI-DOSE VIAL) NR ONE (15:47)
[2018-03-15] MEDS ORDERED: PROPOFOL 20 ML ONE (15:49)
[2018-03-15] MEDS ORDERED: MIDAZOLAM HCL 2 MG/2 ML SINGLE DOSE VIAL ONE (15:50)
[2018-03-15] MEDS ORDERED: LIDOCAINE HCL/PF 2% SDV 5ML VIAL ONE (15:52)
[2018-03-15] MEDS ORDERED: ceFAZolin SODIUM 1 GM VIAL IVPB ONE (16:31)
[2018-03-15] MEDS ORDERED: ONDANSETRON 4 MG/2 ML VIAL IVPUSH PRN ×2 (16:40→18:10)
[2018-03-15] MEDS ORDERED: LIDOCAINE HCL 1%, 10 MG/ML (20ML VIAL) PNB ONE ×2 (16:45)
--- NOTE | 2018-03-15 17:23 | PN ---
Progress Note (short form) - Note Progress Note: s/p permacath placement Chest x-ray done, dialysis catheter is good to use discussed case with Dr. Roe. Farrukh Abraham DO
--- NOTE | 2018-03-15 17:23 | OP ---
Operative Note - Note: Operative Date: 03/15/18 Pre-Operative Diagnosis: ESRD Operation: Placement Permacath Findings: Patent right IJ Implants: 28 cm Permacath Post-Operative Diagnosis: Same as Pre-op Surgeon: Supa Roe Anesthesiologist/INVOICING MACHINE OPERATOR: Isacc Brennan Anesthesia: Fractional
[2018-03-15] MEDS ORDERED: SODIUM CHLORIDE 250 ML IV PRN ×5 (18:05→20:05)
[2018-03-15] MEDS ORDERED: EPOETIN ALFA 2,000 UNIT/1 ML VIAL IVPUSH ONE (18:10)
[2018-03-15] MEDS ORDERED: HEPARIN NA (PORCINE) 5,000 UNITS/ML 1ML VIAL IVPUSH ONE ×3 (18:10→20:15)
[2018-03-15] MEDS ORDERED: HEPARIN NA (PORCINE) 5,000 UNITS/ML 1ML VIAL IVPUSH SCH ×2 (18:15)
[2018-03-15] MEDS ORDERED: EPOETIN ALFA 10,000 UNIT/1 ML VIAL IVPUSH ONE ×2 (18:15→20:15)
[2018-03-15] MEDS: HEPARIN NA (PORCINE) 5,000 UNITS/ML 1ML VIAL IVPUSH SCH ×2 (21:14→21:16)
[2018-03-15] MEDS ORDERED: PT OWN MED DRAWER 7, Y5N ONE (21:20)
[2018-03-15] MEDS: ACETAMINOPHEN 325 MG TABLET (FP) PO PRN (21:45)
[2018-03-16] MEDS ORDERED: oxyCODONE HCL 5 MG TABLET PO ONE (00:19)
[2018-03-16] MEDS ORDERED: CYCLOBENZAPRINE HCL 10 MG TABLET (FP) PO ONE (01:38)
[2018-03-16] MEDS: LABETALOL HCL 200 MG TABLET (FP) PO SCH ×3 (05:53→13:29)
[2018-03-16] MEDS: ACETAMINOPHEN 325 MG TABLET (FP) PO PRN ×2 (05:53→12:19)
[2018-03-16] MEDS: hydrALAZINE HCL 50 MG TABLET (FP) PO SCH ×3 (05:54→13:29)
[2018-03-16 07:16] LABS: BASO % 0.4 % (0-2.0); HEMOGLOBIN 8.2 GM/dL (11.7-16.9); LYMPH % 24.4 % (8-40); MCH 30.9 pg (25.7-33.7); MEAN CELL VOLUME 90.8 fl (80-96); MEAN PLT VOLUME 9.6 fl (7.5-11.1); NEUT % 64.2 % (42.8-82.8); PLATELET COUNT 70 K/MM3 (134-434); RBC 2.65 M/mm3 (4.00-5.60); RDW 13.8 % (11.9-15.9); WHITE BLOOD COUNT 4.3 K/mm3 (4.0-10.0)
[2018-03-16] MEDS: ISOSORBIDE DINITRATE 10 MG TABLET (FP) PO SCH ×2 (08:30→12:25)
[2018-03-16] MEDS ORDERED: PANTOPRAZOLE 40 MG TABLET (FP) PO SCH (10:00)
[2018-03-16] MEDS ORDERED: MYCOPHENOLATE MOFETIL 500 MG TABLET PO SCH (10:00)
[2018-03-16] MEDS ORDERED: FEBUXOSTAT 40 MG TAB PO SCH (10:00)
[2018-03-16] MEDS: cloNIDine HCL 0.1 MG TABLET PO SCH ×2 (10:19→11:15)
[2018-03-16 10:34] LABS: ANION GAP 11 MMOL/L (8-16); BLOOD UREA NITROGEN 41 mg/dL (7-18); CALCIUM 7.9 mg/dL (8.5-10.1); CHLORIDE 104 mmol/L (98-107); CO2 26 mmol/L (21-32); CREATININE 4.5 mg/dL (0.55-1.3); GLUCOSE,RANDOM 77 mg/dL (74-106); MAGNESIUM 2.3 mg/dL (1.8-2.4); PHOSPHOROUS 4.5 mg/dL (2.5-4.9); POTASSIUM 3.8 mmol/L (3.5-5.1); SODIUM 142 mmol/L (136-145)
--- NOTE | 2018-03-16 11:19 | PN ---
Progress Note (short form) - Note Progress Note: s: no cp palps dizzy sob o: Vital Signs Period Temp Pulse Resp BP Sys/Pichardo Pulse Ox Last 24 Hr 68.2 F-98.7 F 62-100 18-20 137-183/78-112 95-98 Constitutional: Yes: No Distress, Calm Eyes: Yes: Conjunctiva Clear Respiratory: Yes: Regular, CTA Bilaterally Gastrointestinal: Yes: Normal Bowel Sounds, Soft Cardiovascular: Yes: Regular Rate and Rhythm JVD: No Heart Sounds: Yes: S1, S2 Edema: No Peripheral Pulses: 2+ Left Doralis Pedis, 2+ Right Dorsalis Pedis Integumentary: Yes: no jaundice diaphoresis Neurological: Yes: Alert, Oriented Current Medications Generic Name Dose Route Start Last Admin Trade Name Freq PRN Reason Stop Dose Admin Acetaminophen 650 mg 03/15/18 18:10 03/16/18 05:53 Tylenol - PO 650 mg Q4H PRN Administration PAIN LEVEL 1-5 Clonidine 0.2 mg 03/15/18 22:00 03/16/18 10:19 Catapres - PO Not Given BID LUIS Febuxostat 40 mg 03/16/18 10:00 03/16/18 10:20 Uloric - PO Not Given DAILY LUIS Hydralazine HCl 100 mg 03/15/18 22:00 03/16/18 05:54 Apresoline - PO 100 mg TID LUIS Administration Sodium Chloride 250 mls @ 3,000 mls/hr 03/15/18 20:05 Normal Saline - IV PRN PRN Hypotension during Dialysis Isosorbide Dinitrate 30 mg 03/15/18 18:15 03/16/18 08:30 Isordil - PO Not Given TIDISORDIL LUIS Labetalol HCl 400 mg 03/15/18 22:00 03/16/18 05:53 Normodyne - PO 400 mg TID LUIS Administration Mycophenolate Mofetil 500 mg 03/16/18 10:00 03/16/18 10:19 Cellcept - PO Not Given DAILY LUIS Ondansetron HCl 4 mg 03/15/18 18:10 Zofran Injection IVPUSH Q6H PRN NAUSEA AND/OR VOMITING Pantoprazole Sodium 40 mg 03/16/18 10:00 03/16/18 10:20 Protonix - PO Not Given DAILY LUIS CBC, BMP 03/16/18 05:30 03/16/18 05:30 EKG 11/28/17: NSR, LVH with repol abn, ? LAFB. no path q's. no signif change vs prior 07/2017 Echo 08/2017: mod LV dilation. moderate concentric LVH. nl LVEF/normal wall motion. nl RV. mild L/ELISABETH. mild MR. no RVSP. Echo 01/2017: EF 40-45%--global hypo, sev conc lvh, grade 2 diast dysfunction. nl rv, mild ar, mod mr. mod phtn MPI 09/03 (chuck): non-diagnostic ECG (baseline LVH with repol abnormalities. normal perfusion. nl LVEF. 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, chronic systolic HF, h/o AL and CVA p/w HTN Hypertensive urgency - was on nicardipine gtt, now off, bp improved, cont current po meds - on labetolol 400 mg TID, hydralazine 100 mg TID, isordil 30 mg TID CKD stage 5 - nephrology following - started HD here Chronic combined systolic/diastolic HF - appears euvolemic, had been complaining of dyspnea on exertion and mild edema at home - holding lasix - plan for dialysis per renal Positive trop, chest pain - likely in setting of demand from hypertensive urgency in setting of CKD - asymptomatic, EKG unchanged, unlikely ACS - BP control as above, chest pain resolved h/o CVA: -bp meds as doing -cont statin cardiac schwartz stable
[2018-03-16] MEDS ORDERED: PROMETHAZINE HCL 25 MG/1 ML VIAL IVPB PRN ×2 (12:53→15:20)
[2018-03-16] MEDS ORDERED: PAPAVERINE HCL 30 MG/1 ML 10 ML VIAL NR ONE (12:53)
[2018-03-16] MEDS ORDERED: ONDANSETRON 4 MG/2 ML VIAL IVPUSH PRN ×2 (12:53→15:20)
[2018-03-16] MEDS ORDERED: HEPARIN NA (PORCINE) 5,000 UNITS/ML 1ML VIAL ONE (12:53)
[2018-03-16] MEDS ORDERED: POVIDONE-IODINE OINTMENT 10% - 28.4 GM TUBE ONE (12:54)
[2018-03-16] MEDS ORDERED: SODIUM CHLORIDE 1,000 ML IV SCH ×2 (13:00→15:20)
--- NOTE | 2018-03-16 13:14 | PN ---
Progress Note (short form) - Note Progress Note: Renal follow up for CKD Stage 5 now ESRD on HD Pt seen and examined at the bedside s/p first HD yesterday, 2nd tx this am reports feeling fatigued no cp, WIGGINS, SOB, N/V/D making urine for OR for AVF today Vital Signs Temperature 98.7 F 03/16/18 10:00 Pulse Rate 63 03/16/18 11:45 Respiratory Rate 18 03/16/18 11:45 Blood Pressure 163/105 H 03/16/18 11:45 O2 Sat by Pulse Oximetry (%) 95 03/16/18 09:00 NAD awake and alert RRR, No M/R CTA soft NT/ND trace edema in LE CBC, BMP 03/16/18 05:30 03/16/18 05:30 Current Medications Acetaminophen (Tylenol -) 650 mg PO Q4H PRN PRN Reason: PAIN LEVEL 1-5 Last Admin: 03/16/18 12:19 Dose: 650 mg Clonidine (Catapres -) 0.2 mg PO BID [facility] Last Admin: 03/16/18 11:15 Dose: 0.2 mg Febuxostat (Uloric -) 40 mg PO DAILY [facility] Last Admin: 03/16/18 10:20 Dose: Not Given Fentanyl (Sublimaze Injection -) 50 mcg IVPUSH [id number] PRN PRN Reason: PAIN-PACU ORDER X 4 DOSES ONLY Hydralazine HCl (Apresoline -) 100 mg PO TID [facility] Last Admin: 03/16/18 12:21 Dose: 100 mg Sodium Chloride (Normal Saline -) 250 mls @ 3,000 mls/hr IV PRN PRN PRN Reason: Hypotension during Dialysis Sodium Chloride (Normal Saline -) 1,000 mls @ 42 mls/hr IV ASDIR [facility] Isosorbide Dinitrate (Isordil -) 30 mg PO TIDISORDIL [facility] Last Admin: 03/16/18 12:25 Dose: 30 mg Labetalol HCl (Normodyne -) 400 mg PO TID [facility] Last Admin: 03/16/18 12:22 Dose: 400 mg Ondansetron HCl (Zofran Injection) 4 mg IVPUSH Q6H PRN PRN Reason: NAUSEA AND/OR VOMITING Ondansetron HCl (Zofran Injection) 4 mg IVPUSH Q6H PRN PRN Reason: NAUSEA AND/OR VOMITING Pantoprazole Sodium (Protonix -) 40 mg PO DAILY [facility] Last Admin: 03/16/18 10:20 Dose: Not Given Promethazine HCl (Phenergan Injection -) 12.5 mg IVPB Q6H PRN PRN Reason: NAUSEA-FOR RESCUE AFTER 15 MIN 53 year old gentleman with hx of CKD Stage 5 secondary to FSGS, Difficult to control hypertension, systolic HF who was sent from Dr. Jordan office with uncontrolled hypertension and uremic symptoms. #Uncontrolled Hypertension #CKD Stage 5 with mild uremic symptoms now with ESRD requiring dialysis #Hx of CHF w/o evidence of acute exacerbation #Mild Hypokalemia #CKD related Anemia tolerated first 2 sessions of dialysis for AVF placement today BP high this am, but did not get all his meds continue Clonidine 0.2mg BID, Labetalol 400mg TID, Hydralazine 100mg TID, Isordil TID May need to add Losartan if BP not at goal can be discharged home following AVF placement if pt feels well enough to resume dialysis as outpatient on Monday Farrukh Abraham DO
[2018-03-16] MEDS ORDERED: MIDAZOLAM HCL 2 MG/2 ML SINGLE DOSE VIAL ONE (13:31)
[2018-03-16] MEDS ORDERED: PROPOFOL 20 ML ONE ×3 (13:31→14:35)
[2018-03-16] MEDS ORDERED: LIDOCAINE HCL/PF 2% SDV 5ML VIAL ONE (13:49)
[2018-03-16] MEDS ORDERED: ceFAZolin SODIUM 1 GM VIAL ONE (14:01)
[2018-03-16] MEDS ORDERED: SODIUM CHLORIDE 0.9% P/F 10 ML VIAL IJ ONE (14:01)
[2018-03-16] MEDS ORDERED: LIDOCAINE HCL 1%, 10 MG/ML (20ML VIAL) NR ONE ×2 (14:01)
--- NOTE | 2018-03-16 14:22 | DS ---
Physical Examination Vital Signs: Vital Signs Temperature 37.1 C 03/16/18 10:00 Pulse Rate 63 03/16/18 11:45 Respiratory Rate 18 03/16/18 11:45 Blood Pressure 163/105 H 03/16/18 11:45 O2 Sat by Pulse Oximetry (%) 95 03/16/18 09:00 Constitutional: Yes: Well Nourished, No Distress, Calm Cardiovascular: Yes: Regular Rate and Rhythm. No: Gallop, Murmur, Rub Respiratory: Yes: Regular, CTA Bilaterally. No: Rales, Rhonchi, Wheezes Gastrointestinal: Yes: Normal Bowel Sounds, Soft. No: Distention, Tenderness Extremities: Yes: WNL Edema: No Labs: CBC, BMP 03/16/18 05:30 03/16/18 05:30 Discharge Summary Reason For Visit: HYPERTENSIVE URGENCY, STAGE 4 CHRONIC KIDNEY DISEA Current Active Problems FSGS (focal segmental glomerulosclerosis) (Acute) Hypertensive urgency (Acute) CKD (chronic kidney disease) stage 4, GFR 15-29 ml/min (Chronic) History of CVA (cerebrovascular accident) (Chronic) Hospital Course: (1) Hypertensive urgency Code(s): I16.0 - HYPERTENSIVE URGENCY (2) FSGS (focal segmental glomerulosclerosis) Code(s): N05.1 - UNSP NEPH SYNDROME W FOCAL AND SEGMENTAL GLOMERULAR LESIONS (3) Anemia in chronic kidney disease Code(s): N18.9 - CHRONIC KIDNEY DISEASE, UNSPECIFIED; D63.1 - ANEMIA IN CHRONIC KIDNEY DISEASE Qualifiers: Chronic kidney disease stage: stage 4 (severe) Qualified Code(s): N18.4 - Chronic kidney disease, stage 4 (severe); D63.1 - Anemia in chronic kidney disease (4) CHF (congestive heart failure) Code(s): I50.9 - HEART FAILURE, UNSPECIFIED Qualifiers: Heart failure type: diastolic Heart failure chronicity: chronic Qualified Code(s): I50.32 - Chronic diastolic (congestive) heart failure (5) Elevated troponin Code(s): R74.8 - ABNORMAL LEVELS OF OTHER SERUM ENZYMES (6) Murmur, cardiac Code(s): R01.1 - CARDIAC MURMUR, UNSPECIFIED (7) Thrombocytopenia Code(s): D69.6 - THROMBOCYTOPENIA, UNSPECIFIED Mr Nuñez is a very pleasant 53 year old male who comes in with hypertensive urgency. He was originally admitted to the ICU as he was on a nicardipine gtt. He was seen by nephrology and his home antihypertensives were added back. His blood pressure improved and he was titrated off the gtt. He had a catheter placed and has been started on HD. He has slightly elevated troponins and evaluated by cardiology and cleared. He is currently stable for discharge home on outpatient HD. 36 minutes spent in preparation of this discharge Condition: Stable - Instructions Diet, Activity, Other Instructions: resume previous diet and activity Referrals: Zach Ramirez MD [Primary Care Provider] - Nitin Acevedo MD [Staff Physician] - Lauren Waterman MD [Staff Physician] - Disposition: HOME - Home Medications Comprehensive Discharge Medication List: Ambulatory Orders Amlodipine Besylate [Norvasc -] 5 mg PO DAILY 03/13/18 Clonidine HCl [Clonidine HCl ER] 0.2 mg PO BID 03/13/18 Febuxostat [Uloric] 40 mg PO DAILY 03/13/18 Hydralazine HCl 100 mg PO TID 03/13/18 Isosorbide Dinitrate [Isordil -] 30 mg PO TID 03/13/18 Pantoprazole Sodium 40 mg PO DAILY 03/13/18 Labetalol HCl [Normodyne -] 400 mg PO TID #120 tablet 03/16/18 Labetalol HCl [Normodyne -] 400 mg PO TID 90 Days tablet 03/16/18
[2018-03-16] MEDS ORDERED: DESFLURANE GAS 240 ML BOTTLE IH ONE (14:45)
--- NOTE | 2018-03-16 15:13 | OP ---
Operative Note - Note: Operative Date: 03/16/18 Pre-Operative Diagnosis: ESRD Operation: Creation AV fistula left arm Findings: Cephalic vein 2.5 mm in forearm. Radial artery 3 mm. Post-Operative Diagnosis: Same as Pre-op Surgeon: Supa [employer] Representative: Jigna Izaguirre Anesthesiologist/CHOIR MEMBER: Car Llanes Anesthesia: Fractional Estimated Blood Loss (mls): 10
[2018-03-16] MEDS ORDERED: oxyCODONE HCL 5 MG TABLET PO PRN (15:16)
--- NOTE | 2018-03-16 15:19 | SURG ---
Surgery Senior Technical Architect Note Senior Technical Architect: Jigna Izaguirre PA-C (Suzy) Date of Service: 03/16/18 Diagnosis: ESRD Procedure: Creation of left radial-cephalic arterio-venous fistula I was present for the entirety of the operative procedure. For further detail, please refer to operative report. Visit type - Case Type Case Type: Scheduled - Emergency Emergency Visit: No - New patient This patient is new to me today: Yes Date on this admission: 03/16/18 - Critical Care Critical Care patient: No
[2018-03-16] MEDS ORDERED: SODIUM CHLORIDE 250 ML IV PRN (15:20)
[2018-03-16] MEDS ORDERED: ACETAMINOPHEN 325 MG TABLET (FP) PO PRN (15:20)
[2018-03-16 17:45] VITALS: BP 143/75; PULSE 63; TEMP 97.6
[2018-03-16] MEDS ORDERED: ISOSORBIDE DINITRATE 10 MG TABLET (FP) PO SCH (18:00)
--- NOTE | 2018-03-16 19:03 | OP ---
DATE OF OPERATION: 03/15/2018 SURGEON: Yolanda Randhawa M.D. PROCEDURE: Placement PermCath. PREOPERATIVE DIAGNOSIS: Renal failure. POSTOPERATIVE DIAGNOSIS: Renal failure. ANESTHESIA: Fractional. ANESTHESIOLOGIST: Isacc Brennan D.O. OPERATIVE FINDINGS: There was a patent right internal jugular vein. OPERATIVE PROCEDURE: Following routine patient identification with side and site verification, intravenous sedation established. The right neck and chest were prepped with ChloraPrep. Timeout was performed. Using real time duplex imaging , the right internal jugular vein was identified. It was patent with normal phasic flow. 1% lidocaine was infiltrated in the skin at the base of the neck lateral to the vein. The vein was then cannulated under ultrasound guidance with a micropuncture needle. A wire was placed proximally into the superior vena cava. The needle was exchanged for a 5 Syriac catheter, and the wire was then exchanged for a J-tipped wire, which was advanced into the right atrium. Additional lidocaine was infiltrated on the chest wall and a stab wound was made inferior to the clavicle. A 28-cm tipped cuff PermCath was advanced with a tunneler from chest to neck. Retractor around the wire was dilated and the introducer was placed over the wire into the superior vena cava. The wire and the dilator were removed. PermCath was advanced through the introducer and the tip placed in the right atrium. Introducer was peeled away. Both lumens were aspirated for blood and flushed with saline and heparin solution. The neck wound was closed with a subcuticular suture of 3-0 Vicryl, and the catheter was sutured to the skin at the exit site with 3-0 nylon. Sterile dressings were applied, and the patient was taken to the recovery room in stable condition. YOLANDA RANDHAWA M.D. [id number] MTDD
[2018-03-16] MEDS ORDERED: cloNIDine HCL 0.1 MG TABLET PO SCH (22:00)
[2018-03-16] MEDS ORDERED: LABETALOL HCL 200 MG TABLET (FP) PO SCH (22:00)
[2018-03-16] MEDS ORDERED: hydrALAZINE HCL 50 MG TABLET (FP) PO SCH (22:00)
[2018-03-17 06:06] LABS: SERUM IRON SATURATION 10 % (15-55); TOTAL IRON BINDING CAPACITY 288 ug/dL (250-450); UIBC 259 ug/dL (111-343)
[2018-03-17] MEDS ORDERED: PANTOPRAZOLE 40 MG TABLET (FP) PO SCH (10:00)
[2018-03-17] MEDS ORDERED: FEBUXOSTAT 40 MG TAB PO SCH (10:00)
--- NOTE | 2018-03-19 21:22 | OP ---
DATE OF OPERATION: 03/16/2018 SURGEON: Supa Randhawa MD PLANT BIOLOGY PROFESSOR: , CASSIE PROCEDURE: Creation of arteriovenous fistula, left arm. PREOPERATIVE DIAGNOSIS: Renal failure. POSTOPERATIVE DIAGNOSIS: Renal failure. ANESTHESIA: Fractional. ANESTHESIOLOGIST: Smita Llanes MD OPERATIVE FINDINGS: The cephalic vein was patent in the forearm with a diameter of approximately 2.5 mm. The radial artery was patent with a normal pulse. OPERATIVE PROCEDURE: Following routine patient identification, side and site verification, intravenous sedation was established. The left arm was prepped with ChloraPrep. Timeout was performed. Next, 1% lidocaine was infiltrated over the radial artery and cephalic vein in the distal forearm. A longitudinal incision was made over the vein, and it was mobilized from its bed with sharp dissection. Side branches were ligated with silk ties and divided. The vein was ligated distally and incised. It was distended with heparin and papaverine solution. Number 5 and number 8 feeding tubes were passed proximally without resistance, and the vein was filled with heparin solution. The artery was then exposed through a small incision parallel to the first incision. The artery was mobilized and secured with vessel loops. Side branches were ligated and divided. The vein was then freed and passed through a short subcutaneous tunnel to lie next to the artery. The artery was then occluded with vessel loops and opened on exposed surface with a 6-mm arteriotomy. The vein was spatulated and anastomosed to the side of the artery with running sutures of 6-0 Prolene. Prior to completion of this suture line, the artery was allowed to back bleed and flush, and the vein was flushed with saline solution. Suture line was completed, and all vessels were released. The bleeding from the suture line was controlled with Surgicel. There was good flow through the anastomosis with a palpable thrill in the vein proximally. When hemostasis was achieved, the wounds were closed with interrupted suture of 3-0 Vicryl and skin corine. A sterile dressing was applied, and the patient was taken to the recovery room in stable condition. SUPA RANDHAWA M.D. [id number]
== END 2018-03-16 17:25 | disposition home or self-care (01) | DRG 264 ==
LOC: JER 11:15 → JERBED 15:05 → J4W 03-14 19:44
PROVIDERS: ADMIT Internal Medicine; ATTEND Internal Medicine
PROC: 05HM33Z Insertion of Infusion Device into Right Internal Jugular Vein, Percutaneous Approach (ICD-10-PCS; 2018-03-15)
PROC: B513ZZA Fluoroscopy of Right Jugular Veins, Guidance (ICD-10-PCS; 2018-03-15)
PROC: 5A1D70Z Performance of Urinary Filtration, Intermittent, Less than 6 Hours Per Day (ICD-10-PCS; 2018-03-15)
PROC: 031C0ZF Bypass Left Radial Artery to Lower Arm Vein, Open Approach (ICD-10-PCS; principal; 2018-03-16 13:00)
DX: I16.0 Hypertensive urgency (principal); N18.5 Chronic kidney disease, stage 5; I50.42 Chronic combined systolic (congestive) and diastolic (congestive) heart failure; I13.11 Hypertensive heart and chronic kidney disease without heart failure, with stage 5 chronic kidney disease, or end stage renal disease; N05.1 Unspecified nephritic syndrome with focal and segmental glomerular lesions; E66.9 Obesity, unspecified; Z68.29 Body mass index [BMI] 29.0-29.9, adult; I27.20 Pulmonary hypertension, unspecified; I34.0 Nonrheumatic mitral (valve) insufficiency; J45.909 Unspecified asthma, uncomplicated; D63.1 Anemia in chronic kidney disease; D69.6 Thrombocytopenia, unspecified; Z86.73 Personal history of transient ischemic attack (TIA), and cerebral infarction without residual deficits; Z87.891 Personal history of nicotine dependence; E87.6 Hypokalemia; Z96.669 Presence of unspecified artificial ankle joint; R74.8 Abnormal levels of other serum enzymes; R01.1 Cardiac murmur, unspecified; M54.5 Low back pain; I25.2 Old myocardial infarction
CPT/HCPCS: 36415; 70450-TC; 71045-TC-FY; 71046-TC-FY; 76000-TC-FY; 80048; 80053; 80074; 81003; 81015; 82550; 82570; 82728; 83540; 83550; 83735; 84100; 84156; 84300; 84484; 85025; 85027; 85610; 85730; 86707; 86850; 86900; 86901; 87350; 93005; 93010; 94760; 99285-25; J0735; J0885; J1644; J7517

== ENCOUNTER 2018-03-24 16:20 | Inpatient (IN) | payer BC ==
--- NOTE | 2018-03-24 16:23 | PDOC ---
History of Present Illness <Margarette Cervantes - Last Filed: 03/25/18 01:09> - General History Source: Patient, EMS Exam Limitations: No Limitations - History of Present Illness Initial Comments: 03/24/18 16:57 53-year-old male with past medical history of renal failure, CVA (01/2017), [place] ( 12/2016), CHF, alcohol abuse (last drank 1992), asthma, diabetes, neuropathic pain BIBA from dialysis center for bodyaches, chills, back pain, SOB after receiving a flu shot [id number] to x1 hour ago. He states that he received all of the dialysis session, except for the last 45 minutes. He was given Benadryl, two tablets of Tylenol and placed on 2 L of oxygen at the dialysis center. He states that since he was given a medicine, his body aches, chills and SOB has improved. He currently admits to headache, trap pain. He denies chest pain, palpitations, abdominal pain, nausea, vomiting, diarrhea, changes in vision, numbness, tingling, blood in urine. Pt states that he last received a flu shot x10 years ago, but did not have any reaction to it then. He states he took his blood pressure medications this morning as prescribed. Allergies - NKDA Denies allergy to eggs. 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) COPD: No CHF: Yes DVT: No Dementia: No Diabetes: Yes GI Disorders: Yes (RENAL FAILURE) Disorders: No HTN: Yes Hypercholesterolemia: No Liver Disease: No Seizures: No Thyroid Disease: No - Surgical History Abdominal Surgery: Yes (HERNIA REPAIR) Appendectomy: No Cardiac Surgery: No Cholecystectomy: No Lung Surgery: No Neurologic Surgery: No Orthopedic Surgery: Yes (right ankle fracture; plate with 6 screws) - Suicide/Smoking/Psychosocial Hx Smoking Status: No Smoking History: Former smoker Have you smoked in the past 12 months: No Number of Cigarettes Smoked Daily: 0 If you are a former smoker, when did you quit?: 12/03 Cigars Per Day: 0 'Breaking Loose' booklet given: 09/14/17 Hx Alcohol Use: Yes (RECOVERING ALCOHOLIC - SOBER 1992) Drug/Substance Use Hx: Yes (RECOVERING - LAST USE AGE 26) Substance Use Type: None Hx Substance Use Treatment: Yes ([facility] 5 DAYS A WEEK) <Jordana Redmond - Last Filed: 03/25/18 12:06> - Past Medical History Allergies/Adverse Reactions: Allergies Allergy/AdvReac Type Severity Reaction Status Date / Time Influenza Virus Vaccines Allergy Severe Verified 03/24/18 19:18 Home Medications: Ambulatory Orders Amlodipine Besylate [Norvasc -] 5 mg PO DAILY 03/13/18 Clonidine HCl [Clonidine HCl ER] 0.2 mg PO BID 03/13/18 Febuxostat [Uloric] 40 mg PO DAILY 03/13/18 Isosorbide Dinitrate [Isordil -] 30 mg PO TID 03/13/18 Pantoprazole Sodium 40 mg PO DAILY 03/13/18 Labetalol HCl [Normodyne -] 400 mg PO TID 90 Days tablet 03/16/18 oxyCODONE HCL [Roxicodone -] 5 mg PO Q6H PRN 7 Days #12 tablet MDD 6 03/16/18 Review of Systems - Review of Systems Able to Perform ROS?: Yes Comments:: 03/24/18 17:04 General: admits to fever, chills, body aches. denies night sweats, generalized weakness. HEENT: denies sore throat, rhinorrhea, ear pain. Heart: denies chest pain, palpitations, syncope, lower extremity swelling, diaphoresis. Respiratory: admits to shortness of breath. denies cough, sputum production, hemoptysis. Abdomen: denies abdominal pain, nausea, vomiting, diarrhea, blood in stool. : denies dysuria, increased urinary frequency, hematuria, urinary incontinence , flank pain. Back: admits to back pain. Musculoskeletal: admits to body aches, trapezius pain bilaterally. denies joint pain, joint swelling. Neurological: admits to headache. denies dizziness, numbness, tingling, weakness. Skin: denies rash, laceration, abrasion. <Nyla,Jordana - Last Filed: 03/25/18 12:06> *Physical Exam - Vital Signs Last Vital Signs Temp Pulse Resp BP Pulse Ox 102.7 F H 92 H 16 163/85 99 03/24/18 19:00 03/24/18 19:00 03/24/18 19:00 03/24/18 19:00 03/24/18 19:00 <Margarette Cervantes - Last Filed: 03/25/18 01:09> - Physical Exam Comments: 03/24/18 17:04 Constitutional: Well-nourished, Well-developed, appearing stated age. no tongue swelling. no posterior pharyngeal edema. HEENT: head is normocephalic, atraumatic. EOMI. PERRLA. Neck: supple. Full ROM. no mid-line c-spine tenderness. no paraspinal c-spine tenderness. no tenderness to palpation of bilateral trapezius. Heart: regular rhythm. no murmurs, rubs or gallops. Chest: port to right anterior chest. Lungs: clear to auscultation bilaterally. no crackles, rhonchi or wheezing. no stridor. Abdomen: soft, nontender. normal bowel sounds. no rebound, guarding, masses. Extremities: fistula to left forearm, dressing present. Peripheral pulses intact. No lower extremity edema. Neurological: CN 2-12 grossly intact. Moves all four extremities. Psych: awake, alert, oriented x3. Follows commands. Answers questions appropriately. <NylaJordana - Last Filed: 03/25/18 12:06> ED Treatment Course - LABORATORY CBC & Chemistry Diagram: 03/24/18 17:30 03/24/18 17:30 - ADDITIONAL ORDERS Additional order review: Laboratory Results 03/24/18 03/24/18 03/24/18 20:15 18:40 18:00 Sodium Potassium Chloride Carbon Dioxide Anion Gap BUN Creatinine Creat Clearance w eGFR Random Glucose Lactic Acid 0.9 Calcium Total Bilirubin AST ALT Alkaline Phosphatase Creatine Kinase Troponin I 0.05 B-Natriuretic Peptide Total Protein Albumin TSH Urine Color Yellow Urine Appearance Clear Urine pH 5.0 Ur Specific [place] 1.012 Urine Protein 2+ H Urine Glucose (UA) Negative Urine Ketones Negative Urine Blood Negative Urine Nitrite Negative Urine Bilirubin Negative Urine Urobilinogen Negative Ur Leukocyte Esterase Negative Urine WBC (Auto) 2 Urine RBC (Auto) <1 Urine Mucus Rare 03/24/18 03/24/18 17:30 17:30 Sodium 136 Potassium 4.1 Chloride 103 Carbon Dioxide 28 Anion Gap 5 L BUN 26 H Creatinine 3.6 H Creat Clearance w eGFR 17.89 Random Glucose 70 L Lactic Acid Calcium 8.6 Total Bilirubin 0.8 AST 20 ALT 16 Alkaline Phosphatase 64 Creatine Kinase 107 Troponin I 0.05 B-Natriuretic Peptide 7154.7 H Total Protein 6.6 Albumin 3.6 TSH Cancelled 2.95 D Urine Color Urine Appearance Urine pH Ur Specific [place] Urine Protein Urine Glucose (UA) Urine Ketones Urine Blood Urine Nitrite Urine Bilirubin Urine Urobilinogen Ur Leukocyte Esterase Urine WBC (Auto) Urine RBC (Auto) Urine Mucus 03/24/18 17:30 RBC 3.19 L MCV 89.4 MCHC 34.2 RDW 14.2 MPV 9.1 Neutrophils % 94.4 H D Lymphocytes % 2.8 L D Monocytes % 2.2 L Eosinophils % 0.4 Basophils % 0.2 - RADIOLOGY Radiology Studies Ordered: Category Date Time Status ABDOMEN & PELVIS CT W/O CONTR [CT] Stat CT Scan 03/24/18 21:27 Taken - Medications Given in the ED: ED Medications Discontinued Medications Generic Name Dose Route Start Last Admin Trade Name John PRN Reason Stop Dose Admin Acetaminophen 975 mg 03/24/18 17:11 03/24/18 18:04 Tylenol - PO 03/24/18 17:12 Not Given ONCE ONE Acetaminophen 325 mg 03/24/18 17:29 03/24/18 18:04 Tylenol - PO 03/24/18 17:30 325 mg ONCE ONE Administration Acetaminophen 1,000 mg 03/24/18 22:19 03/24/18 23:06 Tylenol - PO 03/24/18 22:20 1,000 mg ONCE ONE Administration Hydralazine HCl 100 mg 03/24/18 16:46 03/24/18 18:02 Apresoline - PO 03/24/18 16:47 Not Given ONCE ONE Hydralazine HCl 10 mg 03/24/18 16:49 03/24/18 18:03 Apresoline Injection - IVPUSH 03/24/18 16:50 10 mg ONCE ONE Administration Famotidine/Sodium Chloride 20 mg in 50 mls @ 100 mls/hr 03/24/18 16:46 18:02 Pepcid 20 Mg Premixed Ivpb - IVPB 03/24/18 17:15 100 mls/hr ONCE ONE Administration Methylprednisolone Sodium Succinate 125 mg 03/24/18 16:50 03/24/18 18:03 Solu-Medrol - IVPUSH 03/24/18 16:51 125 mg ONCE ONE Administration <Margarette Cervantes - Last Filed: 03/25/18 01:09> - LABORATORY CBC & Chemistry Diagram: 03/24/18 17:30 03/25/18 06:49 <NyalJordana - Last Filed: 03/25/18 12:06> Medical Decision Making - Medical Decision Making 03/24/18 16:54 53-year-old male with past medical history of renal failure, CVA (01/2017), [place] ( 12/2016), CHF, alcohol abuse (last drank 1992), asthma, diabetes, neuropathic pain BIBA from dialysis center for bodyaches, chills, back pain, SOB after receiving a flu shot [id number] to x1 hour ago. Pt states he took his BP medications this morning as prescribed. EMS states they did not give any meds. Pt was placed on 2L O2 at dialysis center for SOB. Pt was given benadryl and tylenol at dialysis center. EKG performed at 1648 - rate 99, regular rhythm, left axis, normal intervals, lateral ischemia. Initial Vital Signs Temp Pulse Resp BP Pulse Ox 102.9 F H 105 H 16 195/99 H 99 03/24/18 16:49 03/24/18 16:49 03/24/18 16:49 03/24/18 16:49 03/24/18 16:49 Febrile. - Recieved Tylenol at Dialysis center x45 minutes ago - Tylenol 325 mg ordered Tachycardic. No tachypnea. Hypertensive urgency - Hydralazine ordered No hypoxia on 2L. Concern for sepsis - Pending CBC, CMP, UA/UC, Blood culture, lactate, CXR Concern for CHF - Pending CXR, BNP Concern for anaphylaxis - Pepcid, solumedrol ordered - Benadryl given at dialysis center. 03/24/18 17:40 Pt reassessed BP 173/83 Pt states that he is feeling well, eating dinner. O2 reduced from 2L to 1L. 03/24/18 18:22 CBC WBC 6.3 K/mm3 (4.0-10.0) 03/24/18 17:30 RBC 3.19 M/mm3 (4.00-5.60) L 03/24/18 17:30 Hgb 9.7 GM/dL (11.7-16.9) L 03/24/18 17:30 Hct 28.5 % (35.4-49) L D 03/24/18 17:30 MCV 89.4 fl (80-96) 03/24/18 17:30 MCH 30.5 pg (25.7-33.7) 03/24/18 17:30 MCHC 34.2 g/dl (32.0-35.9) 03/24/18 17:30 RDW 14.2 % (11.9-15.9) 03/24/18 17:30 Plt Count 89 K/MM3 (134-434) L D 03/24/18 17:30 MPV 9.1 fl (7.5-11.1) 03/24/18 17:30 Absolute Neuts (auto) 6.0 K/mm3 (1.5-8.0) 03/24/18 17:30 Neutrophils % 94.4 % (42.8-82.8) H D 03/24/18 17:30 Neutrophils % (Manual) 92.0 % (42.8-82.8) H D 03/24/18 17:30 Lymphocytes % 2.8 % (8-40) L D 03/24/18 17:30 Lymphocytes % (Manual) 5.0 % (8-40) L D 03/24/18 17:30 Monocytes % 2.2 % (3.8-10.2) L 03/24/18 17:30 Monocytes % (Manual) 3 % (3.8-10.2) L 03/24/18 17:30 Eosinophils % 0.4 % (0-4.5) 03/24/18 17:30 Basophils % 0.2 % (0-2.0) 03/24/18 17:30 Nucleated RBC % 0 % (0-0) 03/24/18 17:30 Platelet Estimate Decreased 03/24/18 17:30 Platelet Comment No clumping noted 03/24/18 17:30 Polychromasia 1+ 03/24/18 17:30 Anisocytosis 1+ 03/24/18 17:30 Macrocytosis 1+ 03/24/18 17:30 No leukocytosis, but elevated neutrophils. Thrombocytopenia, similar to prior. Anemia, similar to prior. 03/24/18 18:25 CMP Sodium 136 mmol/L (136-145) 03/24/18 17:30 Potassium 4.1 mmol/L (3.5-5.1) 03/24/18 17:30 Chloride 103 mmol/L (98-107) 03/24/18 17:30 Carbon Dioxide 28 mmol/L (21-32) 03/24/18 17:30 Anion Gap 5 MMOL/L (8-16) L 03/24/18 17:30 BUN 26 mg/dL (7-18) H 03/24/18 17:30 Creatinine 3.6 mg/dL (0.55-1.3) H 03/24/18 17:30 Creat Clearance w eGFR 17.89 (>60) 03/24/18 17:30 Random Glucose 70 mg/dL (74-106) L 03/24/18 17:30 Calcium 8.6 mg/dL (8.5-10.1) 03/24/18 17:30 Total Bilirubin 0.8 mg/dL (0.2-1) 03/24/18 17:30 AST 20 U/L (15-37) 03/24/18 17:30 ALT 16 U/L (13-61) 03/24/18 17:30 Alkaline Phosphatase 64 U/L (45-117) 03/24/18 17:30 Creatine Kinase 107 IU/L (26-308) 03/24/18 17:30 Troponin I 0.05 ng/ml (0.00-0.05) 03/24/18 17:30 B-Natriuretic Peptide 7154.7 pg/ml (5-125) H 03/24/18 17:30 Total Protein 6.6 g/dl (6.4-8.2) 03/24/18 17:30 Albumin 3.6 g/dl (3.4-5.0) 03/24/18 17:30 TSH 2.95 uIU/ml (0.358-3.74) D 03/24/18 17:30 No electrolyte abnormalities. Elevated BUN/Cr, hx renal failure, lower than prior. Troponin 0.05, hx renal failure, will repeat. BNP 7154.7, prior 44,000+. 03/24/18 21:16 Repeat troponin 0.05. Likely secondary to renal failure. Pending repeat EKG. 03/24/18 22:06 Repeat EKG performed at 2128 - rate 83, regular rhythm, left axis, normal intervals, ST depression resolved, flipped Ts still present in the lateral leads. 03/24/18 22:18 Pt reports 10 days of constipation. Pt has tried Dulcolax without relief of symptoms. -CT abdomen/pelvis ordered. 03/24/18 22:22 Repeat temperature 98.6F 03/25/18 00:27 I signed the patient out to Dr. Mays, who will assume care for the patient while she is in the Emergency Department. <Jordana Redmond - Last Filed: 03/25/18 12:06> *DC/Admit/Observation/Transfer <Margarette Cervantes - Last Filed: 03/25/18 01:09> <Jordana Redmond - Last Filed: 03/25/18 12:06> Diagnosis at time of Disposition: ESRD (end stage renal disease), EKG abnormalities Allergic reaction caused by a drug Qualifiers: Encounter type: initial encounter Qualified Code(s): T78.40XA - Allergy, unspecified, initial encounter Fever Qualifiers: Fever type: post-vaccination Qualified Code(s): R50.83 - Postvaccination fever Hypertension Qualifiers: Hypertension type: unspecified Qualified Code(s): I10 - Essential (primary) hypertension - Discharge Dispostion Condition at time of disposition: Guarded
[2018-03-24] MEDS ORDERED: FAMOTIDINE 20 MG/50 ML IVPB 20 MG/50 ML MG IVPB ONE ×2 (16:46→17:08)
[2018-03-24] MEDS ORDERED: hydrALAZINE HCL 50 MG TABLET (FP) PO ONE (16:46)
[2018-03-24] MEDS ORDERED: hydrALAZINE HCL 20 MG/ML VIAL IVPUSH ONE (16:49)
[2018-03-24] MEDS ORDERED: methylPREDNISolone NA SUCC 125 MG/2 ML VIAL IVPUSH ONE (16:50)
[2018-03-24] MEDS ORDERED: hydrALAZINE HCL 25 MG TABLET (FP) ONE (16:59)
[2018-03-24] MEDS ORDERED: methylPREDNISolone NA SUCC 125 MG/2 ML VIAL ONE (17:08)
[2018-03-24] MEDS ORDERED: hydrALAZINE HCL 20 MG/ML VIAL ONE (17:08)
[2018-03-24] MEDS ORDERED: ACETAMINOPHEN 325 MG TABLET (FP) PO ONE ×2 (17:11→17:29)
--- NOTE | 2018-03-24 17:11 | PDOC ---
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 The patient states he was about 45 minutes to dialysis completion when he was given a flu shot on the R. arm. The patient states a couple of minutes following; the patient started feeling short of breath, chills, body ache with elevated blood pressure. The patient reports he was given Benadryl and Tylenol x2, with relief. The patient states he doesnt usually get flu shots, denies any allergy to eggs, states for breakfast patient had eggs. The patient reports an additional concern of constipation for the past 9 days. The patient reports taking Dulcolax without relief. Denies chest pain, nausea, vomiting, numbness, tingling, or diarrhea. Allergies: NKA Social history: Former alcohol and tobacco user. No recreational drug use reported. Surgical history: Hernia repair, right ankle fracture; plate with 6 screws, Creation AV fistula left arm (03/16/2018) by Bhupinder. PCP: Dr. Ramirez. - Physicial Exam PE: 03/24/18 18:57 GENERAL: Awake, alert, and fully oriented, in no acute distress HEAD: No signs of trauma EYES: PERRLA, EOMI, sclera anicteric, conjunctiva clear ENT: Auricles normal inspection, hearing grossly normal, nares patent, oropharynx clear without exudates. Moist mucosa NECK: Normal ROM, supple, no lymphadenopathy, JVD, or masses LUNGS: Breath sounds equal, clear to auscultation bilaterally. No wheezes, and no crackles HEART: (+) Permcath to the L. chest wall. (+) Tachycardia. Regular rate and rhythm, normal S1 and S2, no murmurs, rubs or gallops ABDOMEN: Soft, nontender, normoactive bowel sounds. No guarding, no rebound. No masses EXTREMITIES: (+) AV fistula to the R. wrist with thrill and bruit. no swelling to the legs, Normal range of motion, no edema. No clubbing or cyanosis. No cords, erythema, or tenderness NEUROLOGICAL: Cranial nerves II through XII grossly intact. Normal speech, normal gait SKIN: (+) hot to touch, flu shot injection site clean without hives, hotness or erythema. Warm, Dry, normal turgor, no rashes or lesions noted. - Medical Decision Making 03/24/18 17:19 Documentation prepared by Adela Gloria, acting as medical doctor nuclear medicine for Tracey Rivera DO. <Adela Gloria - Last Filed: 03/24/18 18:57> - Resident Resident Name: Jordana Redmond - ED Attending Attestation I have performed the following: I have examined & evaluated the patient, The case was reviewed & discussed with the resident, I agree w/resident's findings & plan, Exceptions are as noted - Medical Decision Making 03/24/18 17:11 I, Dr. Tracey Rivera DO, attest that this document has been prepared under my direction and personally reviewed by me in its entirety. I further attest, that it accurately reflects all work, treatment, procedures and medical decision -making performed by me. 03/24/18 17:35 a/p: 53yo male with allergic reaction to flu vaccine -received flu vaccine while on HD -PMD Dr. Ramirez -Nephro: Dr. Jordan -ESRD on HD t/th/sat - missed last 45min of had -no complaints prior to hd -pt with fever, tachy -received tylenol/benadryl wellness nurse rn -will medicate with solumedrol/pepcid -will send labs/cultures -will monitor and reassess -no hives/speaking in full sentences/tolerating secretions/no lip or tongue swelling -no stridor or wheezing 03/24/18 19:27 pt still with a fever despite tylenol resident will discuss watching the patient in obs overnight for allergic reaction and fever. <Tracey Rivera - Last Filed: 03/24/18 19:27> Heart Score/ECG Review - ECG Intrepretation Comment:: 03/24/18 17:53 sinus at 99, l axis, lvh, st depression lateral leads with downsloping st segment, t wave ivnersions lateral leads, abnl ekg - unchanged from prior <Tracey Rivera - Last Filed: 03/24/18 19:27>
[2018-03-24] MEDS ORDERED: ACETAMINOPHEN 325 MG TABLET (FP) ONE (17:40)
[2018-03-24 17:44] LABS: BASO % 0.2 % (0-2.0); EOS % 0.4 % (0-4.5); HEMATOCRIT 28.5 % (35.4-49); HEMOGLOBIN 9.7 GM/dL (11.7-16.9); LYMPH % 2.8 % (8-40); MCH 30.5 pg (25.7-33.7); MCHC 34.2 g/dl (32.0-35.9); MEAN CELL VOLUME 89.4 fl (80-96); MEAN PLT VOLUME 9.1 fl (7.5-11.1); MONO % 2.2 % (3.8-10.2); NEUT % 94.4 % (42.8-82.8); PLATELET COUNT 89 K/MM3 (134-434); RBC 3.19 M/mm3 (4.00-5.60); RDW 14.2 % (11.9-15.9); WHITE BLOOD COUNT 6.3 K/mm3 (4.0-10.0)
[2018-03-24 18:18] LABS: ANISOCYTOSIS 1+; MACROCYTOSIS 1+; PLATELET ESTIMATE DECREASED
[2018-03-24 18:20] LABS: ALBUMIN 3.6 g/dl (3.4-5.0); ALK PHOS 64 U/L (45-117); ANION GAP 5 MMOL/L (8-16); BILIRUBIN,TOTAL 0.8 mg/dL (0.2-1); BLOOD UREA NITROGEN 26 mg/dL (7-18); CALCIUM 8.6 mg/dL (8.5-10.1); CHLORIDE 103 mmol/L (98-107); CO2 28 mmol/L (21-32); CREATININE 3.6 mg/dL (0.55-1.3); GLUCOSE,RANDOM 70 mg/dL (74-106); N-TERMINAL BNP 7154.7 pg/ml (5-125); POTASSIUM 4.1 mmol/L (3.5-5.1); SGOT/AST 20 U/L (15-37); SGPT/ALT 16 U/L (13-61); SODIUM 136 mmol/L (136-145); TOT PROT 6.6 g/dl (6.4-8.2)
[2018-03-24 18:52] LABS: URINE APPEARANCE CLEAR; URINE BILIRUBIN NEGATIVE (<2.0 mg/dL); URINE COLOR YELLOW; URINE GLUCOSE (UA) NEGATIVE (NEGATIVE); URINE KETONE NEGATIVE (NEGATIVE); URINE LEUK ESTERASE NEGATIVE (NEGATIVE); URINE NITRITE NEGATIVE (NEGATIVE); URINE PROTEIN 2+ (NEGATIVE); URINE UROBILINOGEN NEGATIVE mg/dL (0.2-1.0)
[2018-03-24 19:15] LABS: URINE MUCUS RARE
[2018-03-24] MEDS ORDERED: ACETAMINOPHEN 500 MG TABLET (FP) PO ONE (22:19)
--- NOTE | 2018-03-25 01:18 | PDOC ---
*Physical Exam - Vital Signs Last Vital Signs Temp Pulse Resp BP Pulse Ox 102.7 F H 92 H 16 163/85 99 03/24/18 19:00 03/24/18 19:00 03/24/18 19:00 03/24/18 19:00 03/24/18 19:00 ED Treatment Course - LABORATORY CBC & Chemistry Diagram: 03/24/18 17:30 03/24/18 17:30 - ADDITIONAL ORDERS Additional order review: Laboratory Results 03/24/18 03/24/18 03/24/18 20:15 18:40 18:00 Sodium Potassium Chloride Carbon Dioxide Anion Gap BUN Creatinine Creat Clearance w eGFR Random Glucose Lactic Acid 0.9 Calcium Total Bilirubin AST ALT Alkaline Phosphatase Creatine Kinase Troponin I 0.05 B-Natriuretic Peptide Total Protein Albumin TSH Urine Color Yellow Urine Appearance Clear Urine pH 5.0 Ur Specific [place] 1.012 Urine Protein 2+ H Urine Glucose (UA) Negative Urine Ketones Negative Urine Blood Negative Urine Nitrite Negative Urine Bilirubin Negative Urine Urobilinogen Negative Ur Leukocyte Esterase Negative Urine WBC (Auto) 2 Urine RBC (Auto) <1 Urine Mucus Rare 03/24/18 03/24/18 17:30 17:30 Sodium 136 Potassium 4.1 Chloride 103 Carbon Dioxide 28 Anion Gap 5 L BUN 26 H Creatinine 3.6 H Creat Clearance w eGFR 17.89 Random Glucose 70 L Lactic Acid Calcium 8.6 Total Bilirubin 0.8 AST 20 ALT 16 Alkaline Phosphatase 64 Creatine Kinase 107 Troponin I 0.05 B-Natriuretic Peptide 7154.7 H Total Protein 6.6 Albumin 3.6 TSH Cancelled 2.95 D Urine Color Urine Appearance Urine pH Ur Specific [place] Urine Protein Urine Glucose (UA) Urine Ketones Urine Blood Urine Nitrite Urine Bilirubin Urine Urobilinogen Ur Leukocyte Esterase Urine WBC (Auto) Urine RBC (Auto) Urine Mucus 03/24/18 17:30 RBC 3.19 L MCV 89.4 MCHC 34.2 RDW 14.2 MPV 9.1 Neutrophils % 94.4 H D Lymphocytes % 2.8 L D Monocytes % 2.2 L Eosinophils % 0.4 Basophils % 0.2 - RADIOLOGY Radiology Studies Ordered: Category Date Time Status ABDOMEN & PELVIS CT W/O CONTR [CT] Stat CT Scan 03/24/18 21:27 Taken - Medications Given in the ED: ED Medications Discontinued Medications Generic Name Dose Route Start Last Admin Trade Name Freq PRN Reason Stop Dose Admin Acetaminophen 975 mg 03/24/18 17:11 03/24/18 18:04 Tylenol - PO 03/24/18 17:12 Not Given ONCE ONE Acetaminophen 325 mg 03/24/18 17:29 03/24/18 18:04 Tylenol - PO 03/24/18 17:30 325 mg ONCE ONE Administration Acetaminophen 1,000 mg 03/24/18 22:19 03/24/18 23:06 Tylenol - PO 03/24/18 22:20 1,000 mg ONCE ONE Administration Hydralazine HCl 100 mg 03/24/18 16:46 03/24/18 18:02 Apresoline - PO 03/24/18 16:47 Not Given ONCE ONE Hydralazine HCl 10 mg 03/24/18 16:49 03/24/18 18:03 Apresoline Injection - IVPUSH 03/24/18 16:50 10 mg ONCE ONE Administration Famotidine/Sodium Chloride 20 mg in 50 mls @ 100 mls/hr 03/24/18 16:46 18:02 Pepcid 20 Mg Premixed Ivpb - IVPB 03/24/18 17:15 100 mls/hr ONCE ONE Administration Methylprednisolone Sodium Succinate 125 mg 03/24/18 16:50 03/24/18 18:03 Solu-Medrol - IVPUSH 03/24/18 16:51 125 mg ONCE ONE Administration Medical Decision Making - Medical Decision Making 03/25/18 01:10 Patient Name: GRISEL FISHER THIS IS A PRELIMINARY REPORT FROM [facility] DATE OF SERVICE: 2018-03-24 23:57:02 IMAGES: [id number] EXAM: ABDOMEN \T\ PELVIS CT W/O CONTR HISTORY: Ileus or obstruction COMPARISON: None. FINDINGS: There is basilar subsegmental atelectasis, greater on the right. The heart is mildly enlarged n. Normal unenhanced liver, gallbladder, pancreas, spleen, adrenal glands and kidneys. The stomach and abdominal small and large bowel are normal. Moderate amount of diffuse stool is noted. There is no aortic aneurysm. There is no significant retroperitoneal lymphadenopathy. The pelvic small and large bowel are notable only for sigmoid diverticulosis without diverticulitis. The appendix is normal. The urinary bladder wall is thickened, suggesting cystitis. No bladder stones. The prostate gland is normal. No pelvic free fluid is identified. There is no significant pelvic lymphadenopathy. IMPRESSION: Probable cystitis can be correlated with urinalysis. Moderate diffuse also. Sigmoid diverticulosis. Individualized dose optimization techniques were used for this CT. THIS DOCUMENT HAS BEEN ELECTRONICALLY SIGNED 03/25/18 01:12 Pt has a normal UA; so we will not treat him with abx at this time. He is ESRD - not sure if that is the reason that the bladder wall looks thickened. He will be nrought into obs for 24hrs. 03/25/18 02:31 Pt's PMD is jasvir and we will call to admit the patient. *DC/Admit/Observation/Transfer Diagnosis at time of Disposition: Allergic reaction caused by a drug, Fever, ESRD (end stage renal disease) - Discharge Dispostion Condition at time of disposition: Guarded - Referrals Referrals: Shayne Ramirez MD [Primary Care Provider] - - Patient Instructions - Post Discharge Activity
--- NOTE | 2018-03-25 01:41 | PDOC ---
*Physical Exam - Vital Signs Last Vital Signs Temp Pulse Resp BP Pulse Ox 102.7 F H 92 H 16 163/85 99 03/24/18 19:00 03/24/18 19:00 03/24/18 19:00 03/24/18 19:00 03/24/18 19:00 03/25/18 00:40 Patients care endorsed to my by Dr. Redmond at the end of her shift. This is a 53 YOM with recently Dx ESRD, has AVF and port in chest wall, and just started dialysis this week. Received HD today and was doing well until the last 45 minutes which was immediately after he had a flu shot, at which time he had an onset of SOB. He was given Tylenol and Benadryl. Came in febrile to 102.9, tachycardic to 105, hypertensive. Given IV hydralazine and BP has improved. E/O lateral ischemia on EKG. Trop is 0.05 on initial and repeat. ED Treatment Course - LABORATORY CBC & Chemistry Diagram: 03/24/18 17:30 03/24/18 17:30 - ADDITIONAL ORDERS Additional order review: Laboratory Results 03/24/18 03/24/18 03/24/18 20:15 18:40 18:00 Sodium Potassium Chloride Carbon Dioxide Anion Gap BUN Creatinine Creat Clearance w eGFR Random Glucose Lactic Acid 0.9 Calcium Total Bilirubin AST ALT Alkaline Phosphatase Creatine Kinase Troponin I 0.05 B-Natriuretic Peptide Total Protein Albumin TSH Urine Color Yellow Urine Appearance Clear Urine pH 5.0 Ur Specific [place] 1.012 Urine Protein 2+ H Urine Glucose (UA) Negative Urine Ketones Negative Urine Blood Negative Urine Nitrite Negative Urine Bilirubin Negative Urine Urobilinogen Negative Ur Leukocyte Esterase Negative Urine WBC (Auto) 2 Urine RBC (Auto) <1 Urine Mucus Rare 03/24/18 03/24/18 17:30 17:30 Sodium 136 Potassium 4.1 Chloride 103 Carbon Dioxide 28 Anion Gap 5 L BUN 26 H Creatinine 3.6 H Creat Clearance w eGFR 17.89 Random Glucose 70 L Lactic Acid Calcium 8.6 Total Bilirubin 0.8 AST 20 ALT 16 Alkaline Phosphatase 64 Creatine Kinase 107 Troponin I 0.05 B-Natriuretic Peptide 7154.7 H Total Protein 6.6 Albumin 3.6 TSH Cancelled 2.95 D Urine Color Urine Appearance Urine pH Ur Specific [place] Urine Protein Urine Glucose (UA) Urine Ketones Urine Blood Urine Nitrite Urine Bilirubin Urine Urobilinogen Ur Leukocyte Esterase Urine WBC (Auto) Urine RBC (Auto) Urine Mucus 03/24/18 17:30 RBC 3.19 L MCV 89.4 MCHC 34.2 RDW 14.2 MPV 9.1 Neutrophils % 94.4 H D Lymphocytes % 2.8 L D Monocytes % 2.2 L Eosinophils % 0.4 Basophils % 0.2 - Medications Given in the ED: ED Medications Discontinued Medications Generic Name Dose Route Start Last Admin Trade Name John PRN Reason Stop Dose Admin Acetaminophen 975 mg 03/24/18 17:11 03/24/18 18:04 Tylenol - PO 03/24/18 17:12 Not Given ONCE ONE Acetaminophen 325 mg 03/24/18 17:29 03/24/18 18:04 Tylenol - PO 03/24/18 17:30 325 mg ONCE ONE Administration Acetaminophen 1,000 mg 03/24/18 22:19 03/24/18 23:06 Tylenol - PO 03/24/18 22:20 1,000 mg ONCE ONE Administration Hydralazine HCl 100 mg 03/24/18 16:46 03/24/18 18:02 Apresoline - PO 03/24/18 16:47 Not Given ONCE ONE Hydralazine HCl 10 mg 03/24/18 16:49 03/24/18 18:03 Apresoline Injection - IVPUSH 03/24/18 16:50 10 mg ONCE ONE Administration Famotidine/Sodium Chloride 20 mg in 50 mls @ 100 mls/hr 03/24/18 16:46 18:02 Pepcid 20 Mg Premixed Ivpb - IVPB 03/24/18 17:15 100 mls/hr ONCE ONE Administration Methylprednisolone Sodium Succinate 125 mg 03/24/18 16:50 03/24/18 18:03 Solu-Medrol - IVPUSH 03/24/18 16:51 125 mg ONCE ONE Administration Medical Decision Making - Medical Decision Making Vital Signs Temperature 102.7 F H 03/24/18 19:00 Pulse Rate 92 H 03/24/18 19:00 Respiratory Rate 16 03/24/18 19:00 Blood Pressure 163/85 03/24/18 19:00 O2 Sat by Pulse Oximetry (%) 99 03/24/18 19:00 Laboratory Tests 03/24/18 03/24/1818 17:30 17:30 17:30 WBC 6.3 RBC 3.19 L Hgb 9.7 L Hct 28.5 L D MCV 89.4 MCH 30.5 MCHC 34.2 RDW 14.2 Plt Count 89 L D MPV 9.1 Absolute Neuts (auto) 6.0 Neutrophils % 94.4 H D Neutrophils % (Manual) 92.0 H D Lymphocytes % 2.8 L D Lymphocytes % (Manual) 5.0 L D Monocytes % 2.2 L Monocytes % (Manual) 3 L Eosinophils % 0.4 Basophils % 0.2 Nucleated RBC % 0 Platelet Estimate Decreased Platelet Comment No clumping noted Polychromasia 1+ Anisocytosis 1+ Macrocytosis 1+ Sodium 136 Potassium 4.1 Chloride 103 Carbon Dioxide 28 Anion Gap 5 L BUN 26 H Creatinine 3.6 H Creat Clearance w eGFR 17.89 Random Glucose 70 L Lactic Acid Calcium 8.6 Total Bilirubin 0.8 AST 20 ALT 16 Alkaline Phosphatase 64 Creatine Kinase 107 Troponin I 0.05 B-Natriuretic Peptide 7154.7 H Total Protein 6.6 Albumin 3.6 TSH 2.95 D Cancelled Urine Color Urine Appearance Urine pH Ur Specific [place] Urine Protein Urine Glucose (UA) Urine Ketones Urine Blood Urine Nitrite Urine Bilirubin Urine Urobilinogen Ur Leukocyte Esterase Urine WBC (Auto) Urine RBC (Auto) Urine Mucus 03/24/18 03/24/18 03/24/18 18:00 18:40 20:15 WBC RBC Hgb Hct MCV MCH MCHC RDW Plt Count MPV Absolute Neuts (auto) Neutrophils % Neutrophils % (Manual) Lymphocytes % Lymphocytes % (Manual) Monocytes % Monocytes % (Manual) Eosinophils % Basophils % Nucleated RBC % Platelet Estimate Platelet Comment Polychromasia Anisocytosis Macrocytosis Sodium Potassium Chloride Carbon Dioxide Anion Gap BUN Creatinine Creat Clearance w eGFR Random Glucose Lactic Acid 0.9 Calcium Total Bilirubin AST ALT Alkaline Phosphatase Creatine Kinase Troponin I 0.05 B-Natriuretic Peptide Total Protein Albumin TSH Urine Color Yellow Urine Appearance Clear Urine pH 5.0 Ur Specific [place] 1.012 Urine Protein 2+ H Urine Glucose (UA) Negative Urine Ketones Negative Urine Blood Negative Urine Nitrite Negative Urine Bilirubin Negative Urine Urobilinogen Negative Ur Leukocyte Esterase Negative Urine WBC (Auto) 2 Urine RBC (Auto) <1 Urine Mucus Rare 03/25/18 01:41 The Pt is unsafe for discharge at this time. They require further hospital observation, workup, and treatment. Microblog sent to [facility] for admission. Blank Decision to Admit order is placed per ED protocol. 03/25/18 03:[address] Mejias, in agreement patient to be admitted to [facility]. Decision to Admit order corrected with Dr. Montalvo's name per Dr. Mejias's request. *DC/Admit/Observation/Transfer Diagnosis at time of Disposition: ESRD (end stage renal disease), EKG abnormalities Allergic reaction caused by a drug Qualifiers: Encounter type: initial encounter Qualified Code(s): T78.40XA - Allergy, unspecified, initial encounter Fever Qualifiers: Fever type: post-vaccination Qualified Code(s): R50.83 - Postvaccination fever Hypertension Qualifiers: Hypertension type: unspecified Qualified Code(s): I10 - Essential (primary) hypertension - Discharge Dispostion Condition at time of disposition: Guarded Decision to Admit order: Yes - Referrals Referrals: Shayne Ramirez MD [Primary Care Provider] - - Patient Instructions - Post Discharge Activity
[2018-03-25] MEDS ORDERED: oxyCODONE HCL 5 MG TABLET PO PRN (03:30)
[2018-03-25] MEDS ORDERED: ACETAMINOPHEN 325 MG TABLET (FP) PO PRN (03:36)
[2018-03-25] MEDS ORDERED: methylPREDNISolone NA SUCC 40 MG/1 ML VIAL IVPB SCH (03:45)
[2018-03-25] MEDS ORDERED: ISOSORBIDE DINITRATE 5 MG TABLET PO SCH (06:00)
[2018-03-25] MEDS ORDERED: methylPREDNISolone NA SUCC 40 MG/1 ML VIAL ONE (06:12)
[2018-03-25] MEDS ORDERED: LABETALOL HCL 100 MG TABLET (FP) ONE (06:12)
[2018-03-25] MEDS: LABETALOL HCL 200 MG TABLET (FP) PO SCH ×2 (06:26→13:49)
[2018-03-25 07:35] LABS: ALBUMIN 3.4 g/dl (3.4-5.0); ALK PHOS 58 U/L (45-117); ANION GAP 9 MMOL/L (8-16); BILIRUBIN,TOTAL 0.6 mg/dL (0.2-1); BLOOD UREA NITROGEN 35 mg/dL (7-18); CALCIUM 8.4 mg/dL (8.5-10.1); CHLORIDE 105 mmol/L (98-107); CO2 24 mmol/L (21-32); CREATININE 4.7 mg/dL (0.55-1.3); GLUCOSE,RANDOM 137 mg/dL (74-106); POTASSIUM 4.4 mmol/L (3.5-5.1); SGOT/AST 11 U/L (15-37); SGPT/ALT 14 U/L (13-61); SODIUM 138 mmol/L (136-145); TOT PROT 6.3 g/dl (6.4-8.2)
[2018-03-25] MEDS ORDERED: ISOSORBIDE DINITRATE 10 MG TABLET (FP) ONE ×2 (08:25→12:26)
[2018-03-25] MEDS ORDERED: ISOSORBIDE DINITRATE 20 MG TABLET (FP) ONE ×2 (08:25→12:26)
[2018-03-25] MEDS: ISOSORBIDE DINITRATE PO SCH ×2 (08:30→13:49)
--- NOTE | 2018-03-25 09:31 | CONSULT ---
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 The patient states he was about 45 minutes to dialysis completion when he was given a flu shot on the R. arm. The patient states a couple of minutes following, he started feeling short of breath, chills, body ache with elevated blood pressure. He was given Benadryl and Tylenol x2, with relief. The patient states he doesnt usually get flu shots, denies any allergy to eggs, states for breakfast patient had eggs. - History of Present Illness Chief Complaint: Fever , chills, reportdly after getting flu vaccine. - History Source History Provided By: Patient - Past Medical History TEST ARCHITECT: Yes: CVA Cardio/Vascular: Yes: CAD, CHF, HTN, Hyperlipdemia Renal/: Yes: Renal Failure (Cr 2.2 in 07/2016, suspect due to hypertensive disease), Hemodialysis - Past Surgical History Past Surgical History: Yes: Joint Replacement (ankle repair) - Alcohol/Substance Use Hx Alcohol Use: Yes (RECOVERING ALCOHOLIC - SOBER 1992) History of Substance Use: reports: None - Smoking History Smoking history: Former smoker Have you smoked in the past 12 months: No Aproximately how many cigarettes per day: 0 If you are a former smoker, when did you quit?: 12/03 - Social History ADL: Independent History of Recent Travel: No Home Medications - Allergies Allergies/Adverse Reactions: Allergies Allergy/AdvReac Type Severity Reaction Status Date / Time Influenza Virus Vaccines Allergy Severe Verified 03/24/18 19:18 - Home Medications Home Medications: Ambulatory Orders Amlodipine Besylate [Norvasc -] 5 mg PO DAILY 03/13/18 Clonidine HCl [Clonidine HCl ER] 0.2 mg PO BID 03/13/18 Febuxostat [Uloric] 40 mg PO DAILY 03/13/18 Isosorbide Dinitrate [Isordil -] 30 mg PO TID 03/13/18 Pantoprazole Sodium 40 mg PO DAILY 03/13/18 Labetalol HCl [Normodyne -] 400 mg PO TID 90 Days tablet 03/16/18 oxyCODONE HCL [Roxicodone -] 5 mg PO Q6H PRN 7 Days #12 tablet MDD 6 03/16/18 Family Disease History - Family Disease History Family Disease History: Heart Disease: Mother Review of Systems - Review of Systems Constitutional: reports: Chills, Fever, Malaise Eyes: reports: No Symptoms HENT: denies: Difficult Swallowing, Mouth Swelling, Throat Pain Neck: denies: No Symptoms, Stiffness Cardiovascular: reports: Shortness of Breath. denies: Chest Pain Respiratory: reports: Cough Gastrointestinal: denies: Abdominal Pain Genitourinary: denies: No Symptoms Musculoskeletal: denies: No Symptoms Integumentary: denies: No Symptoms Neurological: denies: No Symptoms, Change in LOC, Seizure Hematology/Lymphatic: denies: No Symptoms Physical Exam Vital Signs: Vital Signs Temperature 98.4 F 03/25/18 06:41 Pulse Rate 66 03/25/18 06:41 Respiratory Rate 18 03/25/18 06:41 Blood Pressure 150/87 03/25/18 06:41 O2 Sat by Pulse Oximetry (%) 96 03/25/18 06:41 Constitutional: Yes: Well Nourished, No Distress, Anxious Eyes: Yes: Conjunctiva Clear HENT: Yes: Normocephalic Neck: Yes: Trachea Midline Cardiovascular: Yes: Regular Rate and Rhythm, S1, S2 Respiratory: Yes: CTA Bilaterally, Diminished Gastrointestinal: Yes: Normal Bowel Sounds, Abdomen, Obese Renal/: Yes: CVA Tenderness - Left, CVA Tenderness - Right. No: Bladder Distention Edema: Yes Edema: LLE: 1+, RLE: 1+ Neurological: Yes: Alert, Oriented Labs: CBC, BMP 03/24/18 17:30 03/25/18 06:49 Problem List - Problems (1) Allergic reaction caused by a drug Code(s): T78.40XA - ALLERGY, UNSPECIFIED, INITIAL ENCOUNTER Qualifiers: Encounter type: initial encounter Qualified Code(s): T78.40XA - Allergy, unspecified, initial encounter (2) EKG abnormalities Code(s): R94.31 - ABNORMAL ELECTROCARDIOGRAM [ECG] [EKG] (3) ESRD (end stage renal disease) Code(s): N18.6 - END STAGE RENAL DISEASE (4) Fever Code(s): R50.9 - FEVER, UNSPECIFIED Qualifiers: Fever type: post-vaccination Qualified Code(s): R50.83 - Postvaccination fever (5) Hypertension Code(s): I10 - ESSENTIAL (PRIMARY) HYPERTENSION Qualifiers: Hypertension type: unspecified Qualified Code(s): I10 - Essential (primary ) hypertension (6) Anemia in chronic kidney disease Code(s): N18.9 - CHRONIC KIDNEY DISEASE, UNSPECIFIED; D63.1 - ANEMIA IN CHRONIC KIDNEY DISEASE Qualifiers: Chronic kidney disease stage: stage 4 (severe) Qualified Code(s): N18.4 - Chronic kidney disease, stage 4 (severe); D63.1 - Anemia in chronic kidney disease (7) Constipation Code(s): K59.00 - CONSTIPATION, UNSPECIFIED (8) FSGS (focal segmental glomerulosclerosis) Code(s): N05.1 - UNSP NEPH SYNDROME W FOCAL AND SEGMENTAL GLOMERULAR LESIONS (9) Glomerulosclerosis Code(s): N26.9 - RENAL SCLEROSIS, UNSPECIFIED Assessment/Plan The patient is a 53-year-old male with past medical history significant for CKD secondary to FSGS, HTN, CHF, and CVA presents to the emergency department from dialysis with shortness of breath and body ache. The patient reportedly developed all the symptoms after he received Flu Vaccine. Feeling better now. Also noted is some non-specific EKG changes. PLAN: Concur with the current management. For Cardiology evaluation. No emergent indication for dialysis now. His regular dialysis will be on Monday. Thank you. Will follow with you. Lauren Waterman MD
[2018-03-25 09:45] VITALS: TEMP 98.2; BMI 29.1
--- NOTE | 2018-03-25 09:56 | CON.CARD ---
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 Was in HD yesterday, during last 45 min felt short of breath after receiving flu shot. No chest pain. He felt better after receiving benadryl and tylenol. noted to have abnormal EKG. sees Dr. fracnisco in clinic. 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 Cardio/Vascular: Yes: CAD, CHF, HTN, Hyperlipdemia Renal/: Yes: Renal Failure (Cr 2.2 in 07/2016, suspect due to hypertensive disease) - Past Surgical History Past Surgical History: Yes: Joint Replacement (ankle repair) - Alcohol/Substance Use Hx Alcohol Use: No History of Substance Use: reports: None - Smoking History Smoking history: Former smoker Have you smoked in the past 12 months: No Aproximately how many cigarettes per day: 0 If you are a former smoker, when did you quit?: 2018 - Social History ADL: Independent History of Recent Travel: No Home Medications - Allergies Allergies/Adverse Reactions: Allergies Allergy/AdvReac Type Severity Reaction Status Date / Time Influenza Virus Vaccines Allergy Severe Verified 03/24/18 19:18 - Home Medications Home Medications: Home Medications Medication Instructions Recorded Amlodipine Besylate [Norvasc -] 5 mg PO DAILY 03/13/18 Clonidine HCl [Clonidine HCl ER] 0.2 mg PO BID 03/13/18 Febuxostat [Uloric] 40 mg PO DAILY 03/13/18 Isosorbide Dinitrate [Isordil -] 30 mg PO TID 03/13/18 Pantoprazole Sodium 40 mg PO DAILY 03/13/18 Labetalol HCl [Normodyne -] 400 mg PO TID 90 Days tablet 03/16/18 oxyCODONE HCL [Roxicodone -] 5 mg PO Q6H PRN 7 Days #12 tablet 03/16/18 MDD 6 Family Disease History - Family Disease History Family History: Unremarkable Family Disease History: Heart Disease: Mother Review of Systems - Review of Systems Constitutional: reports: Weakness Eyes: reports: No Symptoms HENT: reports: No Symptoms Neck: reports: No Symptoms Cardiovascular: reports: No Symptoms Respiratory: reports: No Symptoms Gastrointestinal: reports: No Symptoms Genitourinary: reports: No Symptoms Integumentary: reports: No Symptoms Neurological: reports: Headache Endocrine: reports: No Symptoms Hematology/Lymphatic: reports: No Symptoms Psychiatric: reports: No Symptoms Vital Signs: Vital Signs Period Temp Pulse Resp BP Sys/Pichardo Pulse Ox Last 24 Hr 98.2 F-102.9 F 66-105 16-18 124-198/64-99 96-99 Constitutional: Yes: No Distress, Calm Eyes: Yes: Conjunctiva Clear, EOM Intact HENT: Yes: Atraumatic, Normocephalic Neck: Yes: Supple, Trachea Midline Respiratory: Yes: Regular, CTA Bilaterally Gastrointestinal: Yes: Normal Bowel Sounds, Soft Renal/: Yes: WNL Cardiovascular: Yes: Regular Rate and Rhythm JVD: No Heart Sounds: Yes: S1, S2 Musculoskeletal: Yes: WNL Extremities: Yes: WNL Edema: No Peripheral Pulses: 2+ Left Doralis Pedis, 2+ Right Dorsalis Pedis Integumentary: Yes: WNL Neurological: Yes: Alert, Oriented Psychiatric: Yes: Alert, Oriented - Other Data Labs, Other Data: Laboratory Results - last 24 hr 03/24/18 03/24/18 03/24/18 06:45 17:30 17:30 WBC 6.3 RBC 3.19 L Hgb 9.7 L Hct 28.5 L D MCV 89.4 MCH 30.5 MCHC 34.2 RDW 14.2 Plt Count 89 L D MPV 9.1 Absolute Neuts (auto) 6.0 Neutrophils % 94.4 H D Neutrophils % (Manual) 92.0 H D Lymphocytes % 2.8 L D Lymphocytes % (Manual) 5.0 L D Monocytes % 2.2 L Monocytes % (Manual) 3 L Eosinophils % 0.4 Basophils % 0.2 Nucleated RBC % 0 Platelet Estimate Decreased Platelet Comment No clumping noted Polychromasia 1+ Anisocytosis 1+ Macrocytosis 1+ Sodium 136 Potassium 4.1 Chloride 103 Carbon Dioxide 28 Anion Gap 5 L BUN 26 H Creatinine 3.6 H Creat Clearance w eGFR 17.89 Random Glucose 70 L Lactic Acid Calcium 8.6 Total Bilirubin 0.8 AST 20 ALT 16 Alkaline Phosphatase 64 Creatine Kinase 107 Troponin I 0.05 B-Natriuretic Peptide 7154.7 H Total Protein 6.6 Albumin 3.6 TSH 2.95 D Cancelled Urine Color Urine Appearance Urine pH Ur Specific [place] Urine Protein Urine Glucose (UA) Urine Ketones Urine Blood Urine Nitrite Urine Bilirubin Urine Urobilinogen Ur Leukocyte Esterase Urine WBC (Auto) Urine RBC (Auto) Urine Mucus 03/24/18 03/24/18 03/24/18 18:00 18:40 20:15 WBC RBC Hgb Hct MCV MCH MCHC RDW Plt Count MPV Absolute Neuts (auto) Neutrophils % Neutrophils % (Manual) Lymphocytes % Lymphocytes % (Manual) Monocytes % Monocytes % (Manual) Eosinophils % Basophils % Nucleated RBC % Platelet Estimate Platelet Comment Polychromasia Anisocytosis Macrocytosis Sodium Potassium Chloride Carbon Dioxide Anion Gap BUN Creatinine Creat Clearance w eGFR Random Glucose Lactic Acid 0.9 Calcium Total Bilirubin AST ALT Alkaline Phosphatase Creatine Kinase Troponin I 0.05 B-Natriuretic Peptide Total Protein Albumin TSH Urine Color Yellow Urine Appearance Clear Urine pH 5.0 Ur Specific [place] 1.012 Urine Protein 2+ H Urine Glucose (UA) Negative Urine Ketones Negative Urine Blood Negative Urine Nitrite Negative Urine Bilirubin Negative Urine Urobilinogen Negative Ur Leukocyte Esterase Negative Urine WBC (Auto) 2 Urine RBC (Auto) <1 Urine Mucus Rare 03/25/18 06:49 WBC RBC Hgb Hct MCV MCH MCHC RDW Plt Count MPV Absolute Neuts (auto) Neutrophils % Neutrophils % (Manual) Lymphocytes % Lymphocytes % (Manual) Monocytes % Monocytes % (Manual) Eosinophils % Basophils % Nucleated RBC % Platelet Estimate Platelet Comment Polychromasia Anisocytosis Macrocytosis Sodium 138 Potassium 4.4 Chloride 105 Carbon Dioxide 24 Anion Gap 9 BUN 35 H Creatinine 4.7 H Creat Clearance w eGFR 13.16 Random Glucose 137 H Lactic Acid Calcium 8.4 L Total Bilirubin 0.6 AST 11 L ALT 14 Alkaline Phosphatase 58 Creatine Kinase 61 Troponin I 0.03 B-Natriuretic Peptide 90693.0 H Total Protein 6.3 L Albumin 3.4 TSH Urine Color Urine Appearance Urine pH Ur Specific [place] Urine Protein Urine Glucose (UA) Urine Ketones Urine Blood Urine Nitrite Urine Bilirubin Urine Urobilinogen Ur Leukocyte Esterase Urine WBC (Auto) Urine RBC (Auto) Urine Mucus Assessment/Plan EKG 11/28/17: NSR, LVH with repol abn, ? LAFB. no path q's. no signif change vs prior 07/2017 Echo 08/2017: mod LV dilation. moderate concentric LVH. nl LVEF/normal wall motion. nl RV. mild L/ELISABETH. mild MR. no RVSP. Echo 01/2017: EF 40-45%--global hypo, sev conc lvh, grade 2 diast dysfunction. nl rv, mild ar, mod mr. mod phtn MPI 09/03 (chuck): non-diagnostic ECG (baseline LVH with repol abnormalities. normal perfusion. nl LVEF. 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 Waterman following - on HD Chronic combined systolic/diastolic HF - on HD per nephrology - BNP chronically elevated in setting of ESRD, appears euvolemic HTN - elevated on arrival to ED, now improved - continue current meds h/o CVA: -bp meds as doing - cont statin thrombocytopenia, anemia: -low PLTs are chronic, stable, stable anemia stable from cardiac perspective
[2018-03-25] MEDS ORDERED: RANITIDINE HCL 150 MG TABLET (FP) PO SCH (10:00)
[2018-03-25] MEDS ORDERED: cloNIDine HCL 0.1 MG TABLET PO SCH (10:00)
[2018-03-25] MEDS ORDERED: PANTOPRAZOLE 40 MG TABLET (FP) PO SCH (10:00)
[2018-03-25] MEDS ORDERED: amLODIPine BESYLATE 5 MG TABLET (FP) PO SCH (10:00)
[2018-03-25] MEDS ORDERED: FEBUXOSTAT 40 MG TAB PO SCH (10:00)
[2018-03-25] MEDS ORDERED: PT OWN MED DRAWER 7, Y5N ONE (10:35)
--- NOTE | 2018-03-25 12:18 | HP ---
Admitting History and Physical - Admission Chief Complaint: uncontrolled HTN, fever, reaction to flu vaccine History of Present Illness: 53 yo male, recently started on dialysis (glomerulonephritis), recent admission to hospital for uncontrolled HTN, was feeling fine, went for dialysis yesterday , started out session OK. About [address] with dialysis received influenza vaccine, then began to feel very restless, blood pressure increased to over 200 systolic. Received some tylenol and then benadryl but transferred to ED also. Received famotidine, solumedrol for possible allergic reaction in the ED and also hydralazine and BP came down, but noted at one point to have fever 102. Patient notes that he started to feel better in the ED. ED noted ? ischemic changes on EKG and patient admitted last night. Patient feeling fine this morning.never had any shortness of breath, no rash developed. Area where he received the flu shot is not tender and non-erythematous. C/o constipation, but otherwise feeling OK. 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: Yes: CVA Cardiovascular: Yes: CAD, CHF, HTN, Hyperlipdemia Renal/: Yes: Renal Failure, Hemodialysis, Other (glomurolonephritis (focal segmental)) Heme/Onc: Yes: Anemia, Thrombocytopenia - Past Surgical History Past Surgical History: Yes: Joint Replacement (ankle repair) - Smoking History Smoking history: Former smoker Have you smoked in the past 12 months: No Aproximately how many cigarettes per day: 0 If you are a former smoker, when did you quit?: 12/03 - Alcohol/Substance Use Hx Alcohol Use: Yes (RECOVERING ALCOHOLIC - SOBER 1992) History of Substance Use: reports: None - Social History ADL: Independent History of Recent Travel: No Home Medications - Allergies Allergies/Adverse Reactions: Allergies Allergy/AdvReac Type Severity Reaction Status Date / Time Influenza Virus Vaccines Allergy Severe Verified 03/24/18 19:18 - Home Medications Home Medications: Ambulatory Orders Amlodipine Besylate [Norvasc -] 5 mg PO DAILY 03/13/18 Clonidine HCl [Clonidine HCl ER] 0.2 mg PO BID 03/13/18 Febuxostat [Uloric] 40 mg PO DAILY 03/13/18 Isosorbide Dinitrate [Isordil -] 30 mg PO TID 03/13/18 Pantoprazole Sodium 40 mg PO DAILY 03/13/18 Labetalol HCl [Normodyne -] 400 mg PO TID 90 Days tablet 03/16/18 oxyCODONE HCL [Roxicodone -] 5 mg PO Q6H PRN 7 Days #12 tablet MDD 6 03/16/18 Family Disease History - Family Disease History Family Disease History: Heart Disease: Mother Review of Systems - Review of Systems Constitutional: denies: Chills, Loss of Appetite, Weakness Eyes: reports: No Symptoms HENT: denies: Difficult Swallowing, Epistaxis, Throat Pain Neck: reports: No Symptoms Cardiovascular: denies: Chest Pain, Palpitations Respiratory: denies: Cough, SOB, Wheezing Gastrointestinal: reports: Constipation. denies: Abdominal Pain, Nausea, Vomiting Genitourinary: denies: Burning, Discharge, Dysuria, Frequency Physical Examination Vital Signs: Vital Signs Temperature 98.2 F 03/25/18 09:14 Pulse Rate 73 03/25/18 09:14 Respiratory Rate 18 03/25/18 09:14 Blood Pressure 124/64 03/25/18 09:14 O2 Sat by Pulse Oximetry (%) 96 03/25/18 06:41 Constitutional: Yes: Well Nourished, No Distress, Calm Eyes: Yes: Conjunctiva Clear, EOM Intact, PERRL HENT: Yes: Atraumatic, Normocephalic Neck: Yes: Supple, Trachea Midline Cardiovascular: Yes: Regular Rate and Rhythm, S1, S2. No: Murmur Respiratory: Yes: Regular, CTA Bilaterally. No: Rales, Rhonchi, Wheezes Gastrointestinal: Yes: Normal Bowel Sounds, Soft. No: Distention, Tenderness Edema: No Neurological: Yes: Alert, Oriented Labs: CBC, BMP 03/24/18 17:30 03/25/18 06:49 Problem List - Problems (1) Allergic reaction caused by a drug Assessment/Plan: -appears to have resolved -does not need further steroids or H2-blockers Code(s): T78.40XA - ALLERGY, UNSPECIFIED, INITIAL ENCOUNTER Qualifiers: Encounter type: initial encounter Qualified Code(s): T78.40XA - Allergy, unspecified, initial encounter (2) EKG abnormalities Assessment/Plan: -reviewed by cardio and CE negative, no ACS noted (likely strain pattern on EKG from hypertension) Code(s): R94.31 - ABNORMAL ELECTROCARDIOGRAM [ECG] [EKG] (3) ESRD (end stage renal disease) Assessment/Plan: -seen on renal, can resume regular dialysis schedule (none needed now), next treatment on Monday Code(s): N18.6 - END STAGE RENAL DISEASE (4) Hypertension Assessment/Plan: -cont current treatment (120's systolic this AM) Code(s): I10 - ESSENTIAL (PRIMARY) HYPERTENSION Qualifiers: Hypertension type: unspecified Qualified Code(s): I10 - Essential (primary ) hypertension (5) Anemia Assessment/Plan: stable Code(s): D64.9 - ANEMIA, UNSPECIFIED Qualifiers: Anemia type: due to chronic kidney disease Chronic kidney disease stage: stage 5, not on chronic dialysis Qualified Code(s): N18.5 - Chronic kidney disease, stage 5; D63.1 - Anemia in chronic kidney disease (6) Thrombocytopenia Assessment/Plan: stable Code(s): D69.6 - THROMBOCYTOPENIA, UNSPECIFIED (7) Constipation Assessment/Plan: -start soap suds enema -observe this morning, but can discharge if no further adverse effects form vaccine noted) Code(s): K59.00 - CONSTIPATION, UNSPECIFIED
--- NOTE | 2018-03-25 12:57 | DS ---
Physical Examination Vital Signs: Vital Signs Temperature 98.2 F 03/25/18 09:14 Pulse Rate 73 03/25/18 09:14 Respiratory Rate 18 03/25/18 09:14 Blood Pressure 124/64 03/25/18 09:14 O2 Sat by Pulse Oximetry (%) 96 03/25/18 09:00 Labs: CBC, BMP 03/24/18 17:30 03/25/18 06:49 Discharge Summary Reason For Visit: FEVER/ALLERGIC REACTION TO DRUG/HYPERTENSION Current Active Problems Allergic reaction caused by a drug (Acute) Constipation (Acute) EKG abnormalities (Acute) ESRD (end stage renal disease) (Acute) Fever (Acute) Hypertension (Acute) Hospital Course: (see H&P from earlier today) -had bowel movement so can d/c SSE, stable for discharge) Condition: Guarded - Instructions Referrals: Shayne Ramirez MD [Primary Care Provider] - Disposition: HOME - Home Medications Comprehensive Discharge Medication List: Ambulatory Orders Amlodipine Besylate [Norvasc -] 5 mg PO DAILY 03/13/18 Clonidine HCl [Clonidine HCl ER] 0.2 mg PO BID 03/13/18 Febuxostat [Uloric] 40 mg PO DAILY 03/13/18 Isosorbide Dinitrate [Isordil -] 30 mg PO TID 03/13/18 Pantoprazole Sodium 40 mg PO DAILY 03/13/18 Labetalol HCl [Normodyne -] 400 mg PO TID 90 Days tablet 03/16/18 oxyCODONE HCL [Roxicodone -] 5 mg PO Q6H PRN 7 Days #12 tablet MDD 6 03/16/18
[2018-03-25 14:10] VITALS: BP 160/88; PULSE 72
--- NOTE | 2018-03-26 11:05 | EKG ---
Test Reason : Blood Pressure : / mmHG Vent. Rate : 083 BPM Atrial Rate : 083 BPM P-R Int : 174 ms QRS Dur : 112 ms QT Int : 406 ms P-R-T Axes : 037 -33 120 degrees QTc Int : 477 ms NORMAL SINUS RHYTHM POSSIBLE LEFT ATRIAL ENLARGEMENT LEFT AXIS DEVIATION LEFT VENTRICULAR HYPERTROPHY T WAVE ABNORMALITY, CONSIDER LATERAL ISCHEMIA PROLONGED QT ABNORMAL ECG WHEN COMPARED WITH ECG OF 24-MAR-2018 16:48, NO SIGNIFICANT CHANGE WAS FOUND Confirmed by YOSSI GONZALEZ MD ([id number]) on 03/26/2018 11:05:00 AM Referred By: Confirmed By:YOSSI GONZALEZ MD
--- NOTE | 2018-03-26 11:08 | EKG ---
Test Reason : Blood Pressure : / mmHG Vent. Rate : 099 BPM Atrial Rate : 099 BPM P-R Int : 160 ms QRS Dur : 110 ms QT Int : 382 ms P-R-T Axes : 021 -33 114 degrees QTc Int : 490 ms NORMAL SINUS RHYTHM POSSIBLE LEFT ATRIAL ENLARGEMENT LEFT AXIS DEVIATION LEFT VENTRICULAR HYPERTROPHY WITH REPOLARIZATION ABNORMALITY PROLONGED QT ABNORMAL ECG WHEN COMPARED WITH ECG OF 13-MAR-2018 13:24, VENT. RATE HAS INCREASED Confirmed by CARLOS GUERRA, YOSSI ([id number]) on 03/26/2018 11:08:34 AM Referred By: Confirmed By:YOSSI GONZALEZ MD
== END 2018-03-25 14:55 | disposition home or self-care (01) | DRG 864 ==
LOC: JER 16:20 → JERBED 03-25 01:47 → J4S 03-25 08:02
PROVIDERS: ADMIT Internal Medicine; ATTEND Internal Medicine
DX: R50.83 Postvaccination fever (principal); N18.6 End stage renal disease; I13.2 Hypertensive heart and chronic kidney disease with heart failure and with stage 5 chronic kidney disease, or end stage renal disease; I50.42 Chronic combined systolic (congestive) and diastolic (congestive) heart failure; T50.B95A Adverse effect of other viral vaccines, initial encounter; I16.0 Hypertensive urgency; R94.31 Abnormal electrocardiogram [ECG] [EKG]; Z87.891 Personal history of nicotine dependence; D64.9 Anemia, unspecified; N05.1 Unspecified nephritic syndrome with focal and segmental glomerular lesions; Z99.2 Dependence on renal dialysis; Z86.73 Personal history of transient ischemic attack (TIA), and cerebral infarction without residual deficits; D69.6 Thrombocytopenia, unspecified; K57.30 Diverticulosis of large intestine without perforation or abscess without bleeding; I25.10 Atherosclerotic heart disease of native coronary artery without angina pectoris; Z96.669 Presence of unspecified artificial ankle joint; F10.21 Alcohol dependence, in remission; I25.2 Old myocardial infarction; K59.00 Constipation, unspecified
CPT/HCPCS: 36415; 71045-TC-FY; 74176-TC; 80053; 81003; 81015; 82550; 82962; 83605; 83880; 84443; 84484; 85025; 87040; 87086; 93005; 93010; 99284-25; J0735

== ENCOUNTER 2018-03-27 15:57 | Inpatient (IN) | payer BC ==
--- NOTE | 2018-03-27 16:14 | PDOC ---
Rapid Medical Evaluation Time Seen by Provider: 03/27/18 16:13 Medical Evaluation: Allergies Allergy/AdvReac Type Severity Reaction Status Date / Time Influenza Virus Vaccines Allergy Severe Verified 03/24/18 19:18 03/27/18 16:15 The patient presents with a chief complaint of: fever I have performed a brief in-person evaluation of this patient. Pertinent physical exam findings: vss I have ordered the following: sepsis workup The patient will proceed to the ED for further evaluation. 03/27/18 16:58
[2018-03-27 16:18] VITALS: BMI 29.5
--- NOTE | 2018-03-27 16:36 | PDOC ---
Attending Attestation - HPI HPI: 03/27/18 18:11 The patient is a 53 year old male, with a significant past medical history of renal failure on dialysis (TRS - port in place, fistula placed over the weekend) , DM, chronic low back pain (lumbar spine dextroscoliosis w/ L4-L5-S1 degeneration and HTN, who presents to the emergency department with sudden onset of chills after receiving about 90% of his dialysis at 11AM today. He reports associated fatigue and low back pain. The patient denies chest pain, shortness of breath, headache and dizziness. The patient denies fever, chills, nausea, vomit, diarrhea and constipation. The patient denies dysuria, frequency, urgency and hematuria. Allergies: NKDA Social history: ETOH cessation in 1992, non-smoker PCP - Dr. Ramirez - Physicial Exam PE: 03/27/18 18:13 ROS: A complete review of 10 out of 10 review of systems is taken and is negative apart from what is previously mentioned below and in the HPI. Vitals: Triage vital signs reviewed, (+) Febrile. General Appearance: No acute distress, well nourished, well developed Head: Atraumatic Eyes: Pupils equal reactive round, extraocular movement intact Neck: Supple; No nuchal rigidity Chest Wall: Nontender Cardiac: Regular rate and rhythm, no murmurs, no rubs, no gallops Lungs: Clear to auscultation bilateral, good air movement bilaterally Abdomen: Soft, nondistended, normal bowel sounds, nontender to palpation Extremities: Full range of motion to all extremities, no cyanosis, clubbing, or edema Skin: Warm and dry, no rashes or lesions, no rash, no petechiae Neuro: AOX3; Cranial Nerves 2-12 grossly intact, Strength intact to all extremities, Sensation intact to all extremities, gait normal - Medical Decision Making 03/27/18 18:13 Documentation prepared by Kayce Merrill, acting as medical nurse for Joel Badillo MD, <Kayce Merrill - Last Filed: 03/27/18 18:11> - Resident Resident Name: Elsie Palma - ED Attending Attestation I have performed the following: I have examined & evaluated the patient, The case was reviewed & discussed with the resident, I agree w/resident's findings & plan, Exceptions are as noted - Medical Decision Making 53 years old past medical history significant for hypertension diabetes chronic low back pain renal failure on dialysis who presents to the ED now for second time in the last 3 days with fever shaking chills while at dialysis prior to arrival Patient had similar episode on Monday was seen in the emergency department. Given again fever chills riders after dialysis we'll check cultures cover with Sonia Vazquez sent separate cultures from patient's dialysis port consult nephrology and admit to medicine for further management. <Joel Badillo - Last Filed: 03/27/18 19:11>
--- NOTE | 2018-03-27 16:36 | PDOC ---
History of Present Illness - General Chief Complaint: SIRS, Suspected/Possible Stated Complaint: CHILLS/ CRAMPS Time Seen by Provider: 03/27/18 16:13 History Source: Patient Exam Limitations: No Limitations - History of Present Illness Initial Comments: 03/27/18 16:36 53 year old man from [facility] with history of renal failure on dialysis ( TRS), DM, chronic low back pain (lumbar spine dextroscoliosis w/ L4-L5-S1 degeneration) and HTN who presents with lower back pain described as sharp, rated 10/10 that has been progressive since this AM and with chills and shaking that started while at dialysis just prior to arrival. The patient denies taking anything for his back pain this AM with radiation down the lower legs. He notes the pain feels similar to his chronic back pain but much worse. The patient reports that he had similar symptoms of chills and shaking that started 4 days ago while he was at dialysis and approx 5 min after he received the flu shot at dialysis. The patient notes that he had not had the flu shot for 25 years prior. He was taken to this ED admitted for 2 days with resolution of all symptoms with benadryl. The patient had no fever at home after discharge. The patient admitted to chest tightness and shortness of breath at onset of chills and shaking today. He also reports 2 days of constipation w/ last bowel movement occurring 2 days ago. 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) COPD: No CHF: Yes DVT: No Dementia: No Diabetes: Yes GI Disorders: Yes (RENAL FAILURE) Disorders: No HTN: Yes Hypercholesterolemia: No Liver Disease: No Seizures: No Thyroid Disease: No - Surgical History Abdominal Surgery: Yes (HERNIA REPAIR) Appendectomy: No Cardiac Surgery: No Cholecystectomy: No Lung Surgery: No Neurologic Surgery: No Orthopedic Surgery: Yes (right ankle fracture; plate with 6 screws) - Suicide/Smoking/Psychosocial Hx Smoking Status: No Smoking History: Former smoker Have you smoked in the past 12 months: No Number of Cigarettes Smoked Daily: 0 If you are a former smoker, when did you quit?: 12/03 Cigars Per Day: 0 Information on smoking cessation initiated: No 'Breaking Loose' booklet given: 09/14/17 Hx Alcohol Use: No Drug/Substance Use Hx: No Substance Use Type: None Hx Substance Use Treatment: Yes (AA 5 DAYS A WEEK) Review of Systems - Review of Systems Able to Perform ROS?: Yes Is the patient limited [place] proficient: No Constitutional: Yes: Chills, Diaphoresis. No: Fever HEENTM: No: Blurred Vision, Tinnitus *Physical Exam - Vital Signs Last Vital Signs Temp Pulse Resp BP Pulse Ox 100.2 F H 97 H 22 H 181/89 H 93 L 03/27/18 16:15 03/27/18 16:15 03/27/18 16:15 03/27/18 16:15 03/27/18 16:15 - Physical Exam Comments: 03/27/18 22:24 warm to the touch, slightly diaphoretic appearing ED Treatment Course - LABORATORY CBC & Chemistry Diagram: 04/03/18 08:50 04/03/18 08:50 Medical Decision Making - Medical Decision Making 03/27/18 22:24 53 year old man from [facility] with history of renal failure on dialysis ( TRS), DM, chronic low back pain (lumbar spine dextroscoliosis w/ L4-L5-S1 degeneration and HTN who presents with lower back pain described as sharp, rated 10/10 that has been progressive since this AM and with chills and shaking that started while at dialysis just prior to arrival. DDX including but not limited to: sepsis 2/2 line infection/bacteremia vs ACS vs UTI vs electrolyte abnormality W/U: - cbc, cmp, PT/INR, PTT, trop - ua, ucx - ekg TX: - ED Course: Patient stable in no acute distress. pleasant at bedside. 04/06/18 17:37 *DC/Admit/Observation/Transfer Diagnosis at time of Disposition: Sepsis - Discharge Dispostion Disposition: HOME Condition at time of disposition: Stable Decision to Admit order: Yes - Prescriptions - Referrals - Patient Instructions - Post Discharge Activity
[2018-03-27] MEDS ORDERED: PIPERACILLIN/TAZOB 4.5 GM 4.5 GM in DEXTROSE 5%-WATER 100 ML IVPB ONE (17:57)
[2018-03-27] MEDS ORDERED: VANCOMYCIN 1,000 MG in DEXTROSE 5%-WATER - 250 ML IVPB ONE (18:00)
[2018-03-27 18:01] LABS: BASO % 0.3 % (0-2.0); EOS % 0.5 % (0-4.5); HEMATOCRIT 27.8 % (35.4-49); HEMOGLOBIN 9.7 GM/dL (11.7-16.9); MCH 30.9 pg (25.7-33.7); MCHC 34.8 g/dl (32.0-35.9); MEAN CELL VOLUME 88.8 fl (80-96); MEAN PLT VOLUME 9.1 fl (7.5-11.1); MONO % 4.1 % (3.8-10.2); NEUT % 89.1 % (42.8-82.8); PLATELET COUNT 92 K/MM3 (134-434); RBC 3.13 M/mm3 (4.00-5.60); RDW 14.6 % (11.9-15.9); WHITE BLOOD COUNT 4.8 K/mm3 (4.0-10.0)
[2018-03-27] MEDS ORDERED: SODIUM CHLORIDE 500 ML IV STA (18:02)
[2018-03-27] MEDS ORDERED: ACETAMINOPHEN 1000 MG/100 ML VIAL (NON FORMULARY) IVPB ONE (18:02)
[2018-03-27 18:13] LABS: INR 1.01 (0.83-1.09); PROTHROMBIN TIME (PATIENT) 11.9 SEC (9.7-13.0)
[2018-03-27 18:16] LABS: ACTIVATED PTT 25.5 SECONDS (25.2-36.5)
[2018-03-27 18:53] LABS: ALBUMIN 3.6 g/dl (3.4-5.0); ALK PHOS 66 U/L (45-117); ANION GAP 9 MMOL/L (8-16); BILIRUBIN,TOTAL 0.8 mg/dL (0.2-1); BLOOD UREA NITROGEN 34 mg/dL (7-18); CALCIUM 8.6 mg/dL (8.5-10.1); CHLORIDE 100 mmol/L (98-107); CO2 31 mmol/L (21-32); CREATININE 3.8 mg/dL (0.55-1.3); GLUCOSE,RANDOM 84 mg/dL (74-106); SGOT/AST 14 U/L (15-37); SGPT/ALT 21 U/L (13-61); SODIUM 140 mmol/L (136-145); TOT PROT 6.5 g/dl (6.4-8.2)
[2018-03-27] MEDS ORDERED: ACETAMINOPHEN INJECTION 100 ML IVPB ONE (18:54)
[2018-03-27] MEDS ORDERED: PIPERACILLIN/TAZOB 4.5 GM 4.5 GM/100 ML BAG IVPB ONE (18:54)
[2018-03-27] MEDS ORDERED: VANCOMYCIN 1 GRAM (PRE-DOCKED) 1,000 MG/250 ML BAG IVPB ONE (18:54)
[2018-03-27] MEDS ORDERED: VANCOMYCIN 500 MG in DEXTROSE 5%-WATER - 100 ML IVPB ONE (22:45)
[2018-03-27 22:56] LABS: URINE APPEARANCE CLEAR; URINE BILIRUBIN NEGATIVE (<2.0 mg/dL); URINE COLOR LTYELLOW; URINE GLUCOSE (UA) NEGATIVE (NEGATIVE); URINE KETONE NEGATIVE (NEGATIVE); URINE LEUK ESTERASE NEGATIVE (NEGATIVE); URINE NITRITE NEGATIVE (NEGATIVE); URINE PROTEIN 2+ (NEGATIVE)
--- NOTE | 2018-03-27 23:09 | HP ---
CHIEF COMPLAINT: shaking chills PCP: Ashley HISTORY OF PRESENT ILLNESS: This is a 53 year old male with a significant past medical history of HTN, CAD s /p HI, CHF, ESRD presented to the ED with shaking chills at end of dialysis session today. He was admitted 03/24-03/25 for similar complaint. Thus far blood cultures from that visit without growth. Upon arrival to Ed today was noted to be febrile. Pt denies cough, abdominal pain, N/V/D, dysuria. ER course was notable for: (1) WBC 4.8 (2) T 100.2, R 22 (3) CXR without obvious infiltrate Recent Travel: [place] PAST MEDICAL HISTORY: HTN, HLD, HI October 2016, CHF, CVA residual right sided blindness, ESRD on dialysis TThSa, chronic low back pain, thrombocytopenia PAST SURGICAL HISTORY: hernia repair as a child R ankle ORIF Social History: Smokin/2 ppd x 5 years, quit 2016 Alcohol: previous, quit 1992 Drugs: previous, none since 1992 Family History: mother alive and well father age 72 4 sisters and one brother alive and well Allergies Influenza Virus Vaccines Allergy (Severe, Verified 03/24/18 19:18) HOME MEDICATIONS: 3 Medication Instructions Recorded Amlodipine Besylate [Norvasc -] 5 mg PO DAILY 03/13/18 Clonidine HCl [Clonidine HCl ER] 0.2 mg PO BID 03/13/18 Febuxostat [Uloric] 40 mg PO DAILY 03/13/18 Isosorbide Dinitrate [Isordil -] 30 mg PO TID 03/13/18 Pantoprazole Sodium 40 mg PO DAILY 03/13/18 Labetalol HCl [Normodyne -] 400 mg PO TID 90 Days tablet 03/16/18 oxyCODONE HCL [Roxicodone -] 5 mg PO Q6H PRN 7 Days #12 tablet 03/16/18 MDD 6 REVIEW OF SYSTEMS CONSTITUTIONAL: Present: fever, chills Absent: diaphoresis, generalized weakness, malaise, loss of appetite, weight change HEENT: Absent: rhinorrhea, nasal congestion, throat pain, throat swelling, difficulty swallowing, mouth swelling, ear pain, eye pain, visual changes CARDIOVASCULAR: Absent: chest pain, syncope, palpitations, irregular heart rate, lightheadedness , peripheral edema RESPIRATORY: Absent: cough, shortness of breath, dyspnea with exertion, orthopnea, wheezing, stridor, hemoptysis GASTROINTESTINAL: Absent: abdominal pain, abdominal distension, nausea, vomiting, diarrhea, constipation, melena, hematochezia GENITOURINARY: Absent: dysuria, frequency, urgency, hesitancy, hematuria, flank pain, genital pain MUSCULOSKELETAL: Absent: myalgia, arthralgia, joint swelling, back pain, neck pain SKIN: Absent: rash, itching, pallor HEMATOLOGIC/IMMUNOLOGIC: Absent: easy bleeding, easy bruising, lymphadenopathy, frequent infections ENDOCRINE: Absent: unexplained weight gain, unexplained weight loss, heat intolerance, cold intolerance NEUROLOGIC: Absent: headache, focal weakness or paresthesias, dizziness, unsteady gait, seizure, mental status changes, bladder or bowel incontinence PSYCHIATRIC: Absent: anxiety, depression, suicidal or homicidal ideation, hallucinations. PHYSICAL EXAMINATION Vital Signs - 24 hr 3 03/27/18 03/27/18 03/27/18 16:15 16:35 17:30 Temperature 100.2 F H Pulse Rate 97 H Pulse Rate [ 83 Left Radial] Respiratory 22 H 20 Rate Blood Pressure 181/89 H Blood Pressure 153/86 [Right Arm] O2 Sat by Pulse 93 L 93 L 96 Oximetry (%) 3 03/27/18 03/27/18 19:29 22:54 Temperature 99.0 F Pulse Rate Pulse Rate [ 86 61 Left Radial] Respiratory 20 17 Rate Blood Pressure Blood Pressure 127/81 157/88 [Right Arm] O2 Sat by Pulse 96 99 Oximetry (%) GENERAL: Awake, alert, and fully oriented, in no acute distress. HEAD: Normal with no signs of trauma. EYES: Pupils equal, round and reactive to light, extraocular movements intact, sclera anicteric, conjunctiva clear. No lid lag. EARS, NOSE, THROAT: Ears normal, nares patent, oropharynx clear without exudates. Moist mucous membranes. NECK: Normal range of motion, supple without lymphadenopathy, JVD, or masses. LUNGS: Breath sounds equal, clear to auscultation bilaterally. No wheezes, and no crackles. No accessory muscle use. HEART: Regular rate and rhythm, normal S1 and S2 without murmur, rub or gallop. Right sided permacath ABDOMEN: Soft, nontender, not distended, normoactive bowel sounds, no guarding, no rebound, no masses. No hepatomegaly or splenomegaly. MUSCULOSKELETAL: Normal range of motion at all joints. No bony deformities or tenderness. No CVA tenderness. UPPER EXTREMITIES: 2+ pulses, warm, well-perfused. No cyanosis. No clubbing. No peripheral edema. LOWER EXTREMITIES: 2+ pulses, warm, well-perfused. No calf tenderness. No peripheral edema. NEUROLOGICAL: Cranial nerves II-XII intact. Normal speech. Normal gait. PSYCHIATRIC: Cooperative. Good eye contact. Appropriate mood and affect. SKIN: Warm, dry, normal turgor, no rashes or lesions noted, normal capillary refill. Laboratory Results - last 24 hr 3 03/27/18 03/27/18 03/27/18 03/27/18 17:39 17:39 17:39 18:45 WBC 4.8 RBC 3.13 L Hgb 9.7 L Hct 27.8 L MCV 88.8 MCH 30.9 MCHC 34.8 RDW 14.6 Plt Count 92 L MPV 9.1 Absolute Neuts (auto) 4.3 Neutrophils % 89.1 H Lymphocytes % 6.0 L D Monocytes % 4.1 D Eosinophils % 0.5 Basophils % 0.3 Nucleated RBC % 0 PT with INR 11.90 INR 1.01 PTT (Actin FS) 25.5 Sodium 140 Potassium 4.0 Chloride 100 Carbon Dioxide 31 Anion Gap 9 BUN 34 H Creatinine 3.8 H Creat Clearance w eGFR 16.81 Random Glucose 84 Lactic Acid 1.0 Calcium 8.6 Total Bilirubin 0.8 AST 14 L ALT 21 Alkaline Phosphatase 66 Troponin I Total Protein 6.5 Albumin 3.6 Urine Color Urine Appearance Urine pH Ur Specific Michie Urine Protein Urine Glucose (UA) Urine Ketones Urine Blood Urine Nitrite Urine Bilirubin Urine Urobilinogen Ur Leukocyte Esterase HIV 1&2 Antibody Screen Negative HIV P24 Antigen Negative 3 Urine Color Ltyellow 03/27/18 22:41 Urine Appearance Clear 03/27/18 22:41 Urine pH 7.0 (5.0-8.0) D 03/27/18 22:41 Ur Specific Michie 1.009 (1.010-1.035) L 03/27/18 22:41 Urine Protein 2+ (NEGATIVE) H 03/27/18 22:41 Urine Glucose (UA) Negative (NEGATIVE) 03/27/18 22:41 Urine Ketones Negative (NEGATIVE) 10/09/18 22:41 Urine Blood Negative (NEGATIVE) 03/27/18 22:41 Urine Nitrite Negative (NEGATIVE) 03/27/18 22:41 Urine Bilirubin Negative (<2.0 mg/dL) 03/27/18 22:41 Ur Leukocyte Esterase Negative (NEGATIVE) 03/27/18 22:41 Ur Epithelial Cells Rare /HPF (FEW) 03/27/18 22:41 Urine Bacteria Rare /hpf (NONE SEEN) 03/27/18 22:41 ECG normal sinus rhythm vent rate 87, QTC 450 incomplete RBBB left axis deviation septal infarct, age undetermined TWI lead 1, aVL, V2, present on ECG 03/24/18, TWI in lead V4-6 no longer present Radiology reports CXR portable no obvious infiltrate or effusion final read pending ASSESSMENT/PLAN: 53yM with PMH HTN, HLD, HI October 2016, CHF, CVA residual right sided blindness, ESRD on dialysis TThSa, chronic low back pain, thrombocytopenia presented to the ED with chills during dialysis today. Sepsis, unclear source, ? bacteremia - blood culture obtained from permacath - follow blood cultures - given vanc and zosyn in ED, additional 500mg vanc given for total dose 1500mg - ID consult, defer provider choice to PCP in am HTN/HLD/CHF - cont home meds DVT PPX - heparin TID FEN - fluid restriction 1000mL - bmp in am - renal low sodium diet as tolerated Dispo: pt currently requires further inpatient management of his emergent condition. Visit type - Emergency Visit Emergency Visit: Yes ED Registration Date: 03/27/18 Care time: The patient presented to the Emergency Department on the above date and was hospitalized for further evaluation of their emergent condition. - New Patient This patient is new to me today: Yes Date on this admission: 03/27/18 - Critical Care Critical Care patient: No
[2018-03-27 23:24] LABS: EPI CELLS RARE /HPF (FEW); URINE BACTERIA RARE /hpf (NONE SEEN)
[2018-03-27] MEDS ORDERED: oxyCODONE HCL 5 MG TABLET PO PRN (23:47)
[2018-03-28] MEDS ORDERED: HEPARIN NA (PORCINE) 5,000 UNITS/ML 1ML VIAL ONE (06:25)
[2018-03-28] MEDS: hydrALAZINE HCL 50 MG TABLET (FP) PO SCH ×3 (06:39→21:27)
[2018-03-28] MEDS: cloNIDine HCL 0.1 MG TABLET PO SCH ×3 (06:40→21:27)
[2018-03-28] MEDS: LABETALOL HCL 200 MG TABLET (FP) PO SCH ×3 (06:40→21:27)
[2018-03-28] MEDS: ISOSORBIDE DINITRATE 10 MG TABLET (FP) PO SCH ×3 (06:40→23:46)
[2018-03-28] MEDS: HEPARIN NA (PORCINE) 5,000 UNITS/ML 1ML VIAL SQ SCH ×3 (06:40→21:26)
[2018-03-28 06:59] LABS: BASO % 0.5 % (0-2.0); EOS % 1.9 % (0-4.5); HEMATOCRIT 26.4 % (35.4-49); LYMPH % 17.7 % (8-40); MCH 30.4 pg (25.7-33.7); MCHC 34.1 g/dl (32.0-35.9); MEAN CELL VOLUME 89.1 fl (80-96); MEAN PLT VOLUME 9.1 fl (7.5-11.1); MONO % 12.4 % (3.8-10.2); NEUT % 67.5 % (42.8-82.8); PLATELET COUNT 81 K/MM3 (134-434); RBC 2.97 M/mm3 (4.00-5.60); RDW 13.8 % (11.9-15.9); WHITE BLOOD COUNT 4.7 K/mm3 (4.0-10.0)
[2018-03-28] MEDS ORDERED: INSULIN SLIDING SCALE (NOVOLOG) 1 VIAL SQ SCH (07:00)
[2018-03-28 08:20] LABS: ANION GAP 11 MMOL/L (8-16); BLOOD UREA NITROGEN 40 mg/dL (7-18); CALCIUM 7.7 mg/dL (8.5-10.1); CHLORIDE 102 mmol/L (98-107); CO2 29 mmol/L (21-32); CREATININE 4.8 mg/dL (0.55-1.3); GLUCOSE,RANDOM 86 mg/dL (74-106); MAGNESIUM 2.3 mg/dL (1.8-2.4); PHOSPHOROUS 4.4 mg/dL (2.5-4.9); POTASSIUM 4.3 mmol/L (3.5-5.1); SODIUM 142 mmol/L (136-145)
--- NOTE | 2018-03-28 09:54 | EKG ---
Test Reason : Blood Pressure : / mmHG Vent. Rate : 087 BPM Atrial Rate : 087 BPM P-R Int : 158 ms QRS Dur : 112 ms QT Int : 374 ms P-R-T Axes : 039 -33 105 degrees QTc Int : 450 ms NORMAL SINUS RHYTHM POSSIBLE LEFT ATRIAL ENLARGEMENT LEFT AXIS DEVIATION INCOMPLETE RIGHT BUNDLE BRANCH BLOCK SEPTAL INFARCT , AGE UNDETERMINED T WAVE ABNORMALITY, CONSIDER LATERAL ISCHEMIA ABNORMAL ECG WHEN COMPARED WITH ECG OF 24-MAR-2018 21:28, INCOMPLETE RIGHT BUNDLE BRANCH BLOCK IS NOW PRESENT SEPTAL INFARCT IS NOW PRESENT Confirmed by SANTI GUERRA, CARMENCITA ([id number]) on 03/28/2018 9:54:29 AM Referred By: Confirmed By:CARMENCITA HANCOCK MD
[2018-03-28] MEDS: amLODIPine BESYLATE 5 MG TABLET (FP) PO SCH (10:16)
--- NOTE | 2018-03-28 10:52 | PN ---
Progress Note, Physician Chief Complaint: Mr Nuñez says he is feeling well today but is frustrated by his multiple hospitalizations. Complains of raised itchy lesion on right side above his catheter. No cp, sob, n/v. Currently afebrile and no chills. - Current Medication List Current Medications: Active Medications Amlodipine Besylate (Norvasc -) 5 mg PO DAILY [facility] Last Admin: 03/28/18 10:16 Dose: 5 mg Clonidine (Catapres -) 0.1 mg PO TID [facility] Last Admin: 03/28/18 06:40 Dose: 0.1 mg Heparin Sodium (Porcine) (Heparin -) 5,000 unit SQ TID [facility] Last Admin: 03/28/18 06:40 Dose: 5,000 unit Hydralazine HCl (Apresoline -) 100 mg PO TID [facility] Last Admin: 03/28/18 06:39 Dose: 100 mg Isosorbide Dinitrate (Isordil -) 30 mg PO TID [facility] Last Admin: 03/28/18 06:40 Dose: 30 mg Labetalol HCl (Normodyne -) 400 mg PO TID [facility] Last Admin: 03/28/18 06:40 Dose: 400 mg Oxycodone HCl (Roxicodone -) 5 mg PO Q6H PRN PRN Reason: PAIN LEVEL 6-10 - Objective Vital Signs: Vital Signs Temperature 36.6 C 03/28/18 10:00 Pulse Rate 64 03/28/18 10:00 Respiratory Rate 18 03/28/18 10:00 Blood Pressure 123/65 03/28/18 10:00 O2 Sat by Pulse Oximetry (%) 100 03/28/18 06:45 Constitutional: Yes: Well Nourished, No Distress, Calm Cardiovascular: Yes: Regular Rate and Rhythm. No: Gallop, Murmur, Rub Respiratory: Yes: Regular, CTA Bilaterally. No: Rales, Rhonchi, Wheezes Gastrointestinal: Yes: Normal Bowel Sounds, Soft. No: Distention, Tenderness Extremities: Yes: WNL Edema: No Integumentary: Yes: Other (small erythematous raised lesion with fluctuance) Labs: CBC, BMP 03/28/18 06:30 03/28/18 06:30 INR, PTT INR 1.01 (0.83-1.09) 03/27/18 17:39 Problem List - Problems (1) Sepsis Assessment/Plan: -blood cultures positive from catheter site -awaiting final speciation -received zosyn 4.5gm this am with vancomycin -zosyn to be dosed 2.25gm q12h if on HD -however patient's HD might be held -ID and nephrology to see and decide proper antibiotic regimen Code(s): A41.9 - SEPSIS, UNSPECIFIED ORGANISM (2) ESRD (end stage renal disease) on dialysis Assessment/Plan: -nephrology following -case d/w vascular surgery team, will need to have catheter removed -monitor renal function -defer to nephrology when/if catheter needs replacement Code(s): N18.6 - END STAGE RENAL DISEASE; Z99.2 - DEPENDENCE ON RENAL DIALYSIS (3) CHF (congestive heart failure) Assessment/Plan: -not in exacerbation -close monitoring since not receiving HD at the moment Code(s): I50.9 - HEART FAILURE, UNSPECIFIED Qualifiers: Heart failure type: diastolic Heart failure chronicity: chronic Qualified Code(s): I50.32 - Chronic diastolic (congestive) heart failure (4) FSGS (focal segmental glomerulosclerosis) Assessment/Plan: -cause of ESRD Code(s): N05.1 - UNSP NEPH SYNDROME W FOCAL AND SEGMENTAL GLOMERULAR LESIONS (5) Hypertension Assessment/Plan: -continue clonidine, hydralazine, labetalol, imdur, and amlodipine -monitor Code(s): I10 - ESSENTIAL (PRIMARY) HYPERTENSION Qualifiers: Hypertension type: unspecified Qualified Code(s): I10 - Essential (primary ) hypertension
--- NOTE | 2018-03-28 12:42 | CONSULT ---
<Jigna Izaguirre - Last Filed: 03/28/18 14:20> - Consultation REQUESTING PROVIDER: CONSULT REQUEST: We have been asked to surgically evaluate this patient for ( specify). PCP:Rell Montalvo MD HISTORY OF PRESENT ILLNESS: 53 y/o M known to Dr Roe, w/ PMHx HTN, CAD s/ p [place], CHF, ESRD newly initiated on HD (T,,S) via [facility] PC, now presents to ED w / shaking chills at end of dialysis session today. Pt was admitted 03/13-03/16 for htn urgency and progressive renal dysfunction. [facility] PC placed 03/15 followed by OR for L radial-cephalic AVF on 03/[address] Roe. Pt reports his sister noted a "pink lump" on the right side of his chest a few days after PC placement. States he received a flu shot Monday at HD, shortly after he began having shaking chills. Reports feeling well Monday. Has a second episode of shaking chills at HD on Monday. Denies other episodes of fever/chills at home, n/v/d, sick contacts, cp/sob, cough, abdominal pain, prior h/o skin abscess, h/ o MRSA. 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) Family History: mother alive and well father age 72 4 sisters and one brother alive and well Home Medications Medication Instructions Recorded Amlodipine Besylate [Norvasc -] 5 mg PO DAILY 03/13/18 Clonidine HCl [Clonidine HCl ER] 0.1 mg PO TID 03/13/18 Isosorbide Dinitrate [Isordil -] 30 mg PO TID 03/13/18 Labetalol HCl [Normodyne -] 400 mg PO TID 90 Days tablet 03/16/18 oxyCODONE HCL [Roxicodone -] 5 mg PO Q6H PRN 7 Days #12 tablet 03/16/18 MDD 6 Hydralazine HCl 100 mg PO TID 03/27/18 Allergies Allergy/AdvReac Type Severity Reaction Status Date / Time Influenza Virus Vaccines Allergy Severe Verified 03/24/18 19:18 REVIEW OF SYSTEMS: CONSTITUTIONAL: generalized weakness, malaise, loss of appetite, weight change Absent: chest pain, syncope, palpitations RESPIRATORY: Absent: cough, shortness of breath GASTROINTESTINAL: Absent: abdominal pain, nausea, vomiting, diarrhea +constipation GENITOURINARY: Absent: dysuria SKIN: +lesion PHYSICAL EXAM: GENERAL: Awake, alert, and fully oriented, in no acute distress. HEAD: Normal with no signs of trauma. Chest: PC in place, dressing c/d/i, Approx 1x1cm semi-fluctuate erythematous collection overlying PC line approx 2 cm from clavicle. Ext: LUE with distal radiocephalic avf, +good thrill palpable, throughout, incision with corine c/d/i. No erythema or drainage. LOWER EXTREMITIES: 2+ pulses, warm, well-perfused. No calf tenderness. No peripheral edema. NEUROLOGICAL: Normal speech, gait normal PSYCH: Cooperative. Good eye contact. Appropriate mood and affect. Vital Signs Temperature 97.9 F 03/28/18 10:00 Pulse Rate 64 03/28/18 10:00 Respiratory Rate 18 03/28/18 10:00 Blood Pressure 123/65 03/28/18 10:00 O2 Sat by Pulse Oximetry (%) 100 03/28/18 06:45 Lab Results WBC 4.7 K/mm3 (4.0-10.0) 03/28/18 06:30 RBC 2.97 M/mm3 (4.00-5.60) L 03/28/18 06:30 Hgb 9.0 GM/dL (11.7-16.9) L 03/28/18 06:30 Hct 26.4 % (35.4-49) L 03/28/18 06:30 MCV 89.1 fl (80-96) 03/28/18 06:30 MCHC 34.1 g/dl (32.0-35.9) 03/28/18 06:30 RDW 13.8 % (11.9-15.9) 03/28/18 06:30 Plt Count 81 K/MM3 (134-434) L 03/28/18 06:30 Sodium 142 mmol/L (136-145) 03/28/18 06:30 Potassium 4.3 mmol/L (3.5-5.1) 03/28/18 06:30 Chloride 102 mmol/L (98-107) 03/28/18 06:30 Carbon Dioxide 29 mmol/L (21-32) 03/28/18 06:30 Anion Gap 11 MMOL/L (8-16) 03/28/18 06:30 BUN 40 mg/dL (7-18) H 03/28/18 06:30 Creatinine 4.8 mg/dL (0.55-1.3) H 03/28/18 06:30 Random Glucose 86 mg/dL (74-106) 03/28/18 06:30 Calcium 7.7 mg/dL (8.5-10.1) L 03/28/18 06:30 INR 1.01 (0.83-1.09) 03/27/18 17:39 A/P: 53 y/o M known to Dr Roe, w/ PMHx HTN, CAD s/p [place], CHF, ESRD newly initiated on HD (T,Th,S) via [facility], now presents to ED w/ shaking chills at end of dialysis session today. Prelim BC from PC site + for gram negative bacilli. T 100.2 in ED on admission, no leukocytosis, no left shift. Small abscess on R chest wall along catheter route -PC removed bedside by CASSIE Lundberg. Consent obtained. Pt tolerated well. -Tip sent for culture, f/u -Warm compresses to abscess, will monitor -Abx per ID -Per renal, pt will not need HD for the next few days, will continue to monitor BCs -Will follow while in house, will need [facility] vs PC above d/w attending Dr Roe <Supa Roe - Last Filed: 03/29/18 08:31> - Consultation REQUESTING PROVIDER: CONSULT REQUEST: We have been asked to surgically evaluate this patient for ( specify). PCP:Rell Montalvo MD HISTORY OF PRESENT ILLNESS: PMHx: PSHx: Home Medications Medication Instructions Recorded Amlodipine Besylate [Norvasc -] 5 mg PO DAILY 03/13/18 Clonidine HCl [Clonidine HCl ER] 0.1 mg PO TID 03/13/18 Isosorbide Dinitrate [Isordil -] 30 mg PO TID 03/13/18 Labetalol HCl [Normodyne -] 400 mg PO TID 90 Days tablet 03/16/18 oxyCODONE HCL [Roxicodone -] 5 mg PO Q6H PRN 7 Days #12 tablet 03/16/18 MDD 6 Hydralazine HCl 100 mg PO TID 03/27/18 Allergies Allergy/AdvReac Type Severity Reaction Status Date / Time Influenza Virus Vaccines Allergy Severe Verified 03/24/18 19:18 REVIEW OF SYSTEMS: CONSTITUTIONAL: Absent: fever, chills, diaphoresis, generalized weakness, malaise, loss of appetite, weight change CARDIOVASCULAR: Absent: chest pain, syncope, palpitations, irregular heart rate, lightheadedness , peripheral edema RESPIRATORY: Absent: cough, shortness of breath, dyspnea with exertion, wheezing, stridor, hemoptysis GASTROINTESTINAL: Absent: abdominal pain, abdominal distension, nausea, vomiting, diarrhea, constipation, melena, hematochezia GENITOURINARY: Absent: dysuria, frequency, urgency, hesitancy, hematuria, flank pain, genital pain MUSCULOSKELETAL: Absent: myalgia, arthralgia, joint swelling, back pain, neck pain SKIN: Absent: rash, itching, pallor HEMATOLOGIC/IMMUNOLOGIC: Absent: easy bleeding, easy bruising, lymphadenopathy NEUROLOGIC: Absent: headache, focal weakness, paresthesias, dizziness, unsteady gait, seizure, mental status changes, bladder or bowel incontinence PSYCHIATRIC: Absent: anxiety, depression, suicidal or homicidal ideation, hallucinations. PHYSICAL EXAM: GENERAL: Awake, alert, and fully oriented, in no acute distress. HEAD: Normal with no signs of trauma. EYES: PERRL, sclera anicteric, conjunctiva clear. NECK: Normal ROM, supple without lymphadenopathy, JVD, or masses. LUNGS: Clear to auscultation bilat anteriorly. No wheezes, and no crackles. No accessory muscle use. HEART: Regular rate and rhythm. No murmurs ABDOMEN: Soft, nontender, not distended, normoactive bowel sounds, no guarding, no rebound, no masses. No organomegaly. MUSCULOSKELETAL: Normal ROM at all joints. No bony deformities or tenderness. No CVA tenderness. UPPER EXTREMITIES: 2+ pulses, warm, well-perfused. No cyanosis. Cap refill <2 seconds. No peripheral edema. LOWER EXTREMITIES: 2+ pulses, warm, well-perfused. No calf tenderness. No peripheral edema. NEUROLOGICAL: Normal speech, gait not observed. PSYCH: Cooperative. Good eye contact. Appropriate mood and affect. SKIN: Warm, dry, normal turgor, no rashes or lesions noted. Vital Signs Temperature 98.5 F 03/29/18 06:00 Pulse Rate 66 03/29/18 06:00 Respiratory Rate 20 03/29/18 06:00 Blood Pressure 151/73 03/29/18 06:00 O2 Sat by Pulse Oximetry (%) 98 03/28/18 21:00 Lab Results WBC 4.8 K/mm3 (4.0-10.0) 03/29/18 07:00 RBC 3.06 M/mm3 (4.00-5.60) L 03/29/18 07:00 Hgb 9.1 GM/dL (11.7-16.9) L 03/29/18 07:00 Hct 27.4 % (35.4-49) L 03/29/18 07:00 MCV 89.5 fl (80-96) 03/29/18 07:00 MCHC 33.2 g/dl (32.0-35.9) 03/29/18 07:00 RDW 14.1 % (11.9-15.9) 03/29/18 07:00 Plt Count 107 K/MM3 (134-434) L D 03/29/18 07:00 Sodium 134 mmol/L (136-145) L 03/29/18 07:00 Potassium 3.8 mmol/L (3.5-5.1) 03/29/18 07:00 Chloride 105 mmol/L (98-107) 03/29/18 07:00 Carbon Dioxide 27 mmol/L (21-32) 03/29/18 07:00 Anion Gap 2 MMOL/L (8-16) L 03/29/18 07:00 BUN 46 mg/dL (7-18) H 03/29/18 07:00 Creatinine 5.9 mg/dL (0.55-1.3) H 03/29/18 07:00 Random Glucose 110 mg/dL (74-106) H 03/29/18 07:00 Calcium 8.1 mg/dL (8.5-10.1) L 03/29/18 07:00 INR 1.01 (0.83-1.09) 03/27/18 17:39 History reviewed, patient examined. Right sided Permacath placed 03/15. Patient developed signs of line infection yesterday. Blood cultures growing GNR. Line pulled yesterday. Afebrile today. No evidence for abscess. Left arm fistula with good thrill. Wounds healing well. Remove corine. Will replace Permacath when blood clears and dialysis needed.
--- NOTE | 2018-03-28 12:45 | CONSULT ---
Consult - text type - Consultation Consultation Note: Renal Consult for ESRD This is a 53 year old gentleman with history of ESRD on HD (recently started) secondary to FSGS, difficult to control hypertension, chronic back pain who presented with chills during outpatient dialysis and found to have bacteremia. Home Medications Medication Instructions Recorded Amlodipine Besylate [Norvasc -] 5 mg PO DAILY 03/13/18 Clonidine HCl [Clonidine HCl ER] 0.1 mg PO TID 03/13/18 Isosorbide Dinitrate [Isordil -] 30 mg PO TID 03/13/18 Labetalol HCl [Normodyne -] 400 mg PO TID 90 Days tablet 03/16/18 oxyCODONE HCL [Roxicodone -] 5 mg PO Q6H PRN 7 Days #12 tablet 03/16/18 MDD 6 Hydralazine HCl 100 mg PO TID 03/27/18 Vital Signs Temperature 97.9 F 03/28/18 10:00 Pulse Rate 64 03/28/18 10:00 Respiratory Rate 18 03/28/18 10:00 Blood Pressure 123/65 03/28/18 10:00 O2 Sat by Pulse Oximetry (%) 100 03/28/18 06:45 Intake & Output 03/25/18 03/26/18 03/27/18 03/28/18 23:59 23:59 23:59 23:59 Weight 98.883 kg CBC, BMP 03/28/18 06:30 03/28/18 06:30 Current Medications Amlodipine Besylate (Norvasc -) 5 mg PO DAILY [facility] Last Admin: 03/28/18 10:16 Dose: 5 mg Clonidine (Catapres -) 0.1 mg PO TID [facility] Last Admin: 03/28/18 06:40 Dose: 0.1 mg Heparin Sodium (Porcine) (Heparin -) 5,000 unit SQ TID [facility] Last Admin: 03/28/18 06:40 Dose: 5,000 unit Hydralazine HCl (Apresoline -) 100 mg PO TID [facility] Last Admin: 03/28/18 06:39 Dose: 100 mg Isosorbide Dinitrate (Isordil -) 30 mg PO TID [facility] Last Admin: 03/28/18 06:40 Dose: 30 mg Labetalol HCl (Normodyne -) 400 mg PO TID [facility] Last Admin: 03/28/18 06:40 Dose: 400 mg Oxycodone HCl (Roxicodone -) 5 mg PO Q6H PRN PRN Reason: PAIN LEVEL 6-10 #Gram negative bacteremia (pt did get catheter site wet at home) #ESRD secondary to FSGS #Hypertension #Anemia Will need to have tunneled catheter removed, vascular surgery consulted ID consulted, will continue Zosyn 2.25g Q12h for now f/u final cutlture results repeat culture tomorrow send catheter tip for culture if possible Continue present BP meds Renal diet Trend BMP daily will give EMERY while in hospital, no need for transfusion Thank you full consult to follow Farrukh Abraham DO
[2018-03-28] MEDS ORDERED: PIPERACILLIN/TAZOB 2.25 GM 2.25 GM in DEXTROSE 5%-WATER - 50 ML IVPB SCH ×2 (13:00→22:00)
[2018-03-28] MEDS ORDERED: MORPHINE SULFATE 2 MG/ML VIAL IVPUSH ONE (13:51)
[2018-03-28] MEDS ORDERED: MORPHINE SULFATE 2 MG/ML VIAL ONE (13:57)
--- NOTE | 2018-03-28 14:40 | PROC ---
Procedure Note Procedure: Permacath removal: Consent obtained from patient and time out completed with the nursing staff. The area was prepped with betadine and the catheter was removed easily by pulling the catheter. No bleeding was noted and a pressure dressing was applied. The catheter tip was sent for culture.
--- NOTE | 2018-03-28 15:55 | CON.ID ---
Consult Consult Specialty:: infectious diseases Referred by:: Joanne Reason for Consultation:: sepsis,bacteremia - History of Present Illness Chief Complaint: fever and chills History of Present Illness: 53 year old man from with history of renal failure on dialysis , DM, chronic low back pain (lumbar spine dextroscoliosis w/ L4-L5-S1 degeneration and HTN who presents with lower back pain described as sharp, rated 10/10 that has been progressive since this AM and with chills and shaking that started while at dialysis just prior to arrival. The patient denies taking anything for his back pain this AM with radiation down the lower legs. He notes the pain feels similar to his chronic back pain but much worse. The patient reports that he had similar symptoms of chills and shaking that started 4 days ago while he was at dialysis and approx 5 min after he received the flu shot at dialysis. The patient notes that he had not had the flu shot for 25 years prior. He was taken to this ED admitted for 2 days with resolution of all symptoms with benadryl. The patient had no fever at home after discharge. The patient admitted to chest tightness and shortness of breath at onset of chills and shaking today. 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 Cardio/Vascular: Yes: CAD, CHF, HTN, Hyperlipdemia Renal/: Yes: Renal Failure, Hemodialysis, Other (glomurolonephritis (focal segmental)) - Past Surgical History Past Surgical History: Yes: Joint Replacement (ankle repair) - Alcohol/Substance Use Hx Alcohol Use: No History of Substance Use: reports: None - Smoking History Smoking history: Former smoker Have you smoked in the past 12 months: No Aproximately how many cigarettes per day: 0 If you are a former smoker, when did you quit?: 12/03 - Social History ADL: Independent History of Recent Travel: No Home Medications - Allergies Allergies/Adverse Reactions: Allergies Allergy/AdvReac Type Severity Reaction Status Date / Time Influenza Virus Vaccines Allergy Severe Verified 03/24/18 19:18 - Home Medications Home Medications: Ambulatory Orders Amlodipine Besylate [Norvasc -] 5 mg PO DAILY 03/13/18 Clonidine HCl [Clonidine HCl ER] 0.1 mg PO TID 03/13/18 Isosorbide Dinitrate [Isordil -] 30 mg PO TID 03/13/18 Labetalol HCl [Normodyne -] 400 mg PO TID 90 Days tablet 03/16/18 oxyCODONE HCL [Roxicodone -] 5 mg PO Q6H PRN 7 Days #12 tablet MDD 6 03/16/18 Hydralazine HCl 100 mg PO TID 03/27/18 Family Disease History - Family Disease History Family Disease History: Heart Disease: Mother Review of Systems - Review of Systems Constitutional: reports: Chills, Fever Eyes: reports: No Symptoms HENT: reports: No Symptoms Neck: reports: No Symptoms Cardiovascular: reports: No Symptoms Gastrointestinal: reports: No Symptoms Genitourinary: reports: No Symptoms Musculoskeletal: reports: No Symptoms Integumentary: reports: No Symptoms Neurological: reports: No Symptoms Endocrine: reports: No Symptoms Hematology/Lymphatic: reports: No Symptoms Psychiatric: reports: No Symptoms Physical Exam Vital Signs: Vital Signs Temperature 98 F 03/28/18 14:00 Pulse Rate 72 03/28/18 15:11 Respiratory Rate 20 03/28/18 15:11 Blood Pressure 167/78 03/28/18 15:11 O2 Sat by Pulse Oximetry (%) 100 03/28/18 15:11 Constitutional: Yes: Well Nourished, No Distress, Calm Eyes: Yes: Conjunctiva Clear HENT: Yes: Atraumatic, Normocephalic Neck: Yes: Supple, Trachea Midline, Other (wound site of the catheter looks good ,no swelling or redness or fluctuation noted) Cardiovascular: Yes: Regular Rate and Rhythm Respiratory: Yes: Regular, CTA Bilaterally Gastrointestinal: Yes: Normal Bowel Sounds, Soft Musculoskeletal: Yes: WNL Extremities: Yes: WNL Neurological: Yes: Alert, Oriented Psychiatric: Yes: Alert, Oriented Labs: CBC, BMP 03/28/18 06:30 03/28/18 06:30 Imaging - Results Chest X-ray: Report Reviewed, Image Reviewed Assessment/Plan patient coming in with sepsis and bacteremia now with permacath removal Problem List - Problems (1) Sepsis Code(s): A41.9 - SEPSIS, UNSPECIFIED ORGANISM (2) ESRD (end stage renal disease) on dialysis Code(s): N18.6 - END STAGE RENAL DISEASE; Z99.2 - DEPENDENCE ON RENAL DIALYSIS (3) CHF (congestive heart failure) Code(s): I50.9 - HEART FAILURE, UNSPECIFIED Qualifiers: Heart failure type: diastolic Heart failure chronicity: chronic Qualified Code(s): I50.32 - Chronic diastolic (congestive) heart failure (4) FSGS (focal segmental glomerulosclerosis) Code(s): N05.1 - UNSP NEPH SYNDROME W FOCAL AND SEGMENTAL GLOMERULAR LESIONS (5) Hypertension Code(s): I10 - ESSENTIAL (PRIMARY) HYPERTENSION Qualifiers: Hypertension type: unspecified Qualified Code(s): I10 - Essential (primary ) hypertension plan await for finalazation of the cx await for catheter tip results monitor fevers close watch on the patient rest as per the team bernadine avila
--- NOTE | 2018-03-28 17:03 | ECHO ---
Version: 1 Name: GRISEL FISHER Exam: Adult Echocardiogram Study Date: 03/28/2018, 2:37 PM Age: 53 Years MMode/2D Measurements & Calculations IVSd: 1.38 cm LVIDs: 4.5 cm LVIDd: 6.7 cm LVPWd: 1.38 cm Ao root diam: 3.1 cm LA dimension: 4.5 cm Doppler Measurements & Calculations MV E max pedro: 62.5 cm/sec Med E/e': 14.4 MV A max pedro: 73.5 cm/sec Med Peak E' Pedro: 4.3 cm/sec MV E/A: 0.85 MR max P.9 mmHg Ao max P.2 mmHg Ao V2 max: 174.9 cm/sec AI P1/2t: 852.4 msec TR max pedro: 255.7 cm/sec TR max P.3 mmHg Procedure A two-dimensional transthoracic echocardiogram with color flow and Doppler was performed. Left Ventricle There is moderate concentric left ventricular hypertrophy. The left ventricle is moderately dilated. The left ventricular ejection fraction is normal. E/A reversal consistent with but not diagnostic of poor LV compliance. The left ventricular wall motion is normal. Right Ventricle The right ventricle is normal in size and function. Atria The left atrium is moderately dilated. The right atrium is moderately dilated. Mitral Valve There is mild to moderate mitral valve thickening. There is no mitral valve stenosis. There is moder ate mitral regurgitation. Tricuspid Valve There is moderate tricuspid valve thickening. There is no tricuspid stenosis. The tricuspid regurgit ant jet is eccentrically directed. There is severe tricuspid regurgitation. Right ventricular systolic press ure is elevated at 40-50mmHg. Aortic Valve The aortic valve is not well visualized. No hemodynamically significant valvular aortic stenosis. Mi ld to moderate aortic regurgitation. Pulmonic Valve The pulmonic valve is not well visualized. Great Vessels The aortic root is normal size. Pericardium/Pleura There is no pericardial effusion. Summary Statements There is moderate concentric left ventricular hypertrophy. The left ventricle is moderately dilated. The left ventricular ejection fraction is normal. The left ventricular wall motion is normal. E/A reversal consistent with but not diagnostic of poor LV compliance The left atrium is moderately dilated. The right atrium is moderately dilated. There is mild to moderate mitral valve thickening. There is moderate mitral regurgitation. There is moderate tricuspid valve thickening. The tricuspid regurgitant jet is eccentrically directed. There is severe tricuspid regurgitation. Mild to moderate aortic regurgitation. MD Bud Almodovar 03/28/2018, 5:02 PM Ordering Physician: Joanne Mccall Referring Physician: JOANNE MCCALL Performed By: Jess Griffin
[2018-03-28] MEDS ORDERED: PIPERACILLIN/TAZOBACTAM 2.25 GM VIAL IVPB ONE (18:40)
[2018-03-28] MEDS ORDERED: DEXTROSE 5%-WATER - 50 ML IVPB ONE (18:40)
[2018-03-28] MEDS: PIPERACILLIN/TAZOB 2.25 GM 2.25 GM in DEXTROSE 5%-WATER - 50 ML IVPB SCH (18:44)
[2018-03-28] MEDS ORDERED: PT OWN MED DRAWER 7, Y5N ONE ×2 (21:23→22:38)
[2018-03-28] MEDS ORDERED: MELATONIN 5 MG TABLETS PO ONE (23:12)
[2018-03-29] MEDS ORDERED: PIPERACILLIN/TAZOBACTAM 2.25 GM VIAL IVPB ONE ×4 (00:18→22:50)
[2018-03-29] MEDS ORDERED: DEXTROSE 5%-WATER - 50 ML IVPB ONE ×4 (00:18→22:50)
[2018-03-29] MEDS: PIPERACILLIN/TAZOB 2.25 GM 2.25 GM in DEXTROSE 5%-WATER - 50 ML IVPB SCH ×3 (02:24→17:45)
[2018-03-29] MEDS: LABETALOL HCL 200 MG TABLET (FP) PO SCH ×3 (06:31→22:18)
[2018-03-29] MEDS: ISOSORBIDE DINITRATE 10 MG TABLET (FP) PO SCH ×3 (06:31→22:17)
[2018-03-29] MEDS: HEPARIN NA (PORCINE) 5,000 UNITS/ML 1ML VIAL SQ SCH ×3 (06:31→22:17)
[2018-03-29] MEDS: cloNIDine HCL 0.1 MG TABLET PO SCH ×3 (06:32→22:18)
[2018-03-29] MEDS: hydrALAZINE HCL 50 MG TABLET (FP) PO SCH ×3 (06:32→22:18)
[2018-03-29 08:07] LABS: BASO % 0.7 % (0-2.0); EOS % 4.5 % (0-4.5); HEMATOCRIT 27.4 % (35.4-49); HEMOGLOBIN 9.1 GM/dL (11.7-16.9); LYMPH % 26.2 % (8-40); MCH 29.8 pg (25.7-33.7); MCHC 33.2 g/dl (32.0-35.9); MEAN CELL VOLUME 89.5 fl (80-96); MEAN PLT VOLUME 9.6 fl (7.5-11.1); MONO % 9.9 % (3.8-10.2); NEUT % 58.7 % (42.8-82.8); PLATELET COUNT 107 K/MM3 (134-434); RBC 3.06 M/mm3 (4.00-5.60); RDW 14.1 % (11.9-15.9); WHITE BLOOD COUNT 4.8 K/mm3 (4.0-10.0)
[2018-03-29 08:20] LABS: ANION GAP 2 MMOL/L (8-16); BLOOD UREA NITROGEN 46 mg/dL (7-18); CALCIUM 8.1 mg/dL (8.5-10.1); CHLORIDE 105 mmol/L (98-107); CO2 27 mmol/L (21-32); CREATININE 5.9 mg/dL (0.55-1.3); GLUCOSE,RANDOM 110 mg/dL (74-106); MAGNESIUM 2.3 mg/dL (1.8-2.4); PHOSPHOROUS 4.7 mg/dL (2.5-4.9); POTASSIUM 3.8 mmol/L (3.5-5.1); SODIUM 134 mmol/L (136-145)
--- NOTE | 2018-03-29 09:39 | PN ---
Progress Note (short form) - Note Progress Note: Pt seen and examined this AM. Reports pain at PC site due to removal yesterday. Had some dizziness/weakness this morning while showering. Feels well otherwise. Denies fever/chills, n/v/d. Vital Signs Temp 98.5 F 03/29/18 06:00 Pulse 66 03/29/18 06:00 Resp 20 03/29/18 06:00 BP 151/73 03/29/18 06:00 Pulse Ox 98 03/28/18 21:00 Intake & Output 03/28/18 03/28/18 03/29/18 11:59 23:59 11:59 Intake Total 70 Balance 70 Weight 217 lb 6.4 oz Intake: IVPB 70 Other: Voiding Method Toilet Toilet # Unmeasured Voids Void 3 Height 6 ft Body Mass Index (BMI) 29.5 Weight Measurement Method Standing Scale CBC, BMP 03/29/18 07:00 03/29/18 07:00 Gen: awake alert, nad LUE: avf with corine c/d/i, no erythema or drainage. +good thrill R chest: 1x1cm nodular mildly erythematous collection approx 2 cm from clavicle , slightly improved from yesterday, ?scar. A/P: 53 y/o M known to Dr Roe, w/ PMHx HTN, CAD s/p NC, CHF, ESRD newly initiated on HD (T,Th,S) via [facility], now admitted w/ bacteremia. Prelim BC from PC site + for gram negative bacilli. Vs stable, afebrile, no leukocytosis, [place] removed from LUE AVF -PC removed bedside 03/28 -Tip sent for culture, f/u -Warm compresses to right chest wall -Abx per ID -Per renal, pt will not need HD for the next few days, will continue to monitor BCs -Will follow while in house, will need [place] vs PC above d/w attending Dr Roe <Jigna Izaguirre - Last Filed: 03/29/18 09:49> - Note Progress Note: History reviewed, patient examined. Permacath removed for line sepsis. Will wait until he requires dialysis to replace. AVF patent and maturing. <Supa Roe - Last Filed: 03/30/18 13:33>
[2018-03-29] MEDS: amLODIPine BESYLATE 5 MG TABLET (FP) PO SCH (10:03)
[2018-03-29 11:24] LABS: ANISOCYTOSIS 3+; MACROCYTOSIS 0; OVALOCYTE 1+; PLATELET ESTIMATE DECREASED; ROULEAU 1+
[2018-03-29] MEDS ORDERED: PT OWN MED DRAWER 7, Y5N ONE ×2 (13:38→21:30)
[2018-03-29] MEDS ORDERED: POLYETHYLENE GLYCOL 3350 119 GM BTL PO ONE (15:29)
--- NOTE | 2018-03-29 16:14 | PN ---
Progress Note, Physician Chief Complaint: Mr Nuñez says he is feeling fine today. No cp, sob, n/v. Remains concerned about his health. - Current Medication List Current Medications: Active Medications Amlodipine Besylate (Norvasc -) 5 mg PO DAILY [facility] Last Admin: 03/29/18 10:03 Dose: 5 mg Clonidine (Catapres -) 0.1 mg PO TID [facility] Last Admin: 03/29/18 13:34 Dose: 0.1 mg Heparin Sodium (Porcine) (Heparin -) 5,000 unit SQ TID [facility] Last Admin: 03/29/18 13:36 Dose: 5,000 unit Hydralazine HCl (Apresoline -) 100 mg PO TID [facility] Last Admin: 03/29/18 13:34 Dose: 100 mg Piperacillin Sod/Tazobactam (Sod 2.25 gm/ Dextrose) 50 mls @ 100 mls/hr IVPB Q8H-IV [facility]; Protocol Last Admin: 03/29/18 10:03 Dose: 100 mls/hr Isosorbide Dinitrate (Isordil -) 30 mg PO TID [facility] Last Admin: 03/29/18 13:37 Dose: 30 mg Labetalol HCl (Normodyne -) 400 mg PO TID [facility] Last Admin: 03/29/18 13:34 Dose: 400 mg Oxycodone HCl (Roxicodone -) 5 mg PO Q6H PRN PRN Reason: PAIN LEVEL 6-10 Polyethylene Glycol (Miralax (For Daily Use) -) 17 gm PO ONCE ONE Stop: 03/29/18 15:30 - Objective Vital Signs: Vital Signs Temperature 36.7 C 03/29/18 13:33 Pulse Rate 60 03/29/18 13:33 Respiratory Rate 18 03/29/18 13:33 Blood Pressure 162/90 03/29/18 13:33 O2 Sat by Pulse Oximetry (%) 97 03/29/18 09:00 Constitutional: Yes: Well Nourished, No Distress, Calm Cardiovascular: Yes: Regular Rate and Rhythm. No: Gallop, Murmur, Rub Respiratory: Yes: Regular, CTA Bilaterally. No: Rales, Rhonchi, Wheezes Gastrointestinal: Yes: Normal Bowel Sounds, Soft. No: Distention, Tenderness Extremities: Yes: WNL Edema: No Labs: CBC, BMP 03/29/18 07:00 03/29/18 07:00 INR, PTT INR 1.01 (0.83-1.09) 03/27/18 17:39 Problem List - Problems (1) Sepsis Code(s): A41.9 - SEPSIS, UNSPECIFIED ORGANISM (2) ESRD (end stage renal disease) on dialysis Code(s): N18.6 - END STAGE RENAL DISEASE; Z99.2 - DEPENDENCE ON RENAL DIALYSIS (3) CHF (congestive heart failure) Code(s): I50.9 - HEART FAILURE, UNSPECIFIED Qualifiers: Heart failure type: diastolic Heart failure chronicity: chronic Qualified Code(s): I50.32 - Chronic diastolic (congestive) heart failure (4) FSGS (focal segmental glomerulosclerosis) Code(s): N05.1 - UNSP NEPH SYNDROME W FOCAL AND SEGMENTAL GLOMERULAR LESIONS (5) Hypertension Code(s): I10 - ESSENTIAL (PRIMARY) HYPERTENSION Qualifiers: Hypertension type: unspecified Qualified Code(s): I10 - Essential (primary ) hypertension Assessment/Plan (1) Sepsis Assessment/Plan: -blood culture from post dialysis positive for enterobacter -catheter tip also growing -on zosyn -cultures pansensitive for everything but cefazolin -awaiting ID recommendations if can change antibiotics and how long needs to continue Code(s): A41.9 - SEPSIS, UNSPECIFIED ORGANISM (2) ESRD (end stage renal disease) on dialysis Assessment/Plan: -nephrology following -catheter removed -defer to nephrology and ID when safe to insert catheter for further HD Code(s): N18.6 - END STAGE RENAL DISEASE; Z99.2 - DEPENDENCE ON RENAL DIALYSIS (3) CHF (congestive heart failure) Assessment/Plan: -not in exacerbation -close monitoring since not receiving HD at the moment Code(s): I50.9 - HEART FAILURE, UNSPECIFIED Qualifiers: Heart failure type: diastolic Heart failure chronicity: chronic Qualified Code(s): I50.32 - Chronic diastolic (congestive) heart failure (4) FSGS (focal segmental glomerulosclerosis) Assessment/Plan: -cause of ESRD Code(s): N05.1 - UNSP NEPH SYNDROME W FOCAL AND SEGMENTAL GLOMERULAR LESIONS (5) Hypertension Assessment/Plan: -continue clonidine, hydralazine, labetalol, imdur, and amlodipine -monitor Code(s): I10 - ESSENTIAL (PRIMARY) HYPERTENSION Qualifiers: Hypertension type: unspecified Qualified Code(s): I10 - Essential (primary ) hypertension
--- NOTE | 2018-03-29 16:48 | PN ---
Progress Note, Physician History of Present Illness: stable has remained afebrile feels much better cx reports noted - Current Medication List Current Medications: Active Medications Amlodipine Besylate (Norvasc -) 5 mg PO DAILY [facility] Last Admin: 03/29/18 10:03 Dose: 5 mg Clonidine (Catapres -) 0.1 mg PO TID [facility] Last Admin: 03/29/18 13:34 Dose: 0.1 mg Heparin Sodium (Porcine) (Heparin -) 5,000 unit SQ TID [facility] Last Admin: 03/29/18 13:36 Dose: 5,000 unit Hydralazine HCl (Apresoline -) 100 mg PO TID [facility] Last Admin: 03/29/18 13:34 Dose: 100 mg Piperacillin Sod/Tazobactam (Sod 2.25 gm/ Dextrose) 50 mls @ 100 mls/hr IVPB Q8H-IV [facility]; Protocol Last Admin: 03/29/18 10:03 Dose: 100 mls/hr Isosorbide Dinitrate (Isordil -) 30 mg PO TID [facility] Last Admin: 03/29/18 13:37 Dose: 30 mg Labetalol HCl (Normodyne -) 400 mg PO TID [facility] Last Admin: 03/29/18 13:34 Dose: 400 mg Oxycodone HCl (Roxicodone -) 5 mg PO Q6H PRN PRN Reason: PAIN LEVEL 6-10 - Objective Vital Signs: Vital Signs Temperature 98.0 F 03/29/18 13:33 Pulse Rate 60 03/29/18 13:33 Respiratory Rate 18 03/29/18 13:33 Blood Pressure 162/90 03/29/18 13:33 O2 Sat by Pulse Oximetry (%) 97 03/29/18 09:00 Constitutional: Yes: No Distress, Calm Cardiovascular: Yes: Regular Rate and Rhythm Respiratory: Yes: Regular, CTA Bilaterally Gastrointestinal: Yes: Normal Bowel Sounds, Soft Musculoskeletal: Yes: WNL Extremities: Yes: WNL Neurological: Yes: Alert, Oriented Psychiatric: Yes: Alert, Oriented Labs: CBC, BMP 03/29/18 07:00 03/29/18 07:00 INR, PTT INR 1.01 (0.83-1.09) 03/27/18 17:39 Assessment/Plan patient coming in with sepsis and bacteremia now with permacath removal Problem List - Problems (1) Sepsis Code(s): A41.9 - SEPSIS, UNSPECIFIED ORGANISM (2) ESRD (end stage renal disease) on dialysis Code(s): N18.6 - END STAGE RENAL DISEASE; Z99.2 - DEPENDENCE ON RENAL DIALYSIS (3) CHF (congestive heart failure) Code(s): I50.9 - HEART FAILURE, UNSPECIFIED Qualifiers: Heart failure type: diastolic Heart failure chronicity: chronic Qualified Code(s): I50.32 - Chronic diastolic (congestive) heart failure (4) FSGS (focal segmental glomerulosclerosis) Code(s): N05.1 - UNSP NEPH SYNDROME W FOCAL AND SEGMENTAL GLOMERULAR LESIONS (5) Hypertension Code(s): I10 - ESSENTIAL (PRIMARY) HYPERTENSION Qualifiers: Hypertension type: unspecified Qualified Code(s): I10 - Essential (primary ) hypertension plan cx result noted catheter tip results noted monitor fevers close watch on the patient rest as per the team bernadine
--- NOTE | 2018-03-29 16:50 | PN ---
Progress Note (short form) - Note Progress Note: Renal follow up for ESRD on HD Pt seen and examined at the bedside awake and alert no fever or chills feels better Vital Signs Temperature 98.0 F 03/29/18 13:33 Pulse Rate 60 03/29/18 13:33 Respiratory Rate 18 03/29/18 13:33 Blood Pressure 162/90 03/29/18 13:33 O2 Sat by Pulse Oximetry (%) 97 03/29/18 09:00 Intake & Output 03/26/18 03/27/18 03/28/18 03/29/18 23:59 23:59 23:59 23:59 Intake Total 70 100 Balance 70 100 Weight 98.883 kg 98.611 kg 99.393 kg NAD RRR CTA no LE edema CBC, BMP 03/29/18 07:00 03/29/18 07:00 Current Medications Amlodipine Besylate (Norvasc -) 5 mg PO DAILY [facility] Last Admin: 03/29/18 10:03 Dose: 5 mg Clonidine (Catapres -) 0.1 mg PO TID [facility] Last Admin: 03/29/18 13:34 Dose: 0.1 mg Heparin Sodium (Porcine) (Heparin -) 5,000 unit SQ TID [facility] Last Admin: 03/29/18 13:36 Dose: 5,000 unit Hydralazine HCl (Apresoline -) 100 mg PO TID [facility] Last Admin: 03/29/18 13:34 Dose: 100 mg Piperacillin Sod/Tazobactam (Sod 2.25 gm/ Dextrose) 50 mls @ 100 mls/hr IVPB Q8H-IV [facility]; Protocol Last Admin: 03/29/18 10:03 Dose: 100 mls/hr Isosorbide Dinitrate (Isordil -) 30 mg PO TID [facility] Last Admin: 03/29/18 13:37 Dose: 30 mg Labetalol HCl (Normodyne -) 400 mg PO TID [facility] Last Admin: 03/29/18 13:34 Dose: 400 mg Oxycodone HCl (Roxicodone -) 5 mg PO Q6H PRN PRN Reason: PAIN LEVEL 6-10 A/P #Gram negative bacteremia (pt did get catheter site wet at home) #ESRD secondary to FSGS #Hypertension #Anemia catheter removed, repeat cultures in AM tomorrow as per ID on Zosyn no acute indication for [employer] today trend renal function daily renal diet low salt diet continue labetalol, clonidine increase amlodpine to 10mg Farrukh Abraham DO
[2018-03-29] MEDS ORDERED: amLODIPine BESYLATE 5 MG TABLET (FP) PO ONE (17:30)
[2018-03-30] MEDS: PIPERACILLIN/TAZOB 2.25 GM 2.25 GM in DEXTROSE 5%-WATER - 50 ML IVPB SCH ×3 (02:37→18:27)
[2018-03-30] MEDS: LABETALOL HCL 200 MG TABLET (FP) PO SCH ×3 (06:44→21:25)
[2018-03-30] MEDS: hydrALAZINE HCL 50 MG TABLET (FP) PO SCH ×3 (06:44→21:25)
[2018-03-30] MEDS: ISOSORBIDE DINITRATE 10 MG TABLET (FP) PO SCH ×3 (06:44→23:58)
[2018-03-30] MEDS: cloNIDine HCL 0.1 MG TABLET PO SCH ×3 (06:44→21:25)
[2018-03-30] MEDS: HEPARIN NA (PORCINE) 5,000 UNITS/ML 1ML VIAL SQ SCH ×3 (06:44→21:26)
[2018-03-30 08:12] LABS: BASO % 0.8 % (0-2.0); EOS % 3.9 % (0-4.5); HEMATOCRIT 25.9 % (35.4-49); HEMOGLOBIN 8.8 GM/dL (11.7-16.9); LYMPH % 25.2 % (8-40); MCH 30.2 pg (25.7-33.7); MCHC 33.8 g/dl (32.0-35.9); MEAN CELL VOLUME 89.2 fl (80-96); MEAN PLT VOLUME 8.9 fl (7.5-11.1); MONO % 9.2 % (3.8-10.2); NEUT % 60.9 % (42.8-82.8); PLATELET COUNT 109 K/MM3 (134-434); RDW 13.6 % (11.9-15.9); WHITE BLOOD COUNT 4.6 K/mm3 (4.0-10.0)
[2018-03-30 08:27] LABS: ANION GAP 7 MMOL/L (8-16); BLOOD UREA NITROGEN 48 mg/dL (7-18); CALCIUM 8.1 mg/dL (8.5-10.1); CHLORIDE 105 mmol/L (98-107); CO2 27 mmol/L (21-32); CREATININE 6.3 mg/dL (0.55-1.3); GLUCOSE,RANDOM 95 mg/dL (74-106); MAGNESIUM 2.3 mg/dL (1.8-2.4); PHOSPHOROUS 4.5 mg/dL (2.5-4.9); SODIUM 140 mmol/L (136-145)
[2018-03-30] MEDS ORDERED: DEXTROSE 5%-WATER - 50 ML IVPB ONE ×2 (11:31→18:16)
[2018-03-30] MEDS ORDERED: PIPERACILLIN/TAZOBACTAM 2.25 GM VIAL IVPB ONE ×2 (11:31→18:15)
[2018-03-30] MEDS: amLODIPine BESYLATE 5 MG TABLET (FP) PO SCH (11:38)
[2018-03-30 12:29] LABS: ANISOCYTOSIS 0; MACROCYTOSIS 0; PLATELET ESTIMATE DECREASED
--- NOTE | 2018-03-30 13:09 | PN ---
Progress Note, Physician Chief Complaint: Mr Nuñez complains of constipation, last bowel movement 6 days ago. No cp, sob, n/v. - Current Medication List Current Medications: Active Medications Amlodipine Besylate (Norvasc -) 10 mg PO DAILY [facility] Last Admin: 03/30/18 11:38 Dose: 10 mg Clonidine (Catapres -) 0.1 mg PO TID [facility] Last Admin: 03/30/18 06:44 Dose: 0.1 mg Docusate Sodium (Colace -) 100 mg PO BID [facility] Heparin Sodium (Porcine) (Heparin -) 5,000 unit SQ TID [facility] Last Admin: 03/30/18 06:44 Dose: 5,000 unit Hydralazine HCl (Apresoline -) 100 mg PO TID [facility] Last Admin: 03/30/18 06:44 Dose: 100 mg Piperacillin Sod/Tazobactam (Sod 2.25 gm/ Dextrose) 50 mls @ 100 mls/hr IVPB Q8H-IV [facility]; Protocol Last Admin: 03/30/18 11:39 Dose: 100 mls/hr Isosorbide Dinitrate (Isordil -) 30 mg PO TID [facility] Last Admin: 03/30/18 06:44 Dose: 30 mg Labetalol HCl (Normodyne -) 400 mg PO TID [facility] Last Admin: 03/30/18 06:44 Dose: 400 mg Oxycodone HCl (Roxicodone -) 5 mg PO Q6H PRN PRN Reason: PAIN LEVEL 6-10 Polyethylene Glycol (Miralax (For Daily Use) -) 17 gm PO BID [facility] - Objective Vital Signs: Vital Signs Temperature 36.8 C 03/30/18 06:00 Pulse Rate 57 L 03/30/18 11:46 Respiratory Rate 19 03/30/18 11:46 Blood Pressure 147/85 03/30/18 11:46 O2 Sat by Pulse Oximetry (%) 97 03/29/18 21:00 Constitutional: Yes: Well Nourished, No Distress, Calm Cardiovascular: Yes: Regular Rate and Rhythm. No: Gallop, Murmur, Rub Respiratory: Yes: Regular, CTA Bilaterally. No: Rales, Rhonchi, Wheezes Gastrointestinal: Yes: Normal Bowel Sounds, Soft. No: Distention, Tenderness Extremities: Yes: WNL Edema: No Labs: CBC, BMP 03/30/18 07:08 03/30/18 07:08 INR, PTT INR 1.01 (0.83-1.09) 03/27/18 17:39 Problem List - Problems (1) Sepsis Code(s): A41.9 - SEPSIS, UNSPECIFIED ORGANISM (2) ESRD (end stage renal disease) on dialysis Code(s): N18.6 - END STAGE RENAL DISEASE; Z99.2 - DEPENDENCE ON RENAL DIALYSIS (3) CHF (congestive heart failure) Code(s): I50.9 - HEART FAILURE, UNSPECIFIED Qualifiers: Heart failure type: diastolic Heart failure chronicity: chronic Qualified Code(s): I50.32 - Chronic diastolic (congestive) heart failure (4) FSGS (focal segmental glomerulosclerosis) Code(s): N05.1 - UNSP NEPH SYNDROME W FOCAL AND SEGMENTAL GLOMERULAR LESIONS (5) Hypertension Code(s): I10 - ESSENTIAL (PRIMARY) HYPERTENSION Qualifiers: Hypertension type: unspecified Qualified Code(s): I10 - Essential (primary ) hypertension Assessment/Plan (1) Sepsis Assessment/Plan: -blood culture from post dialysis positive for enterobacter -catheter tip also growing -continue zosyn per ID -awaiting recommendations on how long and if can de-escalate Code(s): A41.9 - SEPSIS, UNSPECIFIED ORGANISM (2) ESRD (end stage renal disease) on dialysis Assessment/Plan: -nephrology following -catheter removed -defer to nephrology and ID when safe to insert catheter for further HD Code(s): N18.6 - END STAGE RENAL DISEASE; Z99.2 - DEPENDENCE ON RENAL DIALYSIS (3) CHF (congestive heart failure) Assessment/Plan: -not in exacerbation -close monitoring since not receiving HD at the moment Code(s): I50.9 - HEART FAILURE, UNSPECIFIED Qualifiers: Heart failure type: diastolic Heart failure chronicity: chronic Qualified Code(s): I50.32 - Chronic diastolic (congestive) heart failure (4) FSGS (focal segmental glomerulosclerosis) Assessment/Plan: -cause of ESRD Code(s): N05.1 - UNSP NEPH SYNDROME W FOCAL AND SEGMENTAL GLOMERULAR LESIONS (5) Hypertension Assessment/Plan: -continue clonidine, hydralazine, labetalol, imdur, and amlodipine -monitor Code(s): I10 - ESSENTIAL (PRIMARY) HYPERTENSION Qualifiers: Hypertension type: unspecified Qualified Code(s): I10 - Essential (primary ) hypertension
--- NOTE | 2018-03-30 13:36 | PN ---
Progress Note, Physician History of Present Illness: stable no new issues - Current Medication List Current Medications: Active Medications Amlodipine Besylate (Norvasc -) 10 mg PO DAILY [facility] Last Admin: 03/30/18 11:38 Dose: 10 mg Clonidine (Catapres -) 0.1 mg PO TID [facility] Last Admin: 03/30/18 06:44 Dose: 0.1 mg Docusate Sodium (Colace -) 100 mg PO BID [facility] Heparin Sodium (Porcine) (Heparin -) 5,000 unit SQ TID [facility] Last Admin: 03/30/18 06:44 Dose: 5,000 unit Hydralazine HCl (Apresoline -) 100 mg PO TID [facility] Last Admin: 03/30/18 06:44 Dose: 100 mg Piperacillin Sod/Tazobactam (Sod 2.25 gm/ Dextrose) 50 mls @ 100 mls/hr IVPB Q8H-IV [facility]; Protocol Last Admin: 03/30/18 11:39 Dose: 100 mls/hr Isosorbide Dinitrate (Isordil -) 30 mg PO TID [facility] Last Admin: 03/30/18 06:44 Dose: 30 mg Labetalol HCl (Normodyne -) 400 mg PO TID [facility] Last Admin: 03/30/18 06:44 Dose: 400 mg Oxycodone HCl (Roxicodone -) 5 mg PO Q6H PRN PRN Reason: PAIN LEVEL 6-10 Polyethylene Glycol (Miralax (For Daily Use) -) 17 gm PO BID [facility] - Objective Vital Signs: Vital Signs Temperature 98.3 F 03/30/18 06:00 Pulse Rate 57 L 03/30/18 11:46 Respiratory Rate 19 03/30/18 11:46 Blood Pressure 147/85 03/30/18 11:46 O2 Sat by Pulse Oximetry (%) 97 03/29/18 21:00 Constitutional: Yes: No Distress, Calm Neck: Yes: Supple Cardiovascular: Yes: Regular Rate and Rhythm Respiratory: Yes: Regular, CTA Bilaterally Gastrointestinal: Yes: Normal Bowel Sounds, Soft Musculoskeletal: Yes: WNL Extremities: Yes: WNL Neurological: Yes: Alert, Oriented Psychiatric: Yes: Alert, Oriented Labs: CBC, BMP 03/30/18 07:08 03/30/18 07:08 INR, PTT INR 1.01 (0.83-1.09) 03/27/18 17:39 Assessment/Plan patient coming in with sepsis and bacteremia now with permacath removal Problem List - Problems (1) Sepsis Code(s): A41.9 - SEPSIS, UNSPECIFIED ORGANISM (2) ESRD (end stage renal disease) on dialysis Code(s): N18.6 - END STAGE RENAL DISEASE; Z99.2 - DEPENDENCE ON RENAL DIALYSIS (3) CHF (congestive heart failure) Code(s): I50.9 - HEART FAILURE, UNSPECIFIED Qualifiers: Heart failure type: diastolic Heart failure chronicity: chronic Qualified Code(s): I50.32 - Chronic diastolic (congestive) heart failure (4) FSGS (focal segmental glomerulosclerosis) Code(s): N05.1 - UNSP NEPH SYNDROME W FOCAL AND SEGMENTAL GLOMERULAR LESIONS (5) Hypertension Code(s): I10 - ESSENTIAL (PRIMARY) HYPERTENSION Qualifiers: Hypertension type: unspecified Qualified Code(s): I10 - Essential (primary ) hypertension plan cx result noted catheter tip results noted monitor fevers close watch on the patient rest as per the team bernadine
[2018-03-30] MEDS: DOCUSATE SODIUM 100 MG CAPSULE (FP) PO SCH ×2 (15:36→21:26)
[2018-03-30] MEDS: POLYETHYLENE GLYCOL 3350 119 GM BTL PO SCH ×2 (15:37→21:26)
--- NOTE | 2018-03-30 15:37 | SPA.PREOP ---
- PRE-OP NOTE Dx: ESRD Planned Procedure: permcath insertion Surgeon: Dr. Roe Last Vital Signs Temp Pulse Resp BP Pulse Ox 98 F 58 L 18 157/78 97 03/30/18 15:32 03/30/18 15:32 03/30/18 15:32 03/30/18 15:32 03/29/18 21:00 Lab Results WBC 4.6 K/mm3 (4.0-10.0) 03/30/18 07:08 RBC 2.90 M/mm3 (4.00-5.60) L 03/30/18 07:08 Hgb 8.8 GM/dL (11.7-16.9) L 03/30/18 07:08 Hct 25.9 % (35.4-49) L 03/30/18 07:08 MCV 89.2 fl (80-96) 03/30/18 07:08 MCHC 33.8 g/dl (32.0-35.9) 03/30/18 07:08 RDW 13.6 % (11.9-15.9) 03/30/18 07:08 Plt Count 109 K/MM3 (134-434) L 03/30/18 07:08 Sodium 140 mmol/L (136-145) 03/30/18 07:08 Potassium 4.0 mmol/L (3.5-5.1) 03/30/18 07:08 Chloride 105 mmol/L (98-107) 03/30/18 07:08 Carbon Dioxide 27 mmol/L (21-32) 03/30/18 07:08 Anion Gap 7 MMOL/L (8-16) L 03/30/18 07:08 BUN 48 mg/dL (7-18) H 03/30/18 07:08 Creatinine 6.3 mg/dL (0.55-1.3) H 03/30/18 07:08 Random Glucose 95 mg/dL (74-106) 03/30/18 07:08 Calcium 8.1 mg/dL (8.5-10.1) L 03/30/18 07:08 INR 1.01 (0.83-1.09) 03/27/18 17:39 Microbiology 03/28/18 13:45 Catheter Tip - Perma Cath Tip Foreign Body Culture - Final Enterobacter Cloacae Laboratory Tests 03/27/18 17:39 PT with INR 11.90 INR 1.01 PTT ([place] FS) 25.5 - ASSESSMENT/PLAN 1. Make NPO after midnight on Monday/except po meds 2. GI/DVT PPX 3. Medical optimization / clearance Problem List - Problems (1) ESRD (end stage renal disease) on dialysis Assessment/Plan: S/p permcath removal/with positive tip culture. Continue treatment with Zosyn. D/w Dr. Roe Code(s): N18.6 - END STAGE RENAL DISEASE; Z99.2 - DEPENDENCE ON RENAL DIALYSIS
[2018-03-30] MEDS ORDERED: PT OWN MED DRAWER 7, Y5N ONE (15:43)
--- NOTE | 2018-03-30 16:06 | PN ---
Progress Note (short form) - Note Progress Note: Renal follow up for ESRD on HD Pt seen and examined at the bedside complains of constipation no cp, sob, abd pain, fever, chills making urine Vital Signs Temperature 98 F 03/30/18 15:32 Pulse Rate 58 L 03/30/18 15:32 Respiratory Rate 18 03/30/18 15:32 Blood Pressure 157/78 03/30/18 15:32 O2 Sat by Pulse Oximetry (%) 97 03/29/18 21:00 Intake & Output 03/27/18 03/28/18 03/29/18 03/30/18 23:59 23:59 23:59 23:59 Intake Total 70 900 Balance 70 900 Weight 98.883 kg 98.611 kg 99.393 kg 98.089 kg NAD RRR CTA no LE edema CBC, BMP 03/30/18 07:08 03/30/18 07:08 Current Medications Amlodipine Besylate (Norvasc -) 10 mg PO DAILY [facility] Last Admin: 03/30/18 11:38 Dose: 10 mg Clonidine (Catapres -) 0.1 mg PO TID [facility] Last Admin: 03/30/18 15:37 Dose: 0.1 mg Docusate Sodium (Colace -) 100 mg PO BID [facility] Last Admin: 03/30/18 15:36 Dose: 100 mg Heparin Sodium (Porcine) (Heparin -) 5,000 unit SQ TID [facility] Last Admin: 03/30/18 15:38 Dose: 5,000 unit Hydralazine HCl (Apresoline -) 100 mg PO TID [facility] Last Admin: 03/30/18 15:37 Dose: 100 mg Piperacillin Sod/Tazobactam (Sod 2.25 gm/ Dextrose) 50 mls @ 100 mls/hr IVPB Q8H-IV [facility]; Protocol Last Admin: 03/30/18 11:39 Dose: 100 mls/hr Isosorbide Dinitrate (Isordil -) 30 mg PO TID [facility] Last Admin: 03/30/18 15:46 Dose: 30 mg Labetalol HCl (Normodyne -) 400 mg PO TID [facility] Last Admin: 03/30/18 15:37 Dose: 400 mg Oxycodone HCl (Roxicodone -) 5 mg PO Q6H PRN PRN Reason: PAIN LEVEL 6-10 Polyethylene Glycol (Miralax (For Daily Use) -) 17 gm PO BID [facility] Last Admin: 03/30/18 15:37 Dose: 17 gm A/P #Gram negative bacteremia (pt did get catheter site wet at home) #ESRD secondary to FSGS #Hypertension #Anemia blood cultures collected today, will monitor for clearance will plan for tentative catheter insertion on Monday if cultures remain negative continue Abx as per ID Continue current BP meds, can increase clonidione if BP not controlled (ideally should be on ARB once he resumes dialysis) Will given EMERY in AM, trend CBC Farrukh Abraham DO
[2018-03-31] MEDS ORDERED: DEXTROSE 5%-WATER - 50 ML IVPB ONE ×3 (02:06→18:02)
[2018-03-31] MEDS ORDERED: PIPERACILLIN/TAZOBACTAM 2.25 GM VIAL IVPB ONE ×3 (02:06→18:02)
[2018-03-31] MEDS: PIPERACILLIN/TAZOB 2.25 GM 2.25 GM in DEXTROSE 5%-WATER - 50 ML IVPB SCH ×3 (02:34→18:10)
[2018-03-31] MEDS: hydrALAZINE HCL 50 MG TABLET (FP) PO SCH ×3 (06:57→21:46)
[2018-03-31] MEDS: HEPARIN NA (PORCINE) 5,000 UNITS/ML 1ML VIAL SQ SCH ×3 (06:57→21:46)
[2018-03-31] MEDS: LABETALOL HCL 200 MG TABLET (FP) PO SCH ×3 (06:58→21:47)
[2018-03-31] MEDS: cloNIDine HCL 0.1 MG TABLET PO SCH ×3 (06:58→21:47)
[2018-03-31] MEDS: ISOSORBIDE DINITRATE 10 MG TABLET (FP) PO SCH ×3 (07:03→21:46)
[2018-03-31 08:27] LABS: BASO % 0.8 % (0-2.0); EOS % 3.9 % (0-4.5); HEMATOCRIT 24.3 % (35.4-49); HEMOGLOBIN 8.3 GM/dL (11.7-16.9); LYMPH % 20.2 % (8-40); MCH 30.4 pg (25.7-33.7); MCHC 34.1 g/dl (32.0-35.9); MEAN CELL VOLUME 89.1 fl (80-96); MEAN PLT VOLUME 8.9 fl (7.5-11.1); MONO % 8.3 % (3.8-10.2); NEUT % 66.8 % (42.8-82.8); PLATELET COUNT 102 K/MM3 (134-434); RBC 2.73 M/mm3 (4.00-5.60); RDW 13.7 % (11.9-15.9); WHITE BLOOD COUNT 3.7 K/mm3 (4.0-10.0)
[2018-03-31 09:08] LABS: ANION GAP 10 MMOL/L (8-16); BLOOD UREA NITROGEN 47 mg/dL (7-18); CALCIUM 7.9 mg/dL (8.5-10.1); CHLORIDE 105 mmol/L (98-107); CO2 26 mmol/L (21-32); CREATININE 6.5 mg/dL (0.55-1.3); GLUCOSE,RANDOM 90 mg/dL (74-106); MAGNESIUM 2.3 mg/dL (1.8-2.4); PHOSPHOROUS 4.2 mg/dL (2.5-4.9); SODIUM 140 mmol/L (136-145)
[2018-03-31] MEDS ORDERED: MINERAL OIL ENEMA 133 ML ENEMA PR ONE (10:32)
[2018-03-31] MEDS ORDERED: PT OWN MED DRAWER 7, Y5N ONE ×3 (10:47→23:26)
[2018-03-31] MEDS: amLODIPine BESYLATE 5 MG TABLET (FP) PO SCH (10:59)
[2018-03-31] MEDS: POLYETHYLENE GLYCOL 3350 119 GM BTL PO SCH ×2 (10:59→21:51)
[2018-03-31] MEDS: DOCUSATE SODIUM 100 MG CAPSULE (FP) PO SCH ×2 (11:00→21:47)
--- NOTE | 2018-03-31 11:26 | PN ---
Progress Note, Physician Chief Complaint: C/O Constipation otherwise stable History of Present Illness: 53 year old male n HTN, CKD stage 5 on HD Asthma, Anemia of CKD , Thrombocytopenia, admitted with sepsis blood culture grew gram --ve bacteria, CBC normal, afebrile. - Current Medication List Current Medications: Active Medications Amlodipine Besylate (Norvasc -) 10 mg PO DAILY [facility] Last Admin: 03/31/18 10:59 Dose: 10 mg Clonidine (Catapres -) 0.1 mg PO TID [facility] Last Admin: 03/31/18 06:58 Dose: 0.1 mg Docusate Sodium (Colace -) 100 mg PO BID [facility] Last Admin: 03/31/18 11:00 Dose: 100 mg Epoetin Meet (Procrit -) 20,000 unit SQ ONCE ONE Stop: 03/31/18 20:01 Heparin Sodium (Porcine) (Heparin -) 5,000 unit SQ TID [facility] Last Admin: 03/31/18 06:57 Dose: 5,000 unit Hydralazine HCl (Apresoline -) 100 mg PO TID [facility] Last Admin: 03/31/18 06:57 Dose: 100 mg Piperacillin Sod/Tazobactam (Sod 2.25 gm/ Dextrose) 50 mls @ 100 mls/hr IVPB Q8H-IV [facility]; Protocol Last Admin: 03/31/18 11:00 Dose: 100 mls/hr Isosorbide Dinitrate (Isordil -) 30 mg PO TID [facility] Last Admin: 03/31/18 07:03 Dose: 30 mg Labetalol HCl (Normodyne -) 400 mg PO TID [facility] Last Admin: 03/31/18 06:58 Dose: 400 mg Mineral Oil (Fleet Mineral Oil Rectal Enema -) 133 ml SC NOW ONE Stop: 03/31/18 10:33 Polyethylene Glycol (Miralax (For Daily Use) -) 17 gm PO BID [facility] Last Admin: 03/31/18 10:59 Dose: 17 gm - Objective Vital Signs: Vital Signs Temperature 98.2 F 03/31/18 05:30 Pulse Rate 65 03/31/18 05:30 Respiratory Rate 18 03/30/18 22:00 Blood Pressure 122/78 03/31/18 05:30 O2 Sat by Pulse Oximetry (%) 97 03/30/18 21:00 Middle aged man not in distress HEENT: Mm moist, anemia, PERRLA, EOMI NECK: supple, + JVD No Bruit CHEST: B/L basal crepts CVS: S1S2 R S3+ no murmur ABD: obese, non tender Bs + EXT: Edema feet +, no calf tenderness, Pulses + 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 03/30/18 07:08 Blood - Peripheral Venous Blood Culture - Preliminary NO GROWTH OBTAINED AFTER 24 HOURS, INCUBATION TO CONTINUE FOR 4 DAYS. 03/27/18 17:55 Blood - Peripheral Venous Blood Culture - Preliminary NO GROWTH OBTAINED AFTER 72 HOURS, INCUBATION TO CONTINUE FOR 2 DAYS. 03/27/18 17:39 Blood - Peripheral Venous Blood Culture - Preliminary NO GROWTH OBTAINED AFTER 72 HOURS, INCUBATION TO CONTINUE FOR 2 DAYS. 03/28/18 13:45 Catheter Tip - Perma Cath Tip Foreign Body Culture - Final Enterobacter Cloacae Problem List - Problems (1) Sepsis Assessment/Plan: Grew Gram -ve Bacteria, on IV Zosyn will F/U ID recommendations Code(s): A41.9 - SEPSIS, UNSPECIFIED ORGANISM (2) CKD (chronic kidney disease) Assessment/Plan: on HD F/U renal recommendations Code(s): N18.9 - CHRONIC KIDNEY DISEASE, UNSPECIFIED Qualifiers: Chronic kidney disease stage: stage 5, not on chronic dialysis Qualified Code(s): N18.5 - Chronic kidney disease, stage 5 (3) Hypertension Assessment/Plan: Well controlled cont current management Code(s): I10 - ESSENTIAL (PRIMARY) HYPERTENSION Qualifiers: Hypertension type: unspecified Qualified Code(s): I10 - Essential (primary ) hypertension (4) Anemia in chronic kidney disease Code(s): N18.9 - CHRONIC KIDNEY DISEASE, UNSPECIFIED; D63.1 - ANEMIA IN CHRONIC KIDNEY DISEASE Qualifiers: Chronic kidney disease stage: stage 4 (severe) Qualified Code(s): N18.4 - Chronic kidney disease, stage 4 (severe); D63.1 - Anemia in chronic kidney disease
--- NOTE | 2018-03-31 11:29 | PN ---
Progress Note (short form) - Note Progress Note: Renal follow up for ESRD on HD Pt seen and examined at the bedside has not had a BM no sob, cp, abd pain, N/V/D no fever or chills Vital Signs Temperature 98.2 F 03/31/18 05:30 Pulse Rate 65 03/31/18 05:30 Respiratory Rate 18 03/30/18 22:00 Blood Pressure 122/78 03/31/18 05:30 O2 Sat by Pulse Oximetry (%) 97 03/30/18 21:00 Intake & Output 03/28/18 03/29/18 03/30/18 03/31/18 23:59 23:59 23:59 23:59 Intake Total 70 900 Balance 70 900 Weight 98.611 kg 99.393 kg 98.089 kg 98.747 kg NAD RRR CTA no LE edema CBC, BMP 03/31/18 07:30 03/31/18 07:30 Current Medications Amlodipine Besylate (Norvasc -) 10 mg PO DAILY [facility] Last Admin: 03/31/18 10:59 Dose: 10 mg Clonidine (Catapres -) 0.1 mg PO TID [facility] Last Admin: 03/31/18 06:58 Dose: 0.1 mg Docusate Sodium (Colace -) 100 mg PO BID [facility] Last Admin: 03/31/18 11:00 Dose: 100 mg Epoetin Meet (Procrit -) 20,000 unit SQ ONCE ONE Stop: 03/31/18 20:01 Heparin Sodium (Porcine) (Heparin -) 5,000 unit SQ TID [facility] Last Admin: 03/31/18 06:57 Dose: 5,000 unit Hydralazine HCl (Apresoline -) 100 mg PO TID [facility] Last Admin: 03/31/18 06:57 Dose: 100 mg Piperacillin Sod/Tazobactam (Sod 2.25 gm/ Dextrose) 50 mls @ 100 mls/hr IVPB Q8H-IV [facility]; Protocol Last Admin: 03/31/18 11:00 Dose: 100 mls/hr Isosorbide Dinitrate (Isordil -) 30 mg PO TID [facility] Last Admin: 03/31/18 07:03 Dose: 30 mg Labetalol HCl (Normodyne -) 400 mg PO TID [facility] Last Admin: 03/31/18 06:58 Dose: 400 mg Mineral Oil (Fleet Mineral Oil Rectal Enema -) 133 ml LA NOW ONE Stop: 03/31/18 10:33 Polyethylene Glycol (Miralax (For Daily Use) -) 17 gm PO BID [facility] Last Admin: 03/31/18 10:59 Dose: 17 gm A/P #Gram negative bacteremia (pt did get catheter site wet at home) #ESRD secondary to FSGS #Hypertension #Anemia blood cultures remain negative to have tunneled hd catheter placed on monday if blood cultures remain negative continue abx as per ID Mineral oil enema today continue present BP meds Farrukh Abraham DO
--- NOTE | 2018-03-31 16:43 | PN ---
Progress Note, Physician History of Present Illness: Pt states he feels well. Currently afebrile, has occasional chills. No specific complaints. - Current Medication List Current Medications: Active Medications Amlodipine Besylate (Norvasc -) 10 mg PO DAILY [facility] Last Admin: 03/31/18 10:59 Dose: 10 mg Clonidine (Catapres -) 0.1 mg PO TID [facility] Last Admin: 03/31/18 14:05 Dose: 0.1 mg Docusate Sodium (Colace -) 100 mg PO BID [facility] Last Admin: 03/31/18 11:00 Dose: 100 mg Epoetin Meet (Procrit -) 20,000 unit SQ ONCE ONE Stop: 03/31/18 20:01 Heparin Sodium (Porcine) (Heparin -) 5,000 unit SQ TID [facility] Last Admin: 03/31/18 14:05 Dose: 5,000 unit Hydralazine HCl (Apresoline -) 100 mg PO TID [facility] Last Admin: 03/31/18 14:05 Dose: 100 mg Piperacillin Sod/Tazobactam (Sod 2.25 gm/ Dextrose) 50 mls @ 100 mls/hr IVPB Q8H-IV [facility]; Protocol Last Admin: 03/31/18 11:00 Dose: 100 mls/hr Isosorbide Dinitrate (Isordil -) 30 mg PO TID [facility] Last Admin: 03/31/18 14:05 Dose: 30 mg Labetalol HCl (Normodyne -) 400 mg PO TID [facility] Last Admin: 03/31/18 14:05 Dose: 400 mg Polyethylene Glycol (Miralax (For Daily Use) -) 17 gm PO BID [facility] Last Admin: 03/31/18 10:59 Dose: 17 gm - Objective Vital Signs: Vital Signs Temperature 98.1 F 03/31/18 14:47 Pulse Rate 62 03/31/18 14:47 Respiratory Rate 18 03/31/18 14:47 Blood Pressure 157/69 03/31/18 14:47 O2 Sat by Pulse Oximetry (%) 97 03/30/18 21:00 Constitutional: Yes: No Distress, Calm Cardiovascular: Yes: Regular Rate and Rhythm Respiratory: Yes: Regular Gastrointestinal: Yes: Normal Bowel Sounds, Soft Edema: No Integumentary: Yes: WNL Neurological: Yes: Alert, Oriented Labs: CBC, BMP 03/31/18 07:30 03/31/18 07:30 INR, PTT INR 1.01 (0.83-1.09) 03/27/18 17:39 Microbiology 03/30/18 08:15 Blood - Peripheral Venous Blood Culture - Preliminary NO GROWTH OBTAINED AFTER 24 HOURS, INCUBATION TO CONTINUE FOR 4 DAYS. 03/30/18 07:08 Blood - Peripheral Venous Blood Culture - Preliminary NO GROWTH OBTAINED AFTER 24 HOURS, INCUBATION TO CONTINUE FOR 4 DAYS. 03/27/18 17:55 Blood - Peripheral Venous Blood Culture - Preliminary NO GROWTH OBTAINED AFTER 72 HOURS, INCUBATION TO CONTINUE FOR 2 DAYS. 03/27/18 17:39 Blood - Peripheral Venous Blood Culture - Preliminary NO GROWTH OBTAINED AFTER 72 HOURS, INCUBATION TO CONTINUE FOR 2 DAYS. 03/28/18 13:45 Catheter Tip - Perma Cath Tip Foreign Body Culture - Final Enterobacter Cloacae 03/27/18 19:58 Blood - Post-Dialysis Blood Culture - Final Enterobacter Cloacae 03/27/18 22:41 Urine - Urine Clean Catch Urine Culture - Final NO GROWTH OBTAINED Problem List - Problems (1) ESRD (end stage renal disease) on dialysis Code(s): N18.6 - END STAGE RENAL DISEASE; Z99.2 - DEPENDENCE ON RENAL DIALYSIS (2) Sepsis Code(s): A41.9 - SEPSIS, UNSPECIFIED ORGANISM (3) FSGS (focal segmental glomerulosclerosis) Code(s): N05.1 - UNSP NEPH SYNDROME W FOCAL AND SEGMENTAL GLOMERULAR LESIONS Assessment/Plan Enterobacter bacteremia ESRD -- continue antibiotics -- Blood cultures show no growth in 24h, continue monitor -- plan is for catheter placement if blood cultures remain negative -- pt currently stable
[2018-03-31] MEDS ORDERED: EPOETIN ALFA 20,000 UNIT/1 ML VIAL SQ ONE (20:00)
[2018-04-01] MEDS ORDERED: DEXTROSE 5%-WATER - 50 ML IVPB ONE ×3 (00:09→17:21)
[2018-04-01] MEDS ORDERED: PIPERACILLIN/TAZOBACTAM 2.25 GM VIAL IVPB ONE ×3 (00:09→17:20)
[2018-04-01] MEDS: PIPERACILLIN/TAZOB 2.25 GM 2.25 GM in DEXTROSE 5%-WATER - 50 ML IVPB SCH ×3 (01:46→17:26)
[2018-04-01] MEDS: cloNIDine HCL 0.1 MG TABLET PO SCH ×3 (05:50→22:35)
[2018-04-01] MEDS: ISOSORBIDE DINITRATE 10 MG TABLET (FP) PO SCH ×3 (05:50→22:35)
[2018-04-01] MEDS: hydrALAZINE HCL 50 MG TABLET (FP) PO SCH ×3 (05:50→22:35)
[2018-04-01] MEDS: HEPARIN NA (PORCINE) 5,000 UNITS/ML 1ML VIAL SQ SCH ×3 (05:50→22:36)
[2018-04-01] MEDS: LABETALOL HCL 200 MG TABLET (FP) PO SCH ×3 (05:50→22:35)
[2018-04-01] MEDS ORDERED: PT OWN MED DRAWER 7, Y5N ONE ×4 (07:50→21:46)
[2018-04-01 07:53] LABS: BASO % 0.9 % (0-2.0); EOS % 6.3 % (0-4.5); HEMATOCRIT 24.3 % (35.4-49); HEMOGLOBIN 8.4 GM/dL (11.7-16.9); LYMPH % 29.5 % (8-40); MCH 30.5 pg (25.7-33.7); MCHC 34.3 g/dl (32.0-35.9); MEAN CELL VOLUME 88.7 fl (80-96); MEAN PLT VOLUME 8.9 fl (7.5-11.1); MONO % 9.9 % (3.8-10.2); NEUT % 53.4 % (42.8-82.8); PLATELET COUNT 100 K/MM3 (134-434); RBC 2.74 M/mm3 (4.00-5.60); RDW 13.6 % (11.9-15.9); WHITE BLOOD COUNT 3.6 K/mm3 (4.0-10.0)
[2018-04-01 09:18] LABS: ANION GAP 10 MMOL/L (8-16); BLOOD UREA NITROGEN 46 mg/dL (7-18); CALCIUM 7.9 mg/dL (8.5-10.1); CHLORIDE 104 mmol/L (98-107); CO2 24 mmol/L (21-32); CREATININE 7.1 mg/dL (0.55-1.3); GLUCOSE,RANDOM 100 mg/dL (74-106); POTASSIUM 3.9 mmol/L (3.5-5.1); SODIUM 139 mmol/L (136-145)
[2018-04-01] MEDS: amLODIPine BESYLATE 5 MG TABLET (FP) PO SCH (10:41)
[2018-04-01] MEDS: DOCUSATE SODIUM 100 MG CAPSULE (FP) PO SCH ×2 (10:41→22:35)
[2018-04-01] MEDS: POLYETHYLENE GLYCOL 3350 119 GM BTL PO SCH ×2 (10:42→22:41)
[2018-04-01 10:49] LABS: PLATELET ESTIMATE ADEQUATE
[2018-04-01] MEDS ORDERED: LACTULOSE 20 GM/30 ML UDC (FOR ORAL USE ONLY) PO PRN (12:04)
--- NOTE | 2018-04-01 12:04 | PN ---
Progress Note, Physician Chief Complaint: C/O Constipation otherwise stable History of Present Illness: 53 year old male n HTN, CKD stage 5 on HD Asthma, Anemia of CKD , Thrombocytopenia, admitted with sepsis blood culture grew gram --ve bacteria, CBC normal, afebrile. - Current Medication List Current Medications: Active Medications Amlodipine Besylate (Norvasc -) 10 mg PO DAILY [facility] Last Admin: 04/01/18 10:41 Dose: 10 mg Clonidine (Catapres -) 0.1 mg PO TID [facility] Last Admin: 04/01/18 05:50 Dose: 0.1 mg Docusate Sodium (Colace -) 100 mg PO BID [facility] Last Admin: 04/01/18 10:41 Dose: 100 mg Epoetin Meet (Procrit -) 20,000 unit SQ ONCE ONE Stop: 03/31/18 20:01 Heparin Sodium (Porcine) (Heparin -) 5,000 unit SQ TID [facility] Last Admin: 04/01/18 05:50 Dose: 5,000 unit Hydralazine HCl (Apresoline -) 100 mg PO TID [facility] Last Admin: 04/01/18 05:50 Dose: 100 mg Piperacillin Sod/Tazobactam (Sod 2.25 gm/ Dextrose) 50 mls @ 100 mls/hr IVPB Q8H-IV [facility]; Protocol Last Admin: 04/01/18 10:41 Dose: 100 mls/hr Isosorbide Dinitrate (Isordil -) 30 mg PO TID [facility] Last Admin: 04/01/18 05:50 Dose: 30 mg Labetalol HCl (Normodyne -) 400 mg PO TID [facility] Last Admin: 04/01/18 05:50 Dose: 400 mg Polyethylene Glycol (Miralax (For Daily Use) -) 17 gm PO BID [facility] Last Admin: 04/01/18 10:42 Dose: 17 gm - Objective Vital Signs: Vital Signs Temperature 98.5 F 04/01/18 10:00 Pulse Rate 58 L 04/01/18 10:00 Respiratory Rate 18 04/01/18 10:00 Blood Pressure 155/80 04/01/18 10:00 O2 Sat by Pulse Oximetry (%) 96 03/31/18 21:00 Middle aged man not in distress HEENT: Mm moist, anemia, PERRLA, EOMI NECK: supple, + JVD No Bruit CHEST: B/L basal crepts CVS: S1S2 R S3+ no murmur ABD: obese, non tender Bs + EXT: Edema feet +, no calf tenderness, Pulses + 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 MAN: AOx3 non focal Labs: CBC, BMP 04/01/18 07:00 04/01/18 07:00 INR, PTT INR 1.01 (0.83-1.09) 03/27/18 17:39 Problem List - Problems (1) Sepsis Assessment/Plan: Grew Gram -ve Bacteria, on IV Zosyn will F/U ID recommendations Code(s): A41.9 - SEPSIS, UNSPECIFIED ORGANISM (2) CKD (chronic kidney disease) Assessment/Plan: on HD F/U renal recommendations Code(s): N18.9 - CHRONIC KIDNEY DISEASE, UNSPECIFIED Qualifiers: Chronic kidney disease stage: stage 5, not on chronic dialysis Qualified Code(s): N18.5 - Chronic kidney disease, stage 5 (3) Hypertension Assessment/Plan: Well controlled cont current management Code(s): I10 - ESSENTIAL (PRIMARY) HYPERTENSION Qualifiers: Hypertension type: unspecified Qualified Code(s): I10 - Essential (primary ) hypertension (4) Anemia in chronic kidney disease Assessment/Plan: Cont current management. Code(s): N18.9 - CHRONIC KIDNEY DISEASE, UNSPECIFIED; D63.1 - ANEMIA IN CHRONIC KIDNEY DISEASE Qualifiers: Chronic kidney disease stage: stage 4 (severe) Qualified Code(s): N18.4 - Chronic kidney disease, stage 4 (severe); D63.1 - Anemia in chronic kidney disease (5) Constipation Assessment/Plan: Lactulose 30 CC PRN Code(s): K59.00 - CONSTIPATION, UNSPECIFIED
--- NOTE | 2018-04-01 16:31 | PN ---
Progress Note, Physician History of Present Illness: Pt remains stable, afebrile. No new complaints. - Current Medication List Current Medications: Active Medications Amlodipine Besylate (Norvasc -) 10 mg PO DAILY [facility] Last Admin: 04/01/18 10:41 Dose: 10 mg Clonidine (Catapres -) 0.1 mg PO TID [facility] Last Admin: 04/01/18 13:39 Dose: 0.1 mg Docusate Sodium (Colace -) 100 mg PO BID [facility] Last Admin: 04/01/18 10:41 Dose: 100 mg Epoetin Meet (Procrit -) 20,000 unit SQ ONCE ONE Stop: 03/31/18 20:01 Heparin Sodium (Porcine) (Heparin -) 5,000 unit SQ TID [facility] Last Admin: 04/01/18 13:39 Dose: 5,000 unit Hydralazine HCl (Apresoline -) 100 mg PO TID [facility] Last Admin: 04/01/18 13:39 Dose: 100 mg Piperacillin Sod/Tazobactam (Sod 2.25 gm/ Dextrose) 50 mls @ 100 mls/hr IVPB Q8H-IV [facility]; Protocol Last Admin: 04/01/18 10:41 Dose: 100 mls/hr Isosorbide Dinitrate (Isordil -) 30 mg PO TID [facility] Last Admin: 04/01/18 13:39 Dose: 30 mg Labetalol HCl (Normodyne -) 400 mg PO TID [facility] Last Admin: 04/01/18 13:39 Dose: 400 mg Lactulose (Cephulac (Oral Use)) 30 gm PO HS PRN PRN Reason: CONSTIPATION Polyethylene Glycol (Miralax (For Daily Use) -) 17 gm PO BID [facility] Last Admin: 04/01/18 10:42 Dose: 17 gm - Objective Vital Signs: Vital Signs Temperature 97.8 F 04/01/18 15:10 Pulse Rate 58 L 04/01/18 10:00 Respiratory Rate 18 04/01/18 10:00 Blood Pressure 155/80 04/01/18 10:00 O2 Sat by Pulse Oximetry (%) 98 04/01/18 09:00 Constitutional: Yes: No Distress, Calm Cardiovascular: Yes: Regular Rate and Rhythm Respiratory: Yes: Regular Gastrointestinal: Yes: Normal Bowel Sounds, Soft Extremities: Yes: WNL Neurological: Yes: Alert, Oriented Labs: CBC, BMP 04/01/18 07:00 04/01/18 07:00 INR, PTT INR 1.01 (0.83-1.09) 03/27/18 17:39 Microbiology 03/30/18 08:15 Blood - Peripheral Venous Blood Culture - Preliminary NO GROWTH OBTAINED AFTER 48 HOURS, INCUBATION TO CONTINUE FOR 3 DAYS. 03/30/18 07:08 Blood - Peripheral Venous Blood Culture - Preliminary NO GROWTH OBTAINED AFTER 48 HOURS, INCUBATION TO CONTINUE FOR 3 DAYS. 03/27/18 17:55 Blood - Peripheral Venous Blood Culture - Preliminary NO GROWTH OBTAINED AFTER 96 HOURS, INCUBATION TO CONTINUE FOR 1 DAYS. 03/27/18 17:39 Blood - Peripheral Venous Blood Culture - Preliminary NO GROWTH OBTAINED AFTER 96 HOURS, INCUBATION TO CONTINUE FOR 1 DAYS. 03/28/18 13:45 Catheter Tip - Perma Cath Tip Foreign Body Culture - Final Enterobacter Cloacae 03/27/18 19:58 Blood - Post-Dialysis Blood Culture - Final Enterobacter Cloacae 03/27/18 22:41 Urine - Urine Clean Catch Urine Culture - Final NO GROWTH OBTAINED Problem List - Problems (1) ESRD (end stage renal disease) on dialysis Code(s): N18.6 - END STAGE RENAL DISEASE; Z99.2 - DEPENDENCE ON RENAL DIALYSIS (2) Sepsis Code(s): A41.9 - SEPSIS, UNSPECIFIED ORGANISM (3) FSGS (focal segmental glomerulosclerosis) Code(s): N05.1 - UNSP NEPH SYNDROME W FOCAL AND SEGMENTAL GLOMERULAR LESIONS Assessment/Plan Enterobacter/ gram neg bacteremia ESRD -- continue antibiotics -- Blood cultures show no growth in 48 hr -- for catheter replacement -- pt currently stable
[2018-04-02] MEDS ORDERED: PIPERACILLIN/TAZOBACTAM 2.25 GM VIAL IVPB ONE ×3 (01:02→20:53)
[2018-04-02] MEDS ORDERED: DEXTROSE 5%-WATER - 50 ML IVPB ONE ×3 (01:02→20:53)
[2018-04-02] MEDS: PIPERACILLIN/TAZOB 2.25 GM 2.25 GM in DEXTROSE 5%-WATER - 50 ML IVPB SCH ×4 (02:03→21:34)
[2018-04-02] MEDS: HEPARIN NA (PORCINE) 5,000 UNITS/ML 1ML VIAL SQ SCH ×3 (06:25→21:37)
[2018-04-02] MEDS: cloNIDine HCL 0.1 MG TABLET PO SCH ×3 (06:25→21:36)
[2018-04-02] MEDS: ISOSORBIDE DINITRATE 10 MG TABLET (FP) PO SCH ×3 (06:25→19:47)
[2018-04-02] MEDS: hydrALAZINE HCL 50 MG TABLET (FP) PO SCH ×3 (06:25→21:36)
[2018-04-02] MEDS: LABETALOL HCL 200 MG TABLET (FP) PO SCH ×3 (06:25→21:36)
[2018-04-02 07:29] LABS: BASO % 0.9 % (0-2.0); EOS % 6.1 % (0-4.5); HEMATOCRIT 24.9 % (35.4-49); HEMOGLOBIN 8.3 GM/dL (11.7-16.9); LYMPH % 29.8 % (8-40); MCH 29.7 pg (25.7-33.7); MCHC 33.5 g/dl (32.0-35.9); MEAN CELL VOLUME 88.7 fl (80-96); MEAN PLT VOLUME 9.1 fl (7.5-11.1); MONO % 9.6 % (3.8-10.2); NEUT % 53.6 % (42.8-82.8); PLATELET COUNT 109 K/MM3 (134-434); RBC 2.81 M/mm3 (4.00-5.60); RDW 13.6 % (11.9-15.9); WHITE BLOOD COUNT 3.5 K/mm3 (4.0-10.0)
[2018-04-02 08:07] LABS: ANION GAP 5 MMOL/L (8-16); BLOOD UREA NITROGEN 48 mg/dL (7-18); CALCIUM 7.9 mg/dL (8.5-10.1); CHLORIDE 108 mmol/L (98-107); CO2 23 mmol/L (21-32); CREATININE 6.9 mg/dL (0.55-1.3); GLUCOSE,RANDOM 94 mg/dL (74-106); SODIUM 136 mmol/L (136-145)
[2018-04-02] MEDS: DOCUSATE SODIUM 100 MG CAPSULE (FP) PO SCH ×2 (09:00→21:36)
[2018-04-02] MEDS: POLYETHYLENE GLYCOL 3350 119 GM BTL PO SCH ×2 (09:00→22:43)
[2018-04-02] MEDS: amLODIPine BESYLATE 5 MG TABLET (FP) PO SCH (09:53)
[2018-04-02] MEDS ORDERED: PT OWN MED DRAWER 7, Y5N ONE (14:50)
[2018-04-02] MEDS ORDERED: HEPARIN NA (PORCINE) 5,000 UNITS/ML 1ML VIAL ONE (15:16)
--- NOTE | 2018-04-02 15:36 | PN ---
Progress Note, Physician History of Present Illness: patient stable no issues doing well going for cath placement - Current Medication List Current Medications: Active Medications Amlodipine Besylate (Norvasc -) 10 mg PO DAILY [facility] Last Admin: 04/02/18 09:53 Dose: 10 mg Clonidine (Catapres -) 0.1 mg PO TID [facility] Last Admin: 04/02/18 14:52 Dose: 0.1 mg Docusate Sodium (Colace -) 100 mg PO BID [facility] Last Admin: 04/02/18 09:00 Dose: Not Given Epoetin Meet (Procrit -) 20,000 unit SQ ONCE ONE Stop: 03/31/18 20:01 Heparin Sodium (Porcine) (Heparin -) 5,000 unit SQ TID [facility] Last Admin: 04/02/18 14:52 Dose: Not Given Hydralazine HCl (Apresoline -) 100 mg PO TID [facility] Last Admin: 04/02/18 14:52 Dose: 100 mg Piperacillin Sod/Tazobactam (Sod 2.25 gm/ Dextrose) 50 mls @ 100 mls/hr IVPB Q8H-IV [facility]; Protocol Last Admin: 04/02/18 09:53 Dose: 100 mls/hr Isosorbide Dinitrate (Isordil -) 30 mg PO TID [facility] Last Admin: 04/02/18 14:53 Dose: 30 mg Labetalol HCl (Normodyne -) 400 mg PO TID [facility] Last Admin: 04/02/18 14:52 Dose: 400 mg Lactulose (Cephulac (Oral Use)) 30 gm PO HS PRN PRN Reason: CONSTIPATION Polyethylene Glycol (Miralax (For Daily Use) -) 17 gm PO BID [facility] Last Admin: 04/02/18 09:00 Dose: Not Given - Objective Vital Signs: Vital Signs Temperature 98.2 F 04/02/18 10:00 Pulse Rate 68 04/02/18 10:00 Respiratory Rate 20 04/02/18 10:00 Blood Pressure 133/64 04/02/18 10:00 O2 Sat by Pulse Oximetry (%) 98 04/02/18 09:00 Constitutional: Yes: No Distress, Calm Cardiovascular: Yes: Regular Rate and Rhythm Respiratory: Yes: Regular, CTA Bilaterally Gastrointestinal: Yes: Normal Bowel Sounds, Soft Musculoskeletal: Yes: WNL Extremities: Yes: WNL Neurological: Yes: Alert, Oriented Psychiatric: Yes: Alert, Oriented Labs: CBC, BMP 04/02/18 06:45 04/02/18 06:45 INR, PTT INR 1.01 (0.83-1.09) 03/27/18 17:39 Assessment/Plan patient coming in with sepsis and bacteremia now with permacath removal Problem List - Problems (1) Sepsis Code(s): A41.9 - SEPSIS, UNSPECIFIED ORGANISM (2) ESRD (end stage renal disease) on dialysis Code(s): N18.6 - END STAGE RENAL DISEASE; Z99.2 - DEPENDENCE ON RENAL DIALYSIS (3) CHF (congestive heart failure) Code(s): I50.9 - HEART FAILURE, UNSPECIFIED Qualifiers: Heart failure type: diastolic Heart failure chronicity: chronic Qualified Code(s): I50.32 - Chronic diastolic (congestive) heart failure (4) FSGS (focal segmental glomerulosclerosis) Code(s): N05.1 - UNSP NEPH SYNDROME W FOCAL AND SEGMENTAL GLOMERULAR LESIONS (5) Hypertension Code(s): I10 - ESSENTIAL (PRIMARY) HYPERTENSION Qualifiers: Hypertension type: unspecified Qualified Code(s): I10 - Essential (primary ) hypertension plan continue abx catheter abx can be stopped after morning dose will not need abx after that
[2018-04-02] MEDS ORDERED: LIDOCAINE HCL 1%, 10 MG/ML (20ML VIAL) ONE (15:43)
[2018-04-02] MEDS ORDERED: LIDOCAINE HCL 2% JELLY (5 ML/TUBE) ONE (16:39)
[2018-04-02] MEDS ORDERED: MIDAZOLAM HCL 2 MG/2 ML SINGLE DOSE VIAL ONE ×2 (16:59)
[2018-04-02] MEDS ORDERED: SODIUM CHLORIDE 250 ML IV PRN (17:22)
[2018-04-02] MEDS ORDERED: PROPOFOL 20 ML ONE ×2 (17:52)
--- NOTE | 2018-04-02 18:18 | OP ---
Operative Note - Note: Operative Date: 04/02/18 Pre-Operative Diagnosis: ESRD Operation: Placement Permacath Findings: Patent Right IJ Implants: 19 cm Permacath Post-Operative Diagnosis: Same as Pre-op Surgeon: Supa Roe Anesthesiologist/CONTROL CHEMIST: Erasmo Reaves Anesthesia: Fractional
[2018-04-02] MEDS ORDERED: ONDANSETRON 4 MG/2 ML VIAL IVPUSH PRN (18:21)
[2018-04-02] MEDS ORDERED: oxyCODONE HCL 5 MG TABLET PO PRN (18:21)
[2018-04-02] MEDS ORDERED: PROMETHAZINE HCL 25 MG/1 ML VIAL IVPB PRN (18:21)
[2018-04-02] MEDS ORDERED: LIDOCAINE HCL 1%, 10 MG/ML (20ML VIAL) INF ONE (18:23)
[2018-04-02] MEDS ORDERED: EPOETIN ALFA 20,000 UNIT/1 ML VIAL SQ ONE (18:30)
[2018-04-02] MEDS ORDERED: LACTULOSE 20 GM/30 ML UDC (FOR ORAL USE ONLY) PO PRN (18:30)
[2018-04-02] MEDS ORDERED: MORPHINE SULFATE 2 MG/ML VIAL IVPUSH ONE (21:16)
--- NOTE | 2018-04-02 22:35 | PN ---
Progress Note, Physician Chief Complaint: Mr Nuñez is without complaint. Denies cp, sob, n/v. - Current Medication List Current Medications: Active Medications Amlodipine Besylate (Norvasc -) 10 mg PO DAILY [facility] Clonidine (Catapres -) 0.1 mg PO TID [facility] Last Admin: 04/02/18 21:36 Dose: 0.1 mg Docusate Sodium (Colace -) 100 mg PO BID [facility] Last Admin: 04/02/18 21:36 Dose: 100 mg Epoetin Meet (Epogen -) 10,000 unit IVPUSH ONCE ONE Stop: 04/03/18 06:01 Heparin Sodium (Porcine) (Heparin -) 5,000 unit SQ TID [facility] Last Admin: 04/02/18 21:37 Dose: 5,000 unit Heparin Sodium (Porcine) (Heparin -) 1,000 unit IVPUSH ONCE ONE Stop: 04/03/18 06:01 Hydralazine HCl (Apresoline -) 100 mg PO TID [facility] Last Admin: 04/02/18 21:36 Dose: 100 mg Sodium Chloride (Normal Saline -) 250 mls @ 3,000 mls/hr IV PRN PRN PRN Reason: Hypotension during Dialysis Stop: 04/03/18 17:22 Piperacillin Sod/Tazobactam (Sod 2.25 gm/ Dextrose) 50 mls @ 100 mls/hr IVPB Q8H-IV [facility]; Protocol Last Admin: 04/02/18 21:34 Dose: 100 mls/hr Isosorbide Dinitrate (Isordil -) 30 mg PO TIDISORDIL [facility] Last Admin: 04/02/18 19:47 Dose: 30 mg Labetalol HCl (Normodyne -) 400 mg PO TID [facility] Last Admin: 04/02/18 21:36 Dose: 400 mg Lactulose (Cephulac (Oral Use)) 30 gm PO HS PRN PRN Reason: CONSTIPATION Oxycodone HCl (Roxicodone -) 10 mg PO Q4H PRN PRN Reason: PAIN LEVEL 6-10 Stop: 04/03/18 18:20 Last Admin: 04/02/18 19:48 Dose: 10 mg Polyethylene Glycol (Miralax (For Daily Use) -) 17 gm PO BID [facility] Promethazine HCl (Phenergan Injection -) 12.5 mg IVPB Q6H PRN PRN Reason: NAUSEA-FOR RESCUE AFTER 15 MIN - Objective Vital Signs: Vital Signs Temperature 36.3 C L 04/02/18 18:19 Pulse Rate 52 L 04/02/18 18:45 Respiratory Rate 14 04/02/18 18:45 Blood Pressure 157/86 04/02/18 18:45 O2 Sat by Pulse Oximetry (%) 98 04/02/18 18:45 Constitutional: Yes: Well Nourished, No Distress, Calm Cardiovascular: Yes: Regular Rate and Rhythm. No: Gallop, Murmur, Rub Respiratory: Yes: Regular, CTA Bilaterally. No: Rales, Rhonchi, Wheezes Gastrointestinal: Yes: Normal Bowel Sounds, Soft. No: Distention, Tenderness Extremities: Yes: WNL Edema: No Labs: CBC, BMP 04/02/18 06:45 04/02/18 06:45 INR, PTT INR 1.01 (0.83-1.09) 03/27/18 17:39 Problem List - Problems (1) Sepsis Code(s): A41.9 - SEPSIS, UNSPECIFIED ORGANISM (2) ESRD (end stage renal disease) on dialysis Code(s): N18.6 - END STAGE RENAL DISEASE; Z99.2 - DEPENDENCE ON RENAL DIALYSIS (3) CHF (congestive heart failure) Code(s): I50.9 - HEART FAILURE, UNSPECIFIED Qualifiers: Heart failure type: diastolic Heart failure chronicity: chronic Qualified Code(s): I50.32 - Chronic diastolic (congestive) heart failure (4) FSGS (focal segmental glomerulosclerosis) Code(s): N05.1 - UNSP NEPH SYNDROME W FOCAL AND SEGMENTAL GLOMERULAR LESIONS (5) Hypertension Code(s): I10 - ESSENTIAL (PRIMARY) HYPERTENSION Qualifiers: Hypertension type: unspecified Qualified Code(s): I10 - Essential (primary ) hypertension Assessment/Plan (1) Sepsis Assessment/Plan: -continue zosyn -last dose tomorrow morning and then safe for discharge Code(s): A41.9 - SEPSIS, UNSPECIFIED ORGANISM (2) ESRD (end stage renal disease) on dialysis Assessment/Plan: -catheter placement today -HD tomorrow Code(s): N18.6 - END STAGE RENAL DISEASE; Z99.2 - DEPENDENCE ON RENAL DIALYSIS (3) CHF (congestive heart failure) Assessment/Plan: -not in exacerbation -close monitoring since not receiving HD at the moment Code(s): I50.9 - HEART FAILURE, UNSPECIFIED Qualifiers: Heart failure type: diastolic Heart failure chronicity: chronic Qualified Code(s): I50.32 - Chronic diastolic (congestive) heart failure (4) FSGS (focal segmental glomerulosclerosis) Assessment/Plan: -cause of ESRD Code(s): N05.1 - UNSP NEPH SYNDROME W FOCAL AND SEGMENTAL GLOMERULAR LESIONS (5) Hypertension Assessment/Plan: -continue clonidine, hydralazine, labetalol, imdur, and amlodipine -monitor Code(s): I10 - ESSENTIAL (PRIMARY) HYPERTENSION Qualifiers: Hypertension type: unspecified Qualified Code(s): I10 - Essential (primary ) hypertension
[2018-04-03] MEDS ORDERED: PIPERACILLIN/TAZOBACTAM 2.25 GM VIAL IVPB ONE ×2 (00:03→12:41)
[2018-04-03] MEDS ORDERED: DEXTROSE 5%-WATER - 50 ML IVPB ONE ×2 (00:03→12:41)
[2018-04-03] MEDS: PIPERACILLIN/TAZOB 2.25 GM 2.25 GM in DEXTROSE 5%-WATER - 50 ML IVPB SCH ×3 (02:03→13:12)
[2018-04-03] MEDS ORDERED: EPOETIN ALFA 2,000 UNIT/1 ML VIAL IVPUSH ONE (06:00)
[2018-04-03] MEDS ORDERED: HEPARIN NA (PORCINE) 5,000 UNITS/ML 1ML VIAL IVPUSH ONE ×2 (06:00→07:15)
[2018-04-03] MEDS: LABETALOL HCL 200 MG TABLET (FP) PO SCH ×3 (06:39→14:13)
[2018-04-03] MEDS: hydrALAZINE HCL 50 MG TABLET (FP) PO SCH ×3 (06:39→14:12)
[2018-04-03] MEDS: cloNIDine HCL 0.1 MG TABLET PO SCH ×3 (06:39→14:13)
[2018-04-03] MEDS: HEPARIN NA (PORCINE) 5,000 UNITS/ML 1ML VIAL SQ SCH ×2 (06:40→14:13)
[2018-04-03] MEDS ORDERED: SODIUM CHLORIDE 250 ML IV PRN (07:05)
[2018-04-03] MEDS ORDERED: EPOETIN ALFA 10,000 UNIT/1 ML VIAL IVPUSH ONE (07:15)
--- NOTE | 2018-04-03 07:43 | OP ---
DATE OF OPERATION: 04/02/2018 SURGEON: Supa Roe MD PROCEDURE: Placement of PermCath. PREOPERATIVE DIAGNOSIS: Renal failure. POSTOPERATIVE DIAGNOSIS: Renal failure. ANESTHESIA: Fractional. ANESTHESIOLOGIST: Erasmo Reaves MD OPERATIVE FINDINGS: The right internal jugular vein was patent. OPERATIVE PROCEDURE: Following routine patient identification with site and side verification, intravenous sedation was established. The right neck and chest were prepped ChloraPrep. Timeout was performed. Using real-time duplex imaging, the right internal jugular vein was identified and found to be patent with normal flow. Next, 1% lidocaine was infiltrated in the skin overlying the vein, and the vein was then cannulated under ultrasound guidance with a micropuncture needle. A wire was then passed through the needle into the right atrium. The needle was removed and a 5-Romansh catheter passed over the wire. A 19-cm PermCath was advanced with a tunneler from chest to neck. The tract around the wire was then dilated, and the introducer placed over the wire into the superior vena cava. The wire and the dilator were removed. PermCath was passed through the introducer and the tip positioned at the junction of the superior vena cava and right atrium. The introducer was peeled away. Each limb was aspirated for blood and flushed with heparin and saline solution. The catheter was sutured to the skin at the exit site with 3-0 nylon, and the neck wound was closed with a subcuticular suture of 3-0 Vicryl. Sterile dressings were applied, and the patient was taken to the recovery room in stable condition. Brenda JOYA/[id number]
--- NOTE | 2018-04-03 10:01 | PN ---
Progress Note, Physician History of Present Illness: patient stable no issues doing well - Current Medication List Current Medications: Active Medications Amlodipine Besylate (Norvasc -) 10 mg PO DAILY [facility] Clonidine (Catapres -) 0.1 mg PO TID [facility] Last Admin: 04/03/18 06:39 Dose: 0.1 mg Docusate Sodium (Colace -) 100 mg PO BID [facility] Last Admin: 04/02/18 21:36 Dose: 100 mg Heparin Sodium (Porcine) (Heparin -) 5,000 unit SQ TID [facility] Last Admin: 04/03/18 06:40 Dose: 5,000 unit Hydralazine HCl (Apresoline -) 100 mg PO TID [facility] Last Admin: 04/03/18 06:39 Dose: 100 mg Piperacillin Sod/Tazobactam (Sod 2.25 gm/ Dextrose) 50 mls @ 100 mls/hr IVPB Q8H-IV [facility]; Protocol Last Admin: 04/03/18 02:03 Dose: 100 mls/hr Isosorbide Dinitrate (Isordil -) 30 mg PO TIDISORDIL [facility] Last Admin: 04/02/18 19:47 Dose: 30 mg Labetalol HCl (Normodyne -) 400 mg PO TID [facility] Last Admin: 04/03/18 06:39 Dose: 400 mg Lactulose (Cephulac (Oral Use)) 30 gm PO HS PRN PRN Reason: CONSTIPATION Oxycodone HCl (Roxicodone -) 10 mg PO Q4H PRN PRN Reason: PAIN LEVEL 6-10 Stop: 04/03/18 18:20 Last Admin: 04/02/18 19:48 Dose: 10 mg Polyethylene Glycol (Miralax (For Daily Use) -) 17 gm PO BID [facility] Last Admin: 04/02/18 22:43 Dose: Not Given Promethazine HCl (Phenergan Injection -) 12.5 mg IVPB Q6H PRN PRN Reason: NAUSEA-FOR RESCUE AFTER 15 MIN - Objective Vital Signs: Vital Signs Temperature 98.8 F 04/03/18 08:45 Pulse Rate 58 L 04/03/18 09:20 Respiratory Rate 18 04/03/18 09:20 Blood Pressure 154/84 04/03/18 09:20 O2 Sat by Pulse Oximetry (%) 95 04/03/18 01:51 Constitutional: Yes: No Distress, Calm Eyes: Yes: Conjunctiva Clear HENT: Yes: Atraumatic Neck: Yes: Supple, Trachea Midline Cardiovascular: Yes: Regular Rate and Rhythm Respiratory: Yes: Regular Gastrointestinal: Yes: Normal Bowel Sounds, Soft Musculoskeletal: Yes: WNL Extremities: Yes: WNL Wound/Incision: Yes: Clean/Dry Neurological: Yes: Alert, Oriented Labs: CBC, BMP 04/02/18 06:45 04/02/18 06:45 INR, PTT INR 1.01 (0.83-1.09) 03/27/18 17:39 Assessment/Plan patient coming in with sepsis and bacteremia now with permacath removal Problem List - Problems (1) Sepsis Code(s): A41.9 - SEPSIS, UNSPECIFIED ORGANISM (2) ESRD (end stage renal disease) on dialysis Code(s): N18.6 - END STAGE RENAL DISEASE; Z99.2 - DEPENDENCE ON RENAL DIALYSIS (3) CHF (congestive heart failure) Code(s): I50.9 - HEART FAILURE, UNSPECIFIED Qualifiers: Heart failure type: diastolic Heart failure chronicity: chronic Qualified Code(s): I50.32 - Chronic diastolic (congestive) heart failure (4) FSGS (focal segmental glomerulosclerosis) Code(s): N05.1 - UNSP NEPH SYNDROME W FOCAL AND SEGMENTAL GLOMERULAR LESIONS (5) Hypertension Code(s): I10 - ESSENTIAL (PRIMARY) HYPERTENSION Qualifiers: Hypertension type: unspecified Qualified Code(s): I10 - Essential (primary ) hypertension plan doing well no new issues dialysis rest as per he team
[2018-04-03 10:19] LABS: HEMOGLOBIN 8.6 GM/dL (11.7-16.9); MCH 30.7 pg (25.7-33.7); MCHC 34.5 g/dl (32.0-35.9); MEAN CELL VOLUME 89.1 fl (80-96); MEAN PLT VOLUME 9.5 fl (7.5-11.1); PLATELET COUNT 108 K/MM3 (134-434); RDW 13.7 % (11.9-15.9); WHITE BLOOD COUNT 4.1 K/mm3 (4.0-10.0)
--- NOTE | 2018-04-03 10:40 | PN ---
Progress Note (short form) - Note Progress Note: POD #1 - s/p permacath insertion under MAC. VSS. Pt.doing well, currently receiving hemodiaylis. No apparent anesthetic complications noted. Continue current care.
[2018-04-03 10:58] LABS: ANION GAP 10 MMOL/L (8-16); BLOOD UREA NITROGEN 46 mg/dL (7-18); CALCIUM 8.3 mg/dL (8.5-10.1); CHLORIDE 106 mmol/L (98-107); CO2 24 mmol/L (21-32); CREATININE 6.7 mg/dL (0.55-1.3); GLUCOSE,RANDOM 86 mg/dL (74-106); POTASSIUM 4.1 mmol/L (3.5-5.1); SODIUM 141 mmol/L (136-145)
[2018-04-03] MEDS: ISOSORBIDE DINITRATE 10 MG TABLET (FP) PO SCH ×2 (11:31→14:12)
[2018-04-03] MEDS: DOCUSATE SODIUM 100 MG CAPSULE (FP) PO SCH (11:32)
[2018-04-03] MEDS: amLODIPine BESYLATE 5 MG TABLET (FP) PO SCH ×2 (11:32→12:07)
[2018-04-03] MEDS: POLYETHYLENE GLYCOL 3350 119 GM BTL PO SCH (11:32)
[2018-04-03 14:06] VITALS: BP 144/69; PULSE 66; TEMP 98
--- NOTE | 2018-04-03 15:27 | DS ---
Physical Examination Vital Signs: Vital Signs Temperature 36.7 C 04/03/18 14:00 Pulse Rate 66 04/03/18 14:00 Respiratory Rate 18 04/03/18 14:00 Blood Pressure 144/69 04/03/18 14:00 O2 Sat by Pulse Oximetry (%) 95 04/03/18 09:00 Constitutional: Yes: Well Nourished, No Distress, Calm Cardiovascular: Yes: Regular Rate and Rhythm. No: Gallop, Murmur, Rub Respiratory: Yes: Regular, CTA Bilaterally. No: Rales, Rhonchi, Wheezes Gastrointestinal: Yes: Normal Bowel Sounds, Soft. No: Distention, Tenderness Extremities: Yes: WNL Edema: No Labs: CBC, BMP 04/03/18 08:50 04/03/18 08:50 Discharge Summary Reason For Visit: SEPSIS Hospital Course: (1) Sepsis Code(s): A41.9 - SEPSIS, UNSPECIFIED ORGANISM (2) ESRD (end stage renal disease) on dialysis Code(s): N18.6 - END STAGE RENAL DISEASE; Z99.2 - DEPENDENCE ON RENAL DIALYSIS (3) CHF (congestive heart failure) Code(s): I50.9 - HEART FAILURE, UNSPECIFIED Qualifiers: Heart failure type: diastolic Heart failure chronicity: chronic Qualified Code(s): I50.32 - Chronic diastolic (congestive) heart failure (4) FSGS (focal segmental glomerulosclerosis) Code(s): N05.1 - UNSP NEPH SYNDROME W FOCAL AND SEGMENTAL GLOMERULAR LESIONS (5) Hypertension Code(s): I10 - ESSENTIAL (PRIMARY) HYPERTENSION Qualifiers: Hypertension type: unspecified Qualified Code(s): I10 - Essential (primary ) hypertension Mr Nuñez is a very pleasant 53 year old male who comes in with sepsis secondary to line infection. He was admitted to the hospital and his tunnel catheter was removed. He was seen by ID and started on zosyn. He finished a full course of this. He was seen by nephrology and vascular surgery, he was safe to have another tunnel catheter placed on 04/02. He tolerated this without difficulty. Currently he is doing well and is eager to go home. He is safe for discharge today. Condition: Stable - Instructions Diet, Activity, Other Instructions: Keep area clean and dry. Do not get permcath wet. Referrals: Zach Ramirez MD [Primary Care Provider] - Disposition: HOME - Home Medications Comprehensive Discharge Medication List: Ambulatory Orders Clonidine HCl [Clonidine HCl ER] 0.1 mg PO TID 03/13/18 Isosorbide Dinitrate [Isordil -] 30 mg PO TID 03/13/18 Labetalol HCl [Normodyne -] 400 mg PO TID 90 Days tablet 03/16/18 Hydralazine HCl 100 mg PO TID 03/27/18 Amlodipine Besylate 10 mg PO DAILY #30 tablet 04/03/18
[2018-04-04 10:19] LABS: HBSAG SCREEN Negative (Negative); HEP B CORE AB, TOT Negative (Negative)
== END 2018-04-03 15:00 | disposition home or self-care (01) | DRG 314 ==
LOC: JER 15:57 → JERBED 22:30 → J5S 03-28 16:30
PROVIDERS: ADMIT Internal Medicine; ATTEND Internal Medicine
PROC: 05PYX3Z Removal of Infusion Device from Upper Vein, External Approach (ICD-10-PCS; 2018-03-28)
PROC: B548ZZA Ultrasonography of Superior Vena Cava, Guidance (ICD-10-PCS; 2018-04-02)
PROC: 02HV33Z Insertion of Infusion Device into Superior Vena Cava, Percutaneous Approach (ICD-10-PCS; principal; 2018-04-02 17:00)
PROC: 5A1D70Z Performance of Urinary Filtration, Intermittent, Less than 6 Hours Per Day (ICD-10-PCS; 2018-04-03)
DX: T82.7XXA Infection and inflammatory reaction due to other cardiac and vascular devices, implants and grafts, initial encounter (principal); A41.9 Sepsis, unspecified organism; N18.6 End stage renal disease; I13.2 Hypertensive heart and chronic kidney disease with heart failure and with stage 5 chronic kidney disease, or end stage renal disease; I50.32 Chronic diastolic (congestive) heart failure; Y83.8 Other surgical procedures as the cause of abnormal reaction of the patient, or of later complication, without mention of misadventure at the time of the procedure; M54.5 Low back pain; Z87.891 Personal history of nicotine dependence; I25.10 Atherosclerotic heart disease of native coronary artery without angina pectoris; E11.22 Type 2 diabetes mellitus with diabetic chronic kidney disease; Z99.2 Dependence on renal dialysis; I25.2 Old myocardial infarction; D69.6 Thrombocytopenia, unspecified; I45.10 Unspecified right bundle-branch block; N05.1 Unspecified nephritic syndrome with focal and segmental glomerular lesions; K59.00 Constipation, unspecified; D63.1 Anemia in chronic kidney disease
CPT/HCPCS: 36415; 71045-TC-FY; 74019-TC-FY; 76000-TC-FY; 80048; 80053; 81003; 81015; 83605; 83735; 84100; 84484; 85025; 85027; 85610; 85730; 86704; 86706; 86708; 86803; 86850; 86900; 86901; 87040; 87070; 87086; 87186; 87340; 87389; 93005; 93010; 93306-TC; 94760; 99285-25; J0131; J0735; J0885; J1644

== ENCOUNTER 2018-07-13 11:53 | Emergency (ER) | payer BC ==
--- NOTE | 2018-07-13 12:09 | PDOC ---
History of Present Illness - General Stated Complaint: CHEST PAIN Time Seen by Provider: 07/13/18 12:06 History Source: Patient - History of Present Illness Initial Comments: 07/13/18 12:11 The patient is a 53 year old male with a PMH Of Renal Failure (MWF HD, last HD this a.m., access via LUE fistula and R sided port), CVA (w/residual L sided weakness) NIDDM, HTN, Thrombocytopenia and low back pain who presents to the ED today following a 20 minutes episode of chest tightness and pressure during HD this morning. Patient states he was 2/[address] through his 4 hour dialysis session when he felt sudden onset of chest pressure that turned to tightness in his B/L upper chest. Episode lasted for 20 minutes and was associated with changes in his BP and some shortness of breath. Notes a previous episode of similar pain in 2017 but did not have any further cardiac evaluation. Former smoker 1/2 ppd for 5 years. The patient denies palpitations, lightheadedness, nausea. The patient denies fever, chills, vomit, diarrhea and constipation. The patient denies dysuria, frequency, urgency and hematuria. Allergy: as per EMR, Influenza (shortness of breath, pain), patient denies any drug allergies Surgical: L foot surgery, abdominal hernia repair Social: 5 year 1/2 ppd smoker, social alcohol, former marijuana/cocaine PMD: Dr. Zach Ramirez M.D Embroidery Specialist: Dr. Troncoso Vascular: Dr. Garcia As per EMR patient was last evaluated in our ED in 03/2018 for chills at which time cultures from his dialysis grew Enterobacteriae Clocae, s/p Zosyn. 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) COPD: No CHF: Yes DVT: No Dementia: No Diabetes: Yes GI Disorders: Yes (RENAL FAILURE) Disorders: No HTN: Yes Hypercholesterolemia: No Liver Disease: No Seizures: No Thyroid Disease: No - Surgical History Abdominal Surgery: Yes (HERNIA REPAIR) Appendectomy: No Cardiac Surgery: No Cholecystectomy: No Lung Surgery: No Neurologic Surgery: No Orthopedic Surgery: Yes (right ankle fracture; plate with 6 screws) - Suicide/Smoking/Psychosocial Hx Smoking Status: No Smoking History: Former smoker Have you smoked in the past 12 months: No Number of Cigarettes Smoked Daily: 0 If you are a former smoker, when did you quit?: 12/03 Cigars Per Day: 0 'Breaking Loose' booklet given: 09/14/17 Hx Alcohol Use: No Drug/Substance Use Hx: No Substance Use Type: None Hx Substance Use Treatment: Yes (AA 5 DAYS A WEEK) Review of Systems - Review of Systems Constitutional: No: Chills, Fever HEENTM: No: Recent change in vision, Throat Swelling Respiratory: Yes: Shortness of Breath. No: Cough, Wheezing, Hemoptysis Cardiac (ROS): Yes: Chest Pain, Chest Tightness. No: Lightheadedness, Palpitations, Syncope ABD/GI: No: Constipated, Diarrhea, Nausea, Vomiting : No: Burning, Dysuria *Physical Exam - Physical Exam General Appearance: Yes: Nourished, Appropriately Dressed, Obese HEENT: positive: Normal Voice, Hearing Grossly Normal Neck: positive: Trachea midline, Supple Respiratory/Chest: positive: Lungs Clear, Normal Breath Sounds. negative: Labored Respiration, Rapid RR, Crackles, Wheezing Cardiovascular: positive: S1, S2. negative: Edema, JVD Vascular Pulses: Dorsalis-Pedis (R): 2+, Doralis-Pedis (L): 2+ Gastrointestinal/Abdominal: positive: Normal Bowel Sounds, Soft Musculoskeletal: negative: CVA Tenderness (R), CVA Tenderness (L) Extremity: positive: Normal Capillary Refill, Normal Inspection Integumentary: positive: Normal Color, Dry, Warm Neurologic: positive: Fully Oriented, Alert Heart Score/ECG Review - ECG Impressions Comment:: 07/13/18 12:48 HR 75, NSR, flattened T waves in V1,V2 c/w previous EKG dated 03/27/2018, new prolonged QT since EKG of 03/2018 ED Treatment Course - LABORATORY CBC & Chemistry Diagram: 07/13/18 12:35 07/13/18 12:35 Medical Decision Making - Medical Decision Making 07/13/18 12:36 53 year old male with resolved chest pain and tightness. Currently AsX. VS unremarkable. HR 75, NSR, flattened T waves in V1,V2 c/w previous EKG dated 03/27/2018, new prolonged QT since EKG of 03/2018 Frontal diagnosis: r/o ACS, esophageal spasm, GERD. Less likely PNA, pericarditis, pleuritis. Unlikely PE given patient's history and clinical presentation. Will obtain Troponin x2 given onset 1 hour prior to presentation, CXR. Reassess. 07/13/18 13:09 Patient reassessed @ bedside VSS Remains chest pain free 07/13/18 13:33 Troponin (-) x1 Elevated Cr (4.8) c/w renal failure Worsening Thrombocytopenia (79) since previous evaluation (previously 108 in 2017) - likely associated with RF Repeat Troponin @ 1530; pending result will call cardiology (Dr. Son evaluated patient on previous occasion) and likely d/c home Beside U/S shows normal EF, no pericardial effusion, normal IVC, aortic root < 4 cm 07/13/18 15:11 call recieved from lab Repeat Trop hemolyzed 07/13/18 16:00 2nd Troponin (-) Patient reassessed @ bedside. At this time patient observed for 4+ hours w/o any repeated chest pain. Given EKG, labs and clinical presentation, low clinical suspicion for acute coronary syndrome. Call placed to patient's barrel raiser, Dr. Son to discuss discharge and follow-up care 07/13/18 17:20 Case d/w Dr. Tyson (Cardiology), patient well known to service. Agrees w/ discharge home and patient to follow-up with Dr. Son next week. Patient counseled on return precautions and discharged home. I discussed the physical exam findings, ancillary test results and final diagnoses with the patient. I answered all of the patient's questions. The patient was satisfied with the care received and felt comfortable with the discharge plan and treatment plan. The patient will return to the Emergency Department with any new, persistent or worsening symptoms. *DC/Admit/Observation/Transfer Diagnosis at time of Disposition: Chest pain - Discharge Dispostion Disposition: HOME Condition at time of disposition: Good Decision to Admit order: No - Referrals Referrals: Zach Ramirez MD [Primary Care Provider] - Joel Son MD [Staff Physician] - - Patient Instructions Printed Discharge Instructions: DI for Atypical Chest Pain Additional Instructions: You were evaluated today for your chest pain. Your labs, an EKG and a CXR showed no concerning findings. At this time you are safe for discharge home. Please follow-up with Dr. Son, a barrel raiser who has seen you previously, in the next 1 week. Your care is not complete until you follow-up with a barrel raiser. Return to the Emergency Department for any new/worsening/concerning symptoms. - Post Discharge Activity
[2018-07-13 12:19] VITALS: TEMP 98.6; BMI 26.4
--- NOTE | 2018-07-13 12:37 | PDOC ---
Attending Attestation - Resident Resident Name: Keerthi Garcia - ED Attending Attestation I have performed the following: I have examined & evaluated the patient, The case was reviewed & discussed with the resident, I agree w/resident's findings & plan - [facility] HPI: 07/13/18 13:25 Mr. Erasmo Nuñez is a 53 year old male with a PMH Of Renal Failure (MWF HD, last HD this a.m., access via LUE fistula and R sided port), CVA (w/residual L sided weakness) NIDDM, HTN, Thrombocytopenia and low back pain who presents to the ED today following a 20 minutes episode of chest tightness and pressure during HD this morning, which he completed 2/3 of his 4 hours session. He notes substernal /upper chest pressure that turned to tightness x 20 minutes, a/ w SOB. He states the symptoms may have been precipitated when HD took off too much fluid during his session. Notes a previous episode of similar pain in 2017 but did not have any further cardiac evaluation or stents/bypass. Former smoker 1/2 ppd for 5 years. no leg swelling or h/o DVT/PE. Founder And Chief Executive Officer; Dr Son - Physicial Exam PE: 07/13/18 13:28 NAD, well appearing, MMM, nl conjunctiva, anicteric; neck supple. lungs clear, RRR, abdomen soft nontender. ALMEIDA x4, no focal neuro deficits. No peripheral edema. normal color for ethnicity, WWP. no calf tenderness. - Medical Decision Making 07/13/18 13:29 I, Anaid Marks MD, attest that this document has been prepared under my direction and personally reviewed by me in its entirety. I further attest, that it accurately reflects all work, treatment, procedures and medical decision -making performed by me. See HPI for details Vital signs reviewed, wnl. no chest pain. Prior notes reviewed, including admissions, discharges and consultations. laboratory results and imaging reviewed, basic labs and lytes wnl, notable for chronic thrombocytopenia, no bleeding. coags wnl. ESRD on HD with elevated Cr as expected. CXR_wnl, central line from HD tunnel cath in prox SVC. Cardiac panel_neg trop x1, repeat Trop_neg, so less likely cardiac and remains in no acute distress. EKG normal sinus rhythm, QTC prolongation 500ms, narrow QRS, ST and T wave segments and morphology normal. TWI in I, AVL, similar to prior EKG ED course: chest pain free in the ED x 4 hours Heart Score 3, low risk category (2 risk factors: HTN, ESRD 2/2 FSGS, DM), age and gender, stable EKG compared to prior now chest pain free. serial trops, EKG personnel monitor. no events. comfortable in bed. spoke with Dr Son group about patient, resident spoke with Dr Tyson, known to service, out patient close followup with reassuring presentation and neg cardiac workup. Pt to be discharged in stable condition. Patient and family made aware of impression and plan, return precautions discussed (including but not limited to worsening pain or symptoms), fevers, or signs of infection, chest pain, respiratory distress, inability to tolerate oral intake, dehydration, syncope, or neurologic changes). Follow up with PMD and/or specialist as recommended, follow up information provided, take medications as instructed for duration of time. continue with supportive care, avoid triggers and precipitants. All questions answered to patient's satisfaction and expressed understanding and comfort with this. 07/13/18 16:00 07/13/18 16:02 07/15/18 07:30 Heart Score/ECG Review - History History: Slightly suspicious - Electrocardiogram EKG: Non specific repolarization disturbance - Age Age: 45-65 - Risk Factors Risk Factors Heart Score: Yes Hx Hypertension, Yes Hx Diabetes Based on the list above the patient has:: 1-2 risk factors - Troponin Troponin: </= normal limit - Score Heart Score - Total: 3 - ECG Impressions Normal ECG: No Comment:: 07/13/18 13:31 EKG normal sinus rhythm, QTC prolongation 500ms, narrow QRS, ST and T wave segments and morphology normal. TWI in I, AVL, similar to prior EKG Procedures - Bedside Ultrasound Bedside Ultrasound: Cardiac Remarks: 07/13/18 13:32 POCUS echo performed, indication includes chest pain/dyspnea. views obtained ( PSLA, PSS, A4, SX). Findings include normal EF on visual estimation, no pericardial or pleural effusion, primarily A lines normal IVC with _collapse. Normal aortic root <4cm. RV<LV. Impression: no acute findings
[2018-07-13 13:08] LABS: BASO % 0.5 % (0-2.0); EOS % 2.3 % (0-4.5); HEMATOCRIT 39.6 % (35.4-49); HEMOGLOBIN 14.4 GM/dL (11.7-16.9); LYMPH % 13.8 % (8-40); MCH 33.1 pg (25.7-33.7); MCHC 36.4 g/dl (32.0-35.9); MEAN CELL VOLUME 90.8 fl (80-96); MEAN PLT VOLUME 8.7 fl (7.5-11.1); MONO % 8.8 % (3.8-10.2); NEUT % 74.6 % (42.8-82.8); PLATELET COUNT 79 K/MM3 (134-434); RBC 4.36 M/mm3 (4.00-5.60); RDW 16.7 % (11.9-15.9)
[2018-07-13 13:15] LABS: INR 0.97 (0.83-1.09); PROTHROMBIN TIME (PATIENT) 11.5 SEC (9.7-13.0)
[2018-07-13 13:22] LABS: ALBUMIN 4.2 g/dl (3.4-5.0); ALK PHOS 84 U/L (45-117); ANION GAP 9 MMOL/L (8-16); BILIRUBIN,TOTAL 0.5 mg/dL (0.2-1); BLOOD UREA NITROGEN 42 mg/dL (7-18); CALCIUM 8.1 mg/dL (8.5-10.1); CHLORIDE 102 mmol/L (98-107); CO2 24 mmol/L (21-32); CREATININE 4.8 mg/dL (0.55-1.3); GLUCOSE,RANDOM 134 mg/dL (74-106); POTASSIUM 3.6 mmol/L (3.5-5.1); SGOT/AST 11 U/L (15-37); SGPT/ALT 17 U/L (13-61); SODIUM 135 mmol/L (136-145); TOT PROT 7.9 g/dl (6.4-8.2)
--- NOTE | 2018-07-13 15:52 | EKG ---
Test Reason : Blood Pressure : / mmHG Vent. Rate : 075 BPM Atrial Rate : 075 BPM P-R Int : 176 ms QRS Dur : 116 ms QT Int : 448 ms P-R-T Axes : 033 -37 091 degrees QTc Int : 500 ms NORMAL SINUS RHYTHM POSSIBLE LEFT ATRIAL ENLARGEMENT LEFT AXIS DEVIATION T WAVE ABNORMALITY, CONSIDER LATERAL ISCHEMIA PROLONGED QT ABNORMAL ECG WHEN COMPARED WITH ECG OF 27-MAR-2018 18:42, INCOMPLETE RIGHT BUNDLE BRANCH BLOCK IS NO LONGER PRESENT CRITERIA FOR SEPTAL INFARCT ARE NO LONGER PRESENT Confirmed by SANTI GUERRA, CARMENCITA ([id number]) on 07/13/2018 3:52:10 PM Referred By: Confirmed By:CARMENCITA HANCOCK MD
[2018-07-13 17:40] VITALS: BP 140/81; PULSE 88
[2018-07-13 18:55] LABS: PLATELET ESTIMATE SLT DECREASE
[2018-07-14 01:44] LABS: ALBUMIN 4.2 g/dl (3.4-5.0); ALK PHOS 91 U/L (45-117); ANION GAP 11 MMOL/L (8-16); BILIRUBIN,TOTAL 0.4 mg/dL (0.2-1); BLOOD UREA NITROGEN 48 mg/dL (7-18); CALCIUM 8.2 mg/dL (8.5-10.1); CHLORIDE 102 mmol/L (98-107); CO2 21 mmol/L (21-32); CREATININE 5.2 mg/dL (0.55-1.3); GLUCOSE,RANDOM 162 mg/dL (74-106); POTASSIUM 3.8 mmol/L (3.5-5.1); SGOT/AST 11 U/L (15-37); SGPT/ALT 17 U/L (13-61); SODIUM 135 mmol/L (136-145); TOT PROT 7.9 g/dl (6.4-8.2)
== END 2018-07-13 17:40 | disposition home or self-care (01) ==
LOC: JER 11:53
DX: R07.9 Chest pain, unspecified (principal); I12.0 Hypertensive chronic kidney disease with stage 5 chronic kidney disease or end stage renal disease; E11.22 Type 2 diabetes mellitus with diabetic chronic kidney disease; N18.6 End stage renal disease; N17.8 Other acute kidney failure; Z99.2 Dependence on renal dialysis; Z79.84 Long term (current) use of oral hypoglycemic drugs; D69.6 Thrombocytopenia, unspecified
CPT/HCPCS: 36415; 71046-TC-FY; 80053; 82550; 83735; 84484; 85025; 85610; 93005; 93010; 99285-25

== ENCOUNTER 2021-04-02 11:15 | Emergency (ER) | payer OTHER, BC ==
[2021-04-02 12:07] VITALS: BMI 36.1
[2021-04-02 12:34] LABS: HEMATOCRIT 35.3 % (35.4-49); HEMOGLOBIN 12.4 GM/dL (11.7-16.9); MCHC 35.2 g/dl (32.0-35.9); MEAN CELL VOLUME 102.1 fl (80-96); MEAN PLT VOLUME 8.7 fl (7.5-11.1); PLATELET COUNT 105 10^3/uL (134-434); RBC 3.45 M/mm3 (4.00-5.60); RDW 14.6 % (11.9-15.9); WHITE BLOOD COUNT 5.9 K/mm3 (4.0-10.0)
[2021-04-02 12:42] LABS: INR 0.97 (0.83-1.09); PROTHROMBIN TIME (PATIENT) 10.9 SEC (9.7-13.0)
[2021-04-02 12:44] LABS: ACTIVATED PTT 31.1 SECONDS (25.2-36.5)
[2021-04-02 12:54] LABS: CHLORIDE 104 mmol/L (98-107); SODIUM 137 mmol/L (136-145)
[2021-04-02 13:00] LABS: ALBUMIN 3.7 g/dl (3.4-5.0); ANION GAP 10 MMOL/L (8-16); BLOOD UREA NITROGEN 38.7 mg/dL (7-18); CALCIUM 8.1 mg/dL (8.5-10.1); CO2 23 mmol/L (21-32); GLUCOSE,RANDOM 84 mg/dL (74-106)
[2021-04-02 13:03] LABS: CREATININE 5.9 mg/dL (0.55-1.3); PHOSPHOROUS 3.8 mg/dL (2.5-4.9); SGOT/AST 13 U/L (15-37); SGPT/ALT 26 U/L (13-61)
[2021-04-02 13:05] LABS: ANISOCYTOSIS 1+; BILIRUBIN,TOTAL 0.5 mg/dL (0.2-1); MACROCYTOSIS 1+; PLATELET ESTIMATE DECREASED; TEAR DROP CELLS 1+; TOT PROT 7.6 g/dl (6.4-8.2)
[2021-04-02 13:06] LABS: ALK PHOS 117 U/L (45-117)
[2021-04-02 14:39] VITALS: BP 148/76; PULSE 72; TEMP 98.6
== END 2021-04-02 14:39 | disposition short-term general hospital (02) ==
LOC: JER 11:15
DX: R06.02 Shortness of breath (principal); R07.9 Chest pain, unspecified
CPT/HCPCS: 36415; 71046-TC-FY; 80053; 82550; 83735; 84100; 84484; 85025; 85610; 85730; 86850; 86900; 86901; 93005; 93010; 99285-25; C9803; U0003; U0005

== ENCOUNTER 2023-08-21 10:39 | Emergency (ER) | payer OTHER, BC ==
[2023-08-21 10:51] VITALS: BP 166/90; PULSE 80; RESP 18; TEMP 98.4; BMI 35.9
[2023-08-21 13:27] LABS: BASO % 0.3 % (0-2.0); EOS % 1.7 % (0-4.5); HEMATOCRIT 29.1 % (35.4-49); HEMOGLOBIN 10.1 GM/dL (11.7-16.9); LYMPH % 38.5 % (8-40); MCH 34.4 pg (25.7-33.7); MCHC 34.9 g/dl (32.0-35.9); MEAN CELL VOLUME 98.7 fl (80-96); MONO % 12.3 % (3.8-10.2); NEUT % 47.2 % (42.8-82.8); PLATELET COUNT 122 10^3/uL (134-434); RBC 2.95 M/mm3 (4.00-5.60); RDW 13.8 % (11.9-15.9); WHITE BLOOD COUNT 5.8 K/mm3 (4.0-10.0)
[2023-08-21 13:32] LABS: INR 0.97 (0.83-1.09); PROTHROMBIN TIME (PATIENT) 11.3 SEC (9.7-13.0)
[2023-08-21 13:35] LABS: ACTIVATED PTT 31.4 SECONDS (25.2-36.5); POTASSIUM 4.6 mmol/L (3.5-5.1)
[2023-08-21 13:37] LABS: BLOOD UREA NITROGEN 28.8 mg/dL (7-18)
[2023-08-21 13:38] LABS: ALBUMIN 3.8 g/dl (3.4-5.0); MAGNESIUM 2.3 mg/dL (1.8-2.4)
[2023-08-21 13:43] LABS: BILIRUBIN,TOTAL 0.6 mg/dL (0.2-1); TOT PROT 7.4 g/dl (6.4-8.2)
[2023-08-21 13:45] LABS: CREATININE 6.5 mg/dL (0.55-1.3)
== END 2023-08-21 17:45 | disposition left against medical advice (07) ==
LOC: JER 10:39
DX: R07.2 Precordial pain (principal); R25.2 Cramp and spasm; R53.1 Weakness; R53.83 Other fatigue; I12.0 Hypertensive chronic kidney disease with stage 5 chronic kidney disease or end stage renal disease; N18.6 End stage renal disease; Z99.2 Dependence on renal dialysis; R60.0 Localized edema; Z20.822 Contact with and (suspected) exposure to COVID-19
CPT/HCPCS: 0241U-QW; 36415; 71046-TC-FY; 80053; 83735; 84484; 85025; 85610; 85730; 93005; 93010; 99285-25